=== PATIENT | female | born 1960 | race Caucasian/White ===

== ENCOUNTER → 2018-05-18 13:42 | Outpatient (CLI) | payer MEDICARE, MEDICAID, SELFPAY ==
--- NOTE | 2018-05-18 13:44 | CA_ITS ---
PROCEDURE: 2-D M-mode and color Doppler study INDICATIONS FOR THE TEST: Chest pain COPD Heart Murmur+ Tobacco Smoking Palpitations+ Fatigue+ Syncope Edema+ Hypertension Diabetes Mellitus Rheumatic Fever+ SOB+CASTELLANOS Obesity Hyperlipidemia Family History HD+ Additional History dizziness, hx of multiple TIA's Bubble study positive for shunting with provocation PATIENT INFORMATION HEIGHT: 64 WEIGHT: 170 GENDER: Female B/P: 2-D/M-MODE INTERPRETATION: 2-D MEASUREMENTS OBSERVED VALUES IN CMS Right Ventricular Dimension (RVDd) 2.8 Interventricular Septum (Thickness)(IVsd) 0.9 Left Ventricular Internal Dimensions(LVIDd) 4.7 Left Ventricular Posterior Wall (Thickness)(LVPWd) 0.9 Aortic Root 2.7 Aortic Cusp Separation 2.0 Left Atrial Dimensions (LAD) 4.2 2D 1. Left atrium is mildly enlarged, left ventricle is normal size, there is no concentric left ventricular hypertrophy, visually estimated ejection fraction 55% with no obvious regional wall motion abnormality. 2. The right atrium and right ventricle are mildly enlarged with normal contractility. 3. There is an echo drop out area in intra atrial septum period. 4. The aortic valve is minimally thickened and fibrosed. 5. The mitral and tricuspid valvular grossly normal. 6. No significant pericardial effusion noted 7. The pulmonic valve is poorly visualized. DOPPLER INTERROGATION: Doppler interrogation of the aortic, mitral and tricuspid valvular presence of mild mitral and tricuspid regurgitation, tricuspid regurgitation jet velocity is insufficient for calculation of the right ventricular systolic pressure, there is flow across the intra-atrial septum consistent with left to right, likely secundum ASD, agitated saline contrast study IDENTIFIES RIGHT TO LEFT SHUNT. CONCLUSION: 1. Biatrial enlargement, normal left ventricular size, visually estimated ejection fraction 55% with no obvious regional wall motion abnormality. 2. Mildly enlarged right atrium and right ventricle with normal contractility. 3. Likely secundum atrial septal defect with bidirectional shunt 4. No significant pericardial effusion noted 5.A DANDY is recommended for further evalaution.
== END ==
PROVIDERS: PCP Emergency Medicine; Visit Provider Emergency Medicine
DX: R07.9 Chest pain, unspecified (principal); R53.83 Other fatigue
CPT/HCPCS: 93306

== ENCOUNTER → 2018-05-27 10:39 | Outpatient (REF) | payer MEDICARE, MEDICAID, SELFPAY ==
[2018-05-27 14:22] LABS: Amphetamine/Metha Screen,Urine Negative ng/mL (<1000); Barbiturates Screen,Urine Negative ng/mL (<200); Benzodiazepines Screen,Urine Positive ng/mL (<200); Cannabinoid Screen,Urine Negative ng/mL (<50); Cocaine Screen,Urine Negative ng/mL (<300); Methadone Screen,Urine Negative ng/mL (<300); Opiate Screen,Urine Negative ng/mL (<300); Phencyclidine Screen,Urine Negative ng/mL (<25)
== END ==
LOC: LAB 10:39
PROVIDERS: Visit Provider Emergency Medicine
DX: Z79.899 Other long term (current) drug therapy (principal); R82.99 Other abnormal findings in urine
CPT/HCPCS: 80305; 87086; 87088; 87186

== ENCOUNTER → 2018-06-23 14:28 | Outpatient (REF) | payer MEDICARE, MEDICAID, SELFPAY ==
[2018-06-23 19:18] LABS: Amphetamine/Metha Screen,Urine Negative ng/mL (<1000); Barbiturates Screen,Urine Negative ng/mL (<200); Benzodiazepines Screen,Urine Positive ng/mL (<200); Cannabinoid Screen,Urine Negative ng/mL (<50); Cocaine Screen,Urine Negative ng/mL (<300); Methadone Screen,Urine Negative ng/mL (<300); Opiate Screen,Urine Positive ng/mL (<300); Phencyclidine Screen,Urine Negative ng/mL (<25)
== END ==
LOC: LAB 14:28
PROVIDERS: Visit Provider Emergency Medicine
DX: Z79.899 Other long term (current) drug therapy (principal)
CPT/HCPCS: 80305

== ENCOUNTER → 2018-08-26 15:10 | Outpatient (CLI) | payer MEDICARE, MEDICAID, SELFPAY ==
[2018-08-26 15:53] LABS: Amphetamine/Metha Screen,Urine Negative ng/mL (<1000); Barbiturates Screen,Urine Negative ng/mL (<200); Benzodiazepines Screen,Urine Negative ng/mL (<200); Cannabinoid Screen,Urine Negative ng/mL (<50); Cocaine Screen,Urine Negative ng/mL (<300); Methadone Screen,Urine Negative ng/mL (<300); Opiate Screen,Urine Positive ng/mL (<300); Phencyclidine Screen,Urine Negative ng/mL (<25)
== END ==
PROVIDERS: Visit Provider Emergency Medicine
DX: Z79.899 Other long term (current) drug therapy (principal)
CPT/HCPCS: 80305

== ENCOUNTER 2019-03-17 15:54 | Observation (INO) ==
[2019-03-17 16:58] LABS: Basophils % 0.7 % (0.1-2.0); Hematocrit 35.5 % (37.0-47.0); Hemoglobin 11.3 g/dL (12.2-16.2); Lymphocytes # 0.7 K/mm3 (0.7-4.5); Lymphocytes % 16.5 % (10-50); Mean Corpuscular HGB Conc 31.9 g/dL (31.8-35.4); Mean Corpuscular Volume 97.3 fl (81-99); Mean Platelet Volume 8.5 fl (7.4-10.4); Monocytes # 0.3 K/mm3 (0.1-1.0); Monocytes % 6.9 % (1.7-9.3); Neutrophils # 3.2 K/mm3 (1.8-7.8); Neutrophils % 74.9 % (37.0-80.0); Platelet Count 80 K/mm3 (142-424); Red Blood Count 3.65 M/mm3 (4.20-5.40); Red Cell Distribution Width 14.1 % (11.5-17.5); White Blood Count 4.3 K/mm3 (4.8-10.8)
[2019-03-17 17:11] LABS: Anion Gap 12.2 mEq/L (5-15); Blood Urea Nitrogen 15 mg/dL (7-18); Calcium 7.8 mg/dL (8.5-10.1); Carbon Dioxide 25 mmol/L (21.0-32.0); Chloride 108 mmol/L (98-107); Glucose 155 mg/dL (74-106); Sodium 142 mmol/L (136-145)
--- NOTE | 2019-03-17 19:39 | Emergency Department Note ---
ED Disposition Clinical Impression: Cough, Fever chills, PAC (premature atrial contraction), Palpitations Disposition: Home, Self-Care Condition on Discharge: Good Referrals: Joaquín Childress MD [Primary Care Provider] - Time of Disposition: 20:43 - Critical Care Critical Care Time: No Attestation: On 03/17/19, the high probability of a clinically significant, sudden or life threatening deterioration of the following system(s) required my full and direct attention, intervention and personal management. The time I documented below is in addition to time spent performing reported procedures but includes the following listed in this critical care notation. Medical Decision Making - Medical Records Medical records reviewed: Yes: I reviewed the patient's medical records. - Espinoza Inquiry Pt receiving controlled substance: No Espinoza was queried for this patient: No Vital Signs: 03/17/19 16:10 03/17/19 17:04 03/17/19 18:18 Temperature 98.1 F Temperature Source Oral Pulse Rate [Right Brachial] 86 83 82 Respiratory Rate 18 Blood Pressure [Right Arm] 107/70 L 118/63 Blood Pressure Mean [Right Arm] 82 81 Blood Pressure Source [Right Arm] Automatic Cuff Automatic Cuff Blood Pressure Position [Right Arm] Sitting Sitting 02 Sat by Pulse Oximetry 96 95 98 Oxygen Delivery Method Room Air Room Air Room Air 03/17/19 19:42 03/17/19 20:00 Temperature Temperature Source Pulse Rate [Right Brachial] 85 81 Respiratory Rate 18 Blood Pressure [Right Arm] 126/67 135/75 Blood Pressure Mean [Right Arm] 86 95 Blood Pressure Source [Right Arm] Automatic Cuff Automatic Cuff Blood Pressure Position [Right Arm] Sitting Supine 02 Sat by Pulse Oximetry 99 98 Oxygen Delivery Method Room Air - Lab Data Lab results reviewed: Yes: I reviewed the patient's lab results. Lab Results 03/17/19 16:03: WBC 4.3 L, RBC 3.65 L, Hgb 11.3 L, Hct 35.5 L, MCV 97.3, MCH 31.0, MCHC 31.9, RDW 14.1, Plt Count 80 L, MPV 8.5, Neut % (Auto) 74.9, Lymph % (Auto) 16.5, [place] % (Auto) 6.9, Eos % (Auto) 1.0, Baso % (Auto) 0.7, Neut # (Auto) 3.2, Lymph # (Auto) 0.7, [place] # (Auto) 0.3, Eos # (Auto) 0.0, Baso # ( Auto) 0.0 03/17/19 16:03: Sodium 142, Potassium 3.2 L, Chloride 108 H, Carbon Dioxide 25, Anion Gap 12.2, BUN 15, Creatinine 0.70, Estimated Creat Clear 107, Estimated GFR 85, Est GFR ( Amer) 103, Glucose 155 H, Calcium 7.8 L, Troponin I < 0.02 Result diagrams: 03/17/19 16:03 03/17/19 16:03 Orders (Tests/Meds): ED MEDICATIONS Discontinued Medications Generic Name Dose Route Start Last Admin Trade Name Freq PRN Reason Stop Dose Admin Levofloxacin 500 mg 03/17/19 20:39 Levaquin 500mg Tab PO 03/17/19 20:40 ONCE ONE Protocol Metoprolol Tartrate 25 mg 03/17/19 20:39 Lopressor 50mg Tablet PO 03/17/19 20:40 ONCE ONE ORDERS Category Date Time Status ECG Request by /Nse Stat Y 03/17/19 16:50 Ordered General Adult HPI - General Chief complaint: Fever Stated complaint: palpitations Time Seen by Provider: 03/17/19 19:35 Mode of Arrival: EMS Source of Information: Patient Limitations: No Limitations Description of Symptoms (Recalled from ER Triage Doc. by RN): cp burning in chest, shoulder; fever - History of Present Illness HPI narrative: palpitations, cough, "fever for few days". Palpitations, all symptoms essentially have been going on 3 days or more - Related Data Previous Rx's Medication Instructions Recorded aspirin 81 mg tablet,delayed 81 mg PO DAILY #90 tab 07/28/18 release fluoxetine 20 mg capsule 20 mg PO DAILY #90 cap 07/28/18 pantoprazole 40 mg tablet,delayed 40 mg PO DAILY #90 tab 07/28/18 release oxycodone 5 mg tablet 5 mg PO BID PRN #60 tab 08/26/18 Allergies Allergy/AdvReac Type Severity Reaction Status Date / Time Sulfa (Sulfonamide Allergy Intermediate Verified 08/26/18 11:11 Antibiotics) [SULFA (SULFONAMIDE ANTIBIOTICS)] [facility] History - Hepatitis A Screen Drug use history?: No High risk sexual behaviors?: No History of sexually transmitted infection?: No Currently employed?: No Childcare worker?: No Do you have indoor plumbing?: Yes Do you have electricity?: Yes Attestation statement:: This patient has been screened for Hepatitis A risk factors. I have reviewed the patient's past medical history: Yes Medical History: Reports:: Gastroesophageal Reflux Disease(GERD), Heart Murmur, Hepatitis, Transient Ischemic Attacks (TIA), Ulcer Other Medical History: Reports: Other Other Surgeries: Yes: Cholecystectomy, , Tubal Ligation Amputation: No Fractures: No - Social History Educational Level: Completed High School Smoking Status: Never smoker Alcohol Intake: never Substance Use Type: denies use Occupational Status: unemployed - Psychiatric History Expresses thoughts of harming self/others: None Suicide Plan Description: No Plan Family Hx:: Diabetes, Heart Attack, Cancer, Hypertension, Stroke, Thyroid Disorder ROS Obtained: Yes All systems reviewed & no additional complaints - Constitutional Constitutional: Reports chills, Reports fever(s) - Eyes Eyes: Denies change in vision - ENT Ears, Nose, Mouth, and Throat: Denies sinus pressure, Denies sore throat, Denies throat swelling, Denies ringing in the ears - Cardiovascular Cardiovascular: Denies chest pain, Denies chest pain at rest, Denies chest pain with activity, Denies leg pain with activity, Denies diaphoresis, Denies dyspnea, Reports irregular heart rhythm, Denies rapid heart rate - Respiratory Respiratory: No chest congestion, No cough, No dyspnea on exertion, No pain on inspiration - Gastrointestinal Gastrointestingal: Denies: abdominal pain - Musculoskeletal Musculoskeletal: Denies joint pain, Denies joint stiffness, Denies joint swelling - Integumentary/Breasts Skin/Breast: Denies skin pain, Denies sores - Neurologic Neurologic: Denies abnormal speech, Denies behavioral changes, Denies burning sensations, Denies confusion - Hematologic/Lymphatic Henatologic/Lymphatic: Denies easy bleeding, Denies easy bruising Physical Exam - General General appearance: alert, in no apparent distress - Head Head exam: atraumatic, normocephalic, normal inspection - Eye Eye exam: Present: normal appearance, PERRL, EOMI - Neck Neck exam: Present: normal inspection - Chest Chest inspection: Present: normal inspection, symmetric chest wall rise. Absent: tenderness - Respiratory Respiratory exam: Present: normal lung sounds bilaterally. Absent: respiratory distress - Cardiovascular Cardiovascular exam: Present: regular rate, normal rhythm, other (occasiona pac's which appear to disturb her.). Absent: JVD - Abdominal Exam Abdominal exam: Present: soft, normal bowel sounds. Absent: distention, tenderness, guarding - Extremities Exam Extremities exam: Present: normal inspection, full ROM, normal capillary refill. Absent: calf tenderness - Neurological Exam Neurological exam: Present: alert, oriented X3 - Psychiatric Psychiatric exam: Present: normal affect, normal mood - Skin Skin exam: Present: warm, dry, intact, normal color - Lymphatic Lymphatic Findings: no adenopathy
[2019-03-18 06:50] LABS: Basophils % 0.7 % (0.1-2.0); Eosinophils % 0.6 % (0.1-12.0); Hematocrit 34.3 % (37.0-47.0); Hemoglobin 11.1 g/dL (12.2-16.2); Lymphocytes # 1.3 K/mm3 (0.7-4.5); Lymphocytes % 26.8 % (10-50); Mean Corpuscular HGB Conc 32.5 g/dL (31.8-35.4); Mean Corpuscular Volume 97.5 fl (81-99); Monocytes # 0.4 K/mm3 (0.1-1.0); Monocytes % 9.4 % (1.7-9.3); Neutrophils # 2.9 K/mm3 (1.8-7.8); Neutrophils % 62.6 % (37.0-80.0); Platelet Count 77 K/mm3 (142-424); Red Blood Count 3.51 M/mm3 (4.20-5.40); Red Cell Distribution Width 14.2 % (11.5-17.5); White Blood Count 4.7 K/mm3 (4.8-10.8)
[2019-03-18 07:02] LABS: Anion Gap 12.3 mEq/L (5-15); Calcium 7.4 mg/dL (8.5-10.1); Chol/HDL Ratio 2.6 (1-3.5)
--- NOTE | 2019-03-18 07:22 | Pharmacy Consult Notes ---
[facility] Pharmacy VTE Monitoring - Patient Demographics Admission date: 03/17/19 Report Date: 03/18/19 Time: 07:22 Allergies/Adverse Reactions: Patient Allergies Sulfa (Sulfonamide Antibiotics) [SULFA (SULFONAMIDE ANTIBIOTICS)] Allergy (Intermediate, Verified 08/26/18 11:11) Height: 1.68 m Weight: 85.842 kg Patient Problems: Current Active Problems (Updated 03/17/19 @ 20:43 by Joaquín Hightower MD) Cough (Acute) Fever chills (Acute) PAC (premature atrial contraction) (Acute) Palpitations (Acute) - VTE Risk Labs: VTE Related Lab Results Hgb 11.3 g/dL (12.2-16.2) L 03/17/19 16:03 Hct 35.5 % (37.0-47.0) L 03/17/19 16:03 Plt Count 80 K/mm3 (142-424) L 03/17/19 16:03 BUN 10 mg/dL (7-18) D 03/18/19 06:20 Creatinine 0.65 mg/dL (0.55-1.02) 03/18/19 06:20 Estimated Creat Clear 125 mL/min (50-200) 03/18/19 06:20 Was VTE Risk Assessment Performed: Yes VTE Score: 6 VTE Risk Level: Moderate Risk Clinical Trial Participant: No - Prophylaxis VTE Prophylaxis Ordered?: Yes Types of VTE Prophylaxis: TEDS Knee High
--- NOTE | 2019-03-18 08:47 | Consult Report ---
History of Present Illness Consult date: 03/18/19 Requesting physician: Joaquín Childress Consult reason: shortness of breath Chief complaint: SOA Additional Medical History:: 1. Secundum ASD A. Echo, 04/2018, 1. Biatrial enlargement, normal left ventricular size, visually estimated ejection fraction 55% with no obvious regional wall motion abnormality. 2. Mildly enlarged right atrium and right ventricle with normal contractility. 3. Likely secundum atrial septal defect with bidirectional shunt 4. No significant pericardial effusion noted 5.A DANDY is recommended for further evalaution. B. DANDY, 05/2018, 1. Biatrial enlargement, normal left ventricular size, visually estimated ejection fraction 55% in the obtained views with no regional wall motion abnormality. 2. Hemodynamically significant second atrial septal defect present, with bidirectional second, mildly enlarged right ventricle with normal contractility. 3. The aortic sclerosis without aortic stenosis aortic insufficiency. 4. Mild mitral and tricuspid regurgitation 5. No significant pericardial effusion noted 2. GERD 3. History of multiple "mini strokes" likely related to ASD 4. Pancytopenia History of present illness: 58-year-old white female with history of ASD (for which she was referred for repair last year but never followed through) was admitted for increasing shortness of breath with associated chest discomfort, arm pain and bilateral lower extremity edema. Patient states symptoms occur with activity and improve with rest. She has noted increasing frequency and severity of symptoms over the last couple of months with associated lower extremity edema. Patient was admitted through the ER for evaluation. Overnight, troponins have returned normal. EKG shows sinus rhythm with left anterior fascicular block. Cardiology consulted for evaluation and recommendations. [facility] History Medical History: Reports:: Congestive Heart Failure, Gastroesophageal Reflux Disease(GERD), Heart Murmur, Hepatitis, MRSA (spider bite), Transient Ischemic Attacks (TIA), Ulcer Denies:: Cancer, Diabetes Mellitus Type 1, Diabetes Mellitus Type 2 *Have you ever received a pneumonia vaccine?: Yes *Have you received a flu vaccine this season?: No Other Medical History: Reports: Arthritis, Liver Disease (cirrhosis), Other Laterality Cases: Left: Total Knee Replacement Other Surgeries: Yes: Cholecystectomy, , Tubal Ligation Amputation: No Fractures: Yes (right leg and ankle) - *Social History Educational Level: Completed GED/General Educational Development Smoking Status: Never smoker Alcohol Intake: never Substance Use Type: denies use *Occupational Status:: disabled Housing: apartment Household Members: significant other *Travel in the last 8 weeks: None - Psychiatric History Expresses thoughts of harming self/others: None Suicide Plan Description: No Plan Family Hx:: Diabetes, Heart Attack, Cancer, Hypertension, Stroke, Thyroid Disorder Meds Home Medications Medication Instructions Recorded Confirmed Type pantoprazole 40 mg tablet,delayed 40 mg PO DAILY #90 tab 07/28/18 03/17/19 Rx release Ondansetron HCl [Zofran 4mg Tab] 4 mg PO Q6HP PRN 03/17/19 03/18/19 History Aspirin [Aspirin 81mg EC Tab] 81 mg PO DAILY 03/18/19 03/18/19 History Fluoxetine HCl [Prozac 20mg 20 mg PO DAILY 03/18/19 03/18/19 History Capsule] Oxycodone HCl [OxyIR 5mg tablet] 5 mg PO BID 03/18/19 03/18/19 History Allergies Allergy/AdvReac Type Severity Reaction Status Date / Time Sulfa (Sulfonamide Allergy Intermediate Verified 08/26/18 11:11 Antibiotics) [SULFA (SULFONAMIDE ANTIBIOTICS)] Review of Systems - *Cardiovascular Reports chest pain, Reports shortness of breath with activity, Reports leg swelling - *Respiratory Reports shortness of breath, Reports shortness of breath with activity - *Gastrointestinal Denies abdominal pain, Denies loose stools, Denies vomiting - *Genitourinary Denies blood in urine - *Musculoskeletal Denies joint pain, Denies back pain - *Neurologic Denies abnormal speech, Denies behavioral changes, Denies burning sensations, Denies confusion Exam Vital signs and Labs for Last 24 Hours: Temp Pulse Resp BP Pulse Ox 98.2 F 72 15 130/70 97 03/18/19 07:41 03/18/19 07:41 03/18/19 07:41 03/18/19 07:41 03/18/19 07:41 Laboratory Results - last 24 hr 03/17/19 16:03: WBC 4.3 L, RBC 3.65 L, Hgb 11.3 L, Hct 35.5 L, MCV 97.3, MCH 31.0, MCHC 31.9, RDW 14.1, Plt Count 80 L, MPV 8.5, Neut % (Auto) 74.9, Lymph % (Auto) 16.5, [place] % (Auto) 6.9, Eos % (Auto) 1.0, Baso % (Auto) 0.7, Neut # (Auto) 3.2, Lymph # (Auto) 0.7, [place] # (Auto) 0.3, Eos # (Auto) 0.0, Baso # (Auto) 0.0 03/17/19 16:03: Sodium 142, Potassium 3.2 L, Chloride 108 H, Carbon Dioxide 25, Anion Gap 12.2, BUN 15, Creatinine 0.70, Estimated Creat Clear 107, Estimated GFR 85, Est GFR ( Amer) 103, Glucose 155 H, Calcium 7.8 L, Troponin I < 0.02 03/18/19 00:27: Troponin I < 0.02 03/18/19 03:25: Troponin I < 0.02 03/18/19 06:20: WBC 4.7 L, RBC 3.51 L, Hgb 11.1 L, Hct 34.3 L, MCV 97.5, MCH 31.7 H, MCHC 32.5, RDW 14.2, Plt Count 77 L, MPV 8.0, Neut % (Auto) 62.6, Lymph % (Auto) 26.8, [place] % (Auto) 9.4 H, Eos % (Auto) 0.6, Baso % (Auto) 0.7, Neut # (Auto) 2.9, Lymph # (Auto) 1.3, [place] # (Auto) 0.4, Eos # (Auto) 0.0, Baso # (Auto) 0.0 03/18/19 06:20: Sodium 142, Potassium 3.3 L, Chloride 108 H, Carbon Dioxide 25, Anion Gap 12.3, BUN 10 D, Creatinine 0.65, Estimated Creat Clear 125, Estimated GFR 93, Est GFR ( Amer) 113, Glucose 82 D, Calcium 7.4 L, Magnesium 1.4, Triglycerides 46, Cholesterol 108 L, LDL Cholesterol 58, VLDL Cholesterol 9, HDL Cholesterol 41, Cholesterol/HDL Ratio 2.6 I & O for Last 24 hours: Intake & Output 03/15/19 03/16/19 03/17/19 03/18/19 11:59 11:59 11:59 11:59 Intake Total 738 / 738 Output Total 300 / 300 Balance 438 / 438 Weight 189 lb 4 oz - *Routine HEENT Exam Head: Present: normocephalic Eye: Present: EOMI, PERRL ENT: Present: mucous membranes moist - *Routine Neck Exam Present: supple. Absent: JVD, carotid bruit - *Routine Respiratory Exam Present: CTA bilaterally. Absent: accessory muscle use, rales, rhonchi, wheezes - *Routine Cardiovascular Exam Present: RRR, murmur. Absent: gallop, rubs - *Routine Abdominal Exam Present: soft. Absent: tenderness, distended, guarding - *Routine Extremities Exam Present: edema. Absent: calf tenderness - *Routine Neurological Exam Present: alert, oriented X3, moving all extremities Assessment and Plan (1) Chest pain Current visit: No Status: Acute Qualifiers: Chest pain type: other chest pain Qualified Code(s): R07.89 - Other chest pain; R07.8 - Other chest pain Category: Medical Code(s): R07.9 - Chest pain, unspecified (2) Dyspnea Current visit: No Status: Acute Qualifiers: Dyspnea type: other forms of dyspnea Qualified Code(s): R06.09 - Other forms of dyspnea Category: Medical Code(s): R06.00 - Dyspnea, unspecified (3) Edema Current visit: No Status: Acute Qualifiers: Edema type: localized Qualified Code(s): R60.0 - Localized edema Category: Medical Code(s): R60.9 - Edema, unspecified (4) Atrial septal defect Current visit: No Status: Chronic Category: Medical Code(s): Q21.1 - Atrial septal defect (5) GERD (gastroesophageal reflux disease) Current visit: No Status: Chronic Category: Medical Code(s): K21.9 - Gastro-esophageal reflux disease without esophagitis (6) History of TIA (transient ischemic attack) Current visit: No Status: Chronic Category: Medical Code(s): Z86.73 - Per arden history of transient ischemic attack (TIA), and cerebral infarction without residual deficits (7) Hypokalemia Current visit: Yes Status: Acute Category: Medical Code(s): E87.6 - Hypokalemia (8) Pancytopenia Current visit: Yes Status: Acute Category: Medical Code(s): D61.818 - Other pancytopenia (9) Hypocalcemia Current visit: Yes Status: Acute Category: Medical Code(s): E83.51 - Hypocalcemia (10) Abnormal EKG Current visit: Yes Status: Acute Category: Medical Code(s): R94.31 - Abnormal electrocardiogram [ECG] [EKG] - Assessment and plan all Dx Assessment and Plan for all problems:: 1. Chest pain and shortness of breath with history of atrial septal defect, concern for coronary artery disease on top of suspected right heart failure related to progression of ASD. Recommend proceeding with right and left heart catheterization in preparation for referral for surgical correction of her ASD. 2. Echocardiogram has been ordered and performed with results pending at this time. 3. Replace potassium 4. Further recommendations to follow pending above results
[2019-03-18 09:39] LABS: Microscopic, Urine URINE MICROSCOPIC (MICROSCOPIC)
[2019-03-18 09:45] LABS: Appearance,Urine CLOUDY (Clear); Blood, Urine 3+ (Negative); Color,Urine YELLOW (Yellow); Glucose,Urine (UA) Negative (Negative); Ketones,Urine Negative (Negative); Leukocyte Esterase,Urine 3+ (Negative); Protein,Urine 1+ (Negative); Urobilinogen,Urine >=8.0 EU/dl (0.2)
[2019-03-18 10:10] LABS: Bilirubin,Urine Negative (Negative)
[2019-03-18 10:11] LABS: WBC,Urine 20-50 #/hpf (0-3)
[2019-03-18 10:12] LABS: Bacteria,Urine 2+ /lpf; Squamous Epithelial Cell,Urine Occasional #/hpf (0-5)
[2019-03-18 10:13] LABS: Mucus,Urine Trace /lpf
--- NOTE | 2019-03-18 16:02 | Cardiology Report ---
PROCEDURE: 2-D M-mode and color Doppler study INDICATIONS FOR THE TEST: Chest pain + COPD Heart Murmur+ Tobacco Smoking Palpitations+ Fatigue Syncope Edema+ Hypertension Diabetes Mellitus Rheumatic Fever+ SOB+CASTELLANOS Obesity Hyperlipidemia+ Family History HD Additional History TIA, +B/S 05/18/18 APPT SET UP WITH JAMESON RAYA DID NOT KEEP APPT PATIENT INFORMATION HEIGHT: 62 WEIGHT:175 GENDER: Female B/P:118/63 2-D/M-MODE INTERPRETATION: 2-D MEASUREMENTS OBSERVED VALUES IN CMS Right Ventricular Dimension (RVDd) 2.7 Interventricular Septum (Thickness)(IVsd) 1.0 Left Ventricular Internal Dimensions(LVIDd) 4.9 Left Ventricular Posterior Wall (Thickness)(LVPWd) 0.7 Aortic Root 2.8 Aortic Cusp Separation 1.9 Left Atrial Dimensions (LAD) 4.5 2D 1. Left atrium is mildly enlarged, left ventricle is normal size, left ventricle wall thickness is upper limit of normal, visually estimated ejection fraction 55% with no regional wall motion abnormality. 2. The right atrium and right ventricle are moderately enlarged, contractility of the right ventricle is normal. 3. The aortic valve is thickened and calcified leaflet continue to display mobility. 4. The mitral and tricuspid valve is minimally thickened. 5. The pulmonic valve is poorly visualized. 6. There is no significant pericardial effusion noted. DOPPLER INTERROGATION: 1. The aortic outflow velocities within normal range, there is no aortic stenosis aortic insufficiency. 2. The mitral inflow velocity within normal range, there is no mitral stenosis, there is mild mitral regurgitation. 3. The pulmonic outflow velocities increased, there is no pulmonic stenosis. 4. There is mild tricuspid regurgitation noted, tricuspid regurgitation jet velocity is inadequate for calculation of the right ventricular systolic pressure 5. There is flow across the intra-atrial septum is suggestive of atrial septal defect. CONCLUSION: 1. Normal left ventricular size, preserved left ventricular systolic function, visually estimated ejection fraction 55% with no regional wall motion abnormality. Grade 1 diastolic dysfunction seen with tissue Doppler evidence of raised left atrial pressure. 2. Moderately enlarged right atrium and right ventricle, with increased velocities across the pulmonic valve, there is likely secondary to significant secundum atrial septal defect with left to right shunt. 3. Mild mitral and tricuspid regurgitation 4. No significant pericardial effusion noted.
--- NOTE | 2019-03-18 16:50 | History & Physical Report ---
*Admission Date: 03/17/19 *Chief complaint: Chest Pain: Burning in chest, shoulder; fever *History of present illness: Patient resting quietly in bed, awakens easily. denies CP or SOA at present. Denies other concerns/needs. 58-year-old white female with history of ASD (for which she was referred for repair last year but never followed through) was admitted for increasing shortness of breath with associated chest discomfort, arm pain and bilateral lower extremity edema. Patient states symptoms occur with activity and improve with rest. She has noted increasing frequency and severity of symptoms over the last couple of months with associated lower extremity edema. Patient was admitted through the ER for evaluation. Overnight, troponins have returned normal. EKG shows sinus rhythm with left anterior fascicular block. Cardiology consulted for evaluation and recommendations. (Per Nida Telles) [facility] History I have reviewed the patient's past medical history: Yes Medical History: Reports:: Congestive Heart Failure, Gastroesophageal Reflux Disease(GERD), Heart Murmur, Hepatitis, MRSA (spider bite), Transient Ischemic Attacks (TIA), Ulcer Denies:: Cancer, Diabetes Mellitus Type 1, Diabetes Mellitus Type 2 *Have you ever received a pneumonia vaccine?: Yes *Have you received a flu vaccine this season?: No Other Medical History: Reports: Arthritis, Liver Disease (cirrhosis), Other Laterality Cases: Left: Total Knee Replacement Other Surgeries: Yes: Cholecystectomy, , Tubal Ligation Amputation: No Fractures: Yes (right leg and ankle) - *Social History Educational Level: Completed GED/General Educational Development Smoking Status: Never smoker Alcohol Intake: never Substance Use Type: denies use *Occupational Status:: disabled Housing: apartment Household Members: significant other *Travel in the last 8 weeks: None - Psychiatric History Expresses thoughts of harming self/others: None Suicide Plan Description: No Plan Family Hx:: Diabetes, Heart Attack, Cancer, Hypertension, Stroke, Thyroid Disorder Review of Systems - Review of Systems Review of systems:: pertinent systems reviewed and negative unless documented below - Constitutional Reports fever(s), Denies anorexia, Denies chills - Eyes Denies blurry vision, Denies change in vision - ENT Denies abnormal hearing, Denies pain with swallowing - *Cardiovascular Reports chest pain, Reports chest pain with activity, Reports shortness of breath with activity - *Respiratory Reports shortness of breath with activity - *Gastrointestinal Denies abdominal pain - *Musculoskeletal Denies abnormal walking, Denies joint pain - *Neurologic Denies abnormal speech, Denies behavioral changes, Denies burning sensations, Denies confusion - Psychiatric Denies abnormal sleep pattern, Denies lack of enjoyment - Endocrine Denies cold intolerance, Denies heat intolerance - Hematologic/Lymphatic Denies easy bleeding, Denies enlarged lymph nodes - Allergic/Immunologic Denies lip swelling, Denies throat swelling Meds Home Medications Medication Instructions Recorded Confirmed Type pantoprazole 40 mg tablet,delayed 40 mg PO DAILY #90 tab 07/28/18 03/17/19 Rx release Ondansetron HCl [Zofran 4mg Tab] 4 mg PO Q6HP PRN 03/17/19 03/18/19 History Aspirin [Aspirin 81mg EC Tab] 81 mg PO DAILY 03/18/19 03/18/19 History Fluoxetine HCl [Prozac 20mg 20 mg PO DAILY 03/18/19 03/18/19 History Capsule] Oxycodone HCl [OxyIR 5mg tablet] 5 mg PO BID 03/18/19 03/18/19 History Allergies Allergy/AdvReac Type Severity Reaction Status Date / Time Sulfa (Sulfonamide Allergy Intermediate Verified 08/26/18 11:11 Antibiotics) [SULFA (SULFONAMIDE ANTIBIOTICS)] Exam Vital signs and Labs for Last 24 Hours: Temp Pulse Resp BP Pulse Ox 98.8 F 81 16 132/71 97 03/18/19 11:40 03/18/19 11:40 03/18/19 11:40 03/18/19 11:40 03/18/19 11:40 Laboratory Results - last 24 hr 03/17/19 16:03: WBC 4.3 L, RBC 3.65 L, Hgb 11.3 L, Hct 35.5 L, MCV 97.3, MCH 31.0, MCHC 31.9, RDW 14.1, Plt Count 80 L, MPV 8.5, Neut % (Auto) 74.9, Lymph % (Auto) 16.5, [place] % (Auto) 6.9, Eos % (Auto) 1.0, Baso % (Auto) 0.7, Neut # (Auto) 3.2, Lymph # (Auto) 0.7, [place] # (Auto) 0.3, Eos # (Auto) 0.0, Baso # (Auto) 0.0 03/17/19 16:03: Sodium 142, Potassium 3.2 L, Chloride 108 H, Carbon Dioxide 25, Anion Gap 12.2, BUN 15, Creatinine 0.70, Estimated Creat Clear 107, Estimated GFR 85, Est GFR ( Amer) 103, Glucose 155 H, Calcium 7.8 L, Troponin I < 0.02 03/18/19 00:27: Troponin I < 0.02 03/18/19 03:25: Troponin I < 0.02 03/18/19 06:20: WBC 4.7 L, RBC 3.51 L, Hgb 11.1 L, Hct 34.3 L, MCV 97.5, MCH 31.7 H, MCHC 32.5, RDW 14.2, Plt Count 77 L, MPV 8.0, Neut % (Auto) 62.6, Lymph % (Auto) 26.8, [place] % (Auto) 9.4 H, Eos % (Auto) 0.6, Baso % (Auto) 0.7, Neut # (Auto) 2.9, Lymph # (Auto) 1.3, [place] # (Auto) 0.4, Eos # (Auto) 0.0, Baso # (Auto) 0.0 03/18/19 06:20: Sodium 142, Potassium 3.3 L, Chloride 108 H, Carbon Dioxide 25, Anion Gap 12.3, BUN 10 D, Creatinine 0.65, Estimated Creat Clear 125, Estimated GFR 93, Est GFR ( Amer) 113, Glucose 82 D, Calcium 7.4 L, Magnesium 1.4, Triglycerides 46, Cholesterol 108 L, LDL Cholesterol 58, VLDL Cholesterol 9, HDL Cholesterol 41, Cholesterol/HDL Ratio 2.6 03/18/19 09:33: Urine Color Yellow, Urine Appearance Cloudy, Urine pH 7.0, Ur Specific [place] 1.010, Urine Protein 1+, Urine Glucose (UA) Negative, Urine Ketones Negative, Urine Blood 3+, Urine Nitrate Positive, Urine Bilirubin Negative, Urine Urobilinogen >=8.0, Ur Leukocyte Esterase 3+ A, Urine RBC 5-10, Urine WBC 20-50, Ur Squamous Epith Cells Occasional, Urine Bacteria 2+, Urine Mucus Trace 03/18/19 13:37: ABG O2 Sat (Measured) 88.0 L, POC VBG O2 Sat (Keila) 90.7 H I & O for Last 24 hours: Intake & Output 03/15/19 03/16/19 03/17/19 03/18/19 23:59 23:59 23:59 23:59 Intake Total 1218 / 1218 Output Total 850 / 850 Balance 368 / 368 Weight 189 lb 189 lb 4 oz - Constitutional no acute distress - *Routine HEENT Exam Head: Present: normocephalic, atraumatic. Absent: tenderness of temporal artery Eye: Present: EOMI, PERRL. Absent: conjunctival icterus, nystagmus ENT: Present: mucous membranes dry. Absent: sinus tenderness - *Routine Neck Exam Present: trachea midline. Absent: JVD, tracheal deviation - *Routine Respiratory Exam Present: CTA bilaterally. Absent: accessory muscle use, rales - *Routine Cardiovascular Exam Present: RRR, murmur - *Routine Abdominal Exam Present: soft, normoactive bowel sounds. Absent: tenderness, firm - *Routine Extremities Exam Present: edema, pulses intact. Absent: cyanosis, pallor - Routine Back/Spine/Pelvis Exam Back/Spine: Present: full ROM. Absent: CVA tenderness, vertebral tenderness - *Routine Skin Exam Present: intact. Absent: cyanosis, erythema - *Routine Neurological Exam Present: alert, oriented X3, CN II-XII intact - Routine Psychiatric Exam Present: normal affect, normal thought process. Absent: suicidal ideation, auditory hallucinations Assessment and Plan (1) Chest pain Current visit: No Status: Acute Qualifiers: Chest pain type: other chest pain Qualified Code(s): R07.89 - Other chest pain; R07.8 - Other chest pain Category: Medical Code(s): R07.9 - Chest pain, unspecified (2) Dyspnea Current visit: No Status: Acute Qualifiers: Dyspnea type: other forms of dyspnea Qualified Code(s): R06.09 - Other forms of dyspnea Category: Medical Code(s): R06.00 - Dyspnea, unspecified (3) Edema Current visit: No Status: Acute Qualifiers: Edema type: localized Qualified Code(s): R60.0 - Localized edema Category: Medical Code(s): R60.9 - Edema, unspecified (4) Atrial septal defect Current visit: No Status: Chronic Category: Medical Code(s): Q21.1 - Atrial septal defect (5) GERD (gastroesophageal reflux disease) Current visit: No Status: Chronic Category: Medical Code(s): K21.9 - Gastro-esophageal reflux disease without esophagitis (6) History of TIA (transient ischemic attack) Current visit: No Status: Chronic Category: Medical Code(s): Z86.73 - Personal history of transient ischemic attack (TIA), and cerebral infarction without residual deficits (7) Hypokalemia Current visit: Yes Status: Acute Category: Medical Code(s): E87.6 - Hypokalemia (8) Pancytopenia Current visit: Yes Status: Acute Category: Medical Code(s): D61.818 - Other pancytopenia (9) Hypocalcemia Current visit: Yes Status: Acute Category: Medical Code(s): E83.51 - Hypocalcemia (10) Abnormal EKG Current visit: Yes Status: Acute Category: Medical Code(s): R94.31 - Abnormal electrocardiogram [ECG] [EKG] - Assessment and plan all Dx Assessment and Plan for all problems:: Rounded with Dr. Childress and all orders per Dr. Childress Cards has seen and recommends: 1. Chest pain and shortness of breath with history of atrial septal defect, concern for coronary artery disease on top of suspected right heart failure related to progression of ASD. Recommend proceeding with right and left heart catheterization in preparation for referral for surgical correction of her ASD. 2. Echocardiogram has been ordered and performed with results pending at this time. 3. Replace potassium 4. Further recommendations to follow pending above results (Per Nida Telles) 03/18/2019 ECHO: CONCLUSION: 1. Normal left ventricular size, preserved left ventricular systolic function, visually estimated ejection fraction 55% with no regional wall motion abnormality. Grade 1 diastolic dysfunction seen with tissue Doppler evidence of raised left atrial pressure. 2. Moderately enlarged right atrium and right ventricle, with increased velocities across the pulmonic valve, there is likely secondary to significant secundum atrial septal defect with left to right shunt. 3. Mild mitral and tricuspid regurgitation 4. No significant pericardial effusion noted. Dictated By: Anupam Merino MD
--- NOTE | 2019-03-19 07:35 | Progress Note ---
Subjective Date: 03/19/19 Time: 07:31 Principal diagnosis: CP, SOA Interval history: 58 yo WF in bed in NAD. No chest pain or SOA. Understands she needs to have the ASD repaired. Exam Vital signs and Labs for Last 24 Hours: Temp Pulse Resp BP Pulse Ox 98.9 F 75 18 112/59 L 97 03/19/19 04:00 03/19/19 04:00 03/19/19 04:00 03/19/19 04:00 03/19/19 04:00 Laboratory Results - last 24 hr 03/18/19 06:20: WBC 4.7 L, RBC 3.51 L, Hgb 11.1 L, Hct 34.3 L, MCV 97.5, MCH 31.7 H, MCHC 32.5, RDW 14.2, Plt Count 77 L, MPV 8.0, Neut % (Auto) 62.6, Lymph % (Auto) 26.8, [place] % (Auto) 9.4 H, Eos % (Auto) 0.6, Baso % (Auto) 0.7, Neut # (Auto) 2.9, Lymph # (Auto) 1.3, [place] # (Auto) 0.4, Eos # (Auto) 0.0, Baso # (Auto) 0.0 03/18/19 09:33: Urine Color Yellow, Urine Appearance Cloudy, Urine pH 7.0, Ur Specific [place] 1.010, Urine Protein 1+, Urine Glucose (UA) Negative, Urine Ketones Negative, Urine Blood 3+, Urine Nitrate Positive, Urine Bilirubin Negative, Urine Urobilinogen >=8.0, Ur Leukocyte Esterase 3+ A, Urine RBC 5-10, Urine WBC 20-50, Ur Squamous Epith Cells Occasional, Urine Bacteria 2+, Urine Mucus Trace 03/18/19 13:37: ABG O2 Sat (Measured) 88.0 L, POC VBG O2 Sat (Keila) 90.7 H I & O for Last 24 hours: Intake & Output 03/16/19 03/17/19 03/18/19 03/19/19 11:59 11:59 11:59 11:59 Intake Total 738 / 738 1420 / 1420 Output Total 500 / 500 1150 / 1150 Balance 238 / 238 270 / 270 Weight 189 lb 4 oz 190 lb 3.987 oz - *Routine HEENT Exam Head: Present: normocephalic Eye: Present: EOMI, PERRL ENT: Present: mucous membranes moist - *Routine Cardiovascular Exam Present: RRR, murmur. Absent: gallop, rubs - *Routine Abdominal Exam Present: soft. Absent: tenderness, distended, guarding - *Routine Neurological Exam Present: alert, oriented X3, moving all extremities Progress Note: A&P (1) Chest pain Status: Acute Current Visit: No (2) Dyspnea Status: Acute Current Visit: No (3) Edema Status: Acute Current Visit: No (4) Atrial septal defect Status: Chronic Current Visit: No (5) GERD (gastroesophageal reflux disease) Status: Chronic Current Visit: No (6) History of TIA (transient ischemic attack) Status: Chronic Current Visit: No (7) Hypokalemia Status: Acute Current Visit: Yes (8) Pancytopenia Status: Acute Current Visit: Yes (9) Hypocalcemia Status: Acute Current Visit: Yes (10) Abnormal EKG Status: Acute Current Visit: Yes Assessment and Plan for All Diagnoses:: OK for discharge home from Cardiology standpoint. Continue ASA 81 mg daily. Follow up in our office in one to two weeks and we will refer her to Dr. Carbone at for ASD repair as outpatient.
[2019-03-19 09:52] LABS: Basophils % 0.5 % (0.1-2.0); Eosinophils # 0.1 K/mm3 (0.0-0.4); Eosinophils % 1.5 % (0.1-12.0); Hematocrit 36.1 % (37.0-47.0); Hemoglobin 11.3 g/dL (12.2-16.2); Lymphocytes # 0.8 K/mm3 (0.7-4.5); Lymphocytes % 15.5 % (10-50); Mean Corpuscular HGB Conc 31.2 g/dL (31.8-35.4); Mean Corpuscular Volume 98.5 fl (81-99); Mean Platelet Volume 7.9 fl (7.4-10.4); Monocytes # 0.5 K/mm3 (0.1-1.0); Monocytes % 9.5 % (1.7-9.3); Neutrophils # 3.8 K/mm3 (1.8-7.8); Platelet Count 84 K/mm3 (142-424); Red Blood Count 3.66 M/mm3 (4.20-5.40); Red Cell Distribution Width 14.4 % (11.5-17.5); White Blood Count 5.1 K/mm3 (4.8-10.8)
[2019-03-19 10:12] LABS: Anion Gap 11.2 mEq/L (5-15); Calcium 7.5 mg/dL (8.5-10.1); Thyroid Stimulating Hormone 1.36 uIU/ml (0.358-3.740)
--- NOTE | 2019-03-19 12:13 | Discharge Summary ---
General - General Admission date:: 03/17/19 Discharge date: 03/19/19 HPI HPI: Patient resting quietly in bed, awakens easily. denies CP or SOA at present. Denies other concerns/needs. 58-year-old white female with history of ASD (for which she was referred for repair last year but never followed through) was admitted for increasing shortness of breath with associated chest discomfort, arm pain and bilateral lower extremity edema. Patient states symptoms occur with activity and improve with rest. She has noted increasing frequency and severity of symptoms over the last couple of months with associated lower extremity edema. Patient was admi tted through the ER for evaluation. Overnight, troponins have returned normal. EKG shows sinus rhythm with left anterior fascicular block. Cardiology consulted for evaluation and recommendations. (Per Nida Telles) Hospital Course Hospital Course: echo:CONCLUSION: 1. Normal left ventricular size, preserved left ventricular systolic function, visually estimated ejection fraction 55% with no regional wall motion abnormality. Grade 1 diastolic dysfunction seen with tissue Doppler evidence of raised left atrial pressure. 2. Moderately enlarged right atrium and right ventricle, with increased velocities across the pulmonic valve, there is likely secondary to significant secundum atrial septal defect with left to right shunt. 3. Mild mitral and tricuspid regurgitation 4. No significant pericardial effusion noted. cath report:IMPRESSION: 1. Normal coronary arteries 2. Normal ejection fraction 3. Mildly elevated LVEDP consistent with mild diastolic dysfunction 4. Very minimally elevated pulmonary artery pressures PLAN: 1. Evaluation per primary cigar bander hand Dr. LEDEZMA 2. Continue medical management 03/19/19 admitted with chest pain that radiates up left arm and neck, cardiac work up neg- see reports, pt will be discharged home with follow up with dr bunch who will refer to dr johansen at for pfo. Today pt states she feels tired, having low back pain. Urine positive, waiting cx results will dc home on omnecif Objective Vital signs: Temp Pulse Resp BP Pulse Ox 97.7 F 69 18 140/78 98 03/19/19 11:09 03/19/19 11:09 03/19/19 11:09 03/19/19 11:09 03/19/19 11:09 no acute distress - *Routine HEENT Exam Head: Present: normocephalic Eye: Present: PERRL ENT: Present: mucous membranes moist - *Routine Respiratory Exam Present: CTA bilaterally - *Routine Cardiovascular Exam Present: RRR, murmur - *Routine Abdominal Exam Present: soft, normoactive bowel sounds - *Routine Extremities Exam Present: full ROM - *Routine Skin Exam Comments: dressing c/d/i - *Routine Neurological Exam Present: alert, oriented X3 Results Labs on day of discharge: Labs from last 24 hours 03/19/19 03/19/19 03/18/19 09:40 09:40 13:37 WBC 5.1 RBC 3.66 L Hgb 11.3 L Hct 36.1 L MCV 98.5 MCH 30.7 MCHC 31.2 L RDW 14.4 Plt Count 84 L MPV 7.9 Neut % (Auto) 73.0 Lymph % (Auto) 15.5 [place] % (Auto) 9.5 H Eos % (Auto) 1.5 Baso % (Auto) 0.5 Neut # (Auto) 3.8 Lymph # (Auto) 0.8 [place] # (Auto) 0.5 Eos # (Auto) 0.1 Baso # (Auto) 0.0 ABG O2 Sat (Measured) 88.0 L POC VBG O2 Sat (Keila) 90.7 H Sodium 140 Potassium 4.2 D Chloride 108 H Carbon Dioxide 25 Anion Gap 11.2 BUN 9 Creatinine 0.75 Estimated Creat Clear 109 Estimated GFR 79 Est GFR ( Amer) 95 Glucose 112 H Calcium 7.5 L TSH 1.36 Thyroxine (T4) 12.0 Preliminary micro results at discharge 03/18/19 09:33 Urine Culture - Preliminary Urine,Clean Catch - Additional Comments rounded with anna all orders per dr castillo DS: Diagnosis - Discharge Diagnosis (1) Chest pain Status: Acute (2) Dyspnea Status: Acute (3) Edema Status: Acute (4) Atrial septal defect Status: Chronic (5) GERD (gastroesophageal reflux disease) Status: Chronic (6) History of TIA (transient ischemic attack) Status: Chronic (7) Hypokalemia Status: Acute (8) Pancytopenia Status: Acute (9) Hypocalcemia Status: Acute (10) Abnormal EKG Status: Acute (11) UTI (urinary tract infection) Status: Acute Discharge Plan - Patient Discharge Instructions ACTIVITY: Continue current activity DIET: continue same diet Patient Instructions: Heart-Healthy Diet, DI for Cardiac Catheterization, DI for Urinary Tract Infection (UTI), DI for Surgical Site Infection, DI for Chest Pain, DI for Palpitations - Follow up Plan Follow up with: Joaquín Castillo MD [Primary Care Provider] - 03/26/19 9:30 am Tommy Bunch MD [Staff Physician] - 03/25/19 1:50 pm Disposition: Home, [facility] Medications: Home Medications Medication Instructions Recorded Confirmed Type pantoprazole 40 mg tablet,delayed 40 mg PO DAILY #90 tab 07/28/18 03/17/19 Rx release Ondansetron HCl [Zofran 4mg Tab] 4 mg PO Q6HP PRN 03/17/19 03/18/19 History Aspirin [Aspirin 81mg EC Tab] 81 mg PO DAILY 03/18/19 03/18/19 History Fluoxetine HCl [Prozac 20mg 20 mg PO DAILY 03/18/19 03/18/19 History Capsule] Cefdinir [Omnicef 300mg Capsule] 300 mg PO BID #20 cap 03/19/19 Rx Hydrocodone/Acetaminophen [[place] 1 each PO BID PRN 4 Days #8 tab 03/19/19 Rx 5-325 Tablet] Prescriptions/Medication Reconciliation: New Hydrocodone/Acetaminophen [[place] 5-325 Tablet] 1 each PO BID PRN 4 Days #8 tab PRN Reason: Breakthru Moderate Pain Cefdinir [Omnicef 300mg Capsule] 300 mg PO BID #20 cap Continued pantoprazole 40 mg tablet,delayed release 40 mg PO DAILY #90 tab Ondansetron HCl [Zofran 4mg Tab] 4 mg PO Q6HP PRN PRN Reason: Nausea Aspirin [Aspirin 81mg EC Tab] 81 mg PO DAILY Fluoxetine HCl [Prozac 20mg Capsule] 20 mg PO DAILY Discontinued Oxycodone HCl [OxyIR 5mg tablet] 5 mg PO BID
== END 2019-03-19 13:25 | disposition home or self-care (01) ==
LOC: ER 15:54 → 2ND 15:54
PROVIDERS: ADMIT Emergency Medicine; ATTEND Emergency Medicine
DX: K21.9 Gastro-esophageal reflux disease without esophagitis; Z86.14 Personal history of Methicillin resistant Staphylococcus aureus infection; E83.51 Hypocalcemia; Z79.891 Long term (current) use of opiate analgesic; E87.6 Hypokalemia; R94.31 Abnormal electrocardiogram [ECG] [EKG]; I10 Essential (primary) hypertension; Z79.82 Long term (current) use of aspirin; Z86.73 Personal history of transient ischemic attack (TIA), and cerebral infarction without residual deficits; Z88.2 Allergy status to sulfonamides; R07.9 Chest pain, unspecified; D61.818 Other pancytopenia; Q21.1 Atrial septal defect
CPT/HCPCS: 36415; 71020; 71046; 80048; 80061; 81001; 82652; 82810; 83735; 84436; 84443; 84484; 85025; 87040; 87086; 87088; 87186; 93005; 93306; 93460; 99152; 99285; C1725; C1769; C1894; G0378; J1644; Q9967

== ENCOUNTER 2019-10-07 14:40 | Observation (INO) ==
--- NOTE | 2019-10-07 15:02 | Emergency Department Note ---
ED Disposition Clinical Impression: Collapse of right lung, Pleural effusion, right, Respiratory distress, Hepatic cirrhosis, Hepatitis C Disposition: Admitted As Inpatient Condition on Discharge: Serious Time of Disposition: 18:26 - Critical Care Critical Care Time: No Attestation: On 10/07/19, the high probability of a clinically significant, sudden or life threatening deterioration of the following system(s) required my full and direct attention, intervention and personal management. The time I documented below is in addition to time spent performing reported procedures but includes the following listed in this critical care notation. Medical Decision Making - Medical Records Medical records reviewed: Yes: I reviewed the patient's medical records. - [place] Inquiry Pt receiving controlled substance: No Vital Signs: 10/07/19 14:41 10/07/19 15:01 10/07/19 15:45 Temperature 98.7 F Temperature Source Oral Pulse Rate [Left Radial] 101 H 98 H 97 H Respiratory Rate 28 H Blood Pressure [Right Arm] 154/85 H 147/82 H 147/73 H Blood Pressure Mean [Right Arm] 108 103 97 Blood Pressure Source [Right Arm] Automatic Cuff Automatic Cuff Blood Pressure Position [Right Arm] Sitting Sitting Sitting 02 Sat by Pulse Oximetry 96 96 97 Oxygen Delivery Method Room Air Room Air Room Air 10/07/19 17:48 Temperature Temperature Source Pulse Rate [Left Radial] 92 H Respiratory Rate Blood Pressure [Right Arm] 149/77 H Blood Pressure Mean [Right Arm] 101 Blood Pressure Source [Right Arm] Blood Pressure Position [Right Arm] Sitting 02 Sat by Pulse Oximetry Oxygen Delivery Method - Lab Data Lab results reviewed: Yes: I reviewed the patient's lab results. Lab Results 10/07/19 14:25: WBC 4.4 L, RBC 4.08 L, Hgb 12.8, Hct 42.4, MCV 104.0 H, MCH 31.5 H, MCHC 30.3 L, RDW 15.6, Plt Count 121 L, MPV 8.8, Neut % (Auto) 68.5, Lymph % (Auto) 20.0, [place] % (Auto) 8.2, Eos % (Auto) 2.3, Baso % (Auto) 1.1, Neut # (Auto) 3.0, Lymph # (Auto) 0.9, [place] # (Auto) 0.4, Eos # (Auto) 0.1, Baso # (Auto) 0.1 10/07/19 14:25: Sodium 137, Potassium 3.4 L, Chloride 103, Carbon Dioxide 25, Anion Gap 12.4, BUN 8, Creatinine 0.74, Estimated Creat Clear 93, Estimated GFR 80, Est GFR ( Amer) 97, Glucose 183 H, Calcium 8.0 L 10/07/19 14:25: B-Natriuretic Peptide 68 10/07/19 14:25: Total Bilirubin 1.7 H, Direct Bilirubin 0.9 H, Indirect Bilirubin 0.8, AST 62 H, ALT 49, Alkaline Phosphatase 187 H, Troponin I < 0.02, Total Protein 6.5, Albumin 2.5 L 10/07/19 14:25: PT 12.0 H, INR 1.16 H 10/07/19 15:19: Lactate 1.8 10/07/19 15:44: Specimen Source R radial, O2 % Room air, ABG pH 7.47 H, ABG pCO2 32.8 L, ABG pO2 68.3 L, ABG HCO3 23.4, ABG Total CO2 24.4, ABG O2 Saturation 95, ABG Base Excess -0.2, Antwan Test Acceptable Result diagrams: 10/07/19 14:25 10/07/19 14:25 Orders (Tests/Meds): ED MEDICATIONS Discontinued Medications Generic Name Dose Route Start Last Admin Trade Name Gopalq PRN Reason Stop Dose Admin Ketorolac Tromethamine 30 mg 10/07/19 15:47 10/07/19 15:48 Toradol 30mg/Ml Vial IV 10/07/19 15:48 30 mg ONCE ONE Administration Ondansetron HCl 4 mg 10/07/19 15:47 10/07/19 15:48 Zofran 4mg/2ml Vial IV 10/07/19 15:48 4 mg ONCE ONE Administration ORDERS Category Date Time Status Troponin I Q3H Lab 10/07/19 18:00 Ordered Troponin I Q3H Lab 10/07/19 21:00 Ordered Blood Culture Stat Micro 10/07/19 15:19 Received - Radiology Data #1 Image(s): Chest Image Reviewed: Yes I reviewed the patient's radiology results, Yes I have reviewed radiologist's interpretation Preliminary Findings: Abnormal Patient: Maria Luisa Rodrigues#: [id number] : 1960 Acct:[id number] Age/Sex: 58 / F ADM Date: 0 Loc: ER Attending Dr: Ordering Physician: Juwan Brice MD Date of Service: 10/07/19 Procedure(s): XR chest 2V Accession Number(s): [id number] cc: Antwan Esquivel MD; Joaquín Childress MD~ PROCEDURE: XR CHEST 2V CLINICAL HISTORY: sob Shortness of breath COMPARISON: CXR1VP XR chest portable from 04/20/2018 Chest from 03/17/2019 XR CHEST 2V from 06/12/2019 FINDINGS: The cardiomediastinal silhouette and pulmonary vascularity are within normal limits. There is a large right pleural effusion with consolidation in the right midlung which could be due to atelectasis or infiltrate. Left lung is clear. No acute bony findings. IMPRESSION: Large right pleural effusion with compressive atelectasis or consolidation in the right mid upper lung zone Dictated by: Antwan Esquivel MD 10/07/2019 16:31 Electronically signed by Antwan Esquivel MD in [place] 10/07/2019 16:31 - CT Data CT Scan: Chest Time Received: 16:[address] Reviewed: Yes: I have reviewed the patient's CT results, I have viewed the radiologist's interpretation Preliminary Findings: Abnormal Findings Narrative: Patient: Maria Luisa Rodrigues MR#: [id number] : 1960 Acct:[id number] Age/Sex: 58 / F ADM Date: 0 Loc: ER Attending Dr: Ordering Physician: Juwan Brice MD Date of Service: 10/07/19 Procedure(s): CT chest wo con Accession Number(s): [id number] cc: Antwan Esquivel MD; Joaquín Childress MD; Juwan Brice MD~ PROCEDURE: CT CHEST WO CON The CLINICAL INDICATION: SOA Shortness of air with congestion COMPARISON: CT ABDOMEN PELVIS W CON from 06/12/2019 XR CHEST 2V from 10/07/2019 TECHNIQUE: Axial images obtained with sagittal and coronal reformats. All CT scans at the facility use one or more dose reduction, viz: automated exposure control, ma/kV adjustment per patient size (including targeted exams where dose is matched to indication, i.e. head), or iterative reconstruction technique. FINDINGS: There is a large right-sided pleural effusion. There is collapse of the right lower lobe and right middle lobe with some aeration in the right upper lobe. There is some prominence of the right hilum with parenchymal opacities in the right upper lobe inferiorly which could be due to areas of atelectasis or pneumonia. The left hilum is also somewhat prominent but may be related overlying prominent vascularity. Calcified granuloma is present in the left upper lobe. The heart size is normal. There are coronary artery calcifications present. No obvious pericardial effusion. Upper abdominal images show some mild haziness of the mesenteric fat in the celiac region. There is splenomegaly at 14 cm. The liver appears slightly small and there are varices noted in the upper abdomen. These findings are consistent with cirrhosis with portal venous hypertension there is a small amount of perihepatic fluid. No acute bony anomalies. IMPRESSION: 1. Large right pleural effusion with right lower lobe and right middle lobe collapse. 2. Nodular densities are present in the right upper lobe and may be due to underlying pneumonia and/or atelectatic change. These findings could easily obscure a pulmonary nodule and follow-up is suggested. 3. Cirrhosis with splenomegaly and portal hypertension with haziness of the mesenteric fat in the celiac region which could be related to portal hypertension. Dictated by: Antwan Esquivel MD 10/07/2019 16:30 Electronically signed by Antwan Esquivel MD in [place] 10/07/2019 16:30 - ECG Data Tracing #1 I reviewed this ECG and interpreted as documented below: Normal sinus rhythm with a ventricular rate of 94 bpm. Normal AL interval at 146 ms. Normal QRS duration at 74 ms. Normal corrected QT interval at 457 ms. Normal QRS axis at -10 degrees. Low voltage EKG. ECG initial impression date: 10/07/19 ECG initial impression time: 14:50 ECG normal with no acute: arrhythmias, ischemia, conduction abnormalities, chamber hypertrophy Normal Sinus Rhythm: Yes General Adult HPI - General Chief complaint: Shortness of Breath/Dyspnea Stated complaint: sob Time Seen by Provider: 10/07/19 14:41 Mode of Arrival: Ambulatory Source of Information: Patient Limitations: No Limitations Description of Symptoms (Recalled from ER Triage Doc. by RN): to ed per squad with c/o cough sob x 3 days went to pcp's office and pt sent to ed for eval. pt denies any nausea, vomiting, chest pain. pt states sob worse when lying flat - History of Present Illness HPI narrative: 58-year-old female complains of shortness of breath for the past 3 days. Patient was hyperventilating upon initial assessment with clear lungs and pulse oximetry of 96% on room air. Onset (ago): day(s) (3) Severity: moderate Consistency: constant Relieving factors: none Exacerbating factors: none Associated symptoms: denies other symptoms Treatments prior to arrival: none - Related Data Home Medications Medication Instructions Recorded Confirmed Aspirin [Aspirin 81mg EC Tab] 81 mg PO DAILY 03/18/19 06/12/19 Fluoxetine HCl [Prozac 20mg 20 mg PO DAILY 03/18/19 06/12/19 Capsule] Furosemide [Furosemide 20mg Tab] 10 mg PO DAILY 06/12/19 06/12/19 Hydrocodone/Acetaminophen [[place] 1 tab PO TID 06/12/19 06/12/19 5-325 Tablet] Pantoprazole Sodium [Protonix 40mg 40 mg PO DAILY 06/12/19 06/12/19 tablet] Previous Rx's Medication Instructions Recorded Ondansetron [Zofran 4mg ODT] 4 mg PO Q4H PRN #6 tab.rapdis 06/03/19 Allergies Allergy/AdvReac Type Severity Reaction Status Date / Time Sulfa (Sulfonamide Allergy Intermediate Verified 06/04/19 13:35 Antibiotics) [SULFA (SULFONAMIDE ANTIBIOTICS)] [facility] History - Hepatitis A Screen Drug use history?: No High risk sexual behaviors?: No History of sexually transmitted infection?: No Currently employed?: No Childcare worker?: No Do you have indoor plumbing?: Yes Do you have electricity?: Yes Attestation statement:: This patient has been screened for Hepatitis A risk factors. I have reviewed the patient's past medical history: Yes Medical History: Reports:: Congestive Heart Failure, Gastroesophageal Reflux Disease(GERD), Heart Murmur, Hepatitis, MRSA (spider bite), Transient Ischemic Attacks (TIA), Ulcer Denies:: Cancer, Diabetes Mellitus Type 1, Diabetes Mellitus Type 2 Other Medical History: Reports: Arthritis, Liver Disease (cirrhosis), Other Other Surgeries: Yes: Cholecystectomy, , Tubal Ligation Amputation: No Fractures: Yes (right leg and ankle) - Social History Smoking Status: Current every day smoker Alcohol Intake: never Substance Use Type: denies use Occupational Status: disabled Housing: apartment Household Members: significant other Family Hx:: Diabetes, Heart Attack, Cancer, Hypertension, Stroke, Thyroid Disorder ROS Obtained: Yes Systems reviewed as appropriate & no additional complaints - Constitutional Constitutional: Reports system reviewed and no additional complaints, except as docu - Eyes Eyes: Reports system reviewed and no additional complaints, except as docu - ENT Ears, Nose, Mouth, and Throat: Reports system reviewed and no additional complaints, except as docu - Cardiovascular Cardiovascular: Reports system reviewed and no additional complaints, except as docu - Respiratory Respiratory: Yes dyspnea - Gastrointestinal Gastrointestingal: Reports: system reviewed and no additional complaints, except as docu - Genitourinary Female Genitourinary: Reports system reviewed and no additional complaints, except as docu - Musculoskeletal Musculoskeletal: Reports system reviewed and no additional complaints, except as docu - Integumentary/Breasts Skin/Breast: Reports system reviewed and no additional complaints, except as docu - Neurologic Neurologic: Reports system reviewed and no additional complaints, except as docu - Endocrine Endocrine: Reports system reviewed and no additional complaints, except as docu - Hematologic/Lymphatic Henatologic/Lymphatic: Reports system reviewed and no additional complaints, except as docu - Allergic/Immunologic Allergic/Immunologic: Reports system reviewed and no additional complaints, except as docu Physical Exam - General General appearance: alert, in no apparent distress - Head Head exam: atraumatic, normocephalic, normal inspection - Eye Eye exam: Present: normal appearance, PERRL, EOMI - ENT ENT exam: Present: normal exam, normal oropharynx, mucous membranes moist, normal external ear exam - Neck Neck exam: Present: normal inspection, full ROM, trachea midline. Absent: meningismus, lymphadenopathy - Chest Chest inspection: Present: normal inspection, symmetric chest wall rise. Absent: tenderness - Respiratory Respiratory exam: Present: normal lung sounds bilaterally. Absent: respiratory distress - Cardiovascular Cardiovascular exam: Present: regular rate, normal rhythm. Absent: JVD - Abdominal Exam Abdominal exam: Present: soft, normal bowel sounds. Absent: distention, tendern ess, guarding - Extremities Exam Extremities exam: Present: normal inspection, full ROM, normal capillary refill. Absent: calf tenderness - Back Exam Back exam: Present: normal inspection. Absent: tenderness - Neurological Exam Neurological exam: Present: alert, oriented X3, CN II-XII intact. Absent: motor sensory deficit - Psychiatric Psychiatric exam: Present: normal affect, normal mood - Skin Skin exam: Present: warm, dry, intact, normal color
[2019-10-07 15:03] LABS: Basophils # 0.1 K/mm3 (0-0.2); Basophils % 1.1 % (0.1-2.0); Eosinophils # 0.1 K/mm3 (0.0-0.4); Eosinophils % 2.3 % (0.1-12.0); Hematocrit 42.4 % (37.0-47.0); Hemoglobin 12.8 g/dL (12.2-16.2); Lymphocytes # 0.9 K/mm3 (0.7-4.5); Mean Corpuscular HGB Conc 30.3 g/dL (31.8-35.4); Mean Platelet Volume 8.8 fl (7.4-10.4); Monocytes # 0.4 K/mm3 (0.1-1.0); Monocytes % 8.2 % (1.7-9.3); Neutrophils % 68.5 % (37.0-80.0); Platelet Count 121 K/mm3 (142-424); Red Blood Count 4.08 M/mm3 (4.20-5.40); Red Cell Distribution Width 15.6 % (11.5-17.5); White Blood Count 4.4 K/mm3 (4.8-10.8)
[2019-10-07 15:14] LABS: Anion Gap 12.4 mEq/L (5-15)
[2019-10-07 15:17] LABS: Alanine Aminotransferase 49 U/L (12-78); Albumin Level 2.5 gm/dL (3.4-5.0); Alkaline Phosphatase 187 U/L (46-116); Aspartate Amino Transferase 62 U/L (15-37); Bilirubin,Direct 0.9 mg/dL (0.0-0.2); Bilirubin,Indirect 0.8 mg/dL (0.0-0.9); Bilirubin,Total 1.7 mg/dL (0.2-1.0); Total Protein,Serum 6.5 gm/dL (6.4-8.2)
[2019-10-07 15:48] LABS: ABG Base Excess -0.2 mmol/L (-2.4-2.3); ABG HCO3 23.4 mmhg (22.0-26.0); ABG Oxygen Saturation 95 % (90-100); ABG PCO2 32.8 mmhg (35.0-45.0); ABG PH 7.47 mmol/L (7.35-7.45); ABG PO2 68.3 mmhg (80-100); ABG TCO2 24.4 mmhg (23-27); Allen's Test ACCEPTABLE; Oxygen ROOM AIR %
[2019-10-07 17:34] LABS: INR 1.16 (0.9-1.1)
[2019-10-07 18:34] LABS: Microscopic, Urine URINE MICROSCOPIC (MICROSCOPIC)
[2019-10-07 18:36] LABS: Appearance,Urine CLEAR (Clear); Blood, Urine 3+ (Negative); Color,Urine YELLOW (Yellow); Glucose,Urine (UA) TRACE (Negative); Ketones,Urine 1+ (Negative); Leukocyte Esterase,Urine TRACE (Negative); Protein,Urine Negative (Negative); Specific Gravity, Urine >= 1.030 (1.005-1.030)
[2019-10-07 18:37] LABS: Bilirubin,Urine Negative (Negative)
[2019-10-07 18:41] LABS: Amorphous Sediment,Urine 1+ /lpf; Bacteria,Urine 3+ /lpf; Calcium Oxalate Crystals,Urine 2+ /lpf
[2019-10-08 07:16] LABS: Basophils # 0.1 K/mm3 (0-0.2); Basophils % 1.7 % (0.1-2.0); Eosinophils # 0.2 K/mm3 (0.0-0.4); Eosinophils % 3.8 % (0.1-12.0); Hematocrit 38.3 % (37.0-47.0); Hemoglobin 12.3 g/dL (12.2-16.2); Lymphocytes # 0.8 K/mm3 (0.7-4.5); Mean Platelet Volume 8.1 fl (7.4-10.4); Monocytes # 0.3 K/mm3 (0.1-1.0); Monocytes % 8.5 % (1.7-9.3); Neutrophils # 2.6 K/mm3 (1.8-7.8); Platelet Count 110 K/mm3 (142-424); Red Blood Count 3.75 M/mm3 (4.20-5.40); Red Cell Distribution Width 14.4 % (11.5-17.5); White Blood Count 3.9 K/mm3 (4.8-10.8)
[2019-10-08 07:19] LABS: Albumin Level 2.4 gm/dL (3.4-5.0); Albumin/Globulin Ratio 0.6 (1.1-1.8); Anion Gap 10.8 mEq/L (5-15); Bilirubin,Total 1.9 mg/dL (0.2-1.0); Calcium 8.1 mg/dL (8.5-10.1); Chol/HDL Ratio 2.8 (1-3.5); Globulin 3.7 gm/dl (1.3-3.2); Phosphorous 3.6 mg/dL (2.4-4.9); Total Protein,Serum 6.1 gm/dL (6.4-8.2)
--- NOTE | 2019-10-08 07:42 | Pharmacy Consult Notes ---
[facility] Pharmacy VTE Monitoring - Patient Demographics Admission date: 10/08/19 Report Date: 10/08/19 Time: 07:42 Allergies/Adverse Reactions: Patient Allergies Sulfa (Sulfonamide Antibiotics) [SULFA (SULFONAMIDE ANTIBIOTICS)] Allergy (Intermediate, Verified 10/07/19 20:07) Hives Height: 1.68 m Weight: 91.314 kg Patient Problems: Current Active Problems Cirrhosis of liver (Acute) Collapse of right lung (Acute) Pleural effusion, right (Acute) Respiratory distress (Acute) Hepatitis C (Acute) - VTE Risk Labs: VTE Related Lab Results Hgb 12.3 g/dL (12.2-16.2) 10/08/19 06:26 Hct 38.3 % (37.0-47.0) 10/08/19 06:26 Plt Count 110 K/mm3 (142-424) L 10/08/19 06:26 PT 12.0 seconds (9.4-11.8) H 10/07/19 14:25 INR 1.16 (0.9-1.1) H 10/07/19 14:25 APTT 33.6 seconds (23.6-34.0) 10/07/19 14:25 BUN 12 mg/dL (7-18) D 10/08/19 06:26 Creatinine 0.76 mg/dL (0.55-1.02) 10/08/19 06:26 Estimated Creat Clear 113 mL/min (50-200) 10/08/19 06:26 Was VTE Risk Assessment Performed: Yes VTE Score: 8 VTE Risk Level: Moderate Risk Clinical Trial Participant: No - Prophylaxis VTE Prophylaxis Ordered?: Yes Types of VTE Prophylaxis: TEDS Knee High
--- NOTE | 2019-10-08 09:28 | History & Physical Report ---
*Admission Date: 10/08/19 *Chief complaint: soa *History of present illness: 58 yr old female presented to ed per squad with c/o cough sob x 3 days went to pcp's office and pt sent to ed for eval. pt denies any nausea, vomiting, chest pain. pt states sob worse when lying flat. pt was found to have a plural ef fusion and admitted for further workup and drainage of fluid. [facility] History I have reviewed the patient's past medical history: Yes Medical History: Reports:: Congestive Heart Failure, Gastroesophageal Reflux Disease(GERD), Heart Murmur, Hepatitis, MRSA (spider bite), Peripheral Vascular Disease, Transient Ischemic Attacks (TIA), Ulcer Denies:: Cancer, Diabetes Mellitus Type 1, Diabetes Mellitus Type 2 *Have you ever received a pneumonia vaccine?: No *Have you received a flu vaccine this season?: No Other Medical History: Reports: Arthritis, Liver Disease (cirrhosis), Other Laterality Cases: Left: Total Knee Replacement Other Surgeries: Yes: Cardiac Catheterization, Cholecystectomy, , Tubal Ligation Amputation: No Fractures: Yes (right leg and ankle) - *Social History Educational Level: Completed GED/General Educational Development Smoking Status: Current every day smoker Alcohol Intake: current Alcohol Intake Frequency:: holidays/special occasions only Substance Use Type: denies use *Occupational Status:: disabled Housing: apartment Household Members: significant other *Travel in the last 8 weeks: None Family Hx:: Cancer, Coronary Artery Disease, Diabetes, Heart Attack, Hyperlipidemia, Hypertension, Alcoholism Review of Systems - Review of Systems Review of systems:: pertinent systems reviewed and negative unless documented below - Constitutional Denies body ache(s) - Eyes Denies change in vision - ENT Denies change in voice, Denies throat swelling - *Cardiovascular Reports shortness of breath, Denies chest pain with activity - *Respiratory Reports chest congestion, Reports shortness of breath with activity - *Gastrointestinal Denies abdominal pain, Denies nausea, Denies vomiting - *Genitourinary Denies urinary incontinence - *Musculoskeletal Denies body aches - Integumentary/Breasts Denies change in hair, Denies rash - *Neurologic Denies dizziness - Psychiatric Denies lack of enjoyment - Endocrine Denies flushing - Hematologic/Lymphatic Denies enlarged lymph nodes - Allergic/Immunologic Denies lip swelling Meds Home Medications Medication Instructions Recorded Confirmed Type Aspirin [Aspirin 81mg EC Tab] 81 mg PO DAILY 03/18/19 10/07/19 History Ondansetron [Zofran 4mg ODT] 4 mg PO Q4H PRN #6 tab.rapdis 06/03/19 10/07/19 Rx Pantoprazole Sodium [Protonix 40mg 40 mg PO DAILY 06/12/19 10/07/19 History tablet] Allergies Allergy/AdvReac Type Severity Reaction Status Date / Time Sulfa (Sulfonamide Allergy Intermediate Hives Verified 10/07/19 20:07 Antibiotics) [SULFA (SULFONAMIDE ANTIBIOTICS)] Exam Vital signs and Labs for Last 24 Hours: Temp Pulse Resp BP Pulse Ox 98.3 F 86 18 144/68 H 95 10/08/19 08:00 10/08/19 08:00 10/08/19 08:00 10/08/19 08:00 10/08/19 08:00 Laboratory Results - last 24 hr 10/07/19 14:25: WBC 4.4 L, RBC 4.08 L, Hgb 12.8, Hct 42.4, MCV 104.0 H, MCH 31.5 H, MCHC 30.3 L, RDW 15.6, Plt Count 121 L, MPV 8.8, Neut % (Auto) 68.5, Lymph % (Auto) 20.0, [place] % (Auto) 8.2, Eos % (Auto) 2.3, Baso % (Auto) 1.1, Neut # (Auto) 3.0, Lymph # (Auto) 0.9, [place] # (Auto) 0.4, Eos # (Auto) 0.1, Baso # (Auto) 0.1 10/07/19 14:25: Sodium 137, Potassium 3.4 L, Chloride 103, Carbon Dioxide 25, Anion Gap 12.4, BUN 8, Creatinine 0.74, Estimated Creat Clear 93, Estimated GFR 80, Est GFR ( Amer) 97, Glucose 183 H, Calcium 8.0 L 10/07/19 14:25: B-Natriuretic Peptide 68 10/07/19 14:25: Total Bilirubin 1.7 H, Direct Bilirubin 0.9 H, Indirect Bilirubin 0.8, AST 62 H, ALT 49, Alkaline Phosphatase 187 H, Troponin I < 0.02, Total Protein 6.5, Albumin 2.5 L 10/07/19 14:25: PT 12.0 H, INR 1.16 H 10/07/19 14:25: APTT 33.6 10/07/19 15:19: Lactate 1.8 10/07/19 15:44: Specimen Source R radial, O2 % Room air, ABG pH 7.47 H, ABG pCO2 32.8 L, ABG pO2 68.3 L, ABG HCO3 23.4, ABG Total CO2 24.4, ABG O2 Saturation 95, ABG Base Excess -0.2, Antwan Test Acceptable 10/07/19 17:38: Urine Color Yellow, Urine Appearance Clear, Urine pH 6.0, Ur Specific [place] >= 1.030, Urine Protein Negative, Urine Glucose (UA) Trace, Urine Ketones 1+, Urine Blood 3+, Urine Nitrate Positive, Urine Bilirubin Negative, Urine Urobilinogen 4.0, Ur Leukocyte Esterase Trace, Urine RBC 10-20, Urine WBC 10-20, Ur Squamous Epith Cells 10-20, Calcium Oxalate Crystal 2+, Amorphous Sediment 1+, Urine Bacteria 3+ 10/07/19 18:00: Troponin I < 0.02 10/08/19 06:26: WBC 3.9 L, RBC 3.75 L, Hgb 12.3, Hct 38.3, MCV 102.0 H, MCH 32.7 H, MCHC 32.0, RDW 14.4, Plt Count 110 L, MPV 8.1, Neut % (Auto) 66.0, Lymph % (Auto) 20.0, [place] % (Auto) 8.5, Eos % (Auto) 3.8, Baso % (Auto) 1.7, Neut # (Auto) 2.6, Lymph # (Auto) 0.8, [place] # (Auto) 0.3, Eos # (Auto) 0.2, Baso # (Auto) 0.1 10/08/19 06:26: Sodium 138, Potassium 3.8, Chloride 104, Carbon Dioxide 27, Anion Gap 10.8, BUN 12 D, Creatinine 0.76, Estimated Creat Clear 113, Estimated GFR 78, Est GFR ( Amer) 94, Glucose 131 H D, Calcium 8.1 L, Phosphorus 3.6, Magnesium 1.5, Total Bilirubin 1.9 H, AST 61 H, ALT 44, Alkaline Phosphatase 169 H, Total Protein 6.1 L, Albumin 2.4 L, Globulin 3.7 H, Albumin/Globulin Ratio 0.6 L, Triglycerides 60, Cholesterol 113 L, LDL Cholesterol 61, VLDL Cholesterol 12, HDL Cholesterol 40, Cholesterol/HDL Ratio 2.8 I & O for Last 24 hours: Intake & Output 10/05/19 10/06/19 10/07/19 10/08/19 11:59 11:59 11:59 11:59 Intake Total 1136 / 1136 Output Total 200 / 200 Balance 936 / 936 Weight 201 lb 5 oz Microbiology Reports for the Last 24 Hours: Microbiology 10/07/19 17:38 Urine,Clean Catch Urine Culture - Preliminary Gram Negative Rods - Constitutional no acute distress - *Routine HEENT Exam Head: Present: normocephalic Eye: Present: EOMI, PERRL ENT: Present: mucous membranes moist - *Routine Neck Exam Present: supple. Absent: lymphadenopathy - *Routine Respiratory Exam Present: decreased breath sounds, CTA bilaterally - *Routine Cardiovascular Exam Present: RRR - *Routine Abdominal Exam Present: soft, normoactive bowel sounds. Absent: tenderness - *Routine Extremities Exam Present: full ROM. Absent: cyanosis, clubbing, edema - *Routine Skin Exam Present: warm. Absent: rash - *Routine Neurological Exam Present: alert, oriented X3 - Routine Psychiatric Exam Present: normal affect Assessment and Plan (1) Pleural effusion, right Current visit: Yes Status: Acute Category: Medical Code(s): J90 - Pleural effusion, not elsewhere classified - Assessment and plan all Dx Assessment and Plan for all problems:: rounded with dr castillo all order per anna drainage of fluid
[2019-10-08 10:21] LABS: Appearance,Body Fld. Slightly cloudy; RBC,Body Fluid < 10 cells/uL (< 10 X 10^3); TNC,Body Fluid 254 cells/uL (< 1000)
[2019-10-08 11:41] LABS: Mononuclear WBCs,Body Fluid 98 %; Polynuclear WBC,Body Fluid 2 %
--- NOTE | 2019-10-09 10:48 | Progress Note ---
Internal Medicine - PN: Subj *Date: 10/09/19 *Time: 10:44 Interval history: doing better after thorocentesis- awaiting fluid cytology and culture- transudate - also has uti - e coli- no new c/o today Exam Vital signs and Labs for Last 24 Hours: Temp Pulse Resp BP Pulse Ox 98.5 F 83 20 106/59 L 92 L 10/09/19 08:00 10/09/19 08:00 10/09/19 08:00 10/09/19 08:00 10/09/19 08:00 Laboratory Results - last 24 hr 10/08/19 09:20: Fld Polynuclear WBCs % 2, Fld Mononuclear WBCs % 98 I & O for Last 24 hours: Intake & Output 10/06/19 10/07/19 10/08/19 10/09/19 11:59 11:59 11:59 11:59 Intake Total 1136 / 1136 2494 / 2494 Output Total 200 / 200 Balance 936 / 936 2494 / 2494 Weight 201 lb 5 oz 203 lb 1 oz Microbiology Reports for the Last 24 Hours: Microbiology 10/07/19 17:38 Urine,Clean Catch Urine Culture - Final Escherichia coli 10/08/19 09:20 Aspirate Gram Stain - Final - Constitutional no acute distress, obese - *Routine HEENT Exam Head: Present: normocephalic Eye: Present: EOMI, PERRL ENT: Present: mucous membranes dry - *Routine Neck Exam Present: supple. Absent: JVD - *Routine Respiratory Exam Present: decreased breath sounds, rales, rhonchi - *Routine Cardiovascular Exam Present: RRR, murmur, S4 - *Routine Abdominal Exam Present: soft - *Routine Extremities Exam Absent: edema, calf tenderness - *Routine Skin Exam Present: intact - *Routine Neurological Exam Present: alert, oriented X3, CN II-XII intact - Routine Psychiatric Exam Present: normal affect Assessment and Plan (1) Pleural effusion, right Current visit: Yes Status: Acute Category: Medical Code(s): J90 - Pleural effusion, not elsewhere classified (2) E. coli UTI (urinary tract infection) Current visit: Yes Status: Acute Category: Medical Code(s): N39.0 - Urinary tract infection, site not specified; B96.20 - Unspecified Escherichia coli [E. coli] as the cause of diseases classified elsewhere (3) Obesity (BMI 30.0-34.9) Current visit: Yes Status: Acute Category: Medical Code(s): E66.9 - Obesity, unspecified (4) Atrial septal defect Current visit: No Status: Chronic Category: Medical Code(s): Q21.1 - Atrial septal defect (5) CAP (community acquired pneumonia) Current visit: Yes Status: Acute Qualifiers: Laterality: right Lung location: lower lobe of lung Qualified Code(s): J18.9 - Pneumonia, unspecified organism Category: Medical Code(s): J18.9 - Pneumonia, unspecified organism
--- NOTE | 2019-10-09 14:21 | Electrocardiograph Report ---
APPROVED REPORT Exam: Resting ECG HR:94 bpm ECG Measurements Heart Rate 94 AXES NH 146 P 67 QRSd 74 QRS -10 QT 366 T62 QTc 457 <Conclusion> Normal sinus rhythm Low voltage QRS Borderline ECG Electronically signed by : Luis A Hammonds, 10/09/2019 14:21:15
[2019-10-10 08:40] LABS: Basophils % 0.1 % (0.1-2.0); Eosinophils % 0.5 % (0.1-12.0); Hematocrit 35.8 % (37.0-47.0); Hemoglobin 12.1 g/dL (12.2-16.2); Lymphocytes # 0.4 K/mm3 (0.7-4.5); Lymphocytes % 6.6 % (10-50); Mean Corpuscular HGB Conc 33.9 g/dL (31.8-35.4); Mean Corpuscular Volume 104.1 fl (81-99); Mean Platelet Volume 9.8 fl (7.4-10.4); Monocytes # 0.1 K/mm3 (0.1-1.0); Monocytes % 1.6 % (1.7-9.3); Neutrophils # 5.2 K/mm3 (1.8-7.8); Neutrophils % 91.1 % (37.0-80.0); Platelet Count 95 K/mm3 (142-424); Red Blood Count 3.44 M/mm3 (4.20-5.40); Red Cell Distribution Width 14.4 % (11.5-17.5); White Blood Count 5.7 K/mm3 (4.8-10.8)
[2019-10-10 08:41] LABS: Anion Gap 14.2 mEq/L (5-15)
[2019-10-10 09:34] LABS: Lymphocytes % 6 % (10-50); Monocytes % 3 % (2-9); Neutrophils % 91 % (42-76); Total Cells Counted 100
[2019-10-10 09:35] LABS: Macrocytosis 1+
[2019-10-10 09:36] LABS: Anisocytosis 1+
--- NOTE | 2019-10-10 12:54 | Progress Note ---
Internal Medicine - PN: Subj *Date: 10/11/19 *Time: 07:36 Interval history: looks better - off o2 - still with rib pain and has prod cough Exam Vital signs and Labs for Last 24 Hours: Temp Pulse Resp BP Pulse Ox 97.9 F 85 16 97/63 L 95 10/10/19 07:59 10/10/19 07:59 10/10/19 07:59 10/10/19 07:59 10/10/19 08:00 Laboratory Results - last 24 hr 10/10/19 08:03: WBC 5.7 D, RBC 3.44 L, Hgb 12.1 L, Hct 35.8 L, MCV 104.1 H, MCH 35.3 H, MCHC 33.9, RDW 14.4, Plt Count 95 L, MPV 9.8, Neut % (Auto) 91.1 H, Lymph % (Auto) 6.6 L, [place] % (Auto) 1.6 L, Eos % (Auto) 0.5, Baso % (Auto) 0.1, Neut # (Auto) 5.2, Lymph # (Auto) 0.4 L, [place] # (Auto) 0.1, Eos # (Auto) 0.0, Baso # (Auto) 0.0, Total Counted 100, Neutrophils % (Manual) 91 H, Lymphocytes % (Manual) 6 L, Monocytes % (Manual) 3, Platelet Estimate Slight decrease, Anisocytosis 1+, Macrocytosis 1+ 10/10/19 08:03: Sodium 135 L, Potassium 4.2, Chloride 104, Carbon Dioxide 21 D, Anion Gap 14.2, BUN 19 H D, Creatinine 0.74, Estimated Creat Clear 120, Estimated GFR 80, Est GFR ( Amer) 97, Glucose 218 H, Calcium 8.0 L I & O for Last 24 hours: Intake & Output 10/08/19 10/09/19 10/10/19 10/11/19 11:59 11:59 11:59 11:59 Intake Total 1136 / 1136 2494 / 2494 4531 / 4531 Output Total 200 / 200 550 / 550 Balance 936 / 936 2494 / 2494 3981 / 3981 Weight 201 lb 5 oz 203 lb 1 oz 207 lb Microbiology Reports for the Last 24 Hours: Microbiology 10/07/19 15:19 Blood Blood Culture - Preliminary NO GROWTH AFTER 48 HOURS 10/07/19 15:19 Blood Blood Culture - Preliminary NO GROWTH AFTER 48 HOURS 10/08/19 09:20 Aspirate Gram Stain - Final 10/08/19 09:20 Aspirate Body Fluid Culture - Preliminary NO GROWTH AFTER 24 HOURS - Constitutional no acute distress - *Routine HEENT Exam Head: Present: normocephalic Eye: Present: EOMI, PERRL ENT: Present: mucous membranes dry - *Routine Neck Exam Present: supple. Absent: JVD - *Routine Respiratory Exam Present: rhonchi - *Routine Cardiovascular Exam Present: RRR, murmur - *Routine Abdominal Exam Present: soft - *Routine Extremities Exam Absent: calf tenderness - *Routine Skin Exam Present: intact - *Routine Neurological Exam Present: alert, oriented X3, CN II-XII intact - Routine Psychiatric Exam Present: normal affect Assessment and Plan (1) Pleural effusion, right Current visit: Yes Status: Acute Category: Medical Code(s): J90 - Pleural effusion, not elsewhere classified (2) E. coli UTI (urinary tract infection) Current visit: Yes Status: Acute Category: Medical Code(s): N39.0 - Urinary tract infection, site not specified; B96.20 - Unspecified Escherichia coli [E. coli] as the cause of diseases classified elsewhere (3) Obesity (BMI 30.0-34.9) Current visit: Yes Status: Acute Category: Medical Code(s): E66.9 - Obesity, unspecified (4) Atrial septal defect Current visit: No Status: Chronic Category: Medical Code(s): Q21.1 - Atrial septal defect (5) CAP (community acquired pneumonia) Current visit: Yes Status: Acute Qualifiers: Laterality: right Lung location: lower lobe of lung Qualified Code(s): J18.9 - Pneumonia, unspecified organism Category: Medical Code(s): J18.9 - Pneumonia, unspecified organism (6) Thrombocytopenia Current visit: Yes Status: Acute Category: Medical Code(s): D69.6 - Thrombocytopenia, unspecified
--- NOTE | 2019-10-11 14:13 | Discharge Summary ---
General - General Admission date:: 10/07/19 Discharge date: 10/11/19 HPI HPI: 58 yr old female presented to ed per squad with c/o cough sob x 3 days went to pcp's office and pt sent to ed for eval. pt denies any nausea, vomiting, chest pain. pt states sob worse when lying flat. pt was found to have a plural effusion and admitted for further workup and drainage of fluid. Hospital Course Hospital Course: pt has did well after thoracentesis performed by dr devine - she has improved with activity and diet and no o2 required- has uti and e coli on culture - labs are stable at this time Objective Vital signs: Temp Pulse Resp BP Pulse Ox 98.0 F 83 20 115/70 96 10/11/19 08:00 10/11/19 13:33 10/11/19 08:00 10/11/19 08:00 10/11/19 08:00 no acute distress, obese - *Routine HEENT Exam Head: Present: normocephalic Eye: Present: EOMI, PERRL ENT: Present: mucous membranes dry - *Routine Neck Exam Present: supple. Absent: JVD - *Routine Respiratory Exam Present: rhonchi - *Routine Cardiovascular Exam Present: RRR, murmur. Absent: rubs - *Routine Abdominal Exam Present: soft - *Routine Extremities Exam Absent: calf tenderness - *Routine Skin Exam Present: intact - *Routine Neurological Exam Present: alert, oriented X3, CN II-XII intact - Routine Psychiatric Exam Present: normal affect Results Labs on day of discharge: Labs from last 24 hours 10/08/19 09:20 Fluid Glucose 142 Fluid Total Protein 0.7 Fluid Albumin 0.7 Preliminary micro results at discharge 10/08/19 09:20 Body Fluid Culture - Preliminary Aspirate NO GROWTH AFTER 72 HOURS 10/07/19 15:19 Blood Culture - Preliminary Blood NO GROWTH AFTER 48 HOURS 10/07/19 15:19 Blood Culture - Preliminary Blood NO GROWTH AFTER 48 HOURS DS: Diagnosis - Discharge Diagnosis (1) Pleural effusion, right Status: Acute (2) E. coli UTI (urinary tract infection) Status: Acute (3) Obesity (BMI 30.0-34.9) Status: Acute (4) Atrial septal defect Status: Chronic (5) CAP (community acquired pneumonia) Status: Acute (6) Thrombocytopenia Status: Acute Discharge Plan - Patient Discharge Instructions ACTIVITY: Continue current activity DIET: continue same diet Patient Instructions: Pleural Effusion, Cirrhosis, Atelectasis, Acute Respiratory Distress Syndrome, DI for Cirrhosis, DI for Pleural Effusion, DI for Respiratory Distress Syndrome -- Adult - Follow up Plan Disposition: Home, Self-Retirement Medications: Home Medications Medication Instructions Recorded Confirmed Type Aspirin [Aspirin 81mg EC Tab] 81 mg PO DAILY 03/18/19 10/07/19 History Ondansetron [Zofran 4mg ODT] 4 mg PO Q4H PRN #6 tab.rapdis 06/03/19 10/07/19 Rx Pantoprazole Sodium [Protonix 40mg 40 mg PO DAILY 06/12/19 10/07/19 History tablet] Azithromycin [Zithromax 250mg 250 mg PO DIRECTED #6 tab 10/11/19 Rx tab] Benzonatate [Tessalon [place] 100mg 100 mg PO TID #30 cap 10/11/19 Rx Cap] Hydrocod/Acet 5/325 mg [[place] 1 tab PO TID PRN #10 tab 10/11/19 Rx 5/325mg tablet] cephALEXin [Keflex 500mg Cap] 500 mg PO TID #30 cap 10/11/19 Rx predniSONE [Prednisone 20mg 20 mg PO BID #10 tab 10/11/19 Rx Tab] Prescriptions/Medication Reconciliation: New Hydrocod/Acet 5/325 mg [[place] 5/325mg tablet] 1 tab PO TID PRN #10 tab PRN Reason: Moderate To Severe Pain Benzonatate [Tessalon [place] 100mg Cap] 100 mg PO TID #30 cap cephALEXin [Keflex 500mg Cap] 500 mg PO TID #30 cap predniSONE [Prednisone 20mg Tab] 20 mg PO BID #10 tab Azithromycin [Zithromax 250mg tab] 250 mg PO DIRECTED #6 tab Continued Aspirin [Aspirin 81mg EC Tab] 81 mg PO DAILY Ondansetron [Zofran 4mg ODT] 4 mg PO Q4H PRN #6 tab.rapdis PRN Reason: Nausea Pantoprazole Sodium [Protonix 40mg tablet] 40 mg PO DAILY - Problem Reconciliation Problems Reviewed?: Yes
== END 2019-10-11 16:11 | disposition home health service (06) ==
LOC: 2ND 14:40 → ER 14:40 → 2ND 19:26
PROVIDERS: ADMIT Family Medicine; ATTEND Emergency Medicine
CPT/HCPCS: 32555; 36415; 71010; 71020; 71045; 71046; 71250; 80048; 80053; 80061; 80076; 81001; 82042; 82803; 82945; 83605; 83735; 83880; 84100; 84155; 84484; 85007; 85025; 85610; 85730; 87040; 87070; 87086; 87088; 87186; 87205; 89051; 93005; 94640; 94761; 96374; 96375; 99284; G0378; J0456; J1335; J2405

== ENCOUNTER → 2019-11-09 13:50 | Outpatient (CLI) | payer MEDICARE, MEDICAID, SELFPAY ==
[2019-11-09 14:32] LABS: Amphetamine/Metha Screen,Urine Positive ng/mL (<1000); Barbiturates Screen,Urine Negative ng/mL (<200); Benzodiazepines Screen,Urine Negative ng/mL (<200); Cannabinoid Screen,Urine Negative ng/mL (<50); Cocaine Screen,Urine Negative ng/mL (<300); Methadone Screen,Urine Negative ng/mL (<300); Opiate Screen,Urine Positive ng/mL (<300); Phencyclidine Screen,Urine Negative ng/mL (<25)
[2019-11-19 21:04] LABS: Amphetamine Negative (Cutoff=500); Amphetamines Positive (.); Methamphetamine Positive (.)
[2019-11-19 23:42] LABS: Methamphetamine (GC/MS) 2064 ng/mL (Cutoff=500)
== END ==
PROVIDERS: Visit Provider Emergency Medicine
DX: Z79.899 Other long term (current) drug therapy (principal)
CPT/HCPCS: 80305; 80324

== ENCOUNTER 2020-01-02 15:57 | Observation (INO) | payer MEDICARE, MEDICAID, SELFPAY ==
[2020-01-02 15:41] VITALS: BP 154/70; PULSE 106; RESP 18; O2SAT 100; BMI 34.4
--- NOTE | 2020-01-02 15:54 | XR_ITS ---
PROCEDURE: XR CHEST PORTABLE CLINICAL HISTORY: weakness COMPARISON: CT CHEST WO CON from 10/07/2019 XR CHEST 2V from 10/08/2019 XR CHEST 2V from 10/10/2019 XR CHEST 2V from 10/13/2019 FINDINGS: There is cardiomegaly without CHF. The lungs are clear without infiltrates, suspicious nodules, or pleural effusions. No acute bony abnormalities. IMPRESSION: No acute findings. Dictated by: Remy Morse 01/02/2020 16:27 Electronically signed by Remy Morse in [facility] 01/02/2020 16:27
--- NOTE | 2020-01-02 15:58 | ECG_ITS ---
APPROVED REPORT Exam: Resting ECG HR:102 bpm ECG Measurements Heart Rate 102 AXES LA 146 P 70 QRSd 82 QRS -20 QT 376 T 62 QTc 490 <Conclusion> Sinus tachycardia Otherwise normal ECG Electronically signed by : Luis A Hammonds, 01/03/2020 17:29:43
[2020-01-02 16:04] LABS: Basophils # 0.1 K/mm3 (0-0.2); Basophils % 1.3 % (0.1-2.0); Eosinophils # 0.1 K/mm3 (0.0-0.4); Eosinophils % 2.2 % (0.1-12.0); Hematocrit 38.3 % (37.0-47.0); Hemoglobin 12.1 g/dL (12.2-16.2); Lymphocytes # 1.4 K/mm3 (0.7-4.5); Lymphocytes % 32.8 % (10-50); Mean Corpuscular HGB Conc 31.7 g/dL (31.8-35.4); Mean Corpuscular Volume 94.5 fl (81-99); Mean Platelet Volume 8.8 fl (7.4-10.4); Monocytes # 0.4 K/mm3 (0.1-1.0); Monocytes % 8.6 % (1.7-9.3); Neutrophils # 2.3 K/mm3 (1.8-7.8); Neutrophils % 55.2 % (37.0-80.0); Platelet Count 166 K/mm3 (142-424); Red Blood Count 4.05 M/mm3 (4.20-5.40); Red Cell Distribution Width 17.7 % (11.5-17.5); White Blood Count 4.1 K/mm3 (4.8-10.8)
[2020-01-02 16:09] LABS: Alanine Aminotransferase 38 U/L (12-78); Albumin Level 3.4 g/dl (3.5-5.0); Albumin/Globulin Ratio 0.9 (1.1-1.8); Alkaline Phosphatase 159 U/L (38-126); Anion Gap 10.3 mEq/L (5-15); Aspartate Amino Transferase 69 U/L (14-36); Bilirubin,Total 2.1 mg/dl (0.2-1.3); Blood Urea Nitrogen 14 mg/dl (7-17); Calcium 9.1 mg/dl (8.4-10.2); Carbon Dioxide 25 mmol/L (22.0-30.0); Chloride 105 mmol/L (98-107); Creatinine Clearance Estimated 93 mL/min (50-200); Estimated Glomerular Filt Rate 125 ml/min (>60); GFR (African American) 152 ML/MIN (>60); Glucose 123 mg/dl (74-100); Potassium 4.3 mmoL/L (3.5-5.1); Sodium 136 mmol/L (136-145); Total Protein,Serum 7.4 g/dl (6.3-8.2)
[2020-01-02 16:32] LABS: Ammonia 72 umol/L (9-30)
--- NOTE | 2020-01-02 16:46 | PC.NURSE ---
[facility] HERE TO TRANSPORT PT, REPORT GIVEN TO AIR NURSE
[2020-01-02 17:12] LABS: Microscopic, Urine URINE MICROSCOPIC (MICROSCOPIC)
--- NOTE | 2020-01-02 17:16 | CT_ITS ---
PROCEDURE: CT CHEST WO CON CLINICAL INDICATION: weakness, recent EGD with variceal banding COMPARISON: CT CHEST WO CON from 10/07/2019 TECHNIQUE: Axial images obtained with sagittal and coronal reformats. All CT scans at the facility use one or more dose reduction, viz: automated exposure control, ma/kV adjustment per patient size (including targeted exams where dose is matched to indication, i.e. head), or iterative reconstruction technique. FINDINGS: HEART AND MEDIASTINAL STRUCTURES: There is cardiomegaly without active CHF. Coronary arterial calcifications noted. Noncontrast exam makes evaluation for lymphadenopathy difficult particularly hilar lymphadenopathy. Small mediastinal lymph nodes are unchanged. There is wall thickening of the distal esophagus probably related to patient's known esophageal varices. Similar appearance was noted previously. LUNGS AND PLEURAL SPACES: There is a pleural based noncalcified pulmonary nodule in the anterior right upper lobe approximately 9.5 x 9.9 millimeters image 31 series 3. An approximately 3 millimeter nodule is lying adjacent to this and there are multiple other adjacent satellite nodules also apparent on image 32. Neoplastic disease must be considered. An indeterminate 3 millimeter pulmonary nodule is seen in the posterior right upper lobe on image 23 with some associated parenchymal density likely representing atelectasis. Nodule like opacities abutting the posterior pleural surface are also seen in the right upper images 27-29 series 3. 3 millimeter indeterminate pulmonary nodule is seen in the right upper lobe image 33 series 3. Calcified granuloma is seen in the left mid lung field. 4 millimeter nodule in the right mid lung field image 40 series 3 is noted. 2 millimeter indeterminate pulmonary nodule is seen in the right lower lobe image 42 series 3. There has been interval resolution of the right middle lobe and right lower lobe collapse described previously. Right pleural effusion has also resolved. Increased densities at the interface of both posterior lung jimenez and pleural surfaces is likely due to gravity dependent atelectasis. No acute infiltrate is apparent. BONY STRUCTURES: No acute bony abnormalities apparent. UPPER ABDOMEN: There is evidence of biliary cirrhosis with portal hypertension with splenomegaly. Portosystemic shunt procedure is apparent. Increased attenuation of the fat planes around the celiac artery is noted but decreased over the interval. ADDITIONAL FINDINGS: No other significant abnormalities. IMPRESSION: Multiple right-sided pulmonary nodules as described most suspicious one in the anterior right upper lobe 9.5 x 9.9 millimeters with adjacent satellite nodules. Active inflammatory or neoplastic lesion must be considered. Other scattered indeterminate pulmonary nodules as described. Interval resolution of right middle lobe and lower lobe collapse and large right pleural effusion. Some ground-glass opacities both lung bases likely due to atelectasis. Cardiomegaly with coronary arterial calcification. Findings consistent with biliary cirrhosis and portal hypertension with evidence of Jose systemic shunt. Wall thickening of distal esophagus most consistent with history of esophageal varices. No evidence of esophageal rupture. Dictated by: Remy Morse 01/02/2020 18:20 Electronically signed by Remy Morse in [facility] 01/02/2020 18:20
[2020-01-02 17:28] LABS: Appearance,Urine CLEAR (Clear); Bilirubin,Urine Negative (Negative); Blood, Urine Negative (Negative); Color,Urine YELLOW (Yellow); Glucose,Urine (UA) Negative (Negative); Ketones,Urine Negative (Negative); Leukocyte Esterase,Urine TRACE (Negative); Nitrate,Urine Negative (Negative); Protein,Urine Negative (Negative)
[2020-01-02 17:32] LABS: RBC,Urine Occasional #/hpf (0-3); Transitional Epi Cells,Urine OCC #/lpf (0-3)
--- NOTE | 2020-01-02 17:34 | PC.NURSE ---
Dr Nasra recio
--- NOTE | 2020-01-02 17:37 | PC.NURSE ---
Dr. Daily speaking with Dr. Hammonds.
--- NOTE | 2020-01-02 17:37 | PC.NURSE ---
dr philip speaking with Dr Hammonds.
[2020-01-02 17:45] LABS: VBG Base Excess -0.6 mmol/L (-2.4-2.3); VBG HCO3 22.8 mmol/L (23-30); VBG Oxygen Saturation 97.1 % (50-70); VBG PCO2 31.3 mmol/L (35-51); VBG PH 7.48 mmol/L (7.31-7.41); VBG PO2 87.6 mmol/L (28-40); VBG Total CO2 23.8 mmol/L (23-27)
--- NOTE | 2020-01-02 17:48 | HMH.EDGENADL ---
ED Disposition Clinical Impression: Hepatic encephalopathy, Cirrhosis of liver not due to alcohol Disposition: Admitted as Observation Condition on Discharge: Fair - Critical Care Critical Care Time: No Attestation: On 01/02/20, the high probability of a clinically significant, sudden or life threatening deterioration of the following system(s) required my full and direct attention, intervention and personal management. The time I documented below is in addition to time spent performing reported procedures but includes the following listed in this critical care notation. Medical Decision Making - Espinoza Inquiry Pt receiving controlled substance: No Espinoza was queried for this patient: No Vital Signs: 01/02/20 15:41 Pulse Rate [Radial] 106 H Respiratory Rate 18 Blood Pressure [Right Arm] 154/70 H Blood Pressure Mean [Right Arm] 98 Blood Pressure Source [Right Arm] Automatic Cuff Blood Pressure Position [Right Arm] Supine 02 Sat by Pulse Oximetry 100 Oxygen Delivery Method Room Air - Lab Data Lab Results 01/02/20 15:42: WBC 4.1 L, RBC 4.05 L, Hgb 12.1 L, Hct 38.3, MCV 94.5, MCH 30.0, MCHC 31.7 L, RDW 17.7 H, Plt Count 166, MPV 8.8, Neut % (Auto) 55.2, Lymph % (Auto) 32.8, [place] % (Auto) 8.6, Eos % (Auto) 2.2, Baso % (Auto) 1.3, Neut # (Auto) 2.3, Lymph # (Auto) 1.4, [place] # (Auto) 0.4, Eos # (Auto) 0.1, Baso # (Auto) 0.1 01/02/20 15:42: Sodium 136, Potassium 4.3, Chloride 105, Carbon Dioxide 25, Anion Gap 10.3, BUN 14, Creatinine 0.50 L, Estimated Creat Clear 93, Estimated GFR 125, Est GFR ( Amer) 152, Glucose 123 H, Calcium 9.1, Total Bilirubin 2.1 H, AST 69 H, ALT 38, Alkaline Phosphatase 159 H, Total Protein 7.4, Albumin 3.4 L, Globulin 4.0 H, Albumin/Globulin Ratio 0.9 L 01/02/20 16:10: Ammonia 72 H 01/02/20 16:15: Blood Type A Positive, Antibody Screen Negative 01/02/20 17:06: Urine Color Yellow, Urine Appearance Clear, Urine pH 8.0, Ur Specific [place] 1.020, Urine Protein Negative, Urine Glucose (UA) Negative, Urine Ketones Negative, Urine Blood Negative, Urine Nitrate Negative, Urine Bilirubin Negative, Urine Urobilinogen 2.0, Ur Leukocyte Esterase Trace, Urine RBC Occasional, Urine WBC 3-5, Ur Squamous Epith Cells 5-10, Ur Transition Epith Cell Occ, Urine Bacteria None 01/02/20 17:44: VBG pH 7.48 H, VBG pCO2 31.3 L, VBG pO2 87.6 H, VBG HCO3 22.8 L, VBG Total CO2 23.8, VBG O2 Saturation 97.1 H, VBG Base Excess -0.6 Result diagrams: 01/02/20 15:42 01/02/20 15:42 Orders (Tests/Meds): ED MEDICATIONS Discontinued Medications Generic Name Dose Route Start Last Admin Trade Name Freq PRN Reason Stop Dose Admin Lactated Ringer's 1,000 mls @ 999 mls/hr 01/02/20 16:00 Lactated Ringer's 1000 Ml Bag IV 01/02/20 17:00 .Q1H1M [facility] ORDERS Category Date Time Status CT chest wo con Stat Cat Scan 01/02/20 17:16 Taken Venous Blood Gas Stat RT 01/02/20 15:54 Ordered Medical Decision Narrative: In summary patient is a well-appearing 59-year-old female presenting to the emergency department for evaluation of weakness and confusion. No significant abnormalities on physical exam, but patient is obviously confused only oriented to person and not time or place. Differential diagnosis includes but not limited to urinary tract infection, GI bleed, hepatic encephalopathy. Appropriate work-up initiated. EKG shows sinus tachycardia, no ST elevation, depression, or QT prolongation was noted. Chest x-ray negative for any cardiopulmonary disease. No evidence of mediastinitis which was a concern given patient's recent upper endoscopy and variceal banding. Initial hemoglobin is 12.1, digital rectal exam performed and no bright red blood on exam. Stool guaiac sent up for evaluation. Patient's ammonia returns and is 72 which is significantly greater than normal. This points to hepatic encephalopathy being the likely cause of patient's symptoms. Dr. Mitchell consulted and is agreed to admit the patient
--- NOTE | 2020-01-02 17:50 | PC.NURSE ---
CALLED CHARGE NURSE FOR BED ASSIGNMENT. PATIENT WILL BE ADMITTED TO ROOM 214. ER STAFF NOTIFIED AT THIS TIME.
[2020-01-02 18:18] VITALS: BP 134/87; PULSE 87; RESP 20; TEMP 36.8; O2SAT 98
[2020-01-02 18:22] VITALS: BP 150/65; PULSE 89; RESP 18; TEMP 36.7; O2SAT 100
[2020-01-02 18:28] VITALS: BMI 30.7
[2020-01-02 18:35] VITALS: O2SAT 99
[2020-01-02 18:36] LABS: Barbiturates Screen,Urine Negative ng/ml (<200); Benzodiazepines Screen,Urine Negative ng/ml (<200)
[2020-01-02 18:37] LABS: Amphetamine/Metha Screen,Urine Negative ng/ml (<1000); Methadone Screen,Urine Negative ng/ml (<300)
[2020-01-02 18:38] LABS: Cannabinoid Screen,Urine Negative ng/ml (<50)
[2020-01-02 18:39] LABS: Cocaine Screen,Urine Negative ng/ml (<300); Opiate Screen,Urine Positive ng/ml (<300)
[2020-01-02 18:40] LABS: Phencyclidine Screen,Urine Negative ng/ml (<25)
[2020-01-02 19:49] VITALS: BP 138/69; PULSE 95; RESP 16; TEMP 36.5; O2SAT 100
--- NOTE | 2020-01-02 19:50 | HMH.HP ---
*Admission Date: 01/02/20 *Chief complaint: confusion *History of present illness: this pt with hx of liver dis presents ates she got home from on Friday for a Esophagus bleed. EMS states patient has a drain in for her liver failure. Recently put on transplant list. 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 Of note patient was recently cared for at the [facility] where she received banding for esophageal varices. She has been confused since discharge. Here in the emergency department patient is altered and confused. And only oriented to person. Not place or time. Whenever asked questions, patient can only state that she does not know. Of history obtained from chart review. pt was admitted with hepatic encephalopathy [facility] History I have reviewed the patient's past medical history: Yes Medical History: Reports:: Congestive Heart Failure, Gastroesophageal Reflux Disease(GERD), Heart Murmur, Hepatitis, MRSA (SPIDER BITE), Peripheral Vascular Disease, Transient Ischemic Attacks (TIA), Ulcer Denies:: Cancer, Diabetes Mellitus Type 1, Diabetes Mellitus Type 2 *Have you ever received a pneumonia vaccine?: No *Have you received a flu vaccine this season?: No Other Medical History: Reports: Anemia, Arthritis, Liver Disease (HEP C, CIRRHOSIS), Other Laterality Cases: Left: Total Knee Replacement Other Surgeries: Yes: Cardiac Catheterization, Cholecystectomy, , Tubal Ligation Amputation: No Fractures: Yes (right leg and ankle) - *Social History Educational Level: Completed High School Smoking Status: Former smoker Alcohol Intake: never Alcohol Intake Frequency:: holidays/special occasions only Substance Use Type: denies use *Occupational Status:: disabled Housing: apartment Household Members: significant other *Travel in the last 8 weeks: Inside the [place] Family Hx:: Cancer, Coronary Artery Disease, Diabetes, Heart Attack, Hyperlipidemia, Hypertension, Alcoholism Review of Systems - Review of Systems Review of systems:: pertinent systems reviewed and negative unless documented below - Constitutional Reports fatigue, Denies fever(s) - Eyes Denies change in vision - ENT Denies sore throat - *Cardiovascular Denies chest pain with activity - *Respiratory Denies cough - *Gastrointestinal Reports abdominal pain, Denies coffee ground vomit - *Genitourinary Denies blood in urine - *Musculoskeletal Denies joint pain - Integumentary/Breasts Denies rash - *Neurologic Reports confusion, Denies seizure-like activity, Denies tingling/numbness/burning sensations - Psychiatric Reports confusion, Denies anxiety Meds Home Medications Medication Instructions Recorded Confirmed Type spironolactone 100 mg tablet 100 mg PO DAILY tab 11/09/19 01/02/20 History Bumetanide 1 mg PO DAILY 01/02/20 01/02/20 History Lactulose [Lactulose 10gm/15ml 10 gm PO QID 01/02/20 01/02/20 History Oral Soln] Pantoprazole Sodium [Protonix 40mg 40 mg PO DAILY 01/02/20 01/02/20 History tablet] Sucralfate [Sucralfate 1gm 1 gm PO ACHS 01/02/20 01/02/20 History Tab] Allergies Allergy/AdvReac Type Severity Reaction Status Date / Time Sulfa (Sulfonamide Allergy Intermediate Hives Verified 11/09/19 09:34 Antibiotics) [SULFA (SULFONAMIDE ANTIBIOTICS)] Exam Vital signs and Labs for Last 24 Hours: Temp Pulse Resp BP Pulse Ox 97.7 F 95 H 16 138/69 100 01/02/20 19:49 01/02/20 19:49 01/02/20 19:49 01/02/20 19:49 01/02/20 19:49 Laboratory Results - last 24 hr 01/02/20 15:42: WBC 4.1 L, RBC 4.05 L, Hgb 12.1 L, Hct 38.3, MCV 94.5, MCH 30.0, MCHC 31.7 L, RDW 17.7 H, Plt Count 166, MPV 8.8, Neut % (Auto) 55.2, Lymph % (Auto) 32.8,
[2020-01-02 20:00] VITALS: O2SAT 100
[2020-01-03 04:00] VITALS: BP 128/57; PULSE 88; RESP 18; TEMP 36.4; O2SAT 99
[2020-01-03 05:00] VITALS: BMI 31.2
[2020-01-03 05:47] LABS: Basophils # 0.1 K/mm3 (0-0.2); Basophils % 1.3 % (0.1-2.0); Eosinophils # 0.2 K/mm3 (0.0-0.4); Eosinophils % 5.2 % (0.1-12.0); Lymphocytes # 1.1 K/mm3 (0.7-4.5); Lymphocytes % 32.2 % (10-50); Mean Corpuscular HGB Conc 31.1 g/dL (31.8-35.4); Mean Corpuscular Hemoglobin 29.3 pg (27.0-31.2); Mean Corpuscular Volume 94.3 fl (81-99); Mean Platelet Volume 7.9 fl (7.4-10.4); Monocytes # 0.3 K/mm3 (0.1-1.0); Monocytes % 9.1 % (1.7-9.3); Neutrophils # 1.8 K/mm3 (1.8-7.8); Neutrophils % 52.3 % (37.0-80.0); Platelet Count 128 K/mm3 (142-424); Red Blood Count 3.13 M/mm3 (4.20-5.40); Red Cell Distribution Width 17.5 % (11.5-17.5); White Blood Count 3.5 K/mm3 (4.8-10.8)
[2020-01-03 05:50] LABS: Hematocrit 29.6 % (37.0-47.0); Hemoglobin 9.2 g/dL (12.2-16.2)
[2020-01-03 05:52] LABS: Chloride 108 mmol/L (98-107); Sodium 138 mmol/L (136-145)
[2020-01-03 05:55] LABS: Ammonia 58 umol/L (9-30); Blood Urea Nitrogen 12 mg/dl (7-17); Calcium 8.2 mg/dl (8.4-10.2); Carbon Dioxide 25 mmol/L (22.0-30.0); Creatinine Clearance Estimated 82 mL/min (50-200); Estimated Glomerular Filt Rate 125 ml/min (>60); GFR (African American) 152 ML/MIN (>60); Glucose 110 mg/dl (74-100)
--- NOTE | 2020-01-03 07:20 | P.CONPHA_ITS ---
[facility] Pharmacy VTE Monitoring - Patient Demographics Admission date: 01/02/20 Report Date: 01/03/20 Time: 07:20 Allergies/Adverse Reactions: Patient Allergies Sulfa (Sulfonamide Antibiotics) [SULFA (SULFONAMIDE ANTIBIOTICS)] Allergy (Intermediate, Verified 11/09/19 09:34) Hives Height: 1.68 m Weight: 88.178 kg Patient Problems: Current Active Problems Hepatic encephalopathy (Acute) Obesity (BMI 30.0-34.9) (Acute) Pulmonary nodules (Acute) Coronary artery calcification seen on CAT scan (Acute) Cirrhosis of liver not due to alcohol (Acute) - VTE Risk Labs: VTE Related Lab Results Hgb 9.2 g/dL (12.2-16.2) L D 01/03/20 05:28 Hct 29.6 % (37.0-47.0) L 01/03/20 05:28 Plt Count 128 K/mm3 (142-424) L 01/03/20 05:28 BUN 12 mg/dl (7-17) 01/03/20 05:28 Creatinine 0.50 mg/dl (0.52-1.04) L 01/03/20 05:28 Estimated Creat Clear 82 mL/min (50-200) 01/03/20 05:28 Was VTE Risk Assessment Performed: Yes VTE Score: 8 VTE Risk Level: Moderate Risk - Prophylaxis VTE Prophylaxis Ordered?: Yes Types of VTE Prophylaxis: TEDS Knee High Location of Applied Device: Bilateral Lower Extremeties - VTE Diagnosis Confirmed Treatment or plan recommended: Continue Current Treatment
--- NOTE | 2020-01-03 07:25 | HMH.PHAINT ---
MEDICATION RECONCILIATION COMPLETED ON PATIENT USING EXTERNAL FILL HISTORY FROM PHARMACY. -LISANDRO WU, [place]
[2020-01-03 08:00] VITALS: BP 155/72; PULSE 100; RESP 18; TEMP 36.7; O2SAT 98
--- NOTE | 2020-01-03 13:16 | PC.NURSE ---
PT VERY EMOTIONAL THIS AM. CRYING TO MD. PT REQUESTING HER BROTHER PAUL TO NOT HAVE ANY INFO ON HER. CURRENTLY PT IS SLEEPING
[2020-01-03 14:32] LABS: Ammonia 72 umol/L (9-30)
--- NOTE | 2020-01-03 15:05 | HMH.ACPN2 ---
Internal Medicine - PN: Subj *Date: 01/03/20 *Time: 08:30 Interval history: 59 YOF sitting up in bed. More alert today, A&O x 2. She denies concerns/needs. She verbalizes taking Lactulose QID at home. No Asterixis noted. Exam Vital signs and Labs for Last 24 Hours: Temp Pulse Resp BP Pulse Ox 98.1 F 100 H 18 155/72 H 98 01/03/20 08:00 01/03/20 08:00 01/03/20 08:00 01/03/20 08:00 01/03/20 08:00 Laboratory Results - last 24 hr 01/02/20 15:42: WBC 4.1 L, RBC 4.05 L, Hgb 12.1 L, Hct 38.3, MCV 94.5, MCH 30.0, MCHC 31.7 L, RDW 17.7 H, Plt Count 166, MPV 8.8, Neut % (Auto) 55.2, Lymph % (Auto) 32.8, [place] % (Auto) 8.6, Eos % (Auto) 2.2, Baso % (Auto) 1.3, Neut # (Auto) 2.3, Lymph # (Auto) 1.4, [place] # (Auto) 0.4, Eos # (Auto) 0.1, Baso # (Auto) 0.1 01/02/20 15:42: Sodium 136, Potassium 4.3, Chloride 105, Carbon Dioxide 25, Anion Gap 10.3, BUN 14, Creatinine 0.50 L, Estimated Creat Clear 93, Estimated GFR 125, Est GFR ( Amer) 152, Glucose 123 H, Calcium 9.1, Total Bilirubin 2.1 H, AST 69 H, ALT 38, Alkaline Phosphatase 159 H, Total Protein 7.4, Albumin 3.4 L, Globulin 4.0 H, Albumin/Globulin Ratio 0.9 L 01/02/20 16:10: Ammonia 72 H 01/02/20 16:15: Blood Type A Positive, Antibody Screen Negative 01/02/20 17:06: Urine Color Yellow, Urine Appearance Clear, Urine pH 8.0, Ur Specific [place] 1.020, Urine Protein Negative, Urine Glucose (UA) Negative, Urine Ketones Negative, Urine Blood Negative, Urine Nitrate Negative, Urine Bilirubin Negative, Urine Urobilinogen 2.0, Ur Leukocyte Esterase Trace, Urine RBC Occasional, Urine WBC 3-5, Ur Squamous Epith Cells 5-10, Ur Transition Epith Cell Occ, Urine Bacteria None 01/02/20 17:06: Urine Opiates Screen Positive H, Urine Methadone Screen Negative, Ur Barbituates Screen Negative, Ur Phencyclidine Scrn Negative, Ur Amphetamines Screen Negative, U Benzodiazepines Scrn Negative, Urine Cocaine Screen Negative, U Marijuana (THC) Screen Negative 01/02/20 17:44: VBG pH 7.48 H, VBG pCO2 31.3 L, VBG pO2 87.6 H, VBG HCO3 22.8 L, VBG Total CO2 23.8, VBG O2 Saturation 97.1 H, VBG Base Excess -0.6 01/03/20 05:28: WBC 3.5 L, RBC 3.13 L, Hgb 9.2 L D, Hct 29.6 L, MCV 94.3, MCH 29.3, MCHC 31.1 L, RDW 17.5, Plt Count 128 L, MPV 7.9, Neut % (Auto) 52.3, Lymph % (Auto) 32.2, [place] % (Auto) 9.1, Eos % (Auto) 5.2, Baso % (Auto) 1.3, Neut # (Auto) 1.8, Lymph # (Auto) 1.1, [place] # (Auto) 0.3, Eos # (Auto) 0.2, Baso # (Auto) 0.1 01/03/20 05:28: Sodium 138, Potassium 4.0, Chloride 108 H, Carbon Dioxide 25, Anion Gap 9.0, BUN 12, Creatinine 0.50 L, Estimated Creat Clear 82, Estimated GFR 125, Est GFR ( Amer) 152, Glucose 110 H, Calcium 8.2 L 01/03/20 05:28: Ammonia 58 H 01/03/20 14:00: Ammonia 72 H I & O for Last 24 hours: Intake & Output 12/31/19 01/01/20 01/02/20 01/03/20 23:59 23:59 23:59 23:59 Intake Total 1000 / 1000 959 / 959 Output Total 2600 / 2600 Balance 1000 / 1000 -1641 / -1641 Weight 190 lb 0.5 oz 194 lb 6.4 oz - Constitutional no acute distress - *Routine HEENT Exam Head: Present: normocephalic Eye: Present: EOMI, PERRL, normal accommodation ENT: Present: mucous membranes dry - *Routine Neck Exam Present: full ROM, trachea midline. Absent: JVD, tracheal deviation - *Routine Respiratory Exam Present: accessory muscle use, CTA bilaterally - *Routine Cardiovascular Exam Present: RRR, murmur - *Routine Abdominal Exam Present: soft, normoactive bowel sounds. Absent: tenderness, firm - *Routine Extremities Exam Present: full ROM, pulses intact. Absent: cyanosis, calf tenderness - Routine Back/Spine/Pelvis Exam Back/Spine: Present: full ROM. Absent: CVA tenderness - *Routine Skin Exam Present: intact, warm. Absent: jaundice - *Routine Neurological Exam Present: alert. Absent: oriented X3, asterixis Assessment and Plan (1) Cirrhosis of liver not due to alcohol Current visit: Yes Status: Acute Category: Medical Code(s): K74.60 - Unspecified cirrhosis
[2020-01-03 15:24] VITALS: BMI 31.1
[2020-01-03 16:00] VITALS: BP 143/71; PULSE 87; RESP 16; TEMP 36.9; O2SAT 100
--- NOTE | 2020-01-03 18:42 | PC.NURSE ---
pt has done well this shift. she did finally have a large bm. she has had one episode of confusion, but only on the date. easily reoriented, has been a&ox4 otherwise. vss. will cont. to monitor.
--- NOTE | 2020-01-03 18:51 | PC.NURSE ---
all charting and care done under Jaime Brice RN
--- NOTE | 2020-01-03 19:12 | PC.NURSE ---
report given to savi
[2020-01-03 20:00] VITALS: BP 154/71; PULSE 87; RESP 16; TEMP 36.7; O2SAT 100
[2020-01-03 22:13] LABS: Chloride 107 mmol/L (98-107); Potassium 3.9 mmoL/L (3.5-5.1); Sodium 138 mmol/L (136-145)
[2020-01-03 22:16] LABS: Alanine Aminotransferase 32 U/L (12-78); Albumin Level 2.7 g/dl (3.5-5.0); Albumin/Globulin Ratio 0.8 (1.1-1.8); Alkaline Phosphatase 108 U/L (38-126); Ammonia 37 umol/L (9-30); Anion Gap 10.9 mEq/L (5-15); Aspartate Amino Transferase 44 U/L (14-36); Bilirubin,Total 1.4 mg/dl (0.2-1.3); Blood Urea Nitrogen 12 mg/dl (7-17); Calcium 8.8 mg/dl (8.4-10.2); Carbon Dioxide 24 mmol/L (22.0-30.0); Creatinine Clearance Estimated 82 mL/min (50-200); Estimated Glomerular Filt Rate 85 ml/min (>60); GFR (African American) 103 ML/MIN (>60); Globulin 3.2 g/dL (1.3-3.2); Glucose 184 mg/dl (74-100); Total Protein,Serum 5.9 g/dl (6.3-8.2)
[2020-01-04 04:00] VITALS: BP 131/69; PULSE 88; RESP 18; TEMP 36.8; O2SAT 100
[2020-01-04 05:00] VITALS: BMI 32.1
--- NOTE | 2020-01-04 05:51 | PC.NURSE ---
Pt is alert and oriented x4, shes had multiple soft to loose bowel movements through out the night. Po intake has improved over the last 24 hrs. Pt has ambulated in room with only supervision. Pt ammonia has significantly decreased ( see labs). No reported complaints and refused bath
[2020-01-04 06:46] LABS: Eosinophils # 0.2 K/mm3 (0.0-0.4); Eosinophils % 5.8 % (0.1-12.0); Hemoglobin 9.6 g/dL (12.2-16.2); Lymphocytes # 1.1 K/mm3 (0.7-4.5); Lymphocytes % 26.1 % (10-50); Mean Corpuscular HGB Conc 30.9 g/dL (31.8-35.4); Mean Corpuscular Hemoglobin 29.6 pg (27.0-31.2); Mean Corpuscular Volume 95.7 fl (81-99); Mean Platelet Volume 7.9 fl (7.4-10.4); Monocytes # 0.4 K/mm3 (0.1-1.0); Monocytes % 9.8 % (1.7-9.3); Neutrophils # 2.4 K/mm3 (1.8-7.8); Neutrophils % 57.2 % (37.0-80.0); Platelet Count 134 K/mm3 (142-424); Red Blood Count 3.24 M/mm3 (4.20-5.40); Red Cell Distribution Width 17.7 % (11.5-17.5); White Blood Count 4.1 K/mm3 (4.8-10.8)
[2020-01-04 06:54] LABS: Chloride 105 mmol/L (98-107); Potassium 3.8 mmoL/L (3.5-5.1); Sodium 135 mmol/L (136-145)
[2020-01-04 06:55] LABS: Ammonia 33 umol/L (9-30)
[2020-01-04 06:57] LABS: Anion Gap 8.8 mEq/L (5-15); Blood Urea Nitrogen 10 mg/dl (7-17); Calcium 8.6 mg/dl (8.4-10.2); Carbon Dioxide 25 mmol/L (22.0-30.0); Creatinine Clearance Estimated 85 mL/min (50-200); Estimated Glomerular Filt Rate 125 ml/min (>60); GFR (African American) 152 ML/MIN (>60); Glucose 119 mg/dl (74-100)
[2020-01-04 08:00] VITALS: BP 126/60; PULSE 87; RESP 20; TEMP 36.4; O2SAT 100
[2020-01-04 08:43] VITALS: PULSE 87; RESP 20; O2SAT 100
[2020-01-04 11:44] LABS: Ammonia 24 umol/L (9-30)
--- NOTE | 2020-01-04 11:53 | HMH.DCSUM ---
General - General Admission date:: 01/02/20 Discharge date: 01/04/20 HPI HPI: 59 YOF sitting up in chair, A&Ox3, she reports she is feeling much better and ready to go home. this pt with hx of liver dis presents ates she got home from on Friday for a Esophagus bleed. EMS states patient has a drain in for her liver failure. Recently put on transplant list. 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 Of note patient was recently cared for at the [facility] where she received banding for esophageal varices. She has been confused since discharge. Here in the emergency department patient is altered and confused. And only oriented to person. Not place or time. Whenever asked questions, patient can only state that she does not know. Of history obtained from chart review. pt was admitted with hepatic encephalopathy Hospital Course Hospital Course: this pt with hx of liver dis presents ates she got home from on Friday for a Esophagus bleed. EMS states patient has a drain in for her liver failure. Recently put on transplant list. 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 Of note patient was recently cared for at the [facility] where she received banding for esophageal varices. She has been confused since discharge. Here in the emergency department patient is altered and confused. And only oriented to person. Not place or time. Whenever asked questions, patient can only state that she does not know. Of history obtained from chart review. pt was admitted with hepatic encephalopathy 01/02/20 CXR: IMPRESSION: No acute findings. Dictated by: Dr. Morse 01/02/[address]: IMPRESSION: Multiple right-sided pulmonary nodules as described most suspicious one in the anterior right upper lobe 9.5 x 9.9 millimeters with adjacent satellite nodules. Active inflammatory or neoplastic lesion must be considered. Other scattered indeterminate pulmonary nodules as described. Interval resolution of right middle lobe and lower lobe collapse and large right pleural effusion. Some ground-glass opacities both lung bases likely due to atelectasis. Cardiomegaly with coronary arterial calcification. Findings consistent with biliary cirrhosis and portal hypertension with evidence of Jose systemic shunt. Wall thickening of distal esophagus most consistent with history of esophageal varices. No evidence of esophageal rupture. Dictated by: Dr. Morse, On admission She was confused and only alert to self, Ammonia was 72. 4/6 0800, she was more alert and Ammonia level 58, at 1400 Ammonia was 72 and Lactulose dose increased to 40 gm QID. 01/04/20 Ammonia 33 and AM dose given. 01/04/20 1300 Ammonia 24 and she is now back to baseline mental status. She is inst to cont Lactulose 40 gm QID x 1 day then resume 20 gm QID. Objective Vital signs: Temp Pulse Resp BP Pulse Ox 97.6 F 87 20 126/60 100 01/04/20 08:00 01/04/20 08:43 01/04/20 08:43 01/04/20 08:00 01/04/20 08:43 no acute distress - *Routine HEENT Exam Head: Present: normocephalic, atraumatic. Absent: tenderness of temporal artery Eye: Present: EOMI, PERRL, normal accommodation. Absent: periorbital tenderness ENT: Present: mucous membranes moist. Absent: sinus tenderness - *Routine Neck Exam Present: supple, full ROM, trachea midline. Absent: JVD - *Routine Respiratory Exam Present: CTA bilaterally. Absent: accessory muscle use - *Routine Cardiovas
--- NOTE | 2020-01-04 13:38 | HMH.PHAINT ---
DISCHARGE COUNSELING COMPLETE. DISCUSSED WITH THE PATIENT THAT SHE IS TO RESUME ALL HOME MEDS UPON DISCHARGE. EXPLAINED THAT SHE WILL TAKE 40 MG LACTULOSE FOUR TIMES A DAY FOR 1 DAY, THEN DECREASE TO 20 MG FOUR TIMES A DAY. PATIENT ENDORSED NO QUESTIONS AT THIS TIME.
[2020-01-04 15:57] VITALS: BP 122/56; PULSE 85; RESP 18; TEMP 36.6; O2SAT 100
== END 2020-01-04 18:55 | disposition home or self-care (01) ==
LOC: ER 16:05 → 2ND 18:15
PROVIDERS: Nurse Practitioner Family; Admitting Provider Internal Medicine Adolescent Medicine; Emergency Provider Emergency Medicine; PCP Emergency Medicine; Visit Provider Emergency Medicine
DX: K72.90 Hepatic failure, unspecified without coma; K74.69 Other cirrhosis of liver; K76.6 Portal hypertension; I85.00 Esophageal varices without bleeding; D69.6 Thrombocytopenia, unspecified; R91.8 Other nonspecific abnormal finding of lung field; I25.10 Atherosclerotic heart disease of native coronary artery without angina pectoris; E66.9 Obesity, unspecified; B18.2 Chronic viral hepatitis C; D64.9 Anemia, unspecified; Z86.73 Personal history of transient ischemic attack (TIA), and cerebral infarction without residual deficits; Z86.79 Personal history of other diseases of the circulatory system; M19.90 Unspecified osteoarthritis, unspecified site; Z79.899 Other long term (current) drug therapy; Z88.1 Allergy status to other antibiotic agents; Z88.2 Allergy status to sulfonamides; Z86.14 Personal history of Methicillin resistant Staphylococcus aureus infection; Z87.39 Personal history of other diseases of the musculoskeletal system and connective tissue
CPT/HCPCS: 36415; 71045; 71250; 80048; 80053; 80305; 81001; 82140; 82803; 85025; 86850; 93005; 96365; 99284; G0378

== ENCOUNTER 2020-02-16 11:38 | Emergency (ER) | payer MEDICARE, MEDICAID, SELFPAY ==
[2020-02-16 11:39] VITALS: BMI 30.1
--- NOTE | 2020-02-16 11:40 | XR_ITS ---
PROCEDURE: XR CHEST PORTABLE CLINICAL HISTORY: ams His name with Ree him fluid the appear below COMPARISON: XR CHEST 2V from 10/10/2019 XR CHEST 2V from 10/13/2019 XR CHEST PORTABLE from 01/02/2020 CT CHEST WO CON from 01/02/2020 FINDINGS: The cardiomediastinal silhouette and pulmonary vascularity are within normal limits. The lungs are clear without infiltrates, suspicious nodules, or pleural effusions. The patient's chin is obscuring the upper chest IMPRESSION: No acute findings. Dictated by: Antwan Esquivel MD 02/16/2020 12:46 Electronically signed by Antwan Esquivel MD in [place] 02/16/2020 12:46
[2020-02-16 11:41] VITALS: BP 129/78; PULSE 102; RESP 20; TEMP 36.6; O2SAT 98; BMI 31.1
--- NOTE | 2020-02-16 11:55 | ECG_ITS ---
APPROVED REPORT Exam: Resting ECG HR:98 bpm ECG Measurements Heart Rate 98 AXES VA 136 P 43 QRSd 80 QRS -30 QT 372 T 54 QTc 474 <Conclusion> Normal sinus rhythm Left axis deviation Abnormal ECG Electronically signed by : Luis A Hammonds, 02/17/2020 21:40:28
--- NOTE | 2020-02-16 12:04 | PC.NURSE ---
SEVERAL ATTEMPTS AT IV ACCESS WITH NO SUCCESS CALLED FOR A US GUIDED IV
[2020-02-16 12:48] LABS: Chloride 103 mmol/L (98-107); Potassium 4.7 mmoL/L (3.5-5.1); Sodium 135 mmol/L (136-145)
[2020-02-16 12:49] LABS: Basophils # 0.1 K/mm3 (0-0.2); Basophils % 1.6 % (0.1-2.0); Eosinophils % 0.6 % (0.1-12.0); Hematocrit 37.1 % (37.0-47.0); Hemoglobin 11.2 g/dL (12.2-16.2); Lymphocytes # 1.3 K/mm3 (0.7-4.5); Lymphocytes % 26.3 % (10-50); Mean Corpuscular HGB Conc 30.3 g/dL (31.8-35.4); Mean Corpuscular Hemoglobin 29.3 pg (27.0-31.2); Mean Corpuscular Volume 96.7 fl (81-99); Mean Platelet Volume 8.8 fl (7.4-10.4); Monocytes # 0.4 K/mm3 (0.1-1.0); Monocytes % 8.7 % (1.7-9.3); Neutrophils # 3.2 K/mm3 (1.8-7.8); Neutrophils % 62.9 % (37.0-80.0); Platelet Count 132 K/mm3 (142-424); Red Blood Count 3.84 M/mm3 (4.20-5.40); Red Cell Distribution Width 16.7 % (11.5-17.5)
[2020-02-16 12:50] LABS: Blood Urea Nitrogen 15 mg/dl (7-17)
[2020-02-16 12:51] LABS: Alanine Aminotransferase 34 U/L (12-78); Albumin/Globulin Ratio 0.8 (1.1-1.8); Alkaline Phosphatase 192 U/L (38-126); Anion Gap 9.7 mEq/L (5-15); Aspartate Amino Transferase 56 U/L (14-36); Bilirubin,Total 1.2 mg/dl (0.2-1.3); Calcium 8.8 mg/dl (8.4-10.2); Carbon Dioxide 27 mmol/L (22.0-30.0); Creatinine Clearance Estimated 72 mL/min (50-200); Estimated Glomerular Filt Rate 85 ml/min (>60); GFR (African American) 103 ML/MIN (>60); Globulin 3.6 g/dL (1.3-3.2); Glucose 142 mg/dl (74-100); Total Protein,Serum 6.6 g/dl (6.3-8.2)
[2020-02-16 12:54] LABS: Ammonia 148 umol/L (9-30)
[2020-02-16 12:55] LABS: Lactic Acid 1.7 mmol/L (0.7-2.1)
[2020-02-16 13:06] LABS: Prothrombin Time 11.4 seconds (9.4-11.8)
[2020-02-16 13:35] LABS: Microscopic, Urine URINE MICROSCOPIC (MICROSCOPIC)
[2020-02-16 13:36] LABS: Appearance,Urine SL CLOUDY (Clear); Bilirubin,Urine Negative (Negative); Blood, Urine Negative (Negative); Color,Urine YELLOW (Yellow); Glucose,Urine (UA) Negative (Negative); Ketones,Urine Negative (Negative); Leukocyte Esterase,Urine 1+ (Negative); Nitrate,Urine POSITIVE (Negative); Protein,Urine Negative (Negative); Urobilinogen,Urine 0.2 EU/dl (0.2)
--- NOTE | 2020-02-16 13:45 | HMH.EDAMS ---
ED Disposition Clinical Impression: Altered mental status, Delirium due to general medical condition Disposition: Xfer Short-Term Hosp Condition on Discharge: Good Instructions: DI for Altered Mental Status Referrals: Joaquín Childress MD [Primary Care Provider] - - Critical Care Critical Care Time: No Attestation: On 02/16/20, the high probability of a clinically significant, sudden or life threatening deterioration of the following system(s) required my full and direct attention, intervention and personal management. The time I documented below is in addition to time spent performing reported procedures but includes the following listed in this critical care notation. Medical Decision Making - Medical Records Medical records reviewed: Yes: I reviewed the patient's medical records. - Espinoza Inquiry Pt receiving controlled substance: No Vital Signs: 02/16/20 11:41 Temperature 98 F Temperature Source Oral Pulse Rate [Left Radial] 102 H Respiratory Rate 20 Blood Pressure [Right Arm] 129/78 Blood Pressure Mean [Right Arm] 95 Blood Pressure Position [Right Arm] Sitting 02 Sat by Pulse Oximetry 98 Oxygen Delivery Method Room Air - Lab Data Lab results reviewed: Yes: I reviewed the patient's lab results. Lab Results 02/16/20 12:30: WBC 5.0, RBC 3.84 L, Hgb 11.2 L, Hct 37.1, MCV 96.7, MCH 29.3, MCHC 30.3 L, RDW 16.7, Plt Count 132 L, MPV 8.8, Neut % (Auto) 62.9, Lymph % (Auto) 26.3, [place] % (Auto) 8.7, Eos % (Auto) 0.6, Baso % (Auto) 1.6, Neut # (Auto) 3.2, Lymph # (Auto) 1.3, [place] # (Auto) 0.4, Eos # (Auto) 0.0, Baso # (Auto) 0.1 02/16/20 12:30: Sodium 135 L, Potassium 4.7, Chloride 103, Carbon Dioxide 27, Anion Gap 9.7, BUN 15, Creatinine 0.70, Estimated Creat Clear 72, Estimated GFR 85, Est GFR ( Amer) 103, Glucose 142 H, Calcium 8.8, Total Bilirubin 1.2, AST 56 H, ALT 34, Alkaline Phosphatase 192 H, Total Protein 6.6, Albumin 3.0 L, Globulin 3.6 H, Albumin/Globulin Ratio 0.8 L 02/16/20 12:30: Lactate 1.7 02/16/20 12:30: Ammonia 148 H 02/16/20 12:30: PT 11.4, INR 1.10 02/16/20 13:30: Urine Color Yellow, Urine Appearance Sl cloudy, Urine pH 7.0, Ur Specific [place] 1.010, Urine Protein Negative, Urine Glucose (UA) Negative, Urine Ketones Negative, Urine Blood Negative, Urine Nitrate Positive, Urine Bilirubin Negative, Urine Urobilinogen 0.2, Ur Leukocyte Esterase 1+ A, Urine RBC 3-5, Urine WBC 10-20, Ur Squamous Epith Cells Occasional, Urine Bacteria 3+ Result diagrams: 02/16/20 12:30 02/16/20 12:30 Orders (Tests/Meds): ORDERS Category Date Time Status Blood Culture Stat Micro 02/16/20 12:30 Received Urine Culture Stat Micro 02/16/20 13:30 Received Medical Decision Narrative: Spoke with Dr. Lema at [facility] ED he accepted the patient. Altered Mental Status HPI - General Chief Complaint: Altered Mental Status Stated Complaint: altered mental status Time Seen by Provider: 02/16/20 14:14 Mode of Arrival: EMS Source of Information: Patient, Relative, EMS Limitations: Altered Mental Status Description of Symptoms (Recalled from ER Triage Doc. by RN): to ed per squad reports they were called by family due to nausea, vomiting and AMS. pt with hx of cirrhosis and had a stent placed in liver to drain fluid . pt drowsey responds to verbal stimuli, confused to time and place. pt denies any c/o pain. - History of Present Illness HPI narrative: 59-year-old female with chronic liver disease comes in altered. She is only alert and oriented to self. This is not her baseline. She gets like this when her ammonia level is elevated. Presently she has been followed by [facility] GI team and she is on the liver transplant waiting list. Otherwise it was reported by family that she had some nausea and vomiting for about a day other than that no other symptoms and no other history could be obtained. MD complaint: altered mental status, confusion Onset (ago): hour(s) Timing confirme
[2020-02-16 14:02] LABS: Bacteria,Urine 3+ /lpf; Squamous Epithelial Cell,Urine Occasional #/hpf (0-5)
[2020-02-16 14:09] VITALS: BP 138/90; PULSE 84; RESP 20; O2SAT 98
--- NOTE | 2020-02-16 14:19 | PC.NURSE ---
Dr. Bush speaking with MDs
--- NOTE | 2020-02-16 14:29 | PC.NURSE ---
Report called Any at ER. [facility] notified of transfer.
[2020-02-16 14:47] VITALS: BP 138/90; PULSE 84; RESP 20; TEMP 36.6; O2SAT 98
== END 2020-02-16 14:48 | disposition short-term general hospital (02) ==
PROVIDERS: Emergency Provider Family Medicine; PCP Emergency Medicine
DX: K74.60 Unspecified cirrhosis of liver (principal); B18.2 Chronic viral hepatitis C; K21.9 Gastro-esophageal reflux disease without esophagitis; I50.9 Heart failure, unspecified; Z90.49 Acquired absence of other specified parts of digestive tract; Z88.2 Allergy status to sulfonamides; Z79.899 Other long term (current) drug therapy
CPT/HCPCS: 71045; 80053; 81001; 82140; 83605; 85025; 85610; 87040; 87086; 87088; 87186; 93005; 99284

== ENCOUNTER → 2020-03-13 13:54 | Outpatient (CLI) | payer MEDICARE, MEDICAID, SELFPAY | PROVIDERS: PCP Emergency Medicine; Visit Provider Emergency Medicine | DX: R01.1 Cardiac murmur, unspecified (principal); R60.0 Localized edema; I34.0 Nonrheumatic mitral (valve) insufficiency | CPT/HCPCS: 93306 ==

== ENCOUNTER 2020-04-11 17:13 | Observation (INO) | payer MEDICARE, MEDICAID, SELFPAY ==
[2020-04-11] VITALS (8 sets, daily range): BP systolic 95–111; BP diastolic 51–63; PULSE 68–140; RESP 14–20; TEMP 36.8–37.3; O2SAT 98–99; BMI 38.0; BMI 33.7
--- NOTE | 2020-04-11 17:12 | ECG_ITS ---
APPROVED REPORT Exam: Resting ECG HR:141 bpm ECG Measurements Heart Rate 141 AXES QRSd 82 QRS -32 QT 344 T 84 QTc 526 <Conclusion> Atrial flutter with variable AV block Left axis deviation Low voltage QRS ST abnormality, possible electrolyte effecct Abnormal ECG Electronically signed by : Luis A Hammonds, 04/14/2020 17:13:34
--- NOTE | 2020-04-11 17:21 | HMH.EDGENADL ---
ED Disposition Clinical Impression: Atrial flutter Qualifiers: Atrial flutter type: typical Qualified Code(s): I48.3 - Typical atrial flutter Disposition: Admitted as Observation Condition on Discharge: Good - Critical Care Critical Care Time: Yes Attestation: On 04/11/20, the high probability of a clinically significant, sudden or life threatening deterioration of the following system(s) required my full and direct attention, intervention and personal management. The time I documented below is in addition to time spent performing reported procedures but includes the following listed in this critical care notation. Total Critical Care Time: 40 Vital system(s) involved:: Circulatory Failure My critical care processes included: Assessment & monitoring of V/S, Initial and Re-exams, Data Review/Interpretation, Coordinating Care, Medication Orders and management, Documentation Medical Decision Making - Medical Records Medical records reviewed: Yes: I reviewed the patient's medical records. MR Comment: Echocardiogram done on 03/10/2020: Severely dilated left atrium. Right atrium normal. Interatrial septum is intact with no evidence for ASD. Moderate mitral annular calcification. Moderate mitral regurgitation. No pericardial effusion. - Espinoza Inquiry Pt receiving controlled substance: No Vital Signs: 04/11/20 17:11 04/11/20 17:58 04/11/20 18:32 Temperature 98.2 F Temperature Source Oral Pulse Rate [Radial] 140 H 118 H 68 Respiratory Rate 20 Blood Pressure [Right Arm] 106/60 L 95/63 L 95/51 L Blood Pressure Mean [Right Arm] 75 73 65 Blood Pressure Source [Right Arm] Automatic Cuff Automatic Cuff Automatic Cuff Blood Pressure Position [Right Arm] Sitting Sitting Sitting 02 Sat by Pulse Oximetry 99 98 99 Oxygen Delivery Method Room Air Room Air Room Air - Lab Data Lab results reviewed: Yes: I reviewed the patient's lab results. Lab Results 04/11/20 18:36: WBC 4.1 L, RBC 3.37 L, Hgb 10.9 L, Hct 32.5 L, MCV 96.5, MCH 32.4 H, MCHC 33.5, RDW 16.7, Plt Count 124 L, MPV 8.1, Neut % (Auto) 55.2, Lymph % (Auto) 28.6, [place] % (Auto) 10.0 H, Eos % (Auto) 5.3, Baso % (Auto) 0.9, Neut # (Auto) 2.3, Lymph # (Auto) 1.2, [place] # (Auto) 0.4, Eos # (Auto) 0.2, Baso # (Auto) 0.0 04/11/20 18:36: Sodium 134 L, Potassium 3.5, Chloride 100, Carbon Dioxide 27, Anion Gap 10.5, BUN 12, Creatinine 0.60, Estimated Creat Clear 106, Estimated GFR 102, Est GFR ( Amer) 123, Glucose 130 H, Calcium 8.7, Total Bilirubin 1.4 H, AST 52 H, ALT 27, Alkaline Phosphatase 116, Troponin I 0.06 H, Total Protein 5.9 L, Albumin 2.6 L, Globulin 3.3 H, Albumin/Globulin Ratio 0.8 L 04/11/20 18:36: TSH 2.46, Free T4 Index 4.0 L, Thyroxine (T4) 13.2 H, T3 Uptake 30 Result diagrams: 04/11/20 18:36 04/11/20 18:36 Orders (Tests/Meds): ED MEDICATIONS Generic Name Dose Route Start Last Admin Trade Name Freq PRN Reason Stop Dose Admin Diltiazem HCl 100 mg/ Sodium 100 mls @ 5 mls/hr 04/11/20 17:47 04/11/20 17:49 Chloride IV 05/11/20 17:46 5 mls/hr .Q20H KARAN Administration Protocol Discontinued Medications Generic Name Dose Route Start Last Admin Trade Name Freq PRN Reason Stop Dose Admin Diltiazem HCl 10 mg 04/11/20 17:31 04/11/20 17:37 Cardizem 25mg/5ml Vial IV 04/11/20 17:32 10 mg ONCE ONE Administration ORDERS Category Date Time Status Chest XR -- portable [XR chest portable] Stat Exams 04/11/20 17:31 Taken Troponin I Q3H Lab 04/11/20 20:45 Ordered Troponin I Q3H Lab 04/11/20 23:45 Ordered - Radiology Data #1 Image(s): Chest Image Reviewed: Yes I reviewed the patient's radiology image Cardiomegaly - ECG Data Tracing #1 EKG interpreted by Kyler Jett MD: Rhythm: Atrial flutter Rate: 141 [place]: normal Ectopy: none Conduction: normal ST Segment Changes: none T Wave Changes: none Q Waves: none No evidence of acute ischemia or injury Tracing #2 EKG interprete
--- NOTE | 2020-04-11 17:31 | XR_ITS ---
PROCEDURE: XR CHEST PORTABLE CLINICAL HISTORY: chest pain Shortness of air and chest pain COMPARISON: XR CHEST 2V from 10/13/2019 XR CHEST PORTABLE from 01/02/2020 CT CHEST WO CON from 01/02/2020 XR CHEST PORTABLE from 02/16/2020 FINDINGS: Cardiomegaly with mild pulmonary venous congestion consistent with mild CHF. The lungs are clear without infiltrates, suspicious nodules, or pleural effusions. No acute bony abnormalities. IMPRESSION: Mild CHF Dictated by: Antwan Esquivel MD 04/11/2020 20:57 Electronically signed by Antwan Esquivel MD in [place] 04/11/2020 20:57
--- NOTE | 2020-04-11 17:55 | PC.NURSE ---
Rad at bedside
--- NOTE | 2020-04-11 18:03 | PC.NURSE ---
family at bedside
--- NOTE | 2020-04-11 18:20 | PC.NURSE ---
unsuccessfull attempts to obtain blood on pt, contacted lab
--- NOTE | 2020-04-11 18:33 | PC.NURSE ---
lab at bedside to attempt blood draw.
[2020-04-11 18:47] LABS: Basophils % 0.9 % (0.1-2.0); Eosinophils # 0.2 K/mm3 (0.0-0.4); Eosinophils % 5.3 % (0.1-12.0); Hematocrit 32.5 % (37.0-47.0); Hemoglobin 10.9 g/dL (12.2-16.2); Lymphocytes # 1.2 K/mm3 (0.7-4.5); Lymphocytes % 28.6 % (10-50); Mean Corpuscular HGB Conc 33.5 g/dL (31.8-35.4); Mean Corpuscular Hemoglobin 32.4 pg (27.0-31.2); Mean Corpuscular Volume 96.5 fl (81-99); Mean Platelet Volume 8.1 fl (7.4-10.4); Monocytes # 0.4 K/mm3 (0.1-1.0); Neutrophils # 2.3 K/mm3 (1.8-7.8); Neutrophils % 55.2 % (37.0-80.0); Platelet Count 124 K/mm3 (142-424); Red Blood Count 3.37 M/mm3 (4.20-5.40); Red Cell Distribution Width 16.7 % (11.5-17.5); White Blood Count 4.1 K/mm3 (4.8-10.8)
[2020-04-11 18:58] LABS: Chloride 100 mmol/L (98-107); Potassium 3.5 mmoL/L (3.5-5.1); Sodium 134 mmol/L (136-145)
[2020-04-11 19:00] LABS: Blood Urea Nitrogen 12 mg/dl (7-17); Creatinine Clearance Estimated 106 mL/min (50-200); Estimated Glomerular Filt Rate 102 ml/min (>60); GFR (African American) 123 ML/MIN (>60)
[2020-04-11 19:01] LABS: Alanine Aminotransferase 27 U/L (12-78); Albumin Level 2.6 g/dl (3.5-5.0); Albumin/Globulin Ratio 0.8 (1.1-1.8); Alkaline Phosphatase 116 U/L (38-126); Anion Gap 10.5 mEq/L (5-15); Aspartate Amino Transferase 52 U/L (14-36); Bilirubin,Total 1.4 mg/dl (0.2-1.3); Calcium 8.7 mg/dl (8.4-10.2); Carbon Dioxide 27 mmol/L (22.0-30.0); Globulin 3.3 g/dL (1.3-3.2); Glucose 130 mg/dl (74-100); Total Protein,Serum 5.9 g/dl (6.3-8.2)
[2020-04-11 19:13] LABS: Troponin I 0.06 ng/ml (0.00-0.034)
[2020-04-11 19:18] LABS: Triiodothryronine (T3) Uptake 30 % (23.5-40.5)
[2020-04-11 19:19] LABS: T4 (Thyroxine) 13.2 ug/dl (5.53-11.0)
[2020-04-11 19:33] LABS: Thyroid Stimulating Hormone 2.46 uIU/mL (0.465-4.68)
--- NOTE | 2020-04-11 19:44 | ECG_ITS ---
APPROVED REPORT Exam: Resting ECG HR:67 bpm ECG Measurements Heart Rate 67 AXES NC 156 P 59 QRSd 82 QRS -2 QT 452 T 66 QTc 477 <Conclusion> Normal sinus rhythm Normal ECG Electronically signed by : Luis A Hammonds, 04/14/2020 17:10:56
[2020-04-11 21:26] LABS: Troponin I 0.07 ng/ml (0.00-0.034)
--- NOTE | 2020-04-11 21:39 | PC.NURSE ---
PT ARRIVED TO THE FLOOR VIA W/C FROM ED AT 2134.
[2020-04-12] VITALS: BP 102/52; PULSE 80; PULSE 82; RESP 18; TEMP 37.2; O2SAT 97
[2020-04-12 00:15] LABS: Troponin I 0.07 ng/ml (0.00-0.034)
[2020-04-12 04:00] VITALS: BP 114/64; PULSE 75; PULSE 80; RESP 20; TEMP 36.8; O2SAT 94
[2020-04-12 05:34] VITALS: BMI 33.8
--- NOTE | 2020-04-12 05:47 | PC.NURSE ---
Pt is A&Ox4 and has ambulated in the room and to the BR this shift with staff SBA and tolerated well. Pt has c/o back pain and was medicated per MAR with good pain control on reassessment. Pt has maintained NSR on tele t/o shift. Pt rested well during the night. Lungs jimenez are diminished t/o on auscultation. TEDS refused. VSS, call light within reach, will continue to monitor.
--- NOTE | 2020-04-12 06:32 | PC.NURSE ---
Rossy MCDONNELL NOTIFIED OF CONSULT.
--- NOTE | 2020-04-12 07:00 | P.CONPHA_ITS ---
[facility] Pharmacy VTE Monitoring - Patient Demographics Admission date: 04/11/20 Report Date: 04/12/20 Time: 07:00 Allergies/Adverse Reactions: Patient Allergies Sulfa (Sulfonamide Antibiotics) [SULFA (SULFONAMIDE ANTIBIOTICS)] Allergy (Intermediate, Verified 03/03/20 10:09) Hives Height: 1.73 m Weight: 101.35 kg Patient Problems: Current Active Problems Atrial flutter (Acute) - VTE Risk Labs: VTE Related Lab Results Hgb 10.9 g/dL (12.2-16.2) L 04/11/20 18:36 Hct 32.5 % (37.0-47.0) L 04/11/20 18:36 Plt Count 124 K/mm3 (142-424) L 04/11/20 18:36 BUN 12 mg/dl (7-17) 04/11/20 18:36 Creatinine 0.60 mg/dl (0.52-1.04) 04/11/20 18:36 Estimated Creat Clear 106 mL/min (50-200) 04/11/20 18:36 VTE Score: 8 VTE Risk Level: Moderate Risk - Prophylaxis VTE Prophylaxis Ordered?: Yes Types of VTE Prophylaxis: TEDS Knee High Location of Applied Device: Bilateral Lower Extremeties - VTE Diagnosis Confirmed Treatment or plan recommended: Continue Current Treatment
--- NOTE | 2020-04-12 07:55 | HMH.PHAINT ---
MEDICATION RECONCILIATION COMPLETED BY USING EXTERNAL FILL HISTORY AND PATIENT.
[2020-04-12 08:00] VITALS: BP 107/53; PULSE 77; PULSE 80; RESP 16; TEMP 36.8; O2SAT 97
--- NOTE | 2020-04-12 08:10 | HMH.CNCARD ---
History of Present Illness Consult date: 04/12/20 Requesting physician: Joaquín Childress Consult reason: congestive heart failure Chief complaint: SOA, edema, chest pressure Additional Medical History:: 1. Secundum ASD A. Echo, 04/2018, 1. Biatrial enlargement, normal left ventricular size, visually estimated ejection fraction 55% with no obvious regional wall motion abnormality. 2. Mildly enlarged right atrium and right ventricle with normal contractility. 3. Likely secundum atrial septal defect with bidirectional shunt 4. No significant pericardial effusion noted 5.A DANDY is recommended for further evalaution. B. DANDY, 05/2018, 1. Biatrial enlargement, normal left ventricular size, visually estimated ejection fraction 55% in the obtained views with no regional wall motion abnormality. 2. Hemodynamically significant second atrial septal defect present, with bidirectional second, mildly enlarged right ventricle with normal contractility. 3. The aortic sclerosis without aortic stenosis aortic insufficiency. 4. Mild mitral and tricuspid regurgitation 5. No significant pericardial effusion noted C. Echo, 02/2019, 1. Normal left ventricular size, preserved left ventricular systolic function, visually estimated ejection fraction 55% with no regional wall motion abnormality. Grade 1 diastolic dysfunction seen with tissue Doppler evidence of raised left atrial pressure. 2. Moderately enlarged right atrium and right ventricle, with increased velocities across the pulmonic valve, there is likely secondary to significant secundum atrial septal defect with left to right shunt. 3. Mild mitral and tricuspid regurgitation 4. No significant pericardial effusion noted D. Echo, 02/2020, Normal LVEF with no evidence of ASD per report. Moderate MAC with moderate MR and posterior jet indicative of anterior leaf pathology. Severe LAE noted. 2. GERD 3. History of multiple mini strokes likely related to ASD 4. Pancytopenia 5. 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 On liver transplant list through B. Portal HTN and ascites C. Right sided thoracentesis, 09/2019 D. Reported hospitalization in 11/2019 at for esopageal varices bleeding requiring transfusion 6. Right and left heart cardiac catheterization, 02/2019 A. ANGIOGRAPHIC RESULTS: 1. The left main artery normal 2. The left anterior descending artery has normal 3. The circumflex artery is non dominant and has normal 4. The right coronary artery normal 5. The BOYD ventriculogram reveals normal 65% 6. The left ventricular end-diastolic pressure 18 HEMODYNAMICS: Pulmonary artery occlusion pressure is 15 mm Hg. Pulmonary arterial pressure is 25/15 mm Hg. Right atrial pressure is 5 mm Hg. SATURATIONS: PA is 88 %. RA is 90 %. IMPRESSION: 1. Normal coronary arteries 2. Normal ejection fraction 3. Mildly elevated LVEDP consistent with mild diastolic dysfunction 4. Very minimally elevated pulmonary artery pressures PLAN: 1. Evaluation per primary line patrolman Dr. LEDEZMA 2. Continue medical management History of present illness: 59 yo WF with multiple medical problems as noted above presented to ER for evaluation of increasing chest tightness/pressure with associated SOA, LE edema and palpitations. Found to have A. flutter with rate of 150-160 bpm and was started on Cardizem IV with subsequent conversion to NSR. Cardizem was stopped at that point. Pt states she feels better but tired today. Patient was last seen by cardiology in February of last year at which time she had a right and left heart catheterization during her hospitalization which revealed normal coronary arteries but evidence of a ASD for which repair was recommended due to history of recurrent TIA's. Patient relates that she basically ignored that recommendation thinking that she would be fine. In the interim, patient has been diagnosed with cirrhosis of the liver and reported
--- NOTE | 2020-04-12 11:44 | HMH.HPDC ---
General - General Admission date:: 04/11/20 Discharge date: 04/12/20 *Admission Date: 04/11/20 *Chief complaint: Chest Tightness *History of present illness: 59-year-old female patient presents emergency room with reports of not feeling well for 2 days chest tightness, right shoulder pain generalized weakness and a feeling of racing heart rate. She also reports she has not felt well for the past 2 to 3 days, she has been nauseated with a poor appetite reports she has had loose stools and she reports that is due to being on lactulose for nonalcoholic cirrhosis. In the ER she was found to have a flutter with rate of 150-160, Cardizem drip was started and patient converted to normal sinus rhythm. Troponin was 0.07, 0.07, and 0.06 04/11/20 CXR: FINDINGS: Cardiomegaly with mild pulmonary venous congestion consistent with mild CHF. The lungs are clear without infiltrates, suspicious nodules, or pleural effusions. No acute bony abnormalities. IMPRESSION: Mild CHF Dictated by: BRAXTON Esquivel History Medical History: Reports:: Congestive Heart Failure, Gastroesophageal Reflux Disease(GERD), Heart Murmur, Hepatitis, MRSA, Peripheral Vascular Disease, Transient Ischemic Attacks (TIA), Ulcer Denies:: Cancer, Diabetes Mellitus Type 1, Diabetes Mellitus Type 2 *Have you ever received a pneumonia vaccine?: Yes *Have you received a flu vaccine this season?: No Other Medical History: Reports: Anemia, Arthritis, Liver Disease, Other Laterality Cases: Left: Total Knee Replacement Other Surgeries: Yes: Cardiac Catheterization, Cholecystectomy, , EGD, Tubal Ligation Amputation: No Fractures: Yes (right leg and ankle) - *Social History Last grade of school completed: GED Smoking Status: Never smoker Alcohol Intake: never Alcohol Intake Frequency:: holidays/special occasions only Substance Use Type: denies use *Occupational Status:: disabled Housing: apartment Household Members: spouse, family *Travel in the last 8 weeks: None Family Hx:: Cancer, Coronary Artery Disease, Diabetes, Heart Attack, Hyperlipidemia, Hypertension, Kidney Disease, Alcoholism Review of Systems - Review of Systems Review of systems:: pertinent systems reviewed and negative unless documented below - Constitutional Reports fatigue, Reports lack of energy, Reports weakness - Eyes Denies change in vision - ENT Denies nasal discharge - *Cardiovascular Reports shortness of breath - *Respiratory Reports shortness of breath - *Gastrointestinal Denies abdominal pain - *Neurologic Reports weakness, Denies seizure-like activity - Endocrine Reports rapid, pounding, or irregular heartbeat, Denies cold intolerance - Hematologic/Lymphatic Denies easy bleeding, Denies easy bruising Exam Vital signs and Labs for Last 24 Hours: Temp Pulse Resp BP Pulse Ox 98.2 F 77 16 107/53 L 97 04/12/20 08:00 04/12/20 08:00 04/12/20 08:00 04/12/20 08:00 04/12/20 08:00 Laboratory Results - last 24 hr 04/11/20 18:36: WBC 4.1 L, RBC 3.37 L, Hgb 10.9 L, Hct 32.5 L, MCV 96.5, MCH 32.4 H, MCHC 33.5, RDW 16.7, Plt Count 124 L, MPV 8.1, Neut % (Auto) 55.2, Lymph % (Auto) 28.6, [place] % (Auto) 10.0 H, Eos % (Auto) 5.3, Baso % (Auto) 0.9, Neut # (Auto) 2.3, Lymph # (Auto) 1.2, [place] # (Auto) 0.4, Eos # (Auto) 0.2, Baso # (Auto) 0.0 04/11/20 18:36: Sodium 134 L, Potassium 3.5, Chloride 100, Carbon Dioxide 27, Anion Gap 10.5, BUN 12, Creatinine 0.60, Estimated Creat Clear 106, Estimated GFR 102, Est GFR ( Amer) 123, Glucose 130 H, Calcium 8.7, Total Bilirubin 1.4 H, AST 52 H, ALT 27, Alkaline Phosphatase 116, Troponin I 0.06 H, Total Protein 5.9 L, Albumin 2.6 L, Globulin 3.3 H, Albumin/Globulin Ratio 0.8 L 04/11/20 18:36: TSH 2.46, Free T4 Index 4.0 L, Thyroxine (T4) 13.2 H, T3 Uptake 30 04/11/20 20:50: Troponin I 0.07 H 04/11/20 23:48: Troponin I 0.07 H I & O for Last 24 hours: Intake & Output 04/09/20 04/10/20 04/11/2020 23:59 2
[2020-04-12 12:00] VITALS: BP 113/48; PULSE 60; PULSE 63; RESP 18; TEMP 36.8; O2SAT 99
--- NOTE | 2020-04-12 13:52 | HMH.PHAINT ---
DISCHARGE COUNSELING COMPLETED ON PATIENT. NEW PRESCRIPTION FOR METOPROLOL SUCCINATE 25MG TO BE TAKEN AT NIGHT. THIS WAS SENT TO CLINIC PHARMACY. PATIENT IS TO CONTINUE ALL OTHER HOME MEDICATIONS. PATIENT VERBALIZED UNDERSTANDING AND HAD NO QUESTIONS AT THIS TIME. -CHEVY BURGOSD
== END 2020-04-12 14:08 | disposition home or self-care (01) ==
LOC: ER 19:49 → 2ND 20:06
PROVIDERS: Admitting Provider Internal Medicine Adolescent Medicine; Emergency Provider Emergency Medicine; PCP Emergency Medicine; Visit Provider Emergency Medicine
DX: I48.92 Unspecified atrial flutter (principal); K74.60 Unspecified cirrhosis of liver; I27.81 Cor pulmonale (chronic); Q21.1 Atrial septal defect; I48.3 Typical atrial flutter; Z88.2 Allergy status to sulfonamides; E03.9 Hypothyroidism, unspecified; I50.814 Right heart failure due to left heart failure; Z79.899 Other long term (current) drug therapy
CPT/HCPCS: 36415; 71045; 80053; 84436; 84443; 84479; 84484; 85025; 93005; 96365; 96375; 99284; G0378

== ENCOUNTER → 2020-04-27 15:27 | Outpatient (CLI) | payer MEDICARE, MEDICAID, SELFPAY ==
[2020-04-27 15:52] LABS: Basophils % 0.7 % (0.1-2.0); Eosinophils # 0.1 K/mm3 (0.0-0.4); Eosinophils % 3.8 % (0.1-12.0); Hematocrit 33.8 % (37.0-47.0); Hemoglobin 11.1 g/dL (12.2-16.2); Lymphocytes % 30.3 % (10-50); Mean Corpuscular HGB Conc 32.9 g/dL (31.8-35.4); Mean Corpuscular Hemoglobin 33.3 pg (27.0-31.2); Mean Corpuscular Volume 101.3 fl (81-99); Mean Platelet Volume 8.6 fl (7.4-10.4); Monocytes # 0.3 K/mm3 (0.1-1.0); Monocytes % 9.2 % (1.7-9.3); Neutrophils # 1.9 K/mm3 (1.8-7.8); Neutrophils % 55.9 % (37.0-80.0); Platelet Count 109 K/mm3 (142-424); Red Blood Count 3.33 M/mm3 (4.20-5.40); Red Cell Distribution Width 16.2 % (11.5-17.5); White Blood Count 3.4 K/mm3 (4.8-10.8)
[2020-04-27 17:08] LABS: Alanine Aminotransferase 26 U/L (12-78); Albumin Level 2.9 g/dl (3.5-5.0); Albumin/Globulin Ratio 0.9 (1.1-1.8); Alkaline Phosphatase 124 U/L (38-126); Anion Gap 13.2 mEq/L (5-15); Aspartate Amino Transferase 57 U/L (14-36); Bilirubin,Total 1.9 mg/dl (0.2-1.3); Blood Urea Nitrogen 23 mg/dl (7-17); Calcium 8.8 mg/dl (8.4-10.2); Carbon Dioxide 25 mmol/L (22.0-30.0); Chloride 104 mmol/L (98-107); Estimated Glomerular Filt Rate 50 ml/min (>60); GFR (African American) 61 ML/MIN (>60); Globulin 3.4 g/dL (1.3-3.2); Glucose 133 mg/dl (74-100); HDL Cholesterol 28 mg/dl (40-60); Potassium 4.2 mmoL/L (3.5-5.1); Sodium 138 mmol/L (136-145); Total Protein,Serum 6.3 g/dl (6.3-8.2)
[2020-04-27 17:19] LABS: Direct LDL Cholesterol 40.46 mg/dL (100-129)
[2020-04-27 17:25] LABS: T4 (Thyroxine) 13.2 ug/dl (5.53-11.0)
[2020-04-27 17:26] LABS: 25-OH Vitamin D, Total 48.1 ng/mL (30-100)
[2020-04-27 17:39] LABS: Thyroid Stimulating Hormone 2.39 uIU/mL (0.465-4.68)
[2020-04-27 18:09] LABS: Chol/HDL Ratio 3.1 (1-3.5); Cholesterol 86 mg/dl (140-200); Triglycerides 89 mg/dl (30-150); VLDL Cholesterol 18 mg/dL (0-40)
== END ==
PROVIDERS: Visit Provider Nurse Practitioner Family
DX: E66.9 Obesity, unspecified (principal); R00.0 Tachycardia, unspecified; R53.83 Other fatigue; E83.51 Hypocalcemia
CPT/HCPCS: 36415; 80053; 80061; 82306; 84436; 84443; 85025

== ENCOUNTER 2020-05-08 13:54 | Emergency (ER) | payer MEDICARE, MEDICAID, SELFPAY ==
[2020-05-08 13:54] VITALS: BP 117/41; PULSE 61; RESP 17; TEMP 36.8; O2SAT 98; BMI 40.3
--- NOTE | 2020-05-08 14:04 | XR_ITS ---
PROCEDURE: XR CHEST PORTABLE CLINICAL HISTORY: SOB Shortness of breath COMPARISON: CR XR CHEST PORTABLE from 01/02/[address] CHEST WO CON from 01/02/2020 CR XR CHEST PORTABLE from 02/16/2020 CR XR CHEST PORTABLE from 04/11/2020 FINDINGS: There is cardiomegaly without failure. Increased density is developed in the right lower lobe consistent with pneumonia with small effusion. No acute bony anomaly. IMPRESSION: Right lower lobe pneumonia with small effusion with cardiomegaly Dictated b Antwan Esquivel MD 05/08/2020 14:49 Antwan Esquivel MD in [place] 05/08/2020 14:49
--- NOTE | 2020-05-08 14:19 | ECG_ITS ---
APPROVED REPORT Exam: Resting ECG HR:55 bpm ECG Measurements Heart Rate 55 AXES AK 170 P 60 QRSd 86 QRS -30 QT 500 T 53 QTc 478 <Conclusion> Sinus bradycardia Left axis deviation Low voltage QRS Poor R Wave Progression Abnormal ECG Electronically signed by : Valentin Ibrahim, 05/08/2020 17:03:37
[2020-05-08 14:33] VITALS: BP 107/56; PULSE 64; O2SAT 97
--- NOTE | 2020-05-08 14:33 | PC.NURSE ---
Lab at bedside
--- NOTE | 2020-05-08 15:05 | PC.NURSE ---
notified lab of covid test
--- NOTE | 2020-05-08 15:55 | PC.NURSE ---
Pt up to restroom
[2020-05-08 15:59] LABS: Basophils % 0.3 % (0.1-2.0); Eosinophils # 0.1 K/mm3 (0.0-0.4); Eosinophils % 1.9 % (0.1-12.0); Hematocrit 31.3 % (37.0-47.0); Hemoglobin 10.8 g/dL (12.2-16.2); Lymphocytes # 1.2 K/mm3 (0.7-4.5); Lymphocytes % 33.4 % (10-50); Mean Corpuscular HGB Conc 34.7 g/dL (31.8-35.4); Mean Corpuscular Hemoglobin 32.9 pg (27.0-31.2); Mean Corpuscular Volume 94.9 fl (81-99); Mean Platelet Volume 8.8 fl (7.4-10.4); Monocytes # 0.4 K/mm3 (0.1-1.0); Monocytes % 10.3 % (1.7-9.3); Neutrophils % 54.1 % (37.0-80.0); Platelet Count 101 K/mm3 (142-424); White Blood Count 3.6 K/mm3 (4.8-10.8)
[2020-05-08 16:18] LABS: Chloride 104 mmol/L (98-107); Potassium 4.2 mmoL/L (3.5-5.1); Sodium 137 mmol/L (136-145)
[2020-05-08 16:20] LABS: Alanine Aminotransferase 25 U/L (12-78); Alkaline Phosphatase 117 U/L (38-126); Aspartate Amino Transferase 56 U/L (14-36); Bilirubin,Total 2.5 mg/dl (0.2-1.3); Blood Urea Nitrogen 18 mg/dl (7-17); Creatinine Clearance Estimated 106 mL/min (50-200); Estimated Glomerular Filt Rate 73 ml/min (>60); GFR (African American) 88 ML/MIN (>60)
[2020-05-08 16:21] LABS: Albumin Level 2.7 g/dl (3.5-5.0); Albumin/Globulin Ratio 0.8 (1.1-1.8); Anion Gap 12.2 mEq/L (5-15); Calcium 9.2 mg/dl (8.4-10.2); Carbon Dioxide 25 mmol/L (22.0-30.0); Globulin 3.5 g/dL (1.3-3.2); Glucose 103 mg/dl (74-100); Total Protein,Serum 6.2 g/dl (6.3-8.2)
[2020-05-08 16:35] VITALS: BP 115/51; PULSE 67; O2SAT 94
[2020-05-08 16:36] LABS: Troponin I < 0.01 ng/ml (0.00-0.034)
--- NOTE | 2020-05-08 16:49 | HMH.EDSOB ---
ED Disposition Clinical Impression: Asthma with exacerbation, Congestive heart failure Disposition: Home, Self-Care Condition on Discharge: Good Instructions: DI for Chronic Obstructive Pulmonary Disease Referrals: PCP,No [Primary Care Provider] - - Critical Care Critical Care Time: No Attestation: On 05/08/20, the high probability of a clinically significant, sudden or life threatening deterioration of the following system(s) required my full and direct attention, intervention and personal management. The time I documented below is in addition to time spent performing reported procedures but includes the following listed in this critical care notation. Medical Decision Making - Medical Records Medical records reviewed: Yes: I reviewed the patient's medical records. - Espinoza Inquiry Pt receiving controlled substance: No Vital Signs: 05/08/20 13:54 05/08/20 14:33 05/08/20 16:35 Temperature 98.3 F Temperature Source Oral Pulse Rate [Right] 61 64 67 Respiratory Rate 17 Blood Pressure [Right Arm] 117/41 L 107/56 L 115/51 L Blood Pressure Mean [Right Arm] 66 73 72 Blood Pressure Source [Right Arm] Automatic Cuff Automatic Cuff Blood Pressure Position [Right Arm] Sitting Sitting 02 Sat by Pulse Oximetry 98 97 94 L Oxygen Delivery Method Room Air Room Air - Lab Data Lab results reviewed: Yes: I reviewed the patient's lab results. Lab Results 05/08/20 15:50: WBC 3.6 L, RBC 3.30 L, Hgb 10.8 L, Hct 31.3 L, MCV 94.9, MCH 32.9 H, MCHC 34.7, RDW 17.0, Plt Count 101 L, MPV 8.8, Neut % (Auto) 54.1, Lymph % (Auto) 33.4, [place] % (Auto) 10.3 H, Eos % (Auto) 1.9, Baso % (Auto) 0.3, Neut # (Auto) 2.0, Lymph # (Auto) 1.2, [place] # (Auto) 0.4, Eos # (Auto) 0.1, Baso # (Auto) 0.0 05/08/20 15:50: Sodium 137, Potassium 4.2, Chloride 104, Carbon Dioxide 25, Anion Gap 12.2, BUN 18 H, Creatinine 0.80, Estimated Creat Clear 106, Estimated GFR 73, Est GFR ( Amer) 88, Glucose 103 H, Calcium 9.2, Total Bilirubin 2.5 H, AST 56 H, ALT 25, Alkaline Phosphatase 117, Troponin I < 0.01, Total Protein 6.2 L, Albumin 2.7 L, Globulin 3.5 H, Albumin/Globulin Ratio 0.8 L Result diagrams: 05/08/20 15:50 05/08/20 15:50 Orders (Tests/Meds): ED MEDICATIONS Discontinued Medications Generic Name Dose Route Start Last Admin Trade Name Freq PRN Reason Stop Dose Admin Furosemide 40 mg 05/08/20 15:04 05/08/20 15:08 Lasix 40mg/4ml Vial IV 05/08/20 15:05 40 mg ONCE ONE Administration Methylprednisolone Sodium Succinate 125 mg 05/08/20 15:04 05/08/20 15:08 Solu-Medrol 125mg/2ml Vial IV 05/08/20 15:05 125 mg ONCE ONE Administration ORDERS Category Date Time Status COVID [Coronavirus 19 Swab (OUTPT)] Routine Lab 05/08/20 15:30 Received Troponin I Q3H Lab 05/08/20 17:15 Ordered Troponin I Q3H Lab 05/08/20 20:15 Ordered - Radiology Data #1 Image(s): Chest Image Reviewed: Yes I reviewed the patient's radiology image w/the ED provider Preliminary Findings: Normal/NAD - ECG Data Tracing #1 I reviewed this ECG and interpreted as documented below: Normal Sinus Rhythm: Yes Medical Decision Narrative: Patient states she felt better and refused to have labs done because she was stuck a few times and we could get blood work. She was states that she would like to go home and follow-up with primary care in the next week or so. Resp/SOB HPI - General Chief Complaint: Shortness of Breath/Dyspnea Stated Complaint: SOB Time Seen by Provider: 05/08/20 16:00 Mode of Arrival: EMS Limitations: No Limitations Description of Symptoms (Recalled from ER Triage Doc. by RN): C/O soa and edema to her upper and lower extremities. - History of Present Illness 59-year-old female presents the ED with mild shortness of breath and some swelling in her lower extremities she states that this is been going for last 3 to 4 days. Patient does states she has a history of congestive heart failure. Roxana
--- NOTE | 2020-05-08 17:01 | PC.NURSE ---
Called pt's per her request, he is coming over to pick pt. He stated he will be here is about 30 mins.
[2020-05-08 18:11] VITALS: BP 105/53; PULSE 67; RESP 18; TEMP 36.8; O2SAT 95
== END 2020-05-08 18:15 | disposition home or self-care (01) ==
PROVIDERS: Emergency Provider Family Medicine
DX: I50.23 Acute on chronic systolic (congestive) heart failure (principal); K21.9 Gastro-esophageal reflux disease without esophagitis; R01.1 Cardiac murmur, unspecified; E66.9 Obesity, unspecified; Z68.41 Body mass index [BMI] 40.0-44.9, adult; Z88.2 Allergy status to sulfonamides; Z90.49 Acquired absence of other specified parts of digestive tract; Z79.899 Other long term (current) drug therapy; Z03.818 Encounter for observation for suspected exposure to other biological agents ruled out
CPT/HCPCS: 36415; 71045; 80053; 84484; 85025; 93005; 96374; 96375; 99284; U0003

== ENCOUNTER 2020-05-26 13:38 | Observation (INO) | payer MEDICARE, MEDICAID, SELFPAY ==
[2020-05-26] VITALS (8 sets, daily range): BP systolic 118–139; BP diastolic 51–65; PULSE 60–72; RESP 15–20; TEMP 36.4–36.8; O2SAT 94–98; BMI 20.9; BMI 36.2
--- NOTE | 2020-05-26 13:40 | XR_ITS ---
PROCEDURE: XR CHEST 2V CLINICAL HISTORY: chest pain COMPARISON: CT CT CHEST WO CON from 01/02/2020 CR XR CHEST PORTABLE from 02/16/2020 CR XR CHEST PORTABLE from 04/11/2020 CR XR CHEST PORTABLE from 05/08/2020 FINDINGS: There is cardiomegaly without failure. Consolidation is present in the right lower lobe with small right effusion. Consolidation appears somewhat worse. Left lung is clear. There is some prominence of the left hilum which may be vascular in nature. No acute bony abnormalities. IMPRESSION: Slight worsening right lower lobe consolidation with small right effusion. Dictated by: Antwan Esquivel MD 05/26/2020 14:12 Antwan Esquivel MD in [place] 05/26/2020 14:12
--- NOTE | 2020-05-26 13:42 | ECG_ITS ---
APPROVED REPORT Exam: Resting ECG HR:66 bpm ECG Measurements Heart Rate 66 AXES VT 168 P 55 QRSd 98 QRS -31 QT 468 T 41 QTc 490 <Conclusion> Normal sinus rhythm Left axis deviation Incomplete RBBB Abnormal ECG Electronically signed by : Valentin Ibrahim, 05/28/2020 20:05:14
--- NOTE | 2020-05-26 13:46 | HMH.EDGENADL ---
ED Disposition Clinical Impression: Dyspnea on exertion Right lower lobe pneumonia Qualifiers: Pneumonia type: due to unspecified organism Qualified Code(s): J18.9 - Pneumonia, unspecified organism CHF exacerbation Qualifiers: Heart failure type: systolic Qualified Code(s): I50.23 - Acute on chronic systolic (congestive) heart failure Disposition: Admitted As Inpatient Condition on Discharge: Fair Prescriptions: Amoxicillin/Potassium Clav [Amox-Clav 875-125 mg Tablet] 1 tab PO BID #14 tab Transmission Status: Received by [facility] Azithromycin 250 mg PO DAILY #4 tab Transmission Status: Received by [facility] Referrals: Joaquín Childress MD [Primary Care Provider] - Time of Disposition: 16:03 - Critical Care Critical Care Time: No Attestation: On , the high probability of a clinically significant, sudden or life threatening deterioration of the following system(s) required my full and direct attention, intervention and personal management. The time I documented below is in addition to time spent performing reported procedures but includes the following listed in this critical care notation. Medical Decision Making - Medical Records Medical records reviewed: Yes: I reviewed the patient's medical records. - Espinoza Inquiry Pt receiving controlled substance: No Vital Signs: 05/26/20 13:42 05/26/20 14:34 05/26/20 15:32 Temperature 98.3 F Temperature Source Oral Pulse Rate [Right Radial] 71 72 64 Respiratory Rate 17 Blood Pressure [Right Arm] 139/65 123/61 118/65 Blood Pressure Mean [Right Arm] 89 81 82 Blood Pressure Source [Right Arm] Automatic Cuff Automatic Cuff Blood Pressure Position [Right Arm] Sitting Sitting 02 Sat by Pulse Oximetry 96 94 L 96 Oxygen Delivery Method Room Air Nasal Cannula Room Air - Lab Data Lab Results 05/26/20 13:50: WBC 3.7 L, RBC 3.48 L, Hgb 11.3 L, Hct 35.0 L, MCV 100.6 H, MCH 32.4 H, MCHC 32.2, RDW 18.0 H, Plt Count 92 L, MPV 8.1, Neut % (Auto) 54.6, Lymph % (Auto) 31.6, [place] % (Auto) 11.3 H, Eos % (Auto) 1.7, Baso % (Auto) 0.8, Neut # (Auto) 2.0, Lymph # (Auto) 1.2, [place] # (Auto) 0.4, Eos # (Auto) 0.1, Baso # (Auto) 0.0 05/26/20 13:50: Sodium 139, Potassium 3.5, Chloride 103, Carbon Dioxide 31 H, Anion Gap 8.5, BUN 9, Creatinine 0.60, Estimated Creat Clear 55, Estimated GFR 102, Est GFR ( Amer) 123, Glucose 111 H, Calcium 8.5, Troponin I < 0.01, NT-Pro-B Natriuret Pep 1080 H Result diagrams: 05/26/20 13:50 05/26/20 13:50 Orders (Tests/Meds): ED MEDICATIONS Generic Name Dose Route Start Last Admin Trade Name Freq PRN Reason Stop Dose Admin Ceftriaxone Sodium 1 gm/ 50 mls @ 100 mls/hr 05/26/20 15:45 05/26/20 15:42 Sodium Chloride IV 06/09/20 15:44 100 mls/hr Q24H KARAN Administration Protocol Discontinued Medications Generic Name Dose Route Start Last Admin Trade Name Freq PRN Reason Stop Dose Admin Aspirin 325 mg 05/26/20 13:53 05/26/20 14:01 Aspirin 325mg Tablet PO 05/26/20 13:54 325 mg ONCE ONE Administration Azithromycin 500 mg 05/26/20 14:47 05/26/20 15:17 Zithromax 250mg Tablet PO 05/26/20 14:48 500 mg ONCE ONE Administration Protocol ORDERS Category Date Time Status Covid-19 IgG/IgM ([facility]) Stat Lab 05/26/20 15:39 Received Troponin I Q3H Lab 05/26/20 16:45 Ordered Troponin I Q3H Lab 05/26/20 19:45 Ordered EKG Request [ECG Request by /Jeyson] Stat Y 05/26/20 13:40 Ordered - Radiology Data #1 Image(s): Chest Image Reviewed: Yes I reviewed the patient's radiology results, Yes I have reviewed radiologist's interpretation IMPRESSION: Slight worsening right lower lobe consolidation with small right effusion. - ECG Data Tracing #1 Sinus rhythm with ventricular rate of 66 bpm. QRS 98, QTc 490. Left axis deviation. Medical Decision Narrative: 59-year-old female presenting to the emergency department with chest pressure, lower ex
--- NOTE | 2020-05-26 14:00 | PC.NURSE ---
Pt returning from rad. In restroom at this time.
[2020-05-26 14:04] LABS: Basophils % 0.8 % (0.1-2.0); Eosinophils # 0.1 K/mm3 (0.0-0.4); Eosinophils % 1.7 % (0.1-12.0); Hemoglobin 11.3 g/dL (12.2-16.2); Lymphocytes # 1.2 K/mm3 (0.7-4.5); Lymphocytes % 31.6 % (10-50); Mean Corpuscular HGB Conc 32.2 g/dL (31.8-35.4); Mean Corpuscular Hemoglobin 32.4 pg (27.0-31.2); Mean Corpuscular Volume 100.6 fl (81-99); Mean Platelet Volume 8.1 fl (7.4-10.4); Monocytes # 0.4 K/mm3 (0.1-1.0); Monocytes % 11.3 % (1.7-9.3); Neutrophils % 54.6 % (37.0-80.0); Platelet Count 92 K/mm3 (142-424); Red Blood Count 3.48 M/mm3 (4.20-5.40); White Blood Count 3.7 K/mm3 (4.8-10.8)
[2020-05-26 14:13] LABS: Chloride 103 mmol/L (98-107); Potassium 3.5 mmoL/L (3.5-5.1); Sodium 139 mmol/L (136-145)
[2020-05-26 14:16] LABS: Anion Gap 8.5 mEq/L (5-15); Blood Urea Nitrogen 9 mg/dl (7-17); Carbon Dioxide 31 mmol/L (22.0-30.0); Creatinine Clearance Estimated 55 mL/min (50-200); Estimated Glomerular Filt Rate 102 ml/min (>60); GFR (African American) 123 ML/MIN (>60)
[2020-05-26 14:17] LABS: Calcium 8.5 mg/dl (8.4-10.2); Glucose 111 mg/dl (74-100)
[2020-05-26 14:26] LABS: NT Pro Brain Natriuretic Pep. 1080 pg/mL (0-125)
[2020-05-26 14:30] LABS: Troponin I < 0.01 ng/ml (0.00-0.034)
--- NOTE | 2020-05-26 14:40 | PC.NURSE ---
Pt up to bedside commode at this time. Pt requested this as she says walking wears her out .
--- NOTE | 2020-05-26 14:47 | PC.NURSE ---
Pt back in bed at this time.
--- NOTE | 2020-05-26 15:49 | PC.NURSE ---
KAYLEE LAND speaking with Dr. Ocampo who is monitor and storage bin tender for Dr. Childress
[2020-05-26 16:07] LABS: Coronavirus 19 IgG Antibody Negative (Negative); Coronavirus 19 IgM Antibody Negative (Negative)
--- NOTE | 2020-05-26 19:10 | PC.NURSE ---
report given to savi
--- NOTE | 2020-05-26 21:43 | PC.NURSE ---
contacted [facility], pharmacy regarding pt's Lactulose orders. Pt had an order for Lactulose TID and QID on NOV. Pt only takes it TID now, QID was an old Rx. [facility] advised to give the TID order since that one was current according to pt. Report given to Vivian Guerrero RN.
--- NOTE | 2020-05-26 21:51 | PC.NURSE ---
REPORT RECEIVED FROM Piedad RIDLEY AT THIS TIME
[2020-05-27] VITALS (11 sets, daily range): BP systolic 113–132; BP diastolic 52–74; PULSE 67–80; RESP 16–20; TEMP 36.6–37.1; O2SAT 94–97; BMI 36.7
--- NOTE | 2020-05-27 02:38 | PC.NURSE ---
A&OX4. PT TOLERATING RA WELL T/O SHIFT. PT UP INDEPENDENTLY IN ROOM. PT HAS INTERMITTENT DRY COUGH WITH WHEEZING. PT HAS NOT C/O OF ANY PAIN, OR SOA. PT HAS RESTED IN BED T/O MAJORITY OF SHIFT. NO OTHER C/O THUS FAR, VSS WILL CONTINUE TO MONITOR.
--- NOTE | 2020-05-27 09:32 | P.CONPHA_ITS ---
[facility] Pharmacy VTE Monitoring - Patient Demographics Admission date: 05/26/20 Report Date: 05/27/20 Time: 09:32 Allergies/Adverse Reactions: Patient Allergies Sulfa (Sulfonamide Antibiotics) [SULFA (SULFONAMIDE ANTIBIOTICS)] Allergy (Intermediate, Verified 05/26/20 13:47) Hives Height: 1.68 m Weight: 103.674 kg Patient Problems: Current Active Problems CHF exacerbation (Acute) Dyspnea on exertion (Acute) Right lower lobe pneumonia (Acute) - VTE Risk Labs: VTE Related Lab Results Hgb 11.3 g/dL (12.2-16.2) L 05/26/20 13:50 Hct 35.0 % (37.0-47.0) L 05/26/20 13:50 Plt Count 92 K/mm3 (142-424) L 05/26/20 13:50 BUN 9 mg/dl (7-17) 05/26/20 13:50 Creatinine 0.60 mg/dl (0.52-1.04) 05/26/20 13:50 Estimated Creat Clear 55 mL/min (50-200) 05/26/20 13:50 Was VTE Risk Assessment Performed: Yes VTE Score: 3 VTE Risk Level: Low Risk - Prophylaxis VTE Prophylaxis Ordered?: Yes Types of VTE Prophylaxis: TEDS Knee High Location of Applied Device: Bilateral Lower Extremeties
--- NOTE | 2020-05-27 09:32 | HMH.PHAINT ---
MEDICATION RECONCILIATION COMPLETED ON PATIENT USING EXTERNAL FILL HISTORY FROM PHARMACY. -LISANDRO WU, [place]
--- NOTE | 2020-05-27 11:53 | HMH.HP ---
*Admission Date: 05/26/20 *Chief complaint: pneumonia with dyspnea *History of present illness: 59-year-old female with history of COPD and CHF presenting to the emergency department with chest pain and dyspnea. Pain is described as a pressure sensation across her chest. Started yesterday throughout the day and was worse today. She feels it mostly when walking. Has to walk up stairs in her home and has to take breaks. She has lower extremity swelling, symmetric. Taking Bumex as prescribed. Pain is not sharp or stabbing. Does not radiate to her jaw, arm, back. No recent illness, fevers, chills, nausea, vomiting, cough. She also has liver cirrhosis and is being worked up for liver transplant Chart review shows that the patient follows with Dr. Enriquez in . She has a history of an ASD. Last cardiac catheterization was in February 2019 IMPRESSION: 1. Normal coronary arteries 2. Normal ejection fraction 3. Mildly elevated LVEDP consistent with mild diastolic dysfunction 4. Very minimally elevated pulmonary artery pressures Patient was seen here twice in the last few months. First time she was diagnosed atrial flutter and admitted for observation. Most recent time was May 08 when she had an unremarkable cardiac work-up. And was discharged home - Radiology Data #1 Image(s): Chest Image Reviewed: Yes I reviewed the patient's radiology results, Yes I have reviewed radiologist's interpretation IMPRESSION: Slight worsening right lower lobe consolidation with small right effusion. - ECG Data Tracing #1 Sinus rhythm with ventricular rate of 66 bpm. QRS 98, QTc 490. Left axis deviation. Medical Decision Narrative: 59-year-old female presenting to the emergency department with chest pressure, lower extremity swelling, fatigue. Patient is clinically stable on arrival. Vital signs within normal limits. No significant hypertension. Differential diagnoses include ACS, CHF exacerbation, pulmonary edema, fusion. Plan to obtain CBC, CMP, chest x-ray, EKG, troponin profile, BNP. Patient given chewable aspirin. Laboratory results are markable for leukopenia. Initial troponin not elevated. Renal function adequate. Chest x-ray shows slightly worsening right lower lobe consolidation. Will treat presumptively for pneumonia. Given 1 g of IV Rocephin and 500 mg of azithromycin. On reassessment patient is barely able to stand and walk to the bedside commode without significant dyspnea. BNP is elevated at greater than 1000. She would benefit from hospitalization and treatment of pneumonia and pulmonary congestion. Above is data from ER/admission. Patient is actively followed by Dr. Enriquez. She is being evaluated for surgery in the future. She has a history of Curtis with bleeding esophageal varices. She had a prolonged hospital stay at earlier in the year as a result of complications. She takes lactulose. She is on a liver transplant consideration list. Progressive dyspnea is what prompted her presentation to the ER yesterday. She is still having some dyspnea when she gets up to go to the bathroom, is otherwise in no distress. Is s/p thoracentesis on previous admissions. Most recent cxr FINDINGS: There is cardiomegaly without failure. Consolidation is present in the right lower lobe with small right effusion. Consolidation appears somewhat worse. Left lung is clear. There is some prominence of the left hilum which may be vascular in nature. No acute bony abnormalities. IMPRESSION: Slight worsening right lower lobe consolidation with small right effusion. Will observe sequential films for volume overload [facility] History Medical History: Reports:: Congestive Heart Failure, Gastroesophageal Reflux Disease(GERD), Heart Murmur, Hepatitis, MRSA, Peripheral Vascular Disease, Transient Ischemic Attacks (TIA), Ulcer Denies:: Cancer, Diabetes Mellitus Type 1, Diabetes Mellitus Type 2 *Have you ever
[2020-05-27 13:59] LABS: Ammonia 11 umol/L (9-30)
[2020-05-28] VITALS (8 sets, daily range): BP systolic 110–119; BP diastolic 46–67; PULSE 58–80; RESP 18–20; TEMP 36.7–37.2; O2SAT 93–100; BMI 36.6
--- NOTE | 2020-05-28 02:44 | PC.NURSE ---
A&OX4. PT HAS TOLERATED ROOM AIR WELL THROUGHOUT SHIFT. RESPIRATIONS REGULAR AND UNLABORED. LUNG SOUNDS BILATERALLY CLEAR. NO COUGH NOTED. PT HAS REMAINED ON TELE. NSR NOTED. HEART RATE REGULAR. NONPITTING EDEMA NOTED TO BLE. +2 PULSES NOTED THROUGHOUT. HAND PIECER UP EQUAL. PT MOVES INDEPENDENTLY THROUGHOUT THE ROOM AND TAKES HERSELF TO THE RESTROOM. STEADY GAIT NOTED. PT MOVES INDEPENDENTLY IN BED. ACTIVE BOWEL SOUNDS HEARD IN ALL 4 QUADRANTS. SOFT AND TENDER ABDOMEN. NO BM THUS FAR. PT RECEIVED 1 SCHEDULED NORCO PER NOV TO HELP WITH ABDOMINAL PAIN. ON REASSESSMENT, PT WAS RESTING W EYES CLOSED. PT HAS RESTED WELL THIS SHIFT. PT CURRENTLY LYING IN BED W CALL LIGHT WITHIN REACH. BED IN LOWEST POSITION. VSS. WILL CONTINUE TO MONITOR.
--- NOTE | 2020-05-28 05:42 | PC.NURSE ---
Pt transported to radiology via wheelchair.
--- NOTE | 2020-05-28 05:51 | PC.NURSE ---
Pt returned from radiology via wheelchair.
--- NOTE | 2020-05-28 06:00 | XR_ITS ---
PROCEDURE: XR CHEST 2V CLINICAL HISTORY: pneumonia COMPARISON: CT CT CHEST WO CON from 01/02/2020 CR XR CHEST PORTABLE from 04/11/2020 CR XR CHEST PORTABLE from 05/08/2020 CR XR CHEST 2V from 05/26/2020 FINDINGS: There is borderline cardiomegaly without failure. Dense consolidation is present in the right lower lobe consistent pneumonia with effusion not significantly changed. Left lung is clear. IMPRESSION: Right lower lobe pneumonia with effusion unchanged Dictated by: Antwan Esquivel MD 05/28/2020 06:47 Antwan Esquivel MD in [place] 05/28/2020 06:47
[2020-05-28 07:28] LABS: Basophils % 1.2 % (0.1-2.0); Eosinophils # 0.1 K/mm3 (0.0-0.4); Eosinophils % 3.9 % (0.1-12.0); Hematocrit 31.5 % (37.0-47.0); Hemoglobin 10.2 g/dL (12.2-16.2); Lymphocytes # 0.9 K/mm3 (0.7-4.5); Lymphocytes % 25.8 % (10-50); Mean Corpuscular HGB Conc 32.4 g/dL (31.8-35.4); Mean Corpuscular Hemoglobin 32.8 pg (27.0-31.2); Mean Corpuscular Volume 101.1 fl (81-99); Mean Platelet Volume 8.3 fl (7.4-10.4); Monocytes # 0.4 K/mm3 (0.1-1.0); Monocytes % 11.8 % (1.7-9.3); Neutrophils % 57.3 % (37.0-80.0); Platelet Count 104 K/mm3 (142-424); Red Blood Count 3.12 M/mm3 (4.20-5.40); Red Cell Distribution Width 18.4 % (11.5-17.5); White Blood Count 3.5 K/mm3 (4.8-10.8)
[2020-05-28 07:35] LABS: Alanine Aminotransferase 21 U/L (12-78); Albumin Level 2.3 g/dl (3.5-5.0); Albumin/Globulin Ratio 0.7 (1.1-1.8); Alkaline Phosphatase 121 U/L (38-126); Anion Gap 9.5 mEq/L (5-15); Aspartate Amino Transferase 49 U/L (14-36); Bilirubin,Total 1.7 mg/dl (0.2-1.3); Blood Urea Nitrogen 12 mg/dl (7-17); Calcium 7.9 mg/dl (8.4-10.2); Carbon Dioxide 31 mmol/L (22.0-30.0); Chloride 99 mmol/L (98-107); Creatinine Clearance Estimated 97 mL/min (50-200); Estimated Glomerular Filt Rate 85 ml/min (>60); GFR (African American) 103 ML/MIN (>60); Globulin 3.3 g/dL (1.3-3.2); Glucose 143 mg/dl (74-100); Potassium 3.5 mmoL/L (3.5-5.1); Sodium 136 mmol/L (136-145); Total Protein,Serum 5.6 g/dl (6.3-8.2)
--- NOTE | 2020-05-28 13:42 | HMH.ACPN2 ---
Internal Medicine - PN: Subj *Date: 05/28/20 *Time: 13:47 Interval history: uneventful night some dyspnea with getting up to bathroom overall looks brighter cxr revd Exam Vital signs and Labs for Last 24 Hours: Temp Pulse Resp BP Pulse Ox 98.2 F 58 L 18 113/67 95 05/28/20 12:00 05/28/20 12:00 05/28/20 12:00 05/28/20 12:00 05/28/20 12:00 Laboratory Results - last 24 hr 05/27/20 13:33: Ammonia 11 05/28/20 07:06: WBC 3.5 L, RBC 3.12 L, Hgb 10.2 L, Hct 31.5 L, MCV 101.1 H, MCH 32.8 H, MCHC 32.4, RDW 18.4 H, Plt Count 104 L, MPV 8.3, Neut % (Auto) 57.3, Lymph % (Auto) 25.8, [place] % (Auto) 11.8 H, Eos % (Auto) 3.9, Baso % (Auto) 1.2, Neut # (Auto) 2.0, Lymph # (Auto) 0.9, [place]nam # (Auto) 0.4, Eos # (Auto) 0.1, Baso # (Auto) 0.0 05/28/20 07:06: Sodium 136, Potassium 3.5, Chloride 99, Carbon Dioxide 31 H, Anion Gap 9.5, BUN 12 D, Creatinine 0.70, Estimated Creat Clear 97, Estimated GFR 85, Est GFR ( Amer) 103, Glucose 143 H, Calcium 7.9 L, Total Bilirubin 1.7 H, AST 49 H, ALT 21, Alkaline Phosphatase 121, Total Protein 5.6 L, Albumin 2.3 L, Globulin 3.3 H, Albumin/Globulin Ratio 0.7 L I & O for Last 24 hours: Intake & Output 05/25/20 05/26/20 05/27/20 05/28/20 23:59 23:59 23:59 23:59 Intake Total 240 / 240 1020 / 1020 360 / 360 Output Total 300 / 300 Balance 240 / 240 1020 / 1020 60 / 60 Weight 224 lb 9 oz 228 lb 9 oz 228 lb 2 oz - Constitutional no acute distress, obese, cooperative - *Routine HEENT Exam Head: Present: normocephalic Eye: Present: EOMI, PERRL ENT: Present: mucous membranes moist - *Routine Neck Exam Present: supple. Absent: lymphadenopathy - *Routine Respiratory Exam Present: crackles, diminished air movement. Absent: accessory muscle use, decreased breath sounds Comments: right base - *Routine Cardiovascular Exam Present: RRR, murmur - *Routine Abdominal Exam Present: soft, normoactive bowel sounds. Absent: tenderness - *Routine Extremities Exam Absent: cyanosis, clubbing, edema - *Routine Skin Exam Present: warm. Absent: rash - *Routine Neurological Exam Present: alert, oriented X3 Assessment and Plan (1) Right lower lobe pneumonia Current visit: Yes Status: Acute Qualifiers: Pneumonia type: due to unspecified organism Qualified Code(s): J18.9 - Pneumonia, unspecified organism Category: Medical Code(s): J18.9 - Pneumonia, unspecified organism (2) Murmur, cardiac Current visit: Yes Status: Acute Category: Medical Code(s): R01.1 - Cardiac murmur, unspecified (3) CHF exacerbation Current visit: Yes Status: Acute Qualifiers: Heart failure type: systolic Qualified Code(s): I50.23 - Acute on chronic systolic (congestive) heart failure Category: Medical Code(s): I50.9 - Heart failure, unspecified (4) Dyspnea on exertion Current visit: Yes Status: Acute Category: Medical Code(s): R06.00 - Dyspnea, unspecified (5) Bilateral lower extremity edema Current visit: No Status: Acute Category: Medical Code(s): R60.0 - Localized edema (6) Cirrhosis of liver not due to alcohol Current visit: No Status: Acute Category: Medical Code(s): K74.60 - Unspecified cirrhosis of liver (7) Congestive heart failure Current visit: No Status: Acute Category: Medical Code(s): I50.9 - Heart failure, unspecified (8) Dyspnea Current visit: No Status: Acute Qualifiers: Dyspnea type: other forms of dyspnea Qualified Code(s): R06.09 - Other forms of dyspnea Category: Medical Code(s): R06.00 - Dyspnea, unspecified (9) Edema Current visit: No Status: Acute Qualifiers: Edema type: localized Qualified Code(s): R60.0 - Localized edema Category: Medical Code(s): R60.9 - Edema, unspecified (10) Obesity Current visit: No Status: Acute Category: Medical Code(s): E66.9 - Obesity, unspecified (11) Atrial septal defect Current visit: No Status: Chr
[2020-05-28 14:13] LABS: NT Pro Brain Natriuretic Pep. 686 pg/mL (0-125)
--- NOTE | 2020-05-28 16:25 | PC.NURSE ---
RT administered sodium chloride to pt to try to induce sputum sample, pt stated she still didnt have anything to cough up at this time. Cup left at bedside.
--- NOTE | 2020-05-28 17:31 | PC.NURSE ---
Paged Dr. Enriquez for consult on this pt. Stated they will see her in the morning.
--- NOTE | 2020-05-28 18:31 | PC.NURSE ---
ALERT AND ORIENTED X4. PT AMBULATES IN ROOM INDEPENDENTLY. SHE HAS BEEN IN BED ENTIRE SHIFT. ENCOURAGEMENT TO GET OOB AND UP TO CHAIR PROVIDED. PAIN MEDS ADMINISTERED PER MAR. LUNGS ARE MORE DIMINISHED COMPARED TO PREVIOUS ASSESSMENT. O2 SATURATION REMAINS IN MID 90'S ON RA. PT HAS O2 ON STANDBY. RT ATTEMPTED TO INDUCE SPUTUM, PT UNABLE TO GIVE SAMPLE AT THIS TIME, WILL CONTINUE TO ENCOURAGE AND ATTEMPT TO COLLECT. ABDOMEN IS SOFT AND NON-TENDER WITH ACTIVE BS IN ALL QUADS. PT REPORTED 3 BM AND VOIDS CLEAR DARK YELLOW URINE VIA TOILET. ADEQUATE PO INTAKE, PT EATS 75-100% OF ALL MEALS. VSS. NO DISTRESS NOTED. WILL CONTINUE TO MONITOR
[2020-05-29] VITALS (11 sets, daily range): BP systolic 103–131; BP diastolic 50–77; PULSE 50–67; RESP 16–20; TEMP 36.5–36.9; O2SAT 94–98; BMI 37.0; BMI 36.8
--- NOTE | 2020-05-29 02:10 | PC.NURSE ---
Addendum entered by Joy Alcantar RN 05/29/20 05:32: Tolerated 2 lnc well while resting with eyes closed, O2 applied per pt request. RA this am, tolerating well. Original Note: Alert and oriented x4. No acute changes noted from previous shift. Pt rested well this shift with eyes closed. Was up to chair at beginning of shift. PERRLA. Bilateral hand scoop driver noted equal and strong. Cap refill < 3 seconds. Tolerated ra well with no c/o soa thus far this shift. O2 on standby if needed. O2 range mid 90's. Bilateral breath sounds noted clear t/o upon auscultation. Reports having an occasional dry cough very seldom. Have not heard pt coughing this shift thus far. Will attempt to induce sputum in am upon pt awakening to collect specimen. +2 pitting edema noted to ble. Refused teds. NSR noted on movie operator. Active bowel sounds noted in all 4 quads. Pt reports having multiple loose watery bowel movements on previous shift. Refused Lactulose on NOV this hs due to having multiple loose stools. Denies N/V. Ambulates independently in room and to bathroom. Encouraged pt to elevate ble while lying in bed. VSS. Remains safe. Call light within reach. Will continue to monitor.
--- NOTE | 2020-05-29 06:04 | PC.NURSE ---
Addendum entered by Indiana Oh CNA 05/29/20 07:28: CORRECTION Rossy MCDONNELL NOTIFIED OF CONSULT Original Note: Rossy MCDONNELL NOTIFIED OF CONSILT.
--- NOTE | 2020-05-29 06:29 | PC.NURSE ---
Applied 2 lnc to pt at this time. Pt states she is soa after ambulating to and from bathroom. Pt gave her a bath in the bathroom and became soa. Will continue to monitor.
--- NOTE | 2020-05-29 06:49 | PC.NURSE ---
Nebulizer given for sputum induction. Pt has non-productive cough, sputum cup left in room.
[2020-05-29 06:50] LABS: Eosinophils # 0.2 K/mm3 (0.0-0.4); Eosinophils % 4.6 % (0.1-12.0); Hematocrit 32.6 % (37.0-47.0); Hemoglobin 10.5 g/dL (12.2-16.2); Lymphocytes # 1.4 K/mm3 (0.7-4.5); Mean Corpuscular HGB Conc 32.2 g/dL (31.8-35.4); Mean Corpuscular Hemoglobin 32.5 pg (27.0-31.2); Mean Corpuscular Volume 100.8 fl (81-99); Monocytes # 0.4 K/mm3 (0.1-1.0); Monocytes % 10.1 % (1.7-9.3); Neutrophils # 2.1 K/mm3 (1.8-7.8); Neutrophils % 50.3 % (37.0-80.0); Platelet Count 112 K/mm3 (142-424); Red Blood Count 3.23 M/mm3 (4.20-5.40); Red Cell Distribution Width 18.4 % (11.5-17.5); White Blood Count 4.1 K/mm3 (4.8-10.8)
[2020-05-29 07:06] LABS: Chloride 101 mmol/L (98-107); Sodium 135 mmol/L (136-145)
[2020-05-29 07:09] LABS: Blood Urea Nitrogen 14 mg/dl (7-17); Carbon Dioxide 29 mmol/L (22.0-30.0); Creatinine Clearance Estimated 97 mL/min (50-200); Estimated Glomerular Filt Rate 85 ml/min (>60); GFR (African American) 103 ML/MIN (>60)
[2020-05-29 07:10] LABS: Calcium 8.1 mg/dl (8.4-10.2); Glucose 90 mg/dl (74-100)
--- NOTE | 2020-05-29 08:11 | HMH.CNCARD ---
History of Present Illness Consult date: 05/29/20 Requesting physician: Joaquín Childress Consult reason: congestive heart failure Chief complaint: CASTELLANOS Additional Medical History:: 1. Secundum ASD A. Echo, 04/2018, 1. Biatrial enlargement, normal left ventricular size, visually estimated ejection fraction 55% with no obvious regional wall motion abnormality. 2. Mildly enlarged right atrium and right ventricle with normal contractility. 3. Likely secundum atrial septal defect with bidirectional shunt 4. No significant pericardial effusion noted 5.A DANDY is recommended for further evalaution. B. DANDY, 05/2018, 1. Biatrial enlargement, normal left ventricular size, visually estimated ejection fraction 55% in the obtained views with no regional wall motion abnormality. 2. Hemodynamically significant second atrial septal defect present, with bidirectional second, mildly enlarged right ventricle with normal contractility. 3. The aortic sclerosis without aortic stenosis aortic insufficiency. 4. Mild mitral and tricuspid regurgitation 5. No significant pericardial effusion noted C. Echo, 02/2019, 1. Normal left ventricular size, preserved left ventricular systolic function, visually estimated ejection fraction 55% with no regional wall motion abnormality. Grade 1 diastolic dysfunction seen with tissue Doppler evidence of raised left atrial pressure. 2. Moderately enlarged right atrium and right ventricle, with increased velocities across the pulmonic valve, there is likely secondary to significant secundum atrial septal defect with left to right shunt. 3. Mild mitral and tricuspid regurgitation 4. No significant pericardial effusion noted D. Echo, 02/2020, Normal LVEF with no evidence of ASD per report. Moderate MAC with moderate MR and posterior jet indicative of anterior leaf pathology. Severe LAE noted. 2. GERD 3. History of multiple mini strokes likely related to ASD 4. Pancytopenia 5. 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 On liver transplant list through B. Portal HTN and ascites C. Right sided thoracentesis, 09/2019 D. Reported hospitalization in 11/2019 at for esopageal varices bleeding requiring transfusion 6. Right and left heart cardiac catheterization, 02/2019 A. ANGIOGRAPHIC RESULTS: 1. The left main artery normal 2. The left anterior descending artery has normal 3. The circumflex artery is non dominant and has normal 4. The right coronary artery normal 5. The BOYD ventriculogram reveals normal 65% 6. The left ventricular end-diastolic pressure 18 HEMODYNAMICS: Pulmonary artery occlusion pressure is 15 mm Hg. Pulmonary arterial pressure is 25/15 mm Hg. Right atrial pressure is 5 mm Hg. SATURATIONS: PA is 88 %. RA is 90 %. IMPRESSION: 1. Normal coronary arteries 2. Normal ejection fraction 3. Mildly elevated LVEDP consistent with mild diastolic dysfunction 4. Very minimally elevated pulmonary artery pressures PLAN: 1. Evaluation per primary quality control representative Dr. LEDEZMA 2. Continue medical management 7. A. flutter with RVR, 03/2020 A. Converted to NSR with IV diltiazem. B. No anticoagulation due to recent esophageal variceal rupture History of present illness: 59-year-old female with history of COPD and CHF presenting to the emergency department with chest pain and dyspnea. Pain is described as a pressure sensation across her chest. Started yesterday throughout the day and was worse today. She feels it mostly when walking. Has to walk up stairs in her home and has to take breaks. She has lower extremity swelling, symmetric. Taking Bumex as prescribed. Pain is not sharp or stabbing. Does not radiate to her jaw, arm, back. No recent illness, fevers, chills, nausea, vomiting, cough. She also has liver cirrhosis and is being worked up for liver transplant Chart review shows that the patient follows with Dr. Enriquez in . She has a history of a
--- NOTE | 2020-05-29 10:50 | SW/DCPLANNER ---
Addendum entered by Love Navarrete 05/30/20 10:35: Patient information has been faxed to Janay with [facility] to resume home health services including CHF program. Patient will discharge home today. Original Note: I have spoke with this patient regarding discharge plans. Patient stated that she resides at home with her , family checks on her often and she receives services from [facility]. I will inform Janay with [facility]. Patient stated that she intends to return home with family and home health services. Patient has refused placement at this time. Patients room air is 98% at this time.
--- NOTE | 2020-05-29 11:01 | PC.NURSE ---
called to speak with dr pastor about lasix order to verify that he wanted the lasix on top of the bumex and aldactone. left this message with dimitrios alexander she stated she would clarify with him and call back
--- NOTE | 2020-05-29 15:05 | PC.NURSE ---
around 1100 m.perfecto alexander called back and stated that dr. pastor did want the lasix given
--- NOTE | 2020-05-29 16:22 | HMH.ACPN2 ---
Internal Medicine - PN: Subj *Date: 05/29/20 *Time: 08:30 Interval history: pt c/o of soa and needing o2 Exam Vital signs and Labs for Last 24 Hours: Temp Pulse Resp BP Pulse Ox 98.4 F 62 16 114/65 97 05/29/20 11:34 05/29/20 11:34 05/29/20 11:34 05/29/20 11:34 05/29/20 11:34 Laboratory Results - last 24 hr 05/29/20 06:25: WBC 4.1 L, RBC 3.23 L, Hgb 10.5 L, Hct 32.6 L, MCV 100.8 H, MCH 32.5 H, MCHC 32.2, RDW 18.4 H, Plt Count 112 L, MPV 8.0, Neut % (Auto) 50.3, Lymph % (Auto) 34.0, [place] % (Auto) 10.1 H, Eos % (Auto) 4.6, Baso % (Auto) 1.0, Neut # (Auto) 2.1, Lymph # (Auto) 1.4, [place] # (Auto) 0.4, Eos # (Auto) 0.2, Baso # (Auto) 0.0 05/29/20 06:25: Sodium 135 L, Potassium 4.0, Chloride 101, Carbon Dioxide 29, Anion Gap 9.0, BUN 14, Creatinine 0.70, Estimated Creat Clear 97, Estimated GFR 85, Est GFR ( Amer) 103, Glucose 90 D, Calcium 8.1 L I & O for Last 24 hours: Intake & Output 05/27/20 05/28/20 05/29/20 05/30/20 11:59 11:59 11:59 11:59 Intake Total 600 / 600 1020 / 1020 1150 / 1150 Output Total 300 / 300 1500 / 1500 Balance 600 / 600 720 / 720 -350 / -350 Weight 228 lb 9 oz 228 lb 2 oz 230 lb 2 oz 229 lb 4.492 oz - Constitutional mild distress, chronically ill appearing - *Routine HEENT Exam Head: Present: normocephalic Eye: Present: PERRL ENT: Present: mucous membranes moist - *Routine Neck Exam Present: supple. Absent: lymphadenopathy - *Routine Respiratory Exam Present: decreased breath sounds, crackles - *Routine Cardiovascular Exam Present: RRR, murmur - *Routine Abdominal Exam Present: soft, normoactive bowel sounds, obese. Absent: tenderness - *Routine Extremities Exam Present: normal capillary refill. Absent: cyanosis, clubbing, edema - *Routine Skin Exam Present: warm. Absent: rash - *Routine Neurological Exam Present: alert, oriented X3 - Routine Psychiatric Exam Present: normal affect Assessment and Plan (1) Right lower lobe pneumonia Current visit: Yes Status: Acute Qualifiers: Pneumonia type: due to unspecified organism Qualified Code(s): J18.9 - Pneumonia, unspecified organism Category: Medical Code(s): J18.9 - Pneumonia, unspecified organism (2) Murmur, cardiac Current visit: Yes Status: Acute Category: Medical Code(s): R01.1 - Cardiac murmur, unspecified (3) CHF exacerbation Current visit: Yes Status: Acute Qualifiers: Heart failure type: systolic Qualified Code(s): I50.23 - Acute on chronic systolic (congestive) heart failure Category: Medical Code(s): I50.9 - Heart failure, unspecified (4) Dyspnea on exertion Current visit: Yes Status: Acute Category: Medical Code(s): R06.00 - Dyspnea, unspecified (5) Bilateral lower extremity edema Current visit: No Status: Acute Category: Medical Code(s): R60.0 - Localized edema (6) Cirrhosis of liver not due to alcohol Current visit: No Status: Acute Category: Medical Code(s): K74.60 - Unspecified cirrhosis of liver (7) Congestive heart failure Current visit: No Status: Acute Category: Medical Code(s): I50.9 - Heart failure, unspecified (8) Dyspnea Current visit: No Status: Acute Qualifiers: Dyspnea type: other forms of dyspnea Qualified Code(s): R06.09 - Other forms of dyspnea Category: Medical Code(s): R06.00 - Dyspnea, unspecified (9) Edema Current visit: No Status: Acute Qualifiers: Edema type: localized Qualified Code(s): R60.0 - Localized edema Category: Medical Code(s): R60.9 - Edema, unspecified (10) Obesity Current visit: No Status: Acute Category: Medical Code(s): E66.9 - Obesity, unspecified (11) Atrial septal defect Current visit: No Status: Chronic Category: Medical Code(s): Q21.1 - Atrial septal defect - Assessment and plan all Dx Assessment and Plan for all problems:: rounded with dr pastor all orders per dr pastor consult cardiolo
--- NOTE | 2020-05-29 18:09 | PC.NURSE ---
PT HAS BEEN AO*4 T/O SHIFT, UP TO CHAIR AT THIS TIME, NO C/O PAIN, N/V/D, PT STATES THAT SHE IS READY FOR DISCHARGE, AMBULATING TO BATHROOM INDEPENDENTLY, NO NEEDS AT THIS TIME WILL CONTINUE TO MONITOR.
--- NOTE | 2020-05-29 19:16 | PC.NURSE ---
report given to karlene
[2020-05-30] VITALS: BP 119/55; PULSE 62; PULSE 70; RESP 18; TEMP 36.9; O2SAT 98
[2020-05-30 04:00] VITALS: BP 108/55; PULSE 58; PULSE 60; RESP 18; TEMP 36.7; O2SAT 94
[2020-05-30 05:00] VITALS: BMI 36.6
--- NOTE | 2020-05-30 05:55 | PC.NURSE ---
Pt has slept most of this shift. Denies soa/pain. Has voiced no needs or concerns.
[2020-05-30 07:11] LABS: Basophils % 1.1 % (0.1-2.0); Eosinophils # 0.2 K/mm3 (0.0-0.4); Eosinophils % 4.3 % (0.1-12.0); Hematocrit 31.8 % (37.0-47.0); Hemoglobin 10.4 g/dL (12.2-16.2); Lymphocytes % 28.9 % (10-50); Mean Corpuscular HGB Conc 32.6 g/dL (31.8-35.4); Mean Corpuscular Volume 101.1 fl (81-99); Mean Platelet Volume 8.6 fl (7.4-10.4); Monocytes # 0.4 K/mm3 (0.1-1.0); Monocytes % 11.5 % (1.7-9.3); Neutrophils # 1.9 K/mm3 (1.8-7.8); Neutrophils % 54.2 % (37.0-80.0); Platelet Count 115 K/mm3 (142-424); Red Blood Count 3.15 M/mm3 (4.20-5.40); Red Cell Distribution Width 18.7 % (11.5-17.5); White Blood Count 3.5 K/mm3 (4.8-10.8)
[2020-05-30 07:22] LABS: Chloride 101 mmol/L (98-107)
[2020-05-30 07:23] LABS: Potassium 3.9 mmoL/L (3.5-5.1); Sodium 135 mmol/L (136-145)
[2020-05-30 07:25] LABS: Blood Urea Nitrogen 15 mg/dl (7-17); Creatinine Clearance Estimated 96 mL/min (50-200); Estimated Glomerular Filt Rate 85 ml/min (>60); GFR (African American) 103 ML/MIN (>60)
[2020-05-30 07:26] LABS: Anion Gap 6.9 mEq/L (5-15); Calcium 8.4 mg/dl (8.4-10.2); Carbon Dioxide 31 mmol/L (22.0-30.0); Glucose 80 mg/dl (74-100)
[2020-05-30 08:00] VITALS: BP 103/58; PULSE 70; PULSE 73; RESP 19; TEMP 36.9; O2SAT 95
--- NOTE | 2020-05-30 09:25 | HMH.PNCARD ---
Subjective Date: 05/30/20 Time: 09:25 Principal diagnosis: Shortness of breath Interval history: 59-year-old white female sitting at bedside in no acute distress. States she is feeling much better with improvement in her breathing and is ready to go home. She is not wearing oxygen at this time. Room air oxygen saturation noted to be 95% this morning. Exam Vital signs and Labs for Last 24 Hours: Temp Pulse Resp BP Pulse Ox 98.4 F 73 19 103/58 L 95 05/30/20 08:00 05/30/20 08:00 05/30/20 08:00 05/30/20 08:00 05/30/20 08:00 Laboratory Results - last 24 hr 05/30/20 06:16: WBC 3.5 L, RBC 3.15 L, Hgb 10.4 L, Hct 31.8 L, MCV 101.1 H, MCH 33.0 H, MCHC 32.6, RDW 18.7 H, Plt Count 115 L, MPV 8.6, Neut % (Auto) 54.2, Lymph % (Auto) 28.9, [place]mers % (Auto) 11.5 H, Eos % (Auto) 4.3, Baso % (Auto) 1.1, Neut # (Auto) 1.9, Lymph # (Auto) 1.0, Summers # (Auto) 0.4, Eos # (Auto) 0.2, Baso # (Auto) 0.0 05/30/20 06:16: Sodium 135 L, Potassium 3.9, Chloride 101, Carbon Dioxide 31 H, Anion Gap 6.9, BUN 15, Creatinine 0.70, Estimated Creat Clear 96, Estimated GFR 85, Est GFR ( Amer) 103, Glucose 80, Calcium 8.4 I & O for Last 24 hours: Intake & Output 05/27/20 05/28/20 05/29/20 05/30/20 11:59 11:59 11:59 11:59 Intake Total 600 / 600 1020 / 1020 1150 / 1150 340 / 340 Output Total 300 / 300 1500 / 1500 Balance 600 / 600 720 / 720 -350 / -350 340 / 340 Weight 228 lb 9 oz 228 lb 2 oz 230 lb 2 oz 228 lb 1 oz - *Routine Respiratory Exam Present: CTA bilaterally - *Routine Cardiovascular Exam Present: RRR, murmur - *Routine Extremities Exam Absent: cyanosis, clubbing, edema - *Routine Neurological Exam Present: alert, oriented X3 Progress Note: A&P (1) Right lower lobe pneumonia Status: Acute Current Visit: Yes (2) Murmur, cardiac Status: Acute Current Visit: Yes (3) CHF exacerbation Status: Acute Current Visit: Yes (4) Dyspnea on exertion Status: Acute Current Visit: Yes (5) Bilateral lower extremity edema Status: Acute Current Visit: No (6) Cirrhosis of 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 Home medication recommendations Bumex 1 mg p.o. twice daily Spironolactone 100 mg daily Metoprolol succinate XL 5 mg nightly Antibiotics per Dr. Lowry Follow-up in our office next week with BMP and BNP. She will keep her appointment with Dr. Carbone later this month.
--- NOTE | 2020-05-30 10:12 | P.PN_ITS ---
Internal Medicine - PN: Subj *Date: 05/30/20 *Time: 10:12 Exam Vital signs and Labs for Last 24 Hours: Temp Pulse Resp BP Pulse Ox 98.4 F 73 19 103/58 L 95 05/30/20 08:00 05/30/20 08:00 05/30/20 08:00 05/30/20 08:00 05/30/20 08:00 Laboratory Results - last 24 hr 05/30/20 06:16: WBC 3.5 L, RBC 3.15 L, Hgb 10.4 L, Hct 31.8 L, MCV 101.1 H, MCH 33.0 H, MCHC 32.6, RDW 18.7 H, Plt Count 115 L, MPV 8.6, Neut % (Auto) 54.2, Lymph % (Auto) 28.9, [place] % (Auto) 11.5 H, Eos % (Auto) 4.3, Baso % (Auto) 1.1, Neut # (Auto) 1.9, Lymph # (Auto) 1.0, [place] # (Auto) 0.4, Eos # (Auto) 0.2, Baso # (Auto) 0.0 05/30/20 06:16: Sodium 135 L, Potassium 3.9, Chloride 101, Carbon Dioxide 31 H, Anion Gap 6.9, BUN 15, Creatinine 0.70, Estimated Creat Clear 96, Estimated GFR 85, Est GFR ( Amer) 103, Glucose 80, Calcium 8.4 I & O for Last 24 hours: Intake & Output 05/27/20 05/28/20 05/29/20 05/30/20 23:59 23:59 23:59 23:59 Intake Total 1020 / 1020 1020 / 1140 540 / 540 290 / 290 Output Total 600 / 600 1200 / 1200 Balance 1020 / 1020 420 / 540 -660 / -660 290 / 290 Weight 103.674 kg 103.476 kg 104 kg 103.447 kg Assessment and Plan (1) Right lower lobe pneumonia Current visit: Yes Status: Acute Qualifiers: Pneumonia type: due to unspecified organism Qualified Code(s): J18.9 - Pneumonia, unspecified organism Category: Medical Code(s): J18.9 - Pneumonia, unspecified organism (2) Murmur, cardiac Current visit: Yes Status: Acute Category: Medical Code(s): R01.1 - Cardiac murmur, unspecified (3) CHF exacerbation Current visit: Yes Status: Acute Qualifiers: Heart failure type: systolic Qualified Code(s): I50.23 - Acute on chronic systolic (congestive) heart failure Category: Medical Code(s): I50.9 - Heart failure, unspecified (4) Dyspnea on exertion Current visit: Yes Status: Acute Category: Medical Code(s): R06.00 - Dyspnea, unspecified (5) Bilateral lower extremity edema Current visit: No Status: Acute Category: Medical Code(s): R60.0 - Localized edema (6) Cirrhosis of liver not due to alcohol Current visit: No Status: Acute Category: Medical Code(s): K74.60 - Unspecified cirrhosis of liver (7) Congestive heart failure Current visit: No Status: Acute Category: Medical Code(s): I50.9 - Heart failure, unspecified (8) Dyspnea Current visit: No Status: Acute Qualifiers: Dyspnea type: other forms of dyspnea Qualified Code(s): R06.09 - Other forms of dyspnea Category: Medical Code(s): R06.00 - Dyspnea, unspecified (9) Edema Current visit: No Status: Acute Qualifiers: Edema type: localized Qualified Code(s): R60.0 - Localized edema Category: Medical Code(s): R60.9 - Edema, unspecified (10) Obesity Current visit: No Status: Acute Category: Medical Code(s): E66.9 - Obesity, unspecified (11) Atrial septal defect Current visit: No Status: Chronic Category: Medical Code(s): Q21.1 - Atrial septal defect The patient's infection will respond to the chosen ABx?: Yes Is the patient receiving the right drug, dose, and route?: Yes Could a more targeted ABx be ordered?: No (WBC WNL, AFEBRILE)
--- NOTE | 2020-05-30 10:17 | HMH.DCSUM ---
General - General Admission date:: 05/26/20 Discharge date: 05/30/20 HPI HPI: 59-year-old female with history of COPD and CHF presenting to the emergency department with chest pain and dyspnea. Pain is described as a pressure sensation across her chest. Started yesterday throughout the day and was worse today. She feels it mostly when walking. Has to walk up stairs in her home and has to take breaks. She has lower extremity swelling, symmetric. Taking Bumex as prescribed. Pain is not sharp or stabbing. Does not radiate to her jaw, arm, back. No recent illness, fevers, chills, nausea, vomiting, cough. She also has liver cirrhosis and is being worked up for liver transplant Chart review shows that the patient follows with Dr. Enriquez in . She has a history of an ASD. Last cardiac catheterization was in February 2019 IMPRESSION: 1. Normal coronary arteries 2. Normal ejection fraction 3. Mildly elevated LVEDP consistent with mild diastolic dysfunction 4. Very minimally elevated pulmonary artery pressures Patient was seen here twice in the last few months. First time she was diagnosed atrial flutter and admitted for observation. Most recent time was May 08 when she had an unremarkable cardiac work-up. And was discharged home - Radiology Data #1 Image(s): Chest Image Reviewed: Yes I reviewed the patient's radiology results, Yes I have reviewed radiologist's interpretation IMPRESSION: Slight worsening right lower lobe consolidation with small right effusion. - ECG Data Tracing #1 Sinus rhythm with ventricular rate of 66 bpm. QRS 98, QTc 490. Left axis deviation. Medical Decision Narrative: 59-year-old female presenting to the emergency department with chest pressure, lower extremity swelling, fatigue. Patient is clinically stable on arrival. Vital signs within normal limits. No significant hypertension. Differential diagnoses include ACS, CHF exacerbation, pulmonary edema, fusion. Plan to obtain CBC, CMP, chest x-ray, EKG, troponin profile, BNP. Patient given chewable aspirin. Laboratory results are markable for leukopenia. Initial troponin not elevated. Renal function adequate. Chest x-ray shows slightly worsening right lower lobe consolidation. Will treat presumptively for pneumonia. Given 1 g of IV Rocephin and 500 mg of azithromycin. On reassessment patient is barely able to stand and walk to the bedside commode without significant dyspnea. BNP is elevated at greater than 1000. She would benefit from hospitalization and treatment of pneumonia and pulmonary congestion. Above is data from ER/admission. Patient is actively followed by Dr. Enriquez. She is being evaluated for surgery in the future. She has a history of Curtis with bleeding esophageal varices. She had a prolonged hospital stay at earlier in the year as a result of complications. She takes lactulose. She is on a liver transplant consideration list. Progressive dyspnea is what prompted her presentation to the ER yesterday. She is still having some dyspnea when she gets up to go to the bathroom, is otherwise in no distress. Is s/p thoracentesis on previous admissions. Most recent cxr FINDINGS: There is cardiomegaly without failure. Consolidation is present in the right lower lobe with small right effusion. Consolidation appears somewhat worse. Left lung is clear. There is some prominence of the left hilum which may be vascular in nature. No acute bony abnormalities. IMPRESSION: Slight worsening right lower lobe consolidation with small right effusion. Will observe sequential films for volume overload Hospital Course Hospital Course: 59-year-old female patient presents to the emergency room with history of COPD and recent admissions for a flutter and CHF with reports of chest pain and shortness of air. She reports chest pain starting yesterday during the day and increasing to intolerabl
--- NOTE | 2020-05-30 12:35 | HMH.PHAINT ---
DISCHARGE COUNSELING COMPLETED ON PATIENT. NEW PRESCRIPTIONS INCLUDE AZITHROMYCIN AND AUGMENTIN. THESE WERE PICKED UP BY THE PATIENT'S PRIOR TO ADMISSION. PATIENT IS TO FINISH COURSES ON BOTH OF THESE MEDICATIONS. PATIENT IS TO CONTINUE ALL OTHER HOME MEDICATIONS AT THIS TIME. PATIENT VERBALIZED UNDERSTANDING AND HAD NO QUESTIONS AT THIS TIME. -LISANDRO WU, [place]YD
== END 2020-05-30 13:12 | disposition home health service (06) ==
LOC: ER 16:05 → 2ND 16:20
PROVIDERS: Family Medicine; Nurse Practitioner Family; Admitting Provider Internal Medicine Adolescent Medicine; Emergency Provider Emergency Medicine; PCP Emergency Medicine; Visit Provider Emergency Medicine
DX: J18.9 Pneumonia, unspecified organism (principal); I50.23 Acute on chronic systolic (congestive) heart failure; J44.9 Chronic obstructive pulmonary disease, unspecified; Z88.2 Allergy status to sulfonamides; Z79.899 Other long term (current) drug therapy; K74.60 Unspecified cirrhosis of liver
CPT/HCPCS: 36415; 71046; 80048; 80053; 82140; 83880; 84484; 85025; 86328; 93005; 94640; 96374; 96375; 99284; G0378

== ENCOUNTER 2022-04-28 20:55 | Inpatient (IN) | payer MEDICARE, MEDICAID, SELFPAY ==
[2022-04-28 20:47] VITALS: BP 130/52; PULSE 83; RESP 19; TEMP 37.2; O2SAT 96; BMI 41.1
--- NOTE | 2022-04-28 21:06 | PC.NURSE ---
at speaking with pt about POC
--- NOTE | 2022-04-28 21:11 | XR_ITS ---
PROCEDURE INFORMATION: Exam: XR Chest Exam date and time: 04/28/2022 9:25 PM Age: 61 years old Clinical indication: Fever and other: AMS; Additional info: AMS, fever TECHNIQUE: Imaging protocol: Radiologic exam of the chest. Views: 1 view. COMPARISON: CR XR CHEST 2V 05/28/2020 5:45 AM FINDINGS: Lungs: Unremarkable. No consolidation. Pleural spaces: There is blunting of the right lateral costophrenic angle which may be acute or chronic, improved when compared to a prior exam 1 year ago. Heart/Mediastinum: Unremarkable. No cardiomegaly. Bones/joints: Unremarkable. IMPRESSION: Blunted right costophrenic angle could reflect acute or chronic effusion. Otherwise no acute abnormality.
--- NOTE | 2022-04-28 21:17 | PC.NURSE ---
RAD at BS for XRAY
--- NOTE | 2022-04-28 21:18 | PC.NURSE ---
Notified RT of VBG order
[2022-04-28 21:21] LABS: Microscopic, Urine URINE MICROSCOPIC (MICROSCOPIC)
[2022-04-28 21:22] VITALS: BMI 41.1
[2022-04-28 21:29] LABS: Appearance,Urine CLOUDY (Clear); Blood, Urine 2+ (Negative); Color,Urine DK YELLOW (Yellow); Glucose,Urine (UA) Negative (Negative); Ketones,Urine TRACE (Negative); Leukocyte Esterase,Urine Negative (Negative); Nitrate,Urine Negative (Negative); PH,Urine 5.5 (5.0-8.5); Protein,Urine Negative (Negative); Specific Gravity, Urine >= 1.030 (1.005-1.030)
[2022-04-28 21:30] LABS: Bilirubin,Urine Negative (Negative)
[2022-04-28 21:34] LABS: Amorphous Sediment,Urine 2+ /lpf; Bacteria,Urine 1+ /lpf
[2022-04-28 21:40] LABS: Basophils # 0.2 K/mm3 (0-0.2); Basophils % 2.8 % (0.1-2.0); Eosinophils # 0.1 K/mm3 (0.0-0.4); Eosinophils % 1.8 % (0.1-12.0); Hematocrit 47.3 % (37.0-47.0); Hemoglobin 14.6 g/dL (12.2-16.2); Lymphocytes # 1.5 K/mm3 (0.7-4.5); Lymphocytes % 28.7 % (10-50); Mean Corpuscular HGB Conc 30.9 g/dL (31.8-35.4); Mean Corpuscular Hemoglobin 35.1 pg (27.0-31.2); Mean Corpuscular Volume 113.4 fl (81-99); Mean Platelet Volume 9.1 fl (7.4-10.4); Monocytes # 0.6 K/mm3 (0.1-1.0); Monocytes % 11.8 % (1.7-9.3); Neutrophils # 2.8 K/mm3 (1.8-7.8); Neutrophils % 54.9 % (37.0-80.0); Platelet Count 151 K/mm3 (142-424); Red Blood Count 4.17 M/mm3 (4.20-5.40); Red Cell Distribution Width 14.8 % (11.5-17.5); White Blood Count 5.2 K/mm3 (4.8-10.8)
[2022-04-28 21:46] LABS: Chloride 102 mmol/L (98-107); Sodium 137 mmol/L (136-145)
[2022-04-28 21:47] LABS: Potassium 4.6 mmoL/L (3.5-5.1)
[2022-04-28 21:49] LABS: Alanine Aminotransferase 56 U/L (12-78); Albumin Level 2.9 g/dl (3.5-5.0); Albumin/Globulin Ratio 0.7 (1.1-1.8); Alkaline Phosphatase 237 U/L (38-126); Ammonia 41 umol/L (9-30); Anion Gap 9.6 mEq/L (5-15); Aspartate Amino Transferase 91 U/L (14-36); Blood Urea Nitrogen 23 mg/dl (7-17); Calcium 9.4 mg/dl (8.4-10.2); Carbon Dioxide 30 mmol/L (22.0-30.0); Creatinine Clearance Estimated 90 mL/min (50-200); Estimated Glomerular Filt Rate 50 ml/min (>60); GFR (African American) 61 ML/MIN (>60); Globulin 4.2 g/dL (1.3-3.2); Glucose 125 mg/dl (74-100); Lactic Acid 2.2 mmol/L (0.7-2.1); Total Protein,Serum 7.1 g/dl (6.3-8.2)
[2022-04-28 21:50] LABS: Lipase 104 U/L (23-300)
[2022-04-28 21:53] LABS: VBG Base Excess 2.7 mmol/L (-2.4-2.3); VBG HCO3 27.5 mmol/L (23-30); VBG Oxygen Saturation 92.8 % (50-70); VBG PO2 71.8 mmol/L (28-40); VBG Total CO2 28.9 mmol/L (23-27)
[2022-04-28 21:59] LABS: NT Pro Brain Natriuretic Pep. 198 pg/mL (0-125)
--- NOTE | 2022-04-28 21:59 | PC.NURSE ---
LAB at attempting to draw blood for labs
[2022-04-28 22:03] LABS: Troponin I 0.01 ng/ml (0.00-0.034)
--- NOTE | 2022-04-28 22:23 | HMH.EDGENADL ---
ED Disposition Clinical Impression: Encephalopathy, Cirrhosis of liver not due to alcohol UTI (urinary tract infection) Qualifiers: Urinary tract infection type: acute cystitis Hematuria presence: without hematuria Qualified Code(s): N30.00 - Acute cystitis without hematuria Disposition: Admitted As Inpatient Condition on Discharge: Good - Critical Care Critical Care Time: No Attestation: On 04/28/22, the high probability of a clinically significant, sudden or life threatening deterioration of the following system(s) required my full and direct attention, intervention and personal management. The time I documented below is in addition to time spent performing reported procedures but includes the following listed in this critical care notation. Medical Decision Making - Espinoza Inquiry Pt receiving controlled substance: No Vital Signs: 04/28/22 20:47 04/28/22 23:00 04/29/22 00:01 Temperature 98.9 F Temperature Source Oral Pulse Rate 76 81 Pulse Rate [Right] 83 Respiratory Rate 19 Blood Pressure 136/82 126/79 Blood Pressure [Right Arm] 130/52 L Blood Pressure Mean 86 Blood Pressure Mean [Right Arm] 78 Blood Pressure Source [Right Arm] Automatic Cuff 02 Sat by Pulse Oximetry 96 99 99 Oxygen Delivery Method Room Air Room Air Room Air - Lab Data Lab Results 04/28/22 20:51: SARS-CoV-2 (PCR) Not detected, Influenza A Untype (PCR) Not detected, Influenza Type B (PCR) Not detected 04/28/22 21:00: Urine Color Dk yellow, Urine Appearance Cloudy, Urine pH 5.5, Ur Specific [place] >= 1.030, Urine Protein Negative, Urine Glucose (UA) Negative, Urine Ketones Trace, Urine Blood 2+, Urine Nitrate Negative, Urine Bilirubin Negative, Urine Urobilinogen 1.0, Ur Leukocyte Esterase Negative, Urine RBC 5-10, Urine WBC 5-10, Amorphous Sediment 2+, Urine Bacteria 1+ 04/28/22 21:11: VBG pH 7.40, VBG pCO2 46.0, VBG pO2 71.8 H, VBG HCO3 27.5, VBG Total CO2 28.9 H, VBG O2 Saturation 92.8 H, VBG Base Excess 2.7 H 04/28/22 21:15: WBC 5.2, RBC 4.17 L, Hgb 14.6, Hct 47.3 H, MCV 113.4 H, MCH 35.1 H, MCHC 30.9 L, RDW 14.8, Plt Count 151, MPV 9.1, Neut % (Auto) 54.9, Lymph % (Auto) 28.7, [place] % (Auto) 11.8 H, Eos % (Auto) 1.8, Baso % (Auto) 2.8 H, Neut # (Auto) 2.8, Lymph # (Auto) 1.5, [place] # (Auto) 0.6, Eos # (Auto) 0.1, Baso # (Auto) 0.2 04/28/22 21:15: Sodium 137, Potassium 4.6, Chloride 102, Carbon Dioxide 30, Anion Gap 9.6, BUN 23 H, Creatinine 1.10 H, Estimated Creat Clear 90, Estimated GFR 50 L, Est GFR ( Amer) 61, Glucose 125 H, Calcium 9.4, Total Bilirubin 2.0 H, AST 91 H, ALT 56, Alkaline Phosphatase 237 H, Troponin I 0.01, Total Protein 7.1 D, Albumin 2.9 L, Globulin 4.2 H, Albumin/Globulin Ratio 0.7 L 04/28/22 21:15: Lactate 2.2 H 04/28/22 21:15: Ammonia 41 H 04/28/22 21:15: NT-Pro-B Natriuret Pep 198 H, Lipase 104 04/28/22 22:05: PT 13.0 H, INR 1.16 H, APTT 32.6 H 04/29/22 00:15: Troponin I 0.01 Result diagrams: 04/28/22 21:15 04/28/22 21:15 Orders (Tests/Meds): ED MEDICATIONS Generic Name Dose Route Start Last Admin Trade Name Freq PRN Reason Stop Dose Admin Ceftriaxone Sodium 1 gm/ 50 mls @ 100 mls/hr 04/28/22 23:45 Sodium Chloride IV 05/12/22 23:44 Q24H KARAN Discontinued Medications Generic Name Dose Route Start Last Admin Trade Name Freq PRN Reason Stop Dose Admin Ondansetron HCl 4 mg 04/28/22 21:11 04/28/22 22:56 Ondansetron 4mg/2ml Vial IV 04/28/22 21:12 Not Given ONCE ONE Ondansetron HCl 4 mg 04/28/22 22:20 04/28/22 22:37 Ondansetron 4mg Odt SL 04/28/22 22:21 4 mg ONCE ONE Administration ORDERS Category Date Time Status Lactic Acid Follow Up (RFLX 1) Stat Lab 04/29/22 00:04 Ordered Troponin I Q3H Lab 04/29/22 03:15 Ordered Blood Culture Stat Micro 04/28/22 22:05 Received Urine Culture Stat Micro 04/28/22 21:00 Received - ECG Data Tracing #1 Sinus rhythm with no acute ST changes concerning for ischemia ECG normal with no a
[2022-04-28 22:27] LABS: Activated Partial Thrombo Time 32.6 seconds (22.8-30.6); INR 1.16 (0.9-1.1)
[2022-04-28 23:00] VITALS: BP 136/82; PULSE 76; O2SAT 99
--- NOTE | 2022-04-28 23:40 | PC.NURSE ---
Dr. Zuñiga pageyvette
--- NOTE | 2022-04-28 23:42 | PC.NURSE ---
speaking with Dr. Zuñiga
[2022-04-28 23:46] LABS: Coronavirus 19, PCR Not Detected (NotDetected); Influenza A, PCR Not Detected (NotDetected); Influenza B, PCR Not Detected (NotDetected)
[2022-04-29] VITALS (11 sets, daily range): BP systolic 115–132; BP diastolic 45–93; PULSE 68–160; RESP 15–20; TEMP 36.5–37; O2SAT 95–100; BMI 37.7
[2022-04-29 00:04] LABS: Reflex Lactic Add Lactic Reflex
--- NOTE | 2022-04-29 00:20 | PC.NURSE ---
Pt's son called for an update and states I think she is doing all this for attention. We can't find any mediation for liver failure here at the house. Do you really think she has liver failure? Updated son on labs and results, OK'ed per pt. Let him know she will be admitted. States he does not have the bottles in front of him at this time, just knows I only saw her GERD meds . Pt unable to confirm medications. External medicine hx shows some filled medication for 11 days. Pt does know she takes lactulose.
--- NOTE | 2022-04-29 00:46 | ECG_ITS ---
APPROVED REPORT Exam: Resting ECG HR:82 bpm ECG Measurements Heart Rate 82 AXES IA 160 P -1 QRSd 107 QRS -40 QT 368 T 51 QTc 406 Conclusion SINUS RHYTHM WITH FREQUENT SUPRAVENTRICULAR PREMATURE COMPLEXES LEFT AXIS DEVIATION [QRS AXIS < -30] POSSIBLE LATERAL MYOCARDIAL INFARCTION , PROBABLY OLD [30 ms Q WAVE IN I/aVL/V5/V6] ABNORMAL ECG UNCONFIRMED REPORT Electronically signed by : Luis A Hammonds MD 04/29/2022 20:36:25
--- NOTE | 2022-04-29 00:46 | ECG_ITS ---
APPROVED REPORT Exam: Resting ECG HR:151 bpm ECG Measurements Heart Rate 151 AXES QRSd 89 QRS -35 QT 306 T 58 QTc 392 Conclusion ATRIAL FLUTTER/TACHYCARDIA WITH RAPID VENTRICULAR RESPONSE LEFT AXIS DEVIATION [QRS AXIS < -30] PATTERN CONSISTENT WITH PULMONARY DISEASE CRITICAL TEST RESULT UNCONFIRMED REPORT Electronically signed by : Luis A Hammonds MD 04/29/2022 20:35:12
[2022-04-29 00:56] LABS: Troponin I 0.01 ng/ml (0.00-0.034)
--- NOTE | 2022-04-29 00:57 | PC.NURSE ---
Pt given ice chips per request
--- NOTE | 2022-04-29 01:37 | PC.NURSE ---
PT difficult stick. JACK Malik attempted multiple times and I attempted with US machine x 3. 2 attempts vein blew and 3rd attempt unsuccessful. Notified MD. Assessed pt while in the room and updated on POC. Pt advises no new needs at this time and she just feels sleepy
--- NOTE | 2022-04-29 01:42 | PC.NURSE ---
at bedside with US machine
--- NOTE | 2022-04-29 02:01 | PC.NURSE ---
MD established 20G IV in the right arm anteriorly.
[2022-04-29 02:17] LABS: Lactic Acid Follow Up (RFLX 1) 1.8 mmol/L (0.7-2.1)
--- NOTE | 2022-04-29 03:06 | PC.NURSE ---
PT ARRIVED TO FLOOR VIA W/C FROM ED W/STAFF @ 3639
[2022-04-29 04:05] LABS: Troponin I 0.02 ng/ml (0.00-0.034)
--- NOTE | 2022-04-29 05:33 | PC.NURSE ---
Addendum entered by ALAN Gibbs 04/29/22 05:57: Bed alarm is on due to weakness. Addendum entered by ALAN Gibbs 04/29/22 05:44: Pt noted to have runs of SVT, unchanged from initial EKG, pt is asymptomatic. Original Note: Pt is alert and oriented x4, pt is weak but able to ambulate with assistance to the restroom, pt tolerated fair. Pt lung sounds are clear. O2 sat >95% on room air. Pt complained of nausea one time, treated prn per nov. Pt has 1+ non pitting edema to bilateral lower extremities. Pt has 20g in R upper arm that was ultrasound guided by physician, pt is a very hard stick per report from ER. Pt has been given IV antibiotics. Pt shows NSR on tele. Call ching in reach and working, pt has been resting since given med for nausea.
[2022-04-29 07:39] LABS: Basophils # 0.2 K/mm3 (0-0.2); Basophils % 2.5 % (0.1-2.0); Eosinophils # 0.1 K/mm3 (0.0-0.4); Hematocrit 42.2 % (37.0-47.0); Hemoglobin 13.2 g/dL (12.2-16.2); Lymphocytes # 1.8 K/mm3 (0.7-4.5); Lymphocytes % 30.3 % (10-50); Mean Corpuscular HGB Conc 31.3 g/dL (31.8-35.4); Mean Corpuscular Hemoglobin 34.8 pg (27.0-31.2); Mean Corpuscular Volume 111.5 fl (81-99); Mean Platelet Volume 8.5 fl (7.4-10.4); Monocytes # 0.6 K/mm3 (0.1-1.0); Neutrophils # 3.3 K/mm3 (1.8-7.8); Neutrophils % 55.2 % (37.0-80.0); Platelet Count 148 K/mm3 (142-424); Red Blood Count 3.79 M/mm3 (4.20-5.40); Red Cell Distribution Width 14.8 % (11.5-17.5); White Blood Count 5.9 K/mm3 (4.8-10.8)
--- NOTE | 2022-04-29 07:46 | HMH.PHAVTE ---
[facility] Pharmacy VTE Monitoring - Patient Demographics Admission date: 04/29/22 Report Date: 04/29/22 Time: 07:46 Allergies/Adverse Reactions: Patient Allergies Sulfa (Sulfonamide Antibiotics) [SULFA (SULFONAMIDE ANTIBIOTICS)] Allergy (Intermediate, Verified 11/21/20 09:16) Hives Height: 1.63 m Weight: 100.199 kg Patient Problems: Current Active Problems Encephalopathy (Acute) Cirrhosis of liver not due to alcohol (Acute) UTI (urinary tract infection) (Acute) - VTE Risk Labs: VTE Related Lab Results Hgb 13.2 g/dL (12.2-16.2) 04/29/22 07:12 Hct 42.2 % (37.0-47.0) 04/29/22 07:12 Plt Count 148 K/mm3 (142-424) 04/29/22 07:12 PT 13.0 seconds (10.1-12.5) H 04/28/22 22:05 INR 1.16 (0.9-1.1) H 04/28/22 22:05 APTT 32.6 seconds (22.8-30.6) H 04/28/22 22:05 BUN 23 mg/dl (7-17) H 04/28/22 21:15 Creatinine 1.10 mg/dl (0.52-1.04) H 04/28/22 21:15 Estimated Creat Clear 90 mL/min (50-200) 04/28/22 21:15 Was VTE Risk Assessment Performed: Yes VTE Score: 7 VTE Risk Level: Moderate Risk Clinical Trial Participant: No - Prophylaxis VTE Prophylaxis Ordered?: Yes Types of VTE Prophylaxis: TEDS Knee High
[2022-04-29 08:12] LABS: Chloride 102 mmol/L (98-107); Potassium 4.3 mmoL/L (3.5-5.1); Sodium 135 mmol/L (136-145)
[2022-04-29 08:15] LABS: Alanine Aminotransferase 48 U/L (12-78); Albumin Level 2.6 g/dl (3.5-5.0); Albumin/Globulin Ratio 0.7 (1.1-1.8); Alkaline Phosphatase 186 U/L (38-126); Anion Gap 10.3 mEq/L (5-15); Aspartate Amino Transferase 74 U/L (14-36); Bilirubin,Total 1.8 mg/dl (0.2-1.3); Blood Urea Nitrogen 25 mg/dl (7-17); Calcium 8.9 mg/dl (8.4-10.2); Carbon Dioxide 27 mmol/L (22.0-30.0); Creatinine Clearance Estimated 83 mL/min (50-200); Estimated Glomerular Filt Rate 50 ml/min (>60); GFR (African American) 61 ML/MIN (>60); Globulin 3.8 g/dL (1.3-3.2); Glucose 148 mg/dl (74-100); Total Protein,Serum 6.4 g/dl (6.3-8.2)
[2022-04-29 08:19] LABS: Lactic Acid 2.1 mmol/L (0.7-2.1)
--- NOTE | 2022-04-29 09:14 | HMH.HP ---
*Admission Date: 04/29/22 *Chief complaint: mental status changes, uti *History of present illness: Patient is a 61-year-old white female, admitted to our service from the emergency room with a presentation of 3 days of general weakness and fatigue, nausea, vomiting, dysuria. When questioned by ER staff she relayed that she did not remember much over the last 3 days, had been increasingly somnolent Patient is a marginal historian but relays a history of cirrhosis and has likely had elevated ammonia the past. Her home regimen includes lactulose. Patient had lab findings suggesting urinary tract infection. She is admitted for further evaluation and treatment. She relays history of cardiac surgery in july, closed a hole in my heart Follows a [employer] helper in [place]. [facility] History Medical History: Reports:: Congestive Heart Failure, Gastroesophageal Reflux Disease(GERD), Heart Murmur, Hepatitis, Hypertension, MRSA (spider bite), Peripheral Vascular Disease, Transient Ischemic Attacks (TIA), Ulcer Denies:: Cancer, Diabetes Mellitus Type 1, Diabetes Mellitus Type 2 *Have you ever received a pneumonia vaccine?: No *Have you received a flu vaccine this season?: No Other Medical History: Reports: Anemia, Arthritis, Liver Disease, Other Other Surgeries: Yes: Cardiac Catheterization, Cholecystectomy, , EGD, Tubal Ligation Amputation: No Fractures: Yes (right leg and ankle) - *Social History Last grade of school completed: GED Smoking Status: Never smoker Alcohol Intake: never Alcohol Intake Frequency:: holidays/special occasions only Substance Use Type: denies use *Occupational Status:: disabled Housing: apartment Household Members: significant other *Travel in the last 8 weeks: None Family Hx:: Cancer, Coronary Artery Disease, Diabetes, Heart Attack, Hyperlipidemia, Hypertension Review of Systems - Constitutional Reports anorexia, Reports daytime sleepiness, Reports fatigue, Reports lack of energy, Reports malaise, Reports weakness - Eyes Denies change in vision - ENT Denies abnormal hearing - *Cardiovascular Denies chest pain - *Respiratory Denies shortness of breath - *Gastrointestinal Reports nausea, Reports vomiting, Denies bright, red blood in stools, Denies black, tarry stools - *Genitourinary Reports painful urination - *Musculoskeletal Reports muscle weakness - Integumentary/Breasts Denies yellowing of the skin - *Neurologic Reports behavioral changes - Psychiatric Reports behavioral changes, Reports confusion - Endocrine Denies increased hunger - Hematologic/Lymphatic Denies easy bleeding, Denies easy bruising - Allergic/Immunologic Denies hives Meds Home Medications Medication Instructions Recorded Confirmed Type hydroxyzine HCl 10 mg tablet 10 mg PO QIDP PRN 03/03/20 04/29/22 History Bumetanide 1 mg PO DAILY 04/29/22 04/29/22 History Lactulose 30 ml PO QID 04/29/22 04/29/22 History Magnesium Oxide [Magnesium] 400 mg PO DAILY 04/29/22 04/29/22 History Metoprolol Succinate [Metoprolol 25 mg PO HS 04/29/22 04/29/22 History Succinate 25mg Tablet*] Pantoprazole Sodium 40 mg PO DAILY 04/29/22 04/29/22 History Rifaximin [Xifaxan] 550 mg PO BID 04/29/22 04/29/22 History Spironolactone 100 mg PO DAILY 04/29/22 04/29/22 History Sucralfate [Sucralfate 1gm 1 gm PO QID 04/29/22 04/29/22 History Tab] ondansetron HCL [Ondansetron 4mg 4 mg PO TIDP PRN 04/29/22 04/29/22 History tab*] Allergies Allergy/AdvReac Type Severity Reaction Status Date / Time Sulfa (Sulfonamide Allergy Intermediate Hives Verified 11/21/20 09:16 Antibiotics) [SULFA (SULFONAMIDE ANTIBIOTICS)] Exam Vital signs and Labs for Last 24 Hours: Temp Pulse Resp BP Pulse Ox 97.7 F 84 16 123/58 L 100 04/29/22 07:38 04/29/22 07:38 04/29/22 07:38 04/29/22 07:38 04/29/22 07:38 Laboratory Results - last 24 hr 04/28/22 20:51: SARS-CoV-2 (PCR) Not detected, Inf
[2022-04-29 10:22] LABS: Ammonia 128 umol/L (9-30)
--- NOTE | 2022-04-29 11:14 | PC.NURSE ---
Addendum entered by Felicitas Kilgore RN 04/29/22 17:54: WAS NOTIFIED THIS AFTERNOON ABOUT PT'S HR AND SHE WAS NOT TOTALLY SURE THE LAST TIME SHE TOOK HER METOPROLOL. METOPROLOL WAS ORDERED. AFTER METOPROLOL HR WAS INCREASING TO 140-150'S MORE FREQUENTLY. RT NOTIFIED TO DO EKG. NOTIFIED AND HE STATED TO START PT ON CARDIZEM DRIP AND HE WOULD BE HERE THIS EVENING TO ROUND ON PT. PT WAS TRANSFERRED TO STEP DOWN. PT HAS NO COMPLAINTS AT THIS TIME. REPORT HAND OFF TO CATHY GARCIA RN. Original Note: PT IS RESTING IN BED. ALERT AND ORIENTED X4. LUNG SOUNDS CLEAR. ABDOMEN SOFT WITH SOME TENDERNESS NOTED (RLQ). PT IS EATING AND DRINKING WELL. MEDICATED PER MAR FOR NAUSEA. SWELLING NOTED TO BLE. LUNG SOUNDS CLEAR. PT AMBULATES TO THE BATHROOM STANDBY ASSIST. WILL CONTINUE TO MONITOR.
--- NOTE | 2022-04-29 12:57 | HMH.PHAINT ---
home medication list verified using list from [facility]
--- NOTE | 2022-04-29 16:00 | ECG_ITS ---
APPROVED REPORT Exam: Resting ECG HR:122 bpm ECG Measurements Heart Rate 122 AXES AR 173 P -9 QRSd 86 QRS -32 QT 358 T 32 QTc 431 Conclusion SINUS Rhythm with development of [place] and then SVT - abn study ABNORMAL ECG UNCONFIRMED REPORT Electronically signed by : Luis A Hammonds MD 04/29/2022 20:34:20
--- NOTE | 2022-04-29 21:10 | CT_ITS ---
PROCEDURE INFORMATION: Exam: CT Abdomen And Pelvis With Contrast Exam date and time: 04/29/2022 11:12 PM Age: 61 years old Clinical indication: Abdominal pain; Localized; Right; Prior surgery; Additional info: Abdominal pain, right TECHNIQUE: Imaging protocol: Computed tomography of the abdomen and pelvis with contrast. Radiation optimization: All CT scans at this facility use at least one of these dose optimization techniques: automated exposure control; mA and/or kV adjustment per patient size (includes targeted exams where dose is matched to clinical indication); or iterative reconstruction. Contrast material: ISOVUE; Contrast volume: 75 ml; Contrast route: IV; COMPARISON: CT ABDOMEN PELVIS W CON 06/12/2019 10:03 PM FINDINGS: Tubes, catheters and devices: Atrial septal closure device partially visualized. Pleural spaces: Small right pleural effusion with associated atelectasis. Heart: Calcification of the mitral valve annulus. Liver: Nodular hepatic peripheral contour, compatible cirrhosis. Gallbladder and bile ducts: Normal. Pancreas: Normal. Spleen: Normal. Adrenal glands: Normal. No mass. Kidneys and ureters: Normal. Stomach and bowel: Moderate ingested contents-distention of the stomach, without obstruction. Moderate amount of stool throughout the colon, compatible with constipation. No obstruction. Appendix: No evidence of appendicitis. Intraperitoneal space: Unremarkable. No free air. No significant fluid collection. Vasculature: Intrahepatic portosystemic shunt present, which appears patent. Multiple phleboliths within the pelvis. Lymph nodes: Unremarkable. No enlarged lymph nodes. Urinary bladder: Unremarkable as visualized. Reproductive: Small bilateral ovarian cysts. Bones/joints: No acute abnormality. Soft tissues: Small fat containing umbilical hernia. IMPRESSION: 1. Moderate amount of stool throughout the colon, compatible with constipation. No obstruction. 2. Small right pleural effusion with associated atelectasis.
[2022-04-29 22:22] LABS: Chloride 103 mmol/L (98-107); Potassium 5.1 mmoL/L (3.5-5.1); Sodium 133 mmol/L (136-145)
[2022-04-29 22:24] LABS: Ammonia 150 umol/L (9-30); Blood Urea Nitrogen 23 mg/dl (7-17); Creatinine Clearance Estimated 83 mL/min (50-200); Estimated Glomerular Filt Rate 50 ml/min (>60); GFR (African American) 61 ML/MIN (>60)
[2022-04-29 22:25] LABS: Alanine Aminotransferase 44 U/L (12-78); Albumin Level 2.4 g/dl (3.5-5.0); Albumin/Globulin Ratio 0.6 (1.1-1.8); Alkaline Phosphatase 178 U/L (38-126); Anion Gap 8.1 mEq/L (5-15); Aspartate Amino Transferase 77 U/L (14-36); Bilirubin,Total 1.5 mg/dl (0.2-1.3); Calcium 8.4 mg/dl (8.4-10.2); Carbon Dioxide 27 mmol/L (22.0-30.0); Globulin 3.7 g/dL (1.3-3.2); Glucose 137 mg/dl (74-100); Total Protein,Serum 6.1 g/dl (6.3-8.2)
[2022-04-30] VITALS (9 sets, daily range): BP systolic 109–124; BP diastolic 46–84; PULSE 60–78; RESP 14–26; TEMP 36.4–36.9; O2SAT 97–99; BMI 38.7
--- NOTE | 2022-04-30 05:50 | PC.NURSE ---
pt's HR less than 60 sustained, notified MD Alen MD stated to stop cardizem drip at this time, drip stopped
[2022-04-30 05:52] LABS: Basophils # 0.2 K/mm3 (0-0.2); Basophils % 3.2 % (0.1-2.0); Eosinophils # 0.2 K/mm3 (0.0-0.4); Eosinophils % 3.3 % (0.1-12.0); Hematocrit 43.7 % (37.0-47.0); Hemoglobin 13.7 g/dL (12.2-16.2); Lymphocytes # 1.7 K/mm3 (0.7-4.5); Lymphocytes % 29.9 % (10-50); Mean Corpuscular HGB Conc 31.2 g/dL (31.8-35.4); Mean Corpuscular Hemoglobin 35.1 pg (27.0-31.2); Mean Corpuscular Volume 112.4 fl (81-99); Mean Platelet Volume 8.7 fl (7.4-10.4); Monocytes # 0.7 K/mm3 (0.1-1.0); Monocytes % 13.3 % (1.7-9.3); Neutrophils # 2.8 K/mm3 (1.8-7.8); Neutrophils % 50.3 % (37.0-80.0); Platelet Count 151 K/mm3 (142-424); Red Blood Count 3.89 M/mm3 (4.20-5.40); Red Cell Distribution Width 14.9 % (11.5-17.5); White Blood Count 5.5 K/mm3 (4.8-10.8)
[2022-04-30 05:57] LABS: Chloride 104 mmol/L (98-107); Potassium 5.1 mmoL/L (3.5-5.1); Sodium 134 mmol/L (136-145)
[2022-04-30 06:00] LABS: Alanine Aminotransferase 46 U/L (12-78); Albumin Level 2.5 g/dl (3.5-5.0); Albumin/Globulin Ratio 0.6 (1.1-1.8); Alkaline Phosphatase 187 U/L (38-126); Ammonia 149 umol/L (9-30); Anion Gap 8.1 mEq/L (5-15); Aspartate Amino Transferase 70 U/L (14-36); Bilirubin,Total 1.8 mg/dl (0.2-1.3); Blood Urea Nitrogen 22 mg/dl (7-17); Calcium 8.8 mg/dl (8.4-10.2); Carbon Dioxide 27 mmol/L (22.0-30.0); Creatinine Clearance Estimated 78 mL/min (50-200); Estimated Glomerular Filt Rate 45 ml/min (>60); GFR (African American) 55 ML/MIN (>60); Glucose 142 mg/dl (74-100); Total Protein,Serum 6.5 g/dl (6.3-8.2)
--- NOTE | 2022-04-30 11:10 | HMH.CNCARD ---
History of Present Illness Consult date: 04/30/22 Requesting physician: Dev Lowry Chief complaint: heart racing History of present illness: This is a 61-year-old white female who presented to the emergency department with a 3-day history of weakness, fatigue, nausea, vomiting and dysuria. The patient states that she does not really remember much of what happened prior to her coming into the hospital but she knows that she had been increasingly unaware of what was going on with her and her surroundings and she just did not feel well. The patient has a history of cirrhosis with elevated ammonia levels in the past. The patient also had a UTI on admission. The patient reported that she has a history of a heart surgery in July 2021 where they closed a hole in her heart. She has a card that shows that she has a septal occluder device in place presumably for an ASD repair. We will try to get the records from . The patient states that she follows with Dr. Carbone in [facility]. The patient has also been having racing of the heart. She states that it feels like her heart speeds up and then it will suddenly just stop racing. She denies any chest pain or pressure. She states that she does have some shortness of breath with her weakness and fatigue when she exerts herself. It does improve with rest. She denies any fever or chills. She denies any diarrhea. She denies any PND or orthopnea. [facility] History I have reviewed the patient's past medical history: Yes Medical History: Reports:: Congestive Heart Failure, Gastroesophageal Reflux Disease(GERD), Heart Murmur, Hepatitis, Hypertension, MRSA (spider bite), Peripheral Vascular Disease, Transient Ischemic Attacks (TIA), Ulcer Denies:: Cancer, Diabetes Mellitus Type 1, Diabetes Mellitus Type 2 *Have you ever received a pneumonia vaccine?: No *Have you received a flu vaccine this season?: No Other Medical History: Reports: Anemia, Arthritis, Liver Disease, Other Other Surgeries: Yes: Cardiac Catheterization, Cholecystectomy, , EGD, Tubal Ligation Amputation: No Fractures: Yes (right leg and ankle) - *Social History Last grade of school completed: GED Smoking Status: Never smoker Alcohol Intake: never Alcohol Intake Frequency:: holidays/special occasions only Substance Use Type: denies use *Occupational Status:: disabled Housing: apartment Household Members: significant other *Travel in the last 8 weeks: None Family Hx:: Cancer, Coronary Artery Disease, Diabetes, Heart Attack, Hyperlipidemia, Hypertension Meds Home Medications Medication Instructions Recorded Confirmed Type hydroxyzine HCl 10 mg tablet 10 mg PO QIDP PRN 03/03/20 04/29/22 History Bumetanide 1 mg PO DAILY 04/29/22 04/29/22 History Lactulose 30 ml PO QID 04/29/22 04/29/22 History Magnesium Oxide [Magnesium] 400 mg PO DAILY 04/29/22 04/29/22 History Metoprolol Succinate [Metoprolol 25 mg PO HS 04/29/22 04/29/22 History Succinate 25mg Tablet*] Pantoprazole Sodium 40 mg PO DAILY 04/29/22 04/29/22 History Rifaximin [Xifaxan] 550 mg PO BID 04/29/22 04/29/22 History Spironolactone 100 mg PO DAILY 04/29/22 04/29/22 History Sucralfate [Sucralfate 1gm 1 gm PO QID 04/29/22 04/29/22 History Tab] ondansetron HCL [Ondansetron 4mg 4 mg PO TIDP PRN 04/29/22 04/29/22 History tab*] Allergies Allergy/AdvReac Type Severity Reaction Status Date / Time Sulfa (Sulfonamide Allergy Intermediate Hives Verified 11/21/20 09:16 Antibiotics) [SULFA (SULFONAMIDE ANTIBIOTICS)] Exam Vital signs and Labs for Last 24 Hours: Temp Pulse Resp BP Pulse Ox 97.9 F 62 16 109/46 L 97 04/30/22 04:00 04/30/22 08:00 04/30/22 08:00 04/30/22 08:00 04/30/22 08:00 Laboratory Results - last 24 hr 04/28/22 21:00: Urine Color Dk yellow, Urine Appearance Cloudy, Urine pH 5.5, Ur Specific [place] >= 1.030, Urine Protein Negative, Urine Glucose (UA) Negative, Urine Ketones Trace, Urine Blood 2+, Urin
--- NOTE | 2022-04-30 11:18 | CA_ITS ---
APPROVED REPORT EXAM: Comprehensive 2D, Doppler, and color-flow Echocardiogram Branch Billing Payroll Clerk: Elle Reed CRT Ht: 5 ft 4 in Wt: 227lbs BSA: 2.06 BP: 109/46 mmHg Indications: Murmur, Shortness of Breath, Fatigue, Hypertension/HDD, cirrhosis, prior ASD repair, closure device 08/19, abn ekg, arrhythmia Echo Enhancing Agent Indication: Rule out Shunt Agent(s) / Amount(s) Used: Agitated Saline 15 cc Comments: b/s appears negative 2D Dimensions LVOT 1.79 cm (M/F) 1.5-2.5 LA Volume 85.50 mL LA Volume Index 41.50 mL/m2 (M/F) 16-34 M-Mode Dimensions RVDd 2.65 cm (0.9-2.6) LA Diam 3.82 cm (1.9-4.0) LVDd 3.87 cm (3.5-5.7) Ao Diam 3.34 cm (2.0-3.7) LVDs 2.94 cm (3.5-5.7) IVSd 1.40 cm (0.6-1.1) PWd 1.11 cm (0.6-1.1) EF (Teich) 48.50% FS 24.00% EDV (Teich) 64.70 mL TAPSE 3.15 (<1.7) ESV (Teich) 33.30 mL LV Diastology E Decel Time 330.00 (160-240 msec) E/A Ratio 0.68 MED E' 4.90 (< 7 cm/sec) MED A' 5.30 cm/s E'/MED E' Ratio 22.90 (>14) LAT E' 5.20 (<10 cm/sec) LAT A' 18.50 cm/s E/LAT E' Ratio 21.58 (>14) Aortic Valve LVOT Max 121.00 (70-110 cm/s) LVOT VTI 28.57 cm AoV Peak Jay. 142.00 (50-130 cm/s) AO Peak GR. 8.10 mmHg AO Mean GR. 4.80 (<5 mmHg) AO VTI 27.88 (18-25 cm) LINWOOD (VTI) 2.58 (2.5-4.5 cm2) Mitral Valve MV A Velocity 164.00 (40-130 cm/s) E/A Ratio 0.68 MV Decel. Time 330.00 (160-240 ms) Pulmonary Valve PV Peak Velocity 136.00 (50-150 cm/s) Tricuspid Valve TR P. Velocity 194.00 cm/s RAP Estimate 10.00 mmHg RVSP 25.10 mmHg Left Ventricle Left atrium is mildly enlarged, left ventricle is normal size mild concentric left ventricular hypertrophy, estimated ejection fraction 55% with no regional wall motion abnormality, grade 1 diastolic dysfunction seen with tissue Doppler evidence of raise left atrial pressure. Right Ventricle Right atrium and right ventricle are mildly enlarged with normal contractility. Atria There is a closure device noted in the interatrial septum, there is no flow across the interatrial septum, agitated saline contrast study did not identify intracardiac shunt. Aortic Valve Aortic valve is minimally thickened and calcified without aortic stenosis aortic insufficiency. Mitral Valve Mitral valve has dense mitral calcification, leaflets are minimally thickened, there is no mitral stenosis, there is mild mitral regurgitation. Tricuspid Valve Tricuspid valve is grossly normal, there is mild tricuspid regurgitation, tricuspid regurgitation jet velocity is inadequate for calculation of the right ventricular systolic pressure. Pulmonic Valve Pulmonic valve is poorly visualized. Great Vessels Aortic root is normal size. Inferior vena cava is normal size with normal inspiratory collapse. Pericardium No significant pericardial effusion noted. Conclusion 1. Biatrial enlargement, normal left ventricular size, mild concentric left ventricular hypertrophy, estimated ejection fraction 55% with no regional wall motion abnormality, grade 1 diastolic dysfunction seen with tissue Doppler evidence of reduced left atrial pressure. 2. There is occluder device seen in the interatrial septum without any intracardiac shunt. 3. Mild mitral and tricuspid regurgitation. 4. No significant pericardial effusion noted. 5. Inferior vena cava normal with normal inspiratory collapse. Electronically signed by : Anupam Merino MD 05/01/2022 05:48:47
[2022-04-30 12:02] LABS: POC Glucose,Bedside 87 (70-110)
--- NOTE | 2022-04-30 12:02 | PC.NURSE ---
Sent request information paper to [facility] Records department requesting information that Mary Ellen Gann requested.
--- NOTE | 2022-04-30 13:31 | HMH.DCSUM ---
General - General Admission date:: 04/29/22 Discharge date: 04/30/22 HPI HPI: Patient is a 61-year-old white female, admitted to our service from the emergency room with a presentation of 3 days of general weakness and fatigue, nausea, vomiting, dysuria. When questioned by ER staff she relayed that she did not remember much over the last 3 days, had been increasingly somnolent Patient is a marginal historian but relays a history of cirrhosis and has likely had elevated ammonia the past. Her home regimen includes lactulose. Patient had lab findings suggesting urinary tract infection. She is admitted for further evaluation and treatment. 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 Hospital Course Hospital Course: Patient is a 61-year-old white female, admitted to our service from the emergency room with a presentation of 3 days of general weakness and fatigue, nausea, vomiting, dysuria. When questioned by ER staff she relayed that she did not remember much over the last 3 days, had been increasingly somnolent Patient is a marginal historian but relays a history of cirrhosis and has likely had elevated ammonia the past. Her home regimen includes lactulose. Patient had lab findings suggesting urinary tract infection. Plan: 1. The patient scented to the emergency department with complaints of dysuria, nausea, vomiting and weakness and fatigue. The patient states that she really does not remember what all happened prior to her admission but she just was not feeling well. The patient was subsequently admitted to the hospital for a history of cirrhosis and elevated liver function and ammonia levels. Will defer management this to her primary care team. 2. The patient reported that she had a heart surgery in July 2021 where they repaired a hole in her heart. She does have a card for a septal occluder device. We presume that the patient had an ASD repair. We will try to get the records of this from [facility]. 3. The patient does have a heart murmur. We will get an echocardiogram to evaluate this heart murmur and her LV function as well as the history she reports of having a hole in her heart. 4. The patient did have some episodes of tachycardia during her hospital stay. Dr. Enriquez has reviewed these EKGs. He does not think that this is atrial fibrillation or atrial flutter. There is no evidence of a wenckebach on EKG either. Dr. Enriquez feels that these episodes are sinus rhythm with PACs. She also had episodes of sinus rhythm with a PAC followed by SVT. 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 The patient will need referral to an lamp inspector for an ablation for her SVT. 5. Stop the diltiazem drip and start diltiazem ER 120 mg p.o. daily for suppression of the SVT. 6. Continue metoprolol at current dose. 7. Her blood pressure is well controlled. 8. Her LDL goal is less than 100. 9. The patient denies any chest pain or pressure. She ruled out for an HI with 2 negative troponins. No plans for invasive left cardiac catheterization at this time. 10. Further recommendations will be made pending the patient's response to treatment. Thank you for the opportunity to help dissipate in the care of this patient. All recommendations and orders are per Dr. Enriquez. Urine culture has grown E. coli which is sensitive to the ceftriaxone IV she was receiving, and will be discharged on cefdinir. During her stay it was believed she changed into a A. fib/flutter rhythm and was placed on a diltiazem drip, cardiology does not believe this was the rhythm and stated it was sinus rhythm with PACs. She did have several episodes of sinus rhythm with PACs going into SVT back into sinus rhythm with PACs and diltiazem along with she will be started for this. She also has a history of ASD repair and will follow-u
--- NOTE | 2022-04-30 14:10 | PC.NURSE ---
4MG ZOFRAN IV GIVEN TO PT PRIOR TO DC PER JENNIE
--- NOTE | 2022-04-30 14:58 | HMH.PHAINT ---
DISCHARGE MEDICATION COUNSELING PROVIDED. DISCUSSED THE FOLLOWING NEW PRESCRIPTIONS: -CEFDINIR (TWICE DAILY, FOR INFECTION, FOR 10 DAYS, MAY CAUSE UPSET STOMACH, NAUSEA, DIARRHEA, TAKE WITH FOOD) -DILTIAZEM (DAILY, FOR HEART RATE/BLOOD PRESSURE, CAN LOWER HR/BP, DIZZINESS, LIGHTHEADEDNESS, LOWER LIMB SWELLING POSSIBLE) PATIENT VERBALIZED NO QUESTIONS AT THIS TIME.
--- NOTE | 2022-04-30 15:07 | PC.NURSE ---
pt waiting on to go home
--- NOTE | 2022-04-30 15:52 | PC.NURSE ---
pt being taken down to vehicle via wheel chair by staff
--- NOTE | 2022-05-01 14:16 | CARE MANAGER ---
Contacted patient related to discharge from hospital. She states she is doing well, but hasn't been able to schedule either appointment they wanted her to schedule. Contacted Dr. Carbone's office and they are going to call patient with appointment. Dr. Moore's office I had to leave voicemail for them to call back with appointment. Patient denies other issues or concenrs. JACK Srivastava
== END 2022-04-30 16:03 | disposition home or self-care (01) | DRG 442 ==
LOC: ER 22:28 → 2ND 04-29 01:31
PROVIDERS: Admitting Provider Family Medicine; Emergency Provider Emergency Medicine; PCP Emergency Medicine; Visit Provider Family Medicine
DX: K72.90 Hepatic failure, unspecified without coma (principal); I47.1 Supraventricular tachycardia; N30.00 Acute cystitis without hematuria; E66.9 Obesity, unspecified; Z68.38 Body mass index [BMI] 38.0-38.9, adult; K74.60 Unspecified cirrhosis of liver; I50.9 Heart failure, unspecified; K21.9 Gastro-esophageal reflux disease without esophagitis; I73.9 Peripheral vascular disease, unspecified; M19.90 Unspecified osteoarthritis, unspecified site; I11.0 Hypertensive heart disease with heart failure
CPT/HCPCS: 36415; 71045; 74177; 80053; 81001; 82140; 82803; 82962; 83605; 83690; 83880; 84484; 85025; 85610; 85730; 87040; 87086; 87088; 87186; 93005; 93306; 99285; C9803; G0378; J0696; J2405; Q9967; U0003; U0005

== ENCOUNTER 2022-05-24 13:47 | Inpatient (IN) | payer MEDICARE, MEDICAID, SELFPAY ==
[2022-05-24] VITALS (12 sets, daily range): BP systolic 102–144; BP diastolic 53–91; PULSE 78–117; RESP 12–20; TEMP 36.4–36.6; O2SAT 95–100; BMI 42.9; BMI 24.0
--- NOTE | 2022-05-24 13:57 | XR_ITS ---
FINAL REPORT CLINICAL HISTORY: ams COMPARISON: 04/28/2022 FINDINGS: SINGLE-VIEW CHEST There is mild cardiomegaly. The mediastinum is normal. There is a small right effusion. There is chronic scarring at the bases. Findings are similar to previous. There is no pneumothorax. IMPRESSION: Small right effusion. Reviewed, Interpreted and Dictated by Aldair Manriquez MD Transcribed by Laura Rosenthal Authenticated and [facility]
--- NOTE | 2022-05-24 14:06 | HMH.EDGENADL ---
Discharge Plan Disposition Chief Complaint: Altered Mental Status Prescriptions Prescriptions: No Action hydroxyzine HCl 10 mg tablet 10 mg PO QIDP PRN (Reason: Anxiety) Rx Instructions: 10 MG PO THREE TO FOUR TIMES DAILY PRN FOR ANX sucralfate 1 GM tablet 1 gm PO QID Rx Instructions: Take 1 tablet by mouth 4 times daily before meals and at bedtime ondansetron HCl 4 MG tablet 4 mg PO TIDP PRN (Reason: Nausea And Vomiting) Rx Instructions: 1T PO Q8H spironolactone 100 MG tablet 100 mg PO DAILY Rx Instructions: Take 1 tablet by mouth once daily. pantoprazole 40 MG tablet,delayed release (DR/EC) 40 mg PO DAILY Rx Instructions: Take 1 tablet by mouth once daily bumetanide 1 MG tablet 1 mg PO DAILY Rx Instructions: Take 1 tablet by mouth once daily metoprolol succinate 25 MG tablet extended release 24 hr 25 mg PO HS Rx Instructions: Take 1 tablet by mouth at bedtime lactulose 10 GM/15 ML solution 30 ml PO QID Rx Instructions: take 30 ML BY MOUTH FOUR TIMES DAILY FOR encephalopathy rifaximin 550 MG tablet 550 mg PO BID Rx Instructions: Take 1 tablet by mouth twice daily magnesium oxide 400 MG capsule 400 mg PO DAILY diltiazem HCl 120 MG capsule,extended release 24hr 120 mg PO DAILY 30 Days Qty: 30 0RF Discharge ED Provider: Kyler Jett General Adult HPI General Chief complaint: Altered Mental Status Stated complaint: weakness Time Seen by Provider: 05/24/22 14:21 Mode of Arrival: EMS Source of Information: Patient Limitations: No Limitations Description of Symptoms (Recalled from ER Triage Doc. by RN): to ed per squad with c/o confusion starting yesterday. pt with hx of liver issues . pt disoriented to place and time. blood sugar 96. squad reports o2 sat at home was 85% ra, History of Present Illness HPI narrative: Patient arrives by ambulance for altered mental status. Unable to obtain any significant history from her. She has no complaints denies pain, denies feeling ill. She has a history of cirrhosis with hepatic encephalopathy. On EMS arrival patient had low pulse oximetry and was placed on nasal cannula oxygen. Related Data Home Medications Medication Instructions Recorded Confirmed hydroxyzine HCl 10 mg tablet 10 mg PO QIDP PRN Anxiety 03/03/20 05/13/22 bumetanide 1 mg tablet 1 mg PO DAILY Fluid 08/01/22 08/15/22 lactulose 10 gram/15 mL oral 30 ml PO QID encephalopathy 04/29/22 05/13/22 solution magnesium oxide 400 mg PO DAILY Supplement 04/29/22 05/13/22 metoprolol succinate 25 mg 25 mg PO HS blood pressure 04/29/22 05/13/22 tablet,extended release 24 hr ondansetron HCl 4 mg tablet 4 mg PO TIDP PRN Nausea And 04/29/22 05/13/22 Vomiting pantoprazole 40 mg tablet,delayed 40 mg PO DAILY acid reflux 04/29/22 05/13/22 release rifaximin 550 mg tablet 550 mg PO BID cirrhosis 04/29/22 05/13/22 spironolactone 100 mg tablet 100 mg PO DAILY Fluid 04/29/22 05/13/22 sucralfate 1 gram tablet 1 gm PO QID stomach 04/29/22 05/13/22 Previous Rx's Medication Instructions Recorded diltiazem HCl 120 mg 120 mg PO DAILY 30 days #30 caps 04/30/22 capsule,extended release 24 hr Allergies Allergy/AdvReac Type Severity Reaction Status Date / Time Sulfa (Sulfonamide Allergy Intermediate Hives Verified 05/13/22 15:10 Antibiotics) [SULFA (SULFONAMIDE ANTIBIOTICS)] [facility] Medical History Atrial septal defect Back Pain Dyspnea History of TIA (transient ischemic attack) HTN (hypertension) Social History Smoking Status: Never smoker alcohol intake: never substance use type: denies use current occupational status: disabled Travel in the last 8 weeks: None household members: significant other housing: apartment current occupational exposu
--- NOTE | 2022-05-24 14:08 | CT_ITS ---
FINAL REPORT TECHNIQUE: Axial CT images were performed through the head. Coronal reformatted images were submitted. This study was performed with techniques to keep radiation doses as low as reasonably achievable (ALARA). Individualized dose reduction techniques using automated exposure control or adjustment of mA and/or kV according to the patient's size were employed. CLINICAL HISTORY: ams FINDINGS: The ventricles are normal in size. There is no evidence of hemorrhage. There is no mass or edema identified. There is no abnormal extra-axial fluid seen. There may be an old lacunar infarct anterior to the head of the left caudate. Finding is best seen on image 43 of series 3. The sinuses are well aerated. IMPRESSION: No acute intracranial process. Reviewed, Interpreted and Dictated by Aldair Manriquez MD Transcribed by Laura Rosenthal Authenticated and . [facility]
--- NOTE | 2022-05-24 14:18 | PC.NURSE ---
PT GONE TO CT
--- NOTE | 2022-05-24 14:30 | PC.NURSE ---
PT BACK FROM CT , LAB HERE FOR ADDITIONAL BLOOD
--- NOTE | 2022-05-24 14:35 | ECG_ITS ---
APPROVED REPORT Exam: Resting ECG HR:91 bpm ECG Measurements Heart Rate 91 AXES QRSd 116 QRS -41 QT 380 T 53 QTc 428 Conclusion ATRIAL FIBRILLATION LEFT AXIS DEVIATION [QRS AXIS < -30] LOW QRS VOLTAGE IN PRECORDIAL LEADS [QRS DEFLECTION < 1.0 mV IN CHEST LEADS] PATTERN CONSISTENT WITH PULMONARY DISEASE MODERATE INTRAVENTRICULAR CONDUCTION DELAY [110+ ms QRS DURATION] ABNORMAL ECG UNCONFIRMED REPORT Electronically signed by : Luis A Hammonds MD 05/25/2022 07:59:57
[2022-05-24 14:39] LABS: Ammonia 95 umol/L (9-30); Lactic Acid 1.9 mmol/L (0.7-2.1)
[2022-05-24 14:45] LABS: Basophils # 0.2 K/mm3 (0-0.2); Eosinophils # 0.1 K/mm3 (0.0-0.4); Eosinophils % 1.2 % (0.1-12.0); Hematocrit 44.2 % (37.0-47.0); Hemoglobin 13.2 g/dL (12.2-16.2); Lymphocytes # 1.5 K/mm3 (0.7-4.5); Lymphocytes % 23.2 % (10-50); Mean Corpuscular HGB Conc 29.7 g/dL (31.8-35.4); Mean Corpuscular Volume 117.8 fl (81-99); Mean Platelet Volume 10.1 fl (7.4-10.4); Monocytes # 0.6 K/mm3 (0.1-1.0); Monocytes % 9.3 % (1.7-9.3); Neutrophils % 63.3 % (37.0-80.0); Platelet Count 125 K/mm3 (142-424); Red Blood Count 3.76 M/mm3 (4.20-5.40); Red Cell Distribution Width 15.5 % (11.5-17.5); White Blood Count 6.4 K/mm3 (4.8-10.8)
[2022-05-24 14:51] LABS: Coronavirus 19, PCR Not Detected (NotDetected); Influenza A, PCR Not Detected (NotDetected); Influenza B, PCR Not Detected (NotDetected)
[2022-05-24 14:55] LABS: ABG Base Excess -1.6 mmol/L (-2.4-2.3); ABG HCO3 22.3 mmhg (22.0-26.0); ABG Oxygen Saturation 99 % (90-100); ABG PCO2 32.3 mmhg (35.0-45.0); ABG PH 7.46 mmol/L (7.35-7.45); ABG PO2 123.9 mmhg (80-100); ABG TCO2 23.3 mmhg (23-27); Allen's Test Acceptable; Oxygen 2L %; Source Right Radial
[2022-05-24 15:26] LABS: Alanine Aminotransferase 53 U/L (12-78); Albumin Level 2.7 g/dl (3.5-5.0); Albumin/Globulin Ratio 0.7 (1.1-1.8); Alkaline Phosphatase 226 U/L (38-126); Anion Gap 10.6 mEq/L (5-15); Aspartate Amino Transferase 87 U/L (14-36); Bilirubin,Total 2.8 mg/dl (0.2-1.3); Blood Urea Nitrogen 23 mg/dl (7-17); Calcium 8.9 mg/dl (8.4-10.2); Carbon Dioxide 24 mmol/L (22.0-30.0); Chloride 103 mmol/L (98-107); Creatinine Clearance Estimated 38 mL/min (50-200); Estimated Glomerular Filt Rate 41 ml/min (>60); GFR (African American) 50 ML/MIN (>60); Globulin 4.1 g/dL (1.3-3.2); Glucose 118 mg/dl (74-100); Potassium 5.6 mmoL/L (3.5-5.1); Sodium 132 mmol/L (136-145); Total Protein,Serum 6.8 g/dl (6.3-8.2)
[2022-05-24 15:37] LABS: INR 1.13 (0.9-1.1); Prothrombin Time 12.7 seconds (10.1-12.5)
[2022-05-24 15:38] LABS: Troponin I < 0.01 ng/ml (0.00-0.034)
[2022-05-24 16:35] LABS: Microscopic, Urine URINE MICROSCOPIC (MICROSCOPIC)
[2022-05-24 16:37] LABS: Ethyl Alcohol < 10 mg/dl (0-10)
[2022-05-24 16:38] LABS: Appearance,Urine CLEAR (Clear); Bilirubin,Urine Negative (Negative); Blood, Urine Negative (Negative); Color,Urine YELLOW (Yellow); Glucose,Urine (UA) Negative (Negative); Ketones,Urine Negative (Negative); Leukocyte Esterase,Urine TRACE (Negative); Nitrate,Urine Negative (Negative); Protein,Urine Negative (Negative); Specific Gravity, Urine 1.015 (1.005-1.030); Urobilinogen,Urine 0.2 EU/dl (0.2)
[2022-05-24 16:49] LABS: Bacteria,Urine 1+ /lpf; WBC,Urine Occasional #/hpf (0-3)
[2022-05-24 16:50] LABS: Benzodiazepines Screen,Urine Negative ng/ml (<200)
--- NOTE | 2022-05-24 16:50 | PC.NURSE ---
SERVICE DR HURTADO
[2022-05-24 16:51] LABS: Amphetamine/Metha Screen,Urine Negative ng/ml (<1000); Barbiturates Screen,Urine Negative ng/ml (<200)
[2022-05-24 16:52] LABS: Methadone Screen,Urine Negative ng/ml (<300)
[2022-05-24 16:53] LABS: Cannabinoid Screen,Urine Negative ng/ml (<50); Cocaine Screen,Urine Negative ng/ml (<300)
[2022-05-24 16:54] LABS: Opiate Screen,Urine Positive ng/ml (<300)
--- NOTE | 2022-05-24 16:54 | PC.NURSE ---
DR MORGAN SPEAKING TO DR MILLER ABOUT POSSIBLE ADMISSION
[2022-05-24 16:55] LABS: Phencyclidine Screen,Urine Negative ng/ml (<25)
--- NOTE | 2022-05-24 18:03 | PC.NURSE ---
report called to floor
[2022-05-24 18:36] LABS: Troponin I < 0.01 ng/ml (0.00-0.034)
--- NOTE | 2022-05-24 18:45 | PC.NURSE ---
spoke with pt's family and informed them of pt's plan of care
--- NOTE | 2022-05-24 19:21 | PC.NURSE ---
TRANSPORTATION SERVICES REPRESENTATIVE HERE TO TRANSPORT UPSTAIRS
--- NOTE | 2022-05-24 19:21 | PC.NURSE ---
PT ARRIVED TO FLOOR VIA STRETCHEER AT THIS TIME
--- NOTE | 2022-05-24 23:09 | PC.NURSE ---
PT IS A POOR HISTORIAN AND IS CONFUSED. ADMISSION DONE PER MEDICAL RECORD.
[2022-05-25] VITALS: BP 129/67; PULSE 110; RESP 18; TEMP 36.4; O2SAT 100
[2022-05-25 04:00] VITALS: BP 135/74; PULSE 62; RESP 18; TEMP 36.7; O2SAT 98
--- NOTE | 2022-05-25 04:22 | PC.NURSE ---
EDYTA TOLD THIS RN THAT PT STATED THAT HER IV WAS HURING AND STATED THAT PT'S BP WAS ELEVATED. THIS RN WENT TO CHECK ON PT. IV IS PATENT WITH NO SIGN SOF INFILTRATION. THIS RN ASKED PT IF SHE WOULD LIKE STAFF TO CHANGE IV SITE AND PT REFUSED. PT EDUCATED ON NEED FOR AN IV WHILE IN THE HOSPITAL.
[2022-05-25 05:00] VITALS: BMI 40.6
--- NOTE | 2022-05-25 05:49 | PC.NURSE ---
PT IS ALERT TO PERSON ONLY. SHE HAS RESTED WELL THIS SHIFT. SHE DID HAVE ONE EPISODE OF INCONTINENCE. LUNG SOUNDS REMAIN DIMINISHED BUT IS TOLERATING 3L NASAL CANNULA TO ROOM AIR WELL. PT HAS AMBULATED TO THE BATHROOM WITH ONE ASSIST AND DID WELL. SHE DID C/O HER IV BOTHERING HER ONCE THIS SHIFT BUT REFUSED FOR STAFF TO CHANGE IV SITES BECAUSE SHE DID NOT WANT TO BE STUCK AGAIN. IV REMAINS PATENT WITH NO SIGNS OF INFILTRATION. PT HAS NO OTHER COMPLAINTS OR CONCERNS AT THIS TIME. VSS.
[2022-05-25 08:00] VITALS: BP 131/81; PULSE 69; RESP 16; TEMP 36.4; O2SAT 98
--- NOTE | 2022-05-25 09:27 | EXP.HP ---
History of Present Illness *Admission Date: 05/24/22 *Reason for visit:: altered mental status *History of present illness: this patient presented to the ed -: per squad with c/o confusion starting yesterday. pt with hx of liver issues . pt disoriented to place and time. blood sugar 96. squad reports o2 sat at home was 85% ra, Patient arrives by ambulance for altered mental status.? Unable to obtain any significant history from her.? She has no complaints denies pain, denies feeling ill.? She has a history of cirrhosis with hepatic encephalopathy.? On EMS arrival patient had low pulse oximetry and was placed on nasal cannula oxygen. pt with acute hepatic enceph and was admitted [facility] Medical History (Updated 05/24/22 @ 21:33 by Shannon Kwok, JACK) Arrhythmia Atrial septal defect Back Pain Dyspnea History of chest pain History of TIA (transient ischemic attack) HTN (hypertension) Social History Smoking Status: Never smoker alcohol intake: never substance use type: denies use current occupational status: disabled Travel in the last 8 weeks: None household members: significant other housing: apartment current occupational exposures/hazards: No caffeine: No Review of Systems Review of Systems Review of systems:: pertinent systems reviewed and negative unless documented below Constitutional Constitutional: Reports fatigue, Denies fever(s) and Denies headache(s) Eyes Eyes: Denies change in vision ENT Ears, Nose, Mouth, and Throat: Denies epistaxis, Denies headache(s) and Denies nasal congestion *Cardiovascular Cardiovascular: Denies chest pain *Respiratory Respiratory: Denies hemoptysis *Gastrointestinal Gastrointestinal: Reports as per HPI and Denies diarrhea *Genitourinary Genitourinary: Denies hematuria *Musculoskeletal Musculoskeletal: Denies joint swelling Integumentary/Breasts Skin/Breast: Denies rash *Neurologic Neurologic: Reports behavioral changes, Denies convulsions, Denies localized weakness, Denies headache(s) and Denies seizure-like activity Psychiatric Psychiatric: Reports behavioral changes Endocrine Endocrine: Reports fatigue Meds Home Medications and Allergies Home Medications Medication Instructions Recorded Confirmed Type hydroxyzine HCl 10 mg tablet 10 mg PO QIDP PRN Anxiety 03/03/20 05/24/22 History bumetanide 1 mg tablet 1 mg PO DAILY Fluid 04/29/22 05/24/22 History lactulose 10 gram/15 mL oral 30 ml PO QID encephalopathy 04/29/22 05/24/22 History solution magnesium oxide 400 mg PO DAILY Supplement 04/29/22 05/24/22 History metoprolol succinate 25 mg 25 mg PO HS High blood pressure 04/29/22 05/24/22 History tablet,extended release 24 hr ondansetron HCl 4 mg tablet 4 mg PO TIDP PRN Nausea And 04/29/22 05/24/22 History Vomiting pantoprazole 40 mg tablet,delayed 40 mg PO DAILY Reflux/Acid reflux 04/29/22 05/24/22 History release rifaximin 550 mg tablet 550 mg PO BID CIRRHOSIS 04/29/22 05/24/22 History spironolactone 100 mg tablet 100 mg PO DAILY Fluid 04/29/22 05/24/22 History sucralfate 1 gram tablet 1 gm PO QID Reflux/Acid reflux 04/29/22 05/24/22 History diltiazem HCl 120 mg 120 mg PO DAILY High blood pressure 05/24/22 05/24/22 History capsule,extended release 24 hr New Prescriptions to Start Prescriptions: Allergies Allergy/AdvReac Type Severity Reaction Status Date / Time Sulfa (Sulfonamide Allergy Intermediate Hives Verified 05/13/22 15:10 Antibiotics) [SULFA (SULFONAMIDE ANTIBIOTICS)] Exam Data for Last 24 hours Vital signs and Labs for Last 24 Hours: Temp Pulse Resp BP Pulse Ox 97.5 F L 69 16 131/81 98 05/25/22 08:00 05/25/22 08:00 05/25/22 08:00 05/25/22 08:00 05/25/22 08:00 Laboratory Results - last 24 hr 05/24/22 14:15: WBC 6.4, RBC 3.76 L, Hgb 13.2, Hct 44.2, MCV 117.8 H, MCH 35.0 H, MCHC 29.7 L, RDW 15.5, Plt Count 125 L, MPV 10.1, Neut
--- NOTE | 2022-05-25 11:35 | HMH.PHAINT1 ---
Pharmacy Intervention Comments: MEDICATION RECONCILIATION COMPLETE USING LIST FROM MOST RECENT MD OFFICE VISIT AND EXTERNAL PHARMACY FILL HISTORY.
[2022-05-25 11:44] LABS: Basophils # 0.1 K/mm3 (0-0.2); Basophils % 1.5 % (0.1-2.0); Eosinophils # 0.1 K/mm3 (0.0-0.4); Eosinophils % 1.4 % (0.1-12.0); Hematocrit 41.4 % (37.0-47.0); Hemoglobin 13.2 g/dL (12.2-16.2); Lymphocytes # 1.1 K/mm3 (0.7-4.5); Lymphocytes % 19.1 % (10-50); Mean Corpuscular HGB Conc 31.8 g/dL (31.8-35.4); Mean Corpuscular Hemoglobin 36.6 pg (27.0-31.2); Mean Corpuscular Volume 115.1 fl (81-99); Mean Platelet Volume 10.4 fl (7.4-10.4); Monocytes # 0.7 K/mm3 (0.1-1.0); Monocytes % 12.2 % (1.7-9.3); Neutrophils # 3.7 K/mm3 (1.8-7.8); Neutrophils % 65.9 % (37.0-80.0); Platelet Count 127 K/mm3 (142-424); Red Cell Distribution Width 15.4 % (11.5-17.5); White Blood Count 5.7 K/mm3 (4.8-10.8)
[2022-05-25 11:49] LABS: Ammonia 70 umol/L (9-30)
[2022-05-25 12:05] LABS: Alanine Aminotransferase 52 U/L (12-78); Albumin Level 2.4 g/dl (3.5-5.0); Albumin/Globulin Ratio 0.6 (1.1-1.8); Alkaline Phosphatase 183 U/L (38-126); Anion Gap 10.1 mEq/L (5-15); Aspartate Amino Transferase 84 U/L (14-36); Blood Urea Nitrogen 20 mg/dl (7-17); Calcium 9.1 mg/dl (8.4-10.2); Carbon Dioxide 20 mmol/L (22.0-30.0); Chloride 107 mmol/L (98-107); Creatinine Clearance Estimated 45 mL/min (50-200); Estimated Glomerular Filt Rate 50 ml/min (>60); GFR (African American) 61 ML/MIN (>60); Globulin 4.1 g/dL (1.3-3.2); Glucose 115 mg/dl (74-100); Sodium 131 mmol/L (136-145); Total Protein,Serum 6.5 g/dl (6.3-8.2)
[2022-05-25 12:18] LABS: Potassium 6.1 mmoL/L (3.5-5.1)
--- NOTE | 2022-05-25 13:10 | PC.NURSE ---
Notified Dr. Childress of critical K of 6.1 @ 6616. See mar for orders.
[2022-05-25 13:21] VITALS: PULSE 60; PULSE 62; O2SAT 99
[2022-05-25 16:00] VITALS: BP 116/59; PULSE 92; RESP 16; TEMP 36.4; O2SAT 100
[2022-05-25 17:57] VITALS: BMI 40.6
--- NOTE | 2022-05-25 19:01 | PC.NURSE ---
No acute changes since am assessment. Patient remains on 3 L NC. a/o. Has been tearful x 1, stated she didn't think she was able to remember her phone number, but then was able to tell me what it was and was correct, when this nurse looked up number. VSS. CB in reach.
[2022-05-25 19:20] LABS: Anion Gap 11.7 mEq/L (5-15); Blood Urea Nitrogen 21 mg/dl (7-17); Carbon Dioxide 24 mmol/L (22.0-30.0); Chloride 105 mmol/L (98-107); Creatinine Clearance Estimated 38 mL/min (50-200); Estimated Glomerular Filt Rate 41 ml/min (>60); GFR (African American) 50 ML/MIN (>60); Glucose 122 mg/dl (74-100); Potassium 5.7 mmoL/L (3.5-5.1); Sodium 135 mmol/L (136-145)
[2022-05-25 20:00] VITALS: BP 130/55; PULSE 67; RESP 17; TEMP 36.7; O2SAT 100
[2022-05-26] VITALS (7 sets, daily range): BP systolic 115–163; BP diastolic 66–98; PULSE 75–160; RESP 16–19; TEMP 36.5–37.1; O2SAT 96–100; BMI 40.6
--- NOTE | 2022-05-26 | ECG_ITS ---
APPROVED REPORT Exam: Resting ECG HR:135 bpm ECG Measurements Heart Rate 135 AXES QRSd 89 QRS -37 QT 290 T 54 QTc 369 Conclusion ATRIAL FLUTTER/TACHYCARDIA WITH RAPID VENTRICULAR RESPONSE LEFT AXIS DEVIATION [QRS AXIS < -30] PATTERN CONSISTENT WITH PULMONARY DISEASE ABNORMAL ECG INTERPRETATION BASED ON A DEFAULT AGE OF 38 YEARS UNCONFIRMED REPORT Electronically signed by : Luis A Hammonds MD 05/27/2022 20:10:15
--- NOTE | 2022-05-26 04:37 | PC.NURSE ---
pt is A&OX4. O2 sats have been above 95 on 3L NC. pt has ambulated to and from bathroom with assistance. complaint of nausea, medicated per mar and was relieved. CB in reach.
--- NOTE | 2022-05-26 09:17 | PC.NURSE ---
courtesy tech round: Pt states she is comfortable and does not need anything at this time.
[2022-05-26 10:12] LABS: Alanine Aminotransferase 57 U/L (12-78); Albumin Level 2.6 g/dl (3.5-5.0); Albumin/Globulin Ratio 0.6 (1.1-1.8); Alkaline Phosphatase 239 U/L (38-126); Aspartate Amino Transferase 104 U/L (14-36); Bilirubin,Total 2.1 mg/dl (0.2-1.3); Blood Urea Nitrogen 17 mg/dl (7-17); Carbon Dioxide 20 mmol/L (22.0-30.0); Chloride 109 mmol/L (98-107); Creatinine Clearance Estimated 45 mL/min (50-200); Estimated Glomerular Filt Rate 50 ml/min (>60); GFR (African American) 61 ML/MIN (>60); Globulin 4.2 g/dL (1.3-3.2); Glucose 115 mg/dl (74-100); Sodium 134 mmol/L (136-145); Total Protein,Serum 6.8 g/dl (6.3-8.2)
[2022-05-26 11:08] LABS: Ammonia 90 umol/L (9-30)
--- NOTE | 2022-05-26 11:08 | EXP.ACUTE.PN ---
Subjective *Date: 05/27/22 *Time: 06:23 Interval history: doing better but still confused - labs pending - pt w/o specific c/o Medical Exam Vital signs and Labs for Last 24 Hours: Temp Pulse Resp BP Pulse Ox FiO2 97.7 F 75 16 136/73 98 28 05/26/22 08:00 05/26/22 08:00 05/26/22 08:00 05/26/22 08:00 05/26/22 08:00 05/25/22 18:54 Laboratory Results - last 24 hr 05/25/22 11:30: WBC 5.7, RBC 3.60 L, Hgb 13.2, Hct 41.4, MCV 115.1 H, MCH 36.6 H, MCHC 31.8, RDW 15.4, Plt Count 127 L, MPV 10.4, Neut % (Auto) 65.9, Lymph % (Auto) 19.1, [place] % (Auto) 12.2 H, Eos % (Auto) 1.4, Baso % (Auto) 1.5, Neut # (Auto) 3.7, Lymph # (Auto) 1.1, [place] # (Auto) 0.7, Eos # (Auto) 0.1, Baso # (Auto) 0.1 05/25/22 11:30: Sodium 131 L, Potassium 6.1 H*, Chloride 107, Carbon Dioxide 20 L, Anion Gap 10.1, BUN 20 H, Creatinine 1.10 H, Estimated Creat Clear 45, Estimated GFR 50 L, Est GFR ( Amer) 61 D, Glucose 115 H, Calcium 9.1, Total Bilirubin 3.0 H, AST 84 H, ALT 52, Alkaline Phosphatase 183 H, Total Protein 6.5, Albumin 2.4 L D, Globulin 4.1 H, Albumin/Globulin Ratio 0.6 L 05/25/22 11:30: Ammonia 70 H 05/25/22 19:05: Sodium 135 L, Potassium 5.7 H, Chloride 105, Carbon Dioxide 24, Anion Gap 11.7, BUN 21 H, Creatinine 1.30 H, Estimated Creat Clear 38, Estimated GFR 41 L, Est GFR ( Amer) 50 L, Glucose 122 H, Calcium 9.0 05/26/22 09:00: Sodium 134 L, Chloride 109 H, Carbon Dioxide 20 L, BUN 17, Creatinine 1.10 H, Estimated Creat Clear 45, Estimated GFR 50 L, Est GFR ( Amer) 61 D, Glucose 115 H, Calcium 9.0, Total Bilirubin 2.1 H, AST 104 H, ALT 57, Alkaline Phosphatase 239 H, Total Protein 6.8, Albumin 2.6 L, Globulin 4.2 H, Albumin/Globulin Ratio 0.6 L I & O for Labs for Last 24 Hours: Intake & Output 05/23/22 05/24/22 05/25/22 05/26/22 11:59 11:59 11:59 11:59 Intake Total 434 / 434 420 / 420 Output Total 0 / 0 0 / 0 Balance 434 / 434 420 / 420 Weight 244 lb 4 oz 244 lb 2.591 oz Head: atraumatic Eyes: as per HPI ENT: mucous membranes dry Neck: trachea midline Respiratory: decreased breath sounds Cardiac: Reg Rate and Rhythm and Systolic Murmur GI: soft Extremities: edema Skin: dry Neuro: Cranial Nerve 2-12 Intact and No Lateralizing Findings Assessment and Plan *Assessment and plan (1) Hyperkalemia: Status: Acute Category: Medical Code(s): E87.5 - Hyperkalemia Assessment and plan all Dx Plan of Treatment: Follow up as ordered by primary care provider- will adjust orders and treat hyperkalemia
[2022-05-26 12:11] LABS: Anion Gap 11.4 mEq/L (5-15); Potassium 6.4 mmoL/L (3.5-5.1)
[2022-05-26 13:38] LABS: Basophils # 0.1 K/mm3 (0-0.2); Eosinophils # 0.1 K/mm3 (0.0-0.4); Eosinophils % 2.2 % (0.1-12.0); Hematocrit 41.3 % (37.0-47.0); Hemoglobin 12.5 g/dL (12.2-16.2); Lymphocytes # 1.4 K/mm3 (0.7-4.5); Lymphocytes % 21.4 % (10-50); Mean Corpuscular HGB Conc 30.3 g/dL (31.8-35.4); Mean Corpuscular Volume 115.5 fl (81-99); Mean Platelet Volume 9.7 fl (7.4-10.4); Monocytes # 0.6 K/mm3 (0.1-1.0); Monocytes % 8.9 % (1.7-9.3); Neutrophils # 4.2 K/mm3 (1.8-7.8); Neutrophils % 66.4 % (37.0-80.0); Platelet Count 147 K/mm3 (142-424); Red Blood Count 3.58 M/mm3 (4.20-5.40); Red Cell Distribution Width 15.6 % (11.5-17.5); White Blood Count 6.3 K/mm3 (4.8-10.8)
--- NOTE | 2022-05-26 18:48 | PC.NURSE ---
Pt has been more confused this am, although pt is a/o x 4 at this time. Did give update when here to visit earlier this shift. Pt stated she was dizzy when up to bathroom. 02 per nasal cannula applied for comfort. VSS. CB in reach. Meds given per nov.
--- NOTE | 2022-05-26 19:33 | PC.NURSE ---
Pt's hr irregular, and has a hx of a flutter and palpitations. Have asked if Dr. Childress would like vte, such as lovenox, awaiting response at this time.
--- NOTE | 2022-05-26 19:36 | PC.NURSE ---
Dr. Childress ordered lovenox 40 mg daily.
--- NOTE | 2022-05-26 22:00 | PC.NURSE ---
Addendum entered by Joana De Paz RN 05/27/22 00:45: v/s at this time 2200 126/74, o2 sats 98% on 2L of o2; hr 128. Original Note: 2200 pt placed on telemetry for elevated potassium level, was noted pt HR 167, noted pt up to bathroom at this time, after voiding ekg was obtained while pt lying in bed, noted atrial flutter/tachycardia with rvr, ekg was taken to the emergency room for dr castillo to review, dr castillo was also notified pt takes diltizem and metoprolol at home and not currently on this, note new order received to start dilitiazem and metoprolol per home doses, repeated and verified. dr castillo stated that a new potassium level should have been done at 7pm. no other orders given at this time.
--- NOTE | 2022-05-26 23:40 | PC.NURSE ---
dr castillo was called regarding no order for potassium level seen in chart, also informed dr castillo that pt HR still elevated 150-160's at this time, verbal order received to draw stat potassium level and give metoprolol 2.5mg ivp x1, repeated and verified.
[2022-05-27] VITALS (8 sets, daily range): BP systolic 127–153; BP diastolic 55–78; PULSE 72–120; RESP 16–20; TEMP 36.6–37; O2SAT 96–99; BMI 39.6
[2022-05-27 00:22] LABS: Potassium 4.5 mmoL/L (3.5-5.1)
--- NOTE | 2022-05-27 05:05 | PC.NURSE ---
Addendum entered by Joana De Paz RN 05/27/22 05:29: pt remains on 02 at 2L pnc with 02 sats 97%; lung sounds diminished Original Note: no changes from previous assessment, pt was in atrial fib with rvr at start of shift, pt converted to nsr at aprox 2am, mild generalized edema, vss, currently telemetry reveals nsr; lovenox started, po dilitizem and metoprolol as prescribed at home was given along with metoprolol 2.5mg iv this shift, skin pwd, pt is alert and oriented to name, , place, year, but confused at times to situation but pt is aware of her confusion, repeat potassium level was 4.5, no other issues noted at this time.
[2022-05-27 06:57] LABS: Anion Gap 7.3 mEq/L (5-15); Blood Urea Nitrogen 13 mg/dl (7-17); Carbon Dioxide 26 mmol/L (22.0-30.0); Chloride 105 mmol/L (98-107); Creatinine Clearance Estimated 98 mL/min (50-200); Estimated Glomerular Filt Rate 63 ml/min (>60); GFR (African American) 77 ML/MIN (>60); Glucose 125 mg/dl (74-100); Potassium 4.3 mmoL/L (3.5-5.1); Sodium 134 mmol/L (136-145)
[2022-05-27 07:12] LABS: Basophils # 0.1 K/mm3 (0-0.2); Basophils % 1.5 % (0.1-2.0); Eosinophils # 0.2 K/mm3 (0.0-0.4); Eosinophils % 2.8 % (0.1-12.0); Lymphocytes # 1.5 K/mm3 (0.7-4.5); Lymphocytes % 23.6 % (10-50); Mean Corpuscular Hemoglobin 34.8 pg (27.0-31.2); Mean Platelet Volume 9.5 fl (7.4-10.4); Monocytes # 0.8 K/mm3 (0.1-1.0); Monocytes % 12.5 % (1.7-9.3); Neutrophils # 3.8 K/mm3 (1.8-7.8); Neutrophils % 59.6 % (37.0-80.0); Platelet Count 147 K/mm3 (142-424); Red Blood Count 3.45 M/mm3 (4.20-5.40); Red Cell Distribution Width 15.7 % (11.5-17.5); White Blood Count 6.4 K/mm3 (4.8-10.8)
[2022-05-27 07:58] LABS: Ammonia 56 umol/L (9-30)
--- NOTE | 2022-05-27 09:44 | HMH.OTEV ---
OT Inpatient Evaluation Rehab OT IP Evaluation Start: 05/27/22 09:21 Freq: ONCE Status: Complete Protocol: Document 05/27/22 09:37 ARIELMAYURI (Rec: 05/27/22 09:43 RANDEE [id number]) Rehab OT IP Assessment Subjective History 61 year old female admitted to [facility] for altered mental status. this patient presented to the ed -: per squad with c/o confusion starting yesterday. pt with hx of liver issues . pt disoriented to place and time. blood sugar 96. squad reports o2 sat at home was 85% ra, Patient arrives by ambulance for altered mental status.? Unable to obtain any significant history from her.? She has no complaints denies pain, denies feeling ill.? She has a history of cirrhosis with hepatic encephalopathy.? On EMS arrival patient had low pulse oximetry and was placed on nasal cannula oxygen. pt with acute hepatic enceph and was admitted PMH: Arrhythmia Atrial septal defect Back Pain Dyspnea History of chest pain History of TIA (transient ischemic attack) HTN (hypertension) Patient lives in 2 level apartment with . 10-[address]. Patient will have to recently move to [facility] for apartment to be remodeled. Patient used cane to ambulate within home. hx of falling. assist with ADLs as needed. Subjective I can try to get up. Patient donned B socks on indepedently. Instructed Patient on proper hand and foot placement to complete sit ->stand transfer with standard walker SUP. Instructed
--- NOTE | 2022-05-27 09:45 | HMH.PTEV ---
Physical Therapy Evaluation Rehab PT IP Evaluation Start: 05/27/22 09:20 Freq: ONCE Status: Active Protocol: Document 05/27/22 09:42 CORAL (Rec: 05/27/22 09:45 CORAL [id number]) Subjective/History History History this patient presented to the ed -: per squad with c/o confusion starting yesterday. pt with hx of liver issues . pt disoriented to place and time. blood sugar 96. squad reports o2 sat at home was 85% ra, Subjective Subjective Pt reports she lives in apartment w/ spouse - uses SPC at home on bad days Rehab PT IP Eval Objective Appearance Patient Behavior Appropriate,Cooperative Patient Orientation Place,Name,Birthday,Year, Situation Difficulty following instructions none Speech Pattern Clear,Appropriate,Soft-Spoken Ambulation Patient Able to Ambulate Yes Ambulation Observation IP General Gait Pattern Observation No Deviations/Normal Ambulation Distance (feet) 30 Ambulation Assistive Device Standard Walker Ambulation Ability Supervision/Stand by Balance Ability to Arise Able, uses arms to help Sitting Balance Steady, safe Standing Balance Narrow stance w/o support Dynamic Sitting Balance Ability Good Dynamic Standing Balance Ability Fair Transfers Chair Transfer Ability Independent,Supervision/Stand by Sit to Stand Chair Transfer Ability Independent,Supervision/Stand by ROM All Extremities PT ROM Status WFL MMT All Extremities PT MMT WFL Rehab PT IP prob,goals,plan Problems Date of Evaluation: 05/27/22 Rehab Potential Rehab Potential Innapropriate for Skilled Therapy Discharge Plan PT Discharge Plan Pt independent w/ transfers, gait and care. No skilled therapy needs at this time. Pt safe to return home w/ spouse once medically stable. G -code Required No Eval Complexity Eval Charge Codes 03652 - Low Complexity PHYSICIAN CERTIFICATION: I certify the specified therapy services for Maria Luisa Rodrigues are required, authorized, and reviewed every 30 days.
--- NOTE | 2022-05-27 09:59 | HMH.OTEV ---
OT Inpatient Evaluation Rehab OT IP Evaluation Start: 05/27/22 09:21 Freq: ONCE Status: Complete Protocol: Document 05/27/22 09:37 ARIELMAYURI (Rec: 05/27/22 09:43 RANDEE [id number]) Rehab OT IP Assessment Subjective History 61 year old female admitted to [facility] for altered mental status. this patient presented to the ed -: per squad with c/o confusion starting yesterday. pt with hx of liver issues . pt disoriented to place and time. blood sugar 96. squad reports o2 sat at home was 85% ra, Patient arrives by ambulance for altered mental status.? Unable to obtain any significant history from her.? She has no complaints denies pain, denies feeling ill.? She has a history of cirrhosis with hepatic encephalopathy.? On EMS arrival patient had low pulse oximetry and was placed on nasal cannula oxygen. pt with acute hepatic enceph and was admitted PMH: Arrhythmia Atrial septal defect Back Pain Dyspnea History of chest pain History of TIA (transient ischemic attack) HTN (hypertension) Patient lives in 2 level apartment with . 10-12 [address]. Patient will have to recently move to [facility] for apartment to be remodeled. Patient used cane to ambulate within home. hx of falling. assist with ADLs as needed. Subjective I can try to get up. Patient donned B socks on indepedently. Instructed Patient on proper hand and foot placement to complete sit ->stand transfer with standard walker SUP. Instructed
--- NOTE | 2022-05-27 10:53 | ECG_ITS ---
APPROVED REPORT Exam: Resting ECG HR:77 bpm ECG Measurements Heart Rate 77 AXES WI 178 P 48 QRSd 90 QRS -17 QT 398 T 55 QTc 429 Conclusion SINUS RHYTHM WITH OCCASIONAL SUPRAVENTRICULAR PREMATURE COMPLEXES Left atrial abnormality BORDERLINE ECG UNCONFIRMED REPORT Electronically signed by : Luis A Hammonds MD 05/27/2022 20:08:05
--- NOTE | 2022-05-27 13:01 | P.PN_ITS ---
Subjective *Date: 05/27/22 *Time: 20:23 Interval history: doing better - labs improved - hr dec but still not at baseline and dec po intake Medical Exam Vital signs and Labs for Last 24 Hours: Temp Pulse Resp BP Pulse Ox FiO2 98.1 F 77 20 153/67 H 98 28 05/27/22 10:47 05/27/22 10:47 05/27/22 10:47 05/27/22 10:47 05/27/22 10:47 05/25/22 18:54 Laboratory Results - last 24 hr 05/26/22 10:30: WBC 6.3, RBC 3.58 L, Hgb 12.5, Hct 41.3, MCV 115.5 H, MCH 35.0 H , MCHC 30.3 L, RDW 15.6, Plt Count 147, MPV 9.7, Neut % (Auto) 66.4, Lymph % (Auto) 21.4, [place] % (Auto) 8.9, Eos % (Auto) 2.2, Baso % (Auto) 1.0, Neut # (Auto) 4.2, Lymph # (Auto) 1.4, [place] # (Auto) 0.6, Eos # (Auto) 0.1, Baso # (Auto) 0.1 05/26/22 23:59: Potassium 4.5 D 05/27/22 06:20: WBC 6.4, RBC 3.45 L, Hgb 12.0 L, Hct 40.0, MCV 116.0 H, MCH 34.8 H, MCHC 30.0 L, RDW 15.7, Plt Count 147, MPV 9.5, Neut % (Auto) 59.6, Lymph % (Auto) 23.6, [place] % (Auto) 12.5 H, Eos % (Auto) 2.8, Baso % (Auto) 1.5, Neut # (Auto) 3.8, Lymph # (Auto) 1.5, [place] # (Auto) 0.8, Eos # (Auto) 0.2, Baso # (Auto) 0.1 05/27/22 06:20: Sodium 134 L, Potassium 4.3, Chloride 105, Carbon Dioxide 26, Anion Gap 7.3, BUN 13, Creatinine 0.90, Estimated Creat Clear 98, Estimated GFR 63, Est GFR ( Amer) 77 D, Glucose 125 H, Calcium 8.0 L 05/27/22 07:39: Ammonia 56 H I & O for Labs for Last 24 Hours: Intake & Output 05/25/22 05/26/22 05/27/22 05/28/22 11:59 11:59 11:59 11:59 Intake Total 434 / 434 420 / 420 1725 / 1725 Output Total 0 / 0 0 / 0 301 / 301 Balance 434 / 434 420 / 420 1424 / 1424 Weight 244 lb 4 oz 244 lb 2.591 oz 238 lb 4 oz Microbiology Reports for the Last 24 Hours: Microbiology 05/24/22 14:50 Blood Blood Culture - Preliminary NO GROWTH AFTER 48 HOURS 05/24/22 14:50 Blood Blood Culture - Preliminary NO GROWTH AFTER 48 HOURS Head: atraumatic Eyes: as per HPI ENT: normal exam Neck: trachea midline Respiratory: decreased breath sounds Cardiac: Reg Rate and Rhythm GI: soft Extremities: edema and calf tenderness Skin: intact Neuro: No Lateralizing Findings Assessment and Plan Assessment and plan all Dx Plan of Treatment: Hx of Paf/SVT Chadsvasc score 2 -echo 05/20- EF 55, Grade one dd, occluder device in intratrial septal wall without inracardiac shunt. -Currently NSR rate of 60. Continue Diltizem 120mg QD and Metoprolol 25mg QD -High bleed risk with hx of cirrhosis and bleeding esophageal varices, discussed risk of bleeding vs stroke with patient. No OAC at this time. Hx of ASD s/p Repair -Follow up with Tona Melarakalemia -Hold Aldcactone for now. Can restart in the office. GONZALEZ and hx of Esophageal Varices -Primary service CV stable: will sign off. follow up in office in one week.
--- NOTE | 2022-05-27 14:12 | EXP.CARD.CON ---
History of Present Illness History of Present Illness Consult date: 05/27/22 Requesting physician: Joaquín Childress Consult reason: atrial fibrillation Chief complaint: ams Additional Medical History:: Past medical Hx: PAF and SVT-Seeing EP at May HX of ASD s/p Repair PALMA Ruptured esophageal varices 2019 History of present illness: 61 year old white female presented to ED on 05/24/2022 with complaint of ams. Patient has hx of palma and hepatic encehalopathy. Labs as follow: Potassium 6.4, Creatinine 1.10, Total Bili 2.1, AST 104, Alk Phos 239, and ammonia level was 90. Chest xray was positive for small right effusion. Initial EKG showed NSR rate of 91 with pvcs and short runs of svt. Patient denies chest pain or soa. Cardiology asked to consult. patient currently in NSR rate of 60 PFSH PFSH Medical History (Updated 05/27/22 @ 14:22 by Nelida Bates APRN) Arrhythmia Atrial septal defect Back Pain Dyspnea History of chest pain History of TIA (transient ischemic attack) HTN (hypertension) Social History Smoking Status: Never smoker alcohol intake: never substance use type: denies use current occupational status: disabled Travel in the last 8 weeks: None household members: significant other housing: apartment current occupational exposures/hazards: No caffeine: No Review of Systems Review of Systems Review of systems:: pertinent systems reviewed and negative unless documented below Constitutional Constitutional: Denies headache(s) ENT Ears, Nose, Mouth, and Throat: Denies headache(s) *Cardiovascular Cardiovascular: Reports system reviewed and no additional complaints, except as documented, Denies chest pain, Reports dyspnea, Reports irregular heart rhythm and Reports rapid heart rate *Respiratory Respiratory: Reports system reviewed and no additional complaints, except as documented and Reports dyspnea *Gastrointestinal Gastrointestinal: Reports system reviewed and no additional complaints, except as documented *Neurologic Neurologic: Reports behavioral changes, Denies convulsions, Denies localized weakness, Denies headache(s) and Denies seizure-like activity Psychiatric Psychiatric: Reports behavioral changes Exam Data for Last 24 hours Vital signs and Labs for Last 24 Hours: Temp Pulse Resp BP Pulse Ox FiO2 98.1 F 77 20 153/67 H 98 28 05/27/22 10:47 05/27/22 10:47 05/27/22 10:47 05/27/22 10:47 05/27/22 10:47 05/25/22 18:54 Laboratory Results - last 24 hr 05/26/22 23:59: Potassium 4.5 D 05/27/22 06:20: WBC 6.4, RBC 3.45 L, Hgb 12.0 L, Hct 40.0, MCV 116.0 H, MCH 34.8 H, MCHC 30.0 L, RDW 15.7, Plt Count 147, MPV 9.5, Neut % (Auto) 59.6, Lymph % (Auto) 23.6, [place] % (Auto) 12.5 H, Eos % (Auto) 2.8, Baso % (Auto) 1.5, Neut # (Auto) 3.8, Lymph # (Auto) 1.5, [place] # (Auto) 0.8, Eos # (Auto) 0.2, Baso # (Auto) 0.1 05/27/22 06:20: Sodium 134 L, Potassium 4.3, Chloride 105, Carbon Dioxide 26, Anion Gap 7.3, BUN 13, Creatinine 0.90, Estimated Creat Clear 98, Estimated GFR 63, Est GFR ( Amer) 77 D, Glucose 125 H, Calcium 8.0 L 05/27/22 07:39: Ammonia 56 H I & O for Last 24 hours: Intake & Output 05/24/22 05/25/22 05/26/22 05/27/22 23:59 23:59 23:59 23:59 Intake Total 614 / 614 1024 / 1024 941 / 941 Output Total 0 / 0 300 / 300 Balance 614 / 614 1023 / 1023 641 / 641 Weight 144 lb 6 oz 244 lb 0.827 oz 244 lb 2.591 oz 238 lb 4 oz Microbiology Reports for the Last 24 Hours: Microbiology 05/24/22 14:50 Blood Blood Culture - Preliminary NO GROWTH AFTER 48 HOURS 05/24/22 14:50 Blood Blood Culture - Preliminary NO GROWTH AFTER 48 HOURS Constitutional Constitutional: no acute distress *Routine Respiratory Exam Respiratory: Present CTA bilaterally and symmetric chest movement *Routine Cardiovascular Exam Cardiovascular: Present RRR, Norm
--- NOTE | 2022-05-27 18:08 | PC.NURSE ---
VS stable, patient remained alert and oriented and on room air. Lactulose given throughout the day and one bowel movement noted in am. Ammonia levels continue to taper down. New iv being attempted with ultrasound.
--- NOTE | 2022-05-27 18:25 | PC.NURSE ---
20 gauge iv placed in the right AC via ultrasound. tolerated well
[2022-05-28] VITALS: BP 116/57; PULSE 85; PULSE 90; RESP 18; TEMP 36.6; O2SAT 97
[2022-05-28 04:00] VITALS: BP 110/52; PULSE 84; PULSE 90; RESP 18; TEMP 36.5; O2SAT 98
[2022-05-28 05:00] VITALS: BMI 40.4
[2022-05-28 06:46] LABS: Basophils # 0.1 K/mm3 (0-0.2); Eosinophils # 0.3 K/mm3 (0.0-0.4); Eosinophils % 3.8 % (0.1-12.0); Hematocrit 36.4 % (37.0-47.0); Hemoglobin 11.6 g/dL (12.2-16.2); Lymphocytes # 1.8 K/mm3 (0.7-4.5); Lymphocytes % 22.8 % (10-50); Mean Corpuscular HGB Conc 31.8 g/dL (31.8-35.4); Mean Corpuscular Hemoglobin 35.2 pg (27.0-31.2); Mean Corpuscular Volume 110.5 fl (81-99); Mean Platelet Volume 8.4 fl (7.4-10.4); Monocytes % 12.4 % (1.7-9.3); Neutrophils # 4.7 K/mm3 (1.8-7.8); Platelet Count 129 K/mm3 (142-424); Red Blood Count 3.29 M/mm3 (4.20-5.40); White Blood Count 7.8 K/mm3 (4.8-10.8)
[2022-05-28 06:55] LABS: Chloride 104 mmol/L (98-107); Potassium 4.8 mmoL/L (3.5-5.1); Sodium 133 mmol/L (136-145)
[2022-05-28 06:58] LABS: Anion Gap 8.8 mEq/L (5-15); Blood Urea Nitrogen 21 mg/dl (7-17); Calcium 8.1 mg/dl (8.4-10.2); Carbon Dioxide 25 mmol/L (22.0-30.0); Creatinine Clearance Estimated 50 mL/min (50-200); Estimated Glomerular Filt Rate 72 ml/min (>60); GFR (African American) 88 ML/MIN (>60); Glucose 134 mg/dl (74-100)
[2022-05-28 06:59] LABS: Ammonia 35 umol/L (9-30)
[2022-05-28 08:00] VITALS: BP 108/50; PULSE 70; PULSE 76; RESP 17; TEMP 36.7; O2SAT 100
--- NOTE | 2022-05-28 10:07 | SW/DCPLANNER ---
Addendum entered by Love Navarrete 05/28/22 11:58: Daija batista/ [facility] stated that services will start tomorrow. Original Note: I spoke with this patient regarding discharge plans. Patient stated that she resides at home with her but could benefit from home health services for: medication management and PT/OT. Patient resides in [facility]: patient information will be faxed to [facility].
--- NOTE | 2022-05-28 10:22 | PC.NURSE ---
Rounded on pt, cleaned and straightened room. Pt in bed sleeping, no needs at this time.
--- NOTE | 2022-05-28 10:46 | EXP.DC.SUM ---
General Admission date:: 05/24/22 Discharge date: 05/28/22 HPI HPI HPI: this patient presented to the ed -: per squad with c/o confusion starting yesterday. pt with hx of liver issues . pt disoriented to place and time. blood sugar 96. squad reports o2 sat at home was 85% ra, Patient arrives by ambulance for altered mental status.? Unable to obtain any significant history from her.? She has no complaints denies pain, denies feeling ill.? She has a history of cirrhosis with hepatic encephalopathy.? On EMS arrival patient had low pulse oximetry and was placed on nasal cannula oxygen. pt with acute hepatic enceph and was admitted Hospital Course Hospital Course Hospital Course: 61 YOF presented to the ed -: per squad with c/o confusion starting yesterday. pt with hx of liver issues . pt disoriented to place and time. blood sugar 96. squad reports o2 sat at home was 85% ra, Patient arrives by ambulance for altered mental status.? Unable to obtain any significant history from her.? She has no complaints denies pain, denies feeling ill.? She has a history of cirrhosis with hepatic encephalopathy.? On EMS arrival patient had low pulse oximetry and was placed on nasal cannula oxygen. pt with acute hepatic enceph and was admitted Cardipology has seen and recommends: Plan of Treatment: Hx of Paf/SVT Chadsvasc score 2 -echo 05/20- EF 55, Grade one dd, occluder device in intratrial septal wall without inracardiac shunt. -Currently NSR rate of 60. Continue Diltizem 120mg QD and Metoprolol 25mg QD -High bleed risk with hx of cirrhosis and bleeding esophageal varices,? discussed risk of bleeding vs stroke with patient. No OAC at this time.? Hx of ASD s/p Repair -Follow up with Tona ?Hyperkalemia -Hold Aldcactone for now. Can restart in the office. GONZALEZ and hx of Esophageal Varices? -Primary service CV stable: will sign off. follow up in office in one week. Ammonia level 35, down from 90 She is sitting up in chair, alert and talking about her medicine regimen, she reports having family members assist in her care and the family will set up her medi-sets. Importance of maintaining medical regimen, diet, and making all appt.s stressed. Follow up with PCP in one week She appt with Dr. Carbone at [facility] tomorrow at 1315 and is aware Appt with [facility] GI, appt sched and she is aware Possible HHC for meds Exam Data for Last 24 hours Vital signs and Labs for Last 24 Hours: Temp Pulse Resp BP Pulse Ox FiO2 98.0 F 76 17 108/50 L 100 28 05/28/22 08:00 05/28/22 08:00 05/28/22 08:00 05/28/22 08:00 05/28/22 08:00 05/25/22 18:54 Laboratory Results - last 24 hr 05/28/22 06:38: WBC 7.8, RBC 3.29 L, Hgb 11.6 L, Hct 36.4 L, MCV 110.5 H, MCH 35.2 H, MCHC 31.8, RDW 15.0, Plt Count 129 L, MPV 8.4, Neut % (Auto) 60.0, Lymph % (Auto) 22.8, [place] % (Auto) 12.4 H, Eos % (Auto) 3.8, Baso % (Auto) 1.0, Neut # (Auto) 4.7, Lymph # (Auto) 1.8, [place] # (Auto) 1.0, Eos # (Auto) 0.3, Baso # (Auto) 0.1 05/28/22 06:38: Sodium 133 L, Potassium 4.8, Chloride 104, Carbon Dioxide 25, Anion Gap 8.8, BUN 21 H D, Creatinine 0.80, Estimated Creat Clear 50, Estimated GFR 72, Est GFR ( Amer) 88, Glucose 134 H, Calcium 8.1 L 05/28/22 06:38: Ammonia 35 H I & O for Last 24 hours: Intake & Output 05/25/22 05/26/22 05/27/22 05/28/22 23:59 23:59 23:59 23:59 Intake Total 614 / 614 1024 / 1024 1301 / 1301 1028 / 1028 Output Total 0 / 0 1600 / 1900 600 / 600 Balance 614 / 614 1023 / 1023 -299 / -599 428 / 428 Weight 244 lb 0.827 oz 244 lb 2.591 oz 238 lb 4 oz 242 lb 9.6 oz Constitutional Constitutional: no acute distress and chronically ill appearing *Routine HEENT Exam Head: Present normocephalic and atraumatic Eye: Present EOMI ENT: Present mucous membranes moist *Routine Neck Exam Neck: Present supple and full ROM *Routine Respiratory Exam Respiratory: Present accessory muscle use and decreased breath sounds *Routine Cardiovascu
[2022-05-28 11:08] VITALS: BP 124/55; PULSE 82; RESP 17; TEMP 36.7; O2SAT 97
[2022-05-28 12:00] VITALS: PULSE 90
--- NOTE | 2022-05-28 14:07 | PC.NURSE ---
Rounded on pt and she has no voiced complaints in re to her stay. CB in reach and pt up to chair at this time.
--- NOTE | 2022-05-29 13:07 | CARE MANAGER ---
Contacted patient related to hospital discharge. She states she is just resting, but that her biggest concern is that home health has told her they will not see her while she is staying in a hotel due to her apartment being remodeled. Contacted [facility] and they state they will actually see the patient while she is staying at the hotel. The patient denied any other questions or concerns. JACK Srivastava
== END 2022-05-28 14:33 | disposition home or self-care (01) | DRG 442 ==
LOC: ER 15:03 → 2ND 17:34
PROVIDERS: Nurse Practitioner Family; Admitting Provider Emergency Medicine; Emergency Provider Emergency Medicine; Visit Provider Emergency Medicine
DX: K72.90 Hepatic failure, unspecified without coma (principal); I47.1 Supraventricular tachycardia; Q21.1 Atrial septal defect; I48.3 Typical atrial flutter; I34.0 Nonrheumatic mitral (valve) insufficiency; I48.91 Unspecified atrial fibrillation; E87.5 Hyperkalemia; K74.60 Unspecified cirrhosis of liver
CPT/HCPCS: 36415; 70450; 71045; 80048; 80053; 80305; 81001; 82140; 82803; 83605; 84132; 84484; 85025; 85610; 87040; 93005; 94640; 97161; 97165; C9803; J2405; U0003; U0005

== ENCOUNTER 2022-06-18 16:50 | Inpatient (IN) | payer MEDICARE, MEDICAID, SELFPAY ==
[2022-06-18] VITALS (13 sets, daily range): BP systolic 90–110; BP diastolic 41–69; PULSE 64–76; RESP 15–29; TEMP 36.6–37; O2SAT 94–98; BMI 38.9; BMI 46.8
--- NOTE | 2022-06-18 16:58 | ECG_ITS ---
APPROVED REPORT Exam: Resting ECG HR:69 bpm ECG Measurements Heart Rate 69 AXES GA 174 P 45 QRSd 101 QRS -10 QT 404 T 39 QTc 423 Conclusion SINUS RHYTHM WITH OCCASIONAL SUPRAVENTRICULAR PREMATURE COMPLEXES LOW QRS VOLTAGE IN PRECORDIAL LEADS [QRS DEFLECTION < 1.0 mV IN CHEST LEADS] BORDERLINE ECG UNCONFIRMED REPORT Electronically signed by : Luis A Hammonds MD 06/18/2022 21:04:30
--- NOTE | 2022-06-18 17:01 | XR_ITS ---
PROCEDURE INFORMATION: Exam: XR Chest Exam date and time: 06/18/2022 5:16 PM Age: 61 years old Clinical indication: Angina and orthopnea (sob when lying down) and shortness of breath; Chest wall pain; Prior surgery; Surgery date: 6+ months; Surgery type: Asd; Patient HX: SOA, cp @ sternum, tightness x days. HX copd TECHNIQUE: Imaging protocol: Radiologic exam of the chest. Views: 1 view. COMPARISON: CR XR CHEST PORTABLE 05/24/2022 2:09 PM FINDINGS: Lungs: Pulmonary venous congestion with interstitial edema. Pleural spaces: Right pleural effusion, unchanged to slightly larger. Heart/Mediastinum: Cardiomegaly. Enlarged pulmonary arteries likely represent chronic pulmonary arterial hypertension. Vasculature: Vascular calcifications. Bones/joints: Unremarkable. IMPRESSION: 1. Pulmonary venous congestion with interstitial edema. 2. Right pleural effusion, unchanged to slightly larger.
[2022-06-18 17:24] LABS: Chloride 100 mmol/L (98-107); Potassium 5.2 mmoL/L (3.5-5.1); Sodium 137 mmol/L (136-145)
[2022-06-18 17:25] LABS: Coronavirus 19, PCR Not Detected (NotDetected); Influenza A, PCR Not Detected (NotDetected); Influenza B, PCR Not Detected (NotDetected)
[2022-06-18 17:27] LABS: Alanine Aminotransferase 37 U/L (12-78); Albumin Level 2.3 g/dl (3.5-5.0); Albumin/Globulin Ratio 0.6 (1.1-1.8); Alkaline Phosphatase 181 U/L (38-126); Anion Gap 15.2 mEq/L (5-15); Aspartate Amino Transferase 70 U/L (14-36); Bilirubin,Total 1.5 mg/dl (0.2-1.3); Blood Urea Nitrogen 39 mg/dl (7-17); Calcium 7.8 mg/dl (8.4-10.2); Carbon Dioxide 27 mmol/L (22.0-30.0); Creatinine Clearance Estimated 32 mL/min (50-200); Estimated Glomerular Filt Rate 17 ml/min (>60); GFR (African American) 21 ML/MIN (>60); Globulin 3.7 g/dL (1.3-3.2); Glucose 145 mg/dl (74-100)
[2022-06-18 17:36] LABS: Lactic Acid 2.6 mmol/L (0.7-2.1)
[2022-06-18 17:37] LABS: NT Pro Brain Natriuretic Pep. 1980 pg/mL (0-125)
[2022-06-18 17:39] LABS: Basophils # 0.4 K/mm3 (0-0.2); Basophils % 2.1 % (0.1-2.0); Eosinophils # 0.1 K/mm3 (0.0-0.4); Eosinophils % 0.4 % (0.1-12.0); Hemoglobin 10.6 g/dL (12.2-16.2); Lymphocytes # 1.6 K/mm3 (0.7-4.5); Lymphocytes % 7.8 % (10-50); Mean Corpuscular HGB Conc 33.1 g/dL (31.8-35.4); Mean Corpuscular Volume 108.8 fl (81-99); Mean Platelet Volume 20.6 fl (7.4-10.4); Monocytes % 9.7 % (1.7-9.3); Neutrophils # 16.4 K/mm3 (1.8-7.8); Neutrophils % 80.1 % (37.0-80.0); Platelet Count 102 K/mm3 (142-424); Red Blood Count 2.94 M/mm3 (4.20-5.40); Red Cell Distribution Width 16.3 % (11.5-17.5); White Blood Count 20.5 K/mm3 (4.8-10.8)
[2022-06-18 17:41] LABS: Troponin I < 0.01 ng/ml (0.00-0.034)
[2022-06-18 17:43] LABS: MANUAL DIFFERENTIAL MANUAL DIFFERENTIAL (MANUAL DIFF)
[2022-06-18 18:12] LABS: Lymphocytes % 11 % (10-50); Monocytes % 7 % (2-9); Neutrophils % 82 % (42-76); Total Cells Counted 100
[2022-06-18 18:13] LABS: Burr Cells 2+
[2022-06-18 18:14] LABS: Macrocytosis 1+
[2022-06-18 18:15] LABS: Platelet Estimate Slight Decrease
--- NOTE | 2022-06-18 18:26 | HMH.EDGENADL ---
Discharge Plan Disposition Patient Disposition: Admitted As Inpatient Condition: Serious Chief Complaint: Shortness of Breath/Dyspnea Prescriptions Prescriptions: No Action hydroxyzine HCl 10 mg tablet 10 mg PO QIDP PRN (Reason: Anxiety) sucralfate 1 GM tablet 1 gm PO QID ondansetron HCl 4 MG tablet 4 mg PO TIDP PRN (Reason: Nausea And Vomiting) pantoprazole 40 MG tablet,delayed release (DR/EC) 40 mg PO DAILY bumetanide 1 MG tablet 1 mg PO DAILY metoprolol succinate 25 MG tablet extended release 24 hr 25 mg PO HS lactulose 10 GM/15 ML solution 30 ml PO QID rifaximin 550 MG tablet 550 mg PO BID Rx Instructions: Take 1 tablet by mouth twice daily magnesium oxide 400 MG capsule 400 mg PO DAILY diltiazem HCl 120 mg capsule,extended release 24hr 120 mg PO DAILY Rx Instructions: TAKE 1 CAPSULE 1 TIME EACH DAY Referrals Follow up/Referrals: Joaquín Childress MD [Primary Care Provider] - See instructions Clinical Impressions Clinical Impression: HCAP (healthcare-associated pneumonia), Sepsis, Acute kidney injury Discharge ED Provider: Kyler Jett General Adult HPI General Chief complaint: Shortness of Breath/Dyspnea Stated complaint: weakness Time Seen by Provider: 06/18/22 17:30 Mode of Arrival: Ambulatory Source of Information: Patient Limitations: No Limitations Description of Symptoms (Recalled from ER Triage Doc. by RN): to ed per squad with c/o sob, nausea. pt states d/ga from [facility] approx 1 week ago. pt denies any chest pain. squad reports b/p correctional officer captain 50/23. pt alert and oriented speaking in complete sentences. squad gave solumedrol correctional officer captain blood sugar 147 History of Present Illness HPI narrative: Brought in by ambulance. Patient says for the past 2 days she has felt generally weak and lightheaded, has dyspnea on exertion. She has nausea. Chronic diarrhea from lactulose. She has a cough, nonproductive. Maximum temperature 99 degrees at home. Denies chest pain, abdominal pain. EMS reported hypotension during transport. Given IV fluids and Solu-Medrol during transport. Patient has a history of cirrhosis. She does not have known ascites. Reviewed most recent abdominal CT, it did not show ascites. Related Data Home Medications Medication Instructions Recorded Confirmed hydroxyzine HCl 10 mg tablet 10 mg PO QIDP PRN Anxiety 03/03/20 06/18/22 bumetanide 1 mg tablet 1 mg PO DAILY Fluid 04/29/22 06/18/22 lactulose 10 gram/15 mL oral 30 ml PO QID encephalopathy 04/29/22 06/18/22 solution magnesium oxide 400 mg PO DAILY Supplement 04/29/22 06/18/22 metoprolol succinate 25 mg 25 mg PO HS High blood pressure 04/29/22 06/18/22 tablet,extended release 24 hr ondansetron HCl 4 mg tablet 4 mg PO TIDP PRN Nausea And 04/29/22 06/18/22 Vomiting pantoprazole 40 mg tablet,delayed 40 mg PO DAILY Reflux/Acid reflux 04/29/22 06/18/22 release rifaximin 550 mg tablet 550 mg PO BID CIRRHOSIS 04/29/22 06/18/22 sucralfate 1 gram tablet 1 gm PO QID Reflux/Acid reflux 04/29/22 06/18/22 diltiazem HCl 120 mg 120 mg PO DAILY unknown 06/18/22 06/18/22 capsule,extended release 24 hr Allergies Allergy/AdvReac Type Severity Reaction Status Date / Time Sulfa (Sulfonamide Allergy Intermediate Hives Verified 06/04/22 12:14 Antibiotics) [SULFA (SULFONAMIDE ANTIBIOTICS)] [facility] Medical History (Updated 06/18/22 @ 20:12 by Kyler Jett MD) Abdominal pain Abnormal EKG Afib Arrhythmia Asthma with exacerbation Atrial flutter Atrial septal defect Back Pain BMI 36.0-36.9,adult CAP (community acquired pneumonia) Chest pain CHF exacerbation Collapse of right lung Congestive heart failure Congestive splenomegaly Cor pulmonale Coronary artery calcification seen on CAT scan DU (perforated duodenal ulcer) Dyspnea Dyspnea on exertion E. coli UTI (urinary tract infection) Edema Hematuria Hep C w/ coma, chronic Hep C
--- NOTE | 2022-06-18 19:05 | ECG_ITS ---
APPROVED REPORT Exam: Resting ECG HR:64 bpm ECG Measurements Heart Rate 64 AXES NC 183 P 46 QRSd 86 QRS -16 QT 400 T 49 QTc 410 Conclusion SINUS RHYTHM LOW QRS VOLTAGE IN PRECORDIAL LEADS [QRS DEFLECTION < 1.0 mV IN CHEST LEADS] BORDERLINE ECG UNCONFIRMED REPORT Electronically signed by : Luis A Hammonds MD 06/19/2022 17:42:46
--- NOTE | 2022-06-18 19:10 | PC.NURSE ---
Repeat EKG performed
[2022-06-18 19:32] LABS: Microscopic, Urine URINE MICROSCOPIC (MICROSCOPIC)
[2022-06-18 19:34] LABS: Appearance,Urine CLOUDY (Clear); Blood, Urine 2+ (Negative); Color,Urine YELLOW (Yellow); Glucose,Urine (UA) TRACE (Negative); Ketones,Urine TRACE (Negative); Leukocyte Esterase,Urine Negative (Negative); Nitrate,Urine Negative (Negative); Protein,Urine 1+ (Negative); Urobilinogen,Urine 0.2 EU/dl (0.2)
--- NOTE | 2022-06-18 19:37 | PC.NURSE ---
Addendum entered by Calista Mack RN 06/18/22 19:45: Time of event 190. Original Note: Rounded on patient, patient c/o chest tightness that has worsened over the last hour. MD notified. Repeat EKG notified.
[2022-06-18 19:46] LABS: Bilirubin,Urine 1+ (Negative)
[2022-06-18 19:49] LABS: Bacteria,Urine 1+ /lpf; WBC,Urine Occasional #/hpf (0-3)
--- NOTE | 2022-06-18 20:12 | PC.NURSE ---
Pt repositioned for comfort. No other needs voiced.
[2022-06-18 20:58] LABS: Reflex Lactic Add Lactic Reflex
[2022-06-18 21:01] LABS: Troponin I < 0.01 ng/ml (0.00-0.034)
[2022-06-18 21:12] LABS: Ammonia 11 umol/L (9-30)
--- NOTE | 2022-06-18 22:09 | PC.NURSE ---
Report called to JACK Ortega.
--- NOTE | 2022-06-18 22:20 | PC.NURSE ---
PT ARRIVED TO FLOOR VIA STRETCHER @ [phone]
[2022-06-18 22:58] LABS: Troponin I < 0.01 ng/ml (0.00-0.034)
[2022-06-19] VITALS (12 sets, daily range): BP systolic 104–116; BP diastolic 52–62; PULSE 53–85; RESP 16–20; TEMP 36.5–36.9; O2SAT 92–99; BMI 46.5
--- NOTE | 2022-06-19 04:46 | PC.NURSE ---
NO ACUTE CHANGES SINCE PREVIOUS ASSESSMENT. PT REMAINS ALERT AND ORIENTED X4. LUNG SOUNDS ARE DIMINISHED BILATERALLY. NSR ON TELE. PT HAS AMBULATED TO THE BATHROOM WITH STANDBY ASSISTANCE. TORO REMAINS IN PLACE DRAINING DARK, CLOUDY YELLOW URINE. PT HAS NOT C/O N/V. PT HAS C/O SOME ABD CRAMPING AFTER DOSE OF LACTULOSE. PT ALSO C/O DYSPNEA AND STATES SHE USUALLY GETS THIS WAY AT NIGHT. O2 SATS REMAINED IN THE 90'S BUT 2L NASAL CANNULA WAS PLACED ON PT FOR COMFORT. PT HAS STATED THAT SUPPLEMENTAL O2 HAS HELPED. VSS. CALL INMAN WITHIN REACH.
[2022-06-19 06:30] LABS: Basophils # 0.1 K/mm3 (0-0.2); Basophils % 0.9 % (0.1-2.0); Hematocrit 34.7 % (37.0-47.0); Hemoglobin 10.6 g/dL (12.2-16.2); Lymphocytes # 0.7 K/mm3 (0.7-4.5); Lymphocytes % 5.3 % (10-50); Mean Corpuscular HGB Conc 30.5 g/dL (31.8-35.4); Mean Corpuscular Hemoglobin 35.6 pg (27.0-31.2); Mean Platelet Volume 9.6 fl (7.4-10.4); Monocytes # 0.4 K/mm3 (0.1-1.0); Neutrophils # 12.3 K/mm3 (1.8-7.8); Neutrophils % 90.8 % (37.0-80.0); Platelet Count 105 K/mm3 (142-424); Red Blood Count 2.96 M/mm3 (4.20-5.40); Red Cell Distribution Width 15.4 % (11.5-17.5); White Blood Count 13.6 K/mm3 (4.8-10.8)
[2022-06-19 06:31] LABS: MANUAL DIFFERENTIAL MANUAL DIFFERENTIAL (MANUAL DIFF)
[2022-06-19 07:17] LABS: Anion Gap 16.1 mEq/L (5-15); Blood Urea Nitrogen 48 mg/dl (7-17); Calcium 7.5 mg/dl (8.4-10.2); Carbon Dioxide 23 mmol/L (22.0-30.0); Chloride 100 mmol/L (98-107); Creatinine Clearance Estimated 14 mL/min (50-200); Estimated Glomerular Filt Rate 15 ml/min (>60); GFR (African American) 18 ML/MIN (>60); Glucose 266 mg/dl (74-100); Potassium 5.1 mmoL/L (3.5-5.1); Sodium 134 mmol/L (136-145)
--- NOTE | 2022-06-19 07:24 | EXP.PHA.VTE ---
[facility] Pharmacy VTE Monitoring Patient Demographics Admission date: 06/18/22 Report Date: 06/19/22 Time: 07:24 Patient Allergies Sulfa (Sulfonamide Antibiotics) [SULFA (SULFONAMIDE ANTIBIOTICS)] Allergy (Intermediate, Verified 06/04/22 12:14) Hives Height: 1.6 m Weight: 119.975 kg Current Active Problems (Updated 06/18/22 @ 22:49 by Shannon Kwok RN) HCAP (healthcare-associated pneumonia) (Acute) Sepsis (Acute) Acute kidney injury (Acute) VTE Risk Labs: VTE Related Lab Results Hgb 10.6 g/dL (12.2-16.2) L 06/19/22 06:12 Hct 34.7 % (37.0-47.0) L 06/19/22 06:12 Plt Count 105 K/mm3 (142-424) L 06/19/22 06:12 BUN 48 mg/dl (7-17) H 06/19/22 06:12 Creatinine 3.20 mg/dl (0.52-1.04) H 06/19/22 06:12 Estimated Creat Clear 14 mL/min (50-200) 06/19/22 06:12 Was VTE Risk Assessment Performed: Yes VTE Score: 11 VTE Risk Level: Moderate Risk Prophylaxis VTE Prophylaxis Ordered?: Yes Types of VTE Prophylaxis: TEDS Knee High Location of Applied Device: Bilateral Lower Extremeties
--- NOTE | 2022-06-19 07:35 | HMH.PHAINT1 ---
Pharmacy Intervention Comments: Medication reconciliation completed on patient using external fill history from pharmacy.
--- NOTE | 2022-06-19 08:00 | PC.NURSE ---
rounded on patient. no questions or concerns currently. states she feels better, usually symptoms are more active at night. call light within reach, breakfast tray removed from table, and table placed within reach. encouraged her to ring out as needed
[2022-06-19 08:09] LABS: Lymphocytes % 4 % (10-50); Monocytes % 2 % (2-9); Neutrophils % 94 % (42-76); Total Cells Counted 100
[2022-06-19 08:10] LABS: Hypochromasia 2+
[2022-06-19 08:11] LABS: Macrocytosis 2+; Platelet Estimate Slight Decrease
--- NOTE | 2022-06-19 08:29 | EXP.PHA.CONS ---
Pharmacy Consult Date: 06/19/22 Time: 08:29 Referring provider: DR. MILLER Reason for Consult:: VANCOMYCIN DOSING Allergies Allergy/AdvReac Type Severity Reaction Status Date / Time Sulfa (Sulfonamide Allergy Intermediate Hives Verified 06/04/22 12:14 Antibiotics) [SULFA (SULFONAMIDE ANTIBIOTICS)] Home Medications Medication Instructions Recorded Confirmed Type bumetanide 1 mg tablet 1 mg PO DAILY Fluid 04/29/22 06/18/22 History lactulose 10 gram/15 mL oral 30 ml PO QID encephalopathy 04/29/22 06/18/22 History solution magnesium oxide 400 mg PO DAILY Supplement 04/29/22 06/18/22 History metoprolol succinate 25 mg 25 mg PO HS High blood pressure 04/29/22 06/18/22 History tablet,extended release 24 hr ondansetron HCl 4 mg tablet 4 mg PO TIDP PRN Nausea And 04/29/22 06/18/22 History Vomiting pantoprazole 40 mg tablet,delayed 40 mg PO DAILY Reflux/Acid reflux 04/29/22 06/18/22 History release rifaximin 550 mg tablet 550 mg PO BID cirrhosis 04/29/22 06/18/22 History sucralfate 1 gram tablet 1 gm PO QID Reflux/Acid reflux 04/29/22 06/18/22 History diltiazem HCl 120 mg 120 mg PO DAILY blood pressure 06/18/22 06/18/22 History capsule,extended release 24 hr New Prescriptions to Start Prescriptions: Height: 1.6 m Weight: 119.975 kg Laboratory Results:: Laboratory Results - last 24 hr 06/18/22 16:50: WBC 20.5 H*, RBC 2.94 L, Hgb 10.6 L, Hct 32.0 L, MCV 108.8 H, MCH 36.0 H, MCHC 33.1, RDW 16.3, Plt Count 102 L, MPV 20.6 H, Neut % (Auto) 80.1 H, Lymph % (Auto) 7.8 L, [place] % (Auto) 9.7 H, Eos % (Auto) 0.4, Baso % (Auto) 2.1 H, Neut # (Auto) 16.4 H, Lymph # (Auto) 1.6, [place] # (Auto) 2.0 H, Eos # (Auto) 0.1, Baso # (Auto) 0.4 H, Total Counted 100, Neutrophils % (Manual) 82 H, Lymphocytes % (Manual) 11, Monocytes % (Manual) 7, Platelet Estimate Slight decrease, Macrocytosis 1+, [place] Cells 2+ 06/18/22 16:50: Sodium 137, Potassium 5.2 H, Chloride 100, Carbon Dioxide 27, Anion Gap 15.2 H, BUN 39 H, Creatinine 2.80 H, Estimated Creat Clear 32, Estimated GFR 17 L*, Est GFR ( Amer) 21 L, Glucose 145 H, Calcium 7.8 L, Total Bilirubin 1.5 H, AST 70 H, ALT 37, Alkaline Phosphatase 181 H, Troponin I < 0.01, Total Protein 6.0 L, Albumin 2.3 L, Globulin 3.7 H, Albumin/Globulin Ratio 0.6 L 06/18/22 16:50: NT-Pro-B Natriuret Pep 1980 H 06/18/22 16:50: Lactate 2.6 H 06/18/22 17:01: SARS-CoV-2 (PCR) Not detected, Influenza A Untype (PCR) Not detected, Influenza Type B (PCR) Not detected 06/18/22 19:22: Urine Color Yellow, Urine Appearance Cloudy, Urine pH 6.0, Ur Specific [place] 1.020, Urine Protein 1+, Urine Glucose (UA) Trace, Urine Ketones Trace, Urine Blood 2+, Urine Nitrate Negative, Urine Bilirubin 1+ A, Urine Urobilinogen 0.2, Ur Leukocyte Esterase Negative, Urine RBC 10-20, Urine WBC Occasional, Ur Squamous Epith Cells 10-20, Urine Bacteria 1+ 06/18/22 20:21: Troponin I < 0.01 06/18/22 20:21: Ammonia 11 06/18/22 22:08: Troponin I < 0.01 06/18/22 22:08: Lactate 2.0 06/19/22 06:12: WBC 13.6 H D, RBC 2.96 L, Hgb 10.6 L, Hct 34.7 L, MCV 117.0 H, MCH 35.6 H, MCHC 30.5 L, RDW 15.4, Plt Count 105 L, MPV 9.6, Neut % (Auto) 90.8 H, Lymph % (Auto) 5.3 L, [place] % (Auto) 3.0, Eos % (Auto) 0.0 L, Baso % (Auto) 0.9, Neut # (Auto) 12.3 H, Lymph # (Auto) 0.7, [place] # (Auto) 0.4, Eos # (Auto) 0.0, Baso # (Auto) 0.1, Total Counted 100, Neutrophils % (Manual) 94 H, Lymphocytes % (Manual) 4 L, Monocytes % (Manual) 2, Platelet Estimate Slight decrease, Hypochromasia 2+, Macrocytosis 2+ 06/19/22 06:12: Sodium 134 L, Potassium 5.1, Chloride 100, Carbon Dioxide 23, Anion Gap 16.1 H, BUN 48 H, Creatinine 3.20 H, Estimated Creat Clear 14, Estimated GFR 15 L*, Est GFR ( Amer) 18 L*, Glucose 266 H D, Calcium 7.5 L Medical History: Medical History (Updated 06/18/22 @ 22:49 by Shannon Kwok, RN) Abdominal pain Abnormal EKG Afib Arrhythmia Arthritis Asthma with exacerbation Atrial flutter Atrial septal defect Back Pain BMI 36.0-36.
--- NOTE | 2022-06-19 11:28 | EXP.PULM.CON ---
History of Present Illness History of present illness: Ms. Morrow is a 61-year-old female no significant smoking history, significant secondhand smoke exposure, carries a prior diagnosis of COPD, not using any inhalers at home, history of decompensated cirrhosis currently on lactulose and diuretic regimen presented to the hospital with worsening respiratory distress for the last 4 days along with cough worsening productive phlegm subjective fevers pulmonary was called for further management. [facility] Medical History (Updated 06/19/22 @ 11:39 by Darnell Garcia MD) Abdominal pain Abnormal EKG Afib Arrhythmia Arthritis Asthma with exacerbation Atrial flutter Atrial septal defect Back Pain BMI 36.0-36.9,adult CAP (community acquired pneumonia) Chest pain CHF exacerbation Collapse of right lung Congestive heart failure Congestive heart failure Congestive splenomegaly COPD (chronic obstructive pulmonary disease) Cor pulmonale Coronary artery calcification seen on CAT scan DU (perforated duodenal ulcer) Dyspnea Dyspnea on exertion E. coli UTI (urinary tract infection) Edema Edema Gallbladder disease Hematuria Hep C w/ coma, chronic Hep C w/o coma, chronic History of chest pain History of gastroesophageal reflux (GERD) History of left heart catheterization (LHC) History of TIA (transient ischemic attack) HTN (hypertension) Hypocalcemia Hypokalemia Kidney stone Obesity (BMI 30.0-34.9) Overweight PAC (premature atrial contraction) Palpitations Pancytopenia Pleural effusion on right Pleural effusion, right Pneumonia Pneumonia Respiratory distress Right lower lobe pneumonia SVT (supraventricular tachycardia) SVT (supraventricular tachycardia) Thrombocytopenia Urinary tract infection UTI (urinary tract infection) Surgical History (Updated 06/18/22 @ 22:49 by Shannon Kwok RN) H/O section H/O esophagogastroduodenoscopy H/O tubal ligation History of cardiac cath History of section History of cholecystectomy History of right heart catheterization (RHC) S/P cholecystectomy Total knee replacement status Family History (Updated 06/18/22 @ 22:49 by Shannon Kwok, RN) Other Family history of COPD (chronic obstructive pulmonary disease) Family history of GERD Family history of acute heart failure Family history of cancer Family history of diabetes mellitus type II Family history of hyperlipidemia Family history of hypertension Family history of kidney stone Family history of myocardial infarction Social History (Updated 06/18/22 @ 22:49 by Shannon Kwok RN) Smoking Status: Never smoker alcohol intake: never substance use type: denies use current occupational status: disabled Travel in the last 8 weeks: None household members: significant other housing: apartment current occupational exposures/hazards: No caffeine: No Review of Systems Constitutional Constitutional: Reports fatigue, Reports lethargy and Reports weakness Eyes Eyes: Denies eye discharge, Denies dry eyes, Denies irritation and Denies itchy eyes ENT Ears, Nose, Mouth, and Throat: Denies epistaxis, Denies facial pain, Denies lip swelling and Denies throat swelling *Cardiovascular Cardiovascular: Reports dyspnea and Reports dyspnea on exertion *Respiratory Respiratory: Reports change in phlegm color, Reports chest congestion, Reports cough, Reports dyspnea, Reports dyspnea on exertion, Reports excessive phlegm production, Denies pain on inspiration, Denies pain with cough and Denies wheezing *Gastrointestinal Gastrointestinal: Denies abdominal pain, Denies belching and Denies cramping *Musculoskeletal Musculoskeletal: Reports back pain, Reports myalgias and Reports other (No small joint swelling or Pain) *Neurologic Neurologic: Reports weakness Psychiatric Psychiatric: Denies homicidal ideation and Denies suicidal ideation Endocrine Endocrine: Reports fatigue and Denies heat intolerance Hematolog
--- NOTE | 2022-06-19 12:57 | EXP.HP ---
History of Present Illness *Admission Date: 06/18/22 *History of present illness: 61-year-old female patient presented to the [facility] emergency department with reports of increasing shortness of breath for the past 2 days, lightheaded, and generalized weakness. She does report nausea but denies emesis, she also reports chronic diarrhea from lactulose, she does have a history of cirrhosis. Respiratory rate 24, white blood cell count 20.5, right lower lobe HCAP, creatinine 2.8 No definite focus of infection, but patient has a chronically abnormal chest x-ray with right pleural effusion and certainly could have a new pneumonia that is obscured by chronic findings.? Her symptoms suggest pneumonia.? She will therefore be treated with triple antibiotics for presumed healthcare associated pneumonia (Per Dr. Jett). In the emergency department she received normal saline 100 mL/hour, vancomycin, cefepime, and levofloxacin. [facility] Medical History (Updated 06/19/22 @ 11:39 by Darnell Garcia MD) Abdominal pain Abnormal EKG Afib Arrhythmia Arthritis Asthma with exacerbation Atrial flutter Atrial septal defect Back Pain BMI 36.0-36.9,adult CAP (community acquired pneumonia) Chest pain CHF exacerbation Collapse of right lung Congestive heart failure Congestive heart failure Congestive splenomegaly COPD (chronic obstructive pulmonary disease) Cor pulmonale Coronary artery calcification seen on CAT scan DU (perforated duodenal ulcer) Dyspnea Dyspnea on exertion E. coli UTI (urinary tract infection) Edema Edema Gallbladder disease Hematuria Hep C w/ coma, chronic Hep C w/o coma, chronic History of chest pain History of gastroesophageal reflux (GERD) History of left heart catheterization (LHC) History of TIA (transient ischemic attack) HTN (hypertension) Hypocalcemia Hypokalemia Kidney stone Obesity (BMI 30.0-34.9) Overweight PAC (premature atrial contraction) Palpitations Pancytopenia Pleural effusion on right Pleural effusion, right Pneumonia Pneumonia Respiratory distress Right lower lobe pneumonia SVT (supraventricular tachycardia) SVT (supraventricular tachycardia) Thrombocytopenia Urinary tract infection UTI (urinary tract infection) Surgical History (Updated 06/18/22 @ 22:49 by Shannon Kwok RN) H/O section H/O esophagogastroduodenoscopy H/O tubal ligation History of cardiac cath History of section History of cholecystectomy History of right heart catheterization (RHC) S/P cholecystectomy Total knee replacement status Family History (Updated 06/18/22 @ 22:49 by Shannon Kwok RN) Other Family history of COPD (chronic obstructive pulmonary disease) Family history of GERD Family history of acute heart failure Family history of cancer Family history of diabetes mellitus type II Family history of hyperlipidemia Family history of hypertension Family history of kidney stone Family history of myocardial infarction Social History (Updated 06/18/22 @ 22:49 by Shannon Kwok RN) Smoking Status: Never smoker alcohol intake: never substance use type: denies use current occupational status: disabled Travel in the last 8 weeks: None household members: significant other housing: apartment current occupational exposures/hazards: No caffeine: No Review of Systems Constitutional Constitutional: Reports system reviewed and no additional complaints, except as documented and Reports weakness Eyes Eyes: Reports system reviewed and no additional complaints, except as documented and Denies change in vision ENT Ears, Nose, Mouth, and Throat: Reports system reviewed and no additional complaints, except as documented, Denies dizziness, Denies dysphagia and Denies tongue swelling *Cardiovascular Cardiovascular: Denies chest pain, Denies chest pain with activity, Reports dyspnea and Reports dyspnea on exertion *Respiratory Respiratory: Reports co
--- NOTE | 2022-06-19 13:19 | PC.NURSE ---
Spoke with Mimi From [facility] about needing a sputum on pt.
--- NOTE | 2022-06-19 19:05 | PC.NURSE ---
Pt is A/ox4. She has been up to the bed and the chair the entire day. She has tolerated her cardiac diet well. She has not complained of any day or anything. She has been RA all day. She has be to the bathroom a few times to have BM.
[2022-06-20] VITALS (10 sets, daily range): BP systolic 111–152; BP diastolic 54–71; PULSE 60–124; RESP 16–19; TEMP 36.4–36.8; O2SAT 95–98; BMI 46.5
--- NOTE | 2022-06-20 04:45 | PC.NURSE ---
Pt is alert and oriented x4, pt has had no complaints this shift. Resting through the night with no issues. Pt ambulated to the bathroom with 1 assist. Pt lung sounds diminished. O2 sat >90% on room air. Pt abdomen soft and nontender, bowel sounds active. Pt has aggarwal in place and draining, urine cloudy and sediment noted. Call light in reach and working.
[2022-06-20 07:21] LABS: Basophils % 0.3 % (0.1-2.0); Hematocrit 35.3 % (37.0-47.0); Hemoglobin 10.4 g/dL (12.2-16.2); Lymphocytes # 0.8 K/mm3 (0.7-4.5); Lymphocytes % 6.2 % (10-50); Mean Corpuscular HGB Conc 29.5 g/dL (31.8-35.4); Mean Corpuscular Hemoglobin 35.4 pg (27.0-31.2); Mean Corpuscular Volume 120.2 fl (81-99); Mean Platelet Volume 9.5 fl (7.4-10.4); Monocytes # 1.1 K/mm3 (0.1-1.0); Monocytes % 8.5 % (1.7-9.3); Neutrophils # 11.2 K/mm3 (1.8-7.8); Neutrophils % 84.9 % (37.0-80.0); Platelet Count 125 K/mm3 (142-424); Red Blood Count 2.93 M/mm3 (4.20-5.40); Red Cell Distribution Width 15.4 % (11.5-17.5); White Blood Count 13.2 K/mm3 (4.8-10.8)
[2022-06-20 07:41] LABS: Anion Gap 15.5 mEq/L (5-15); Blood Urea Nitrogen 60 mg/dl (7-17); Calcium 7.5 mg/dl (8.4-10.2); Carbon Dioxide 21 mmol/L (22.0-30.0); Chloride 101 mmol/L (98-107); Creatinine Clearance Estimated 14 mL/min (50-200); Estimated Glomerular Filt Rate 14 ml/min (>60); GFR (African American) 17 ML/MIN (>60); Glucose 276 mg/dl (74-100); Potassium 5.5 mmoL/L (3.5-5.1); Sodium 132 mmol/L (136-145)
--- NOTE | 2022-06-20 09:56 | EXP.ACUTE.PN ---
Subjective *Date: 06/20/22 *Time: 09:56 Interval history: 61-year-old female patient sitting up in bed resting quietly she does report some increased shortness of breath this morning however when entering room nasal cannula was off patient. This morning she does have some bibasilar crackles and bilateral lower extremity edema appears slightly increased. Creatinine has increased from 3.2-3.3 today Medical Exam Vital signs and Labs for Last 24 Hours: Temp Pulse Resp BP Pulse Ox 97.6 F 90 17 111/67 98 06/20/22 08:00 06/20/22 08:00 06/20/22 08:00 06/20/22 08:00 06/20/22 08:00 Laboratory Results - last 24 hr 06/20/22 07:05: WBC 13.2 H, RBC 2.93 L, Hgb 10.4 L, Hct 35.3 L, MCV 120.2 H, MCH 35.4 H, MCHC 29.5 L, RDW 15.4, Plt Count 125 L, MPV 9.5, Neut % (Auto) 84.9 H, Lymph % (Auto) 6.2 L, [place] % (Auto) 8.5, Eos % (Auto) 0.0 L, Baso % (Auto) 0.3, Neut # (Auto) 11.2 H, Lymph # (Auto) 0.8, [place] # (Auto) 1.1 H, Eos # (Auto) 0.0, Baso # (Auto) 0.0 06/20/22 07:05: Sodium 132 L, Potassium 5.5 H, Chloride 101, Carbon Dioxide 21 L, Anion Gap 15.5 H, BUN 60 H, Creatinine 3.30 H, Estimated Creat Clear 14, Estimated GFR 14 L*, Est GFR ( Amer) 17 L*, Glucose 276 H, Calcium 7.5 L I & O for Labs for Last 24 Hours: Intake & Output 06/17/22 06/18/22 06/19/22 06/20/22 23:59 23:59 23:59 23:59 Intake Total 9 / 9 1107 / 1107 Output Total 0 / 0 600 / 600 Balance 0 / 0 1519 / 1519 1107 / 1107 Weight 264 lb 8 oz 262 lb 5.601 oz 262 lb 5.601 oz Head: Present atraumatic Eyes: Present as per HPI ENT: Present normal exam Neck: Present trachea midline Respiratory: Present decreased breath sounds and crackles; Absent accessory muscle use Cardiac: Present Irregularly Regular and No Murmur GI: Present soft and normal bowel sounds; Absent distention or tenderness Extremities: Present edema; Absent tenderness or calf tenderness Skin: Present intact and dry; Absent cyanosis or erythema Neuro: Present Motor Function Intact and oriented x 3; Absent Numbness Assessment and Plan *Assessment and plan (1) Pneumonia: Status: Acute Qualifiers: Pneumonia type: due to unspecified organism Laterality: right Lung location: lower lobe of lung Qualified Code(s): J18.9 - Pneumonia, unspecified organism Category: Medical Code(s): J18.9 - Pneumonia, unspecified organism (2) Pleural effusion on right: Status: Acute Category: Medical Code(s): J90 - Pleural effusion, not elsewhere classified (3) GERD (gastroesophageal reflux disease): Status: Chronic Qualifiers: Esophagitis presence: esophagitis presence not specified Qualified Code(s): K21.9 - Gastro-esophageal reflux disease without esophagitis Category: Medical Code(s): K21.9 - Gastro-esophageal reflux disease without esophagitis (4) Cirrhosis of liver: Status: Chronic Qualifiers: Ascites presence: unspecified Hepatic cirrhosis type: unspecified hepatic cirrhosis Qualified Code(s): K74.60 - Unspecified cirrhosis of liver Category: Medical Code(s): K74.60 - Unspecified cirrhosis of liver (5) Bilateral lower extremity edema: Status: Acute Category: Medical Code(s): R60.0 - Localized edema (6) Portal hypertension with esophageal varices: Status: Acute Category: Medical Code(s): K76.6 - Portal hypertension; I85.00 - Esophageal varices without bleeding (7) Obesity: Status: Chronic Category: Medical Code(s): E66.9 - Obesity, unspecified (8) Murmur, cardiac: Status: Acute Category: Medical Code(s): R01.1 - Cardiac murmur, unspecified (9) History of TIA (transient ischemic attack): Status: Chronic Category: Medical Code(s): Z86.73 - Personal history of transient ischemic attack (TIA), and cerebral infarction without residual deficits (10) Atrial septal defect: Status: Ch
--- NOTE | 2022-06-20 10:51 | EXP.CARD.CON ---
History of Present Illness History of Present Illness Consult date: 06/20/22 Requesting physician: Dev Lowry Consult reason: atrial fibrillation and shortness of breath Chief complaint: soa, weakness, headache, edema Additional Medical History:: Cirrhosis SVT PAF- No anticoagulation due to cirrhosis and ruptured esophageal varices Hepatic Encephalopathy Hep C ASD s/p repair Ruptured esophageal varices 2019 Echo from 05/20 Conclusion 1.? Biatrial enlargement, normal left ventricular size, mild concentric left ventricular hypertrophy, estimated ejection fraction 55% with no regional wall motion abnormality, grade 1 diastolic dysfunction seen with tissue Doppler evidence of reduced left atrial pressure. 2.? There is occluder device seen in the interatrial septum without any intracardiac shunt. 3.? Mild mitral and tricuspid regurgitation. 4.? No significant pericardial effusion noted. 5.? Inferior vena cava normal with normal inspiratory collaps Prelim Echo 06/20- EF > 55 History of present illness: 61 year old white female presented to ED on 06/18 with complaint of ongoing, progressive soa, generalized weakness, headache, and increased LE edema over the past 1.5 weeks. Patient also reports she has had ongoing cough and a low grade temp of 99 at home. Complains of ongoing diarrhea related to lactulose. Upon presentation to ED chest xray showed pulmonary venous congestion with interstitial edema, as well as, a right pleural effusion, unchanged to slightly larger then previous. EKG showed sr rate of 69 with pac present. Significant labs on presentations: WBC was 20.5, Hgb 10.6, Platelets 102, potassium was 5.2, Creatinine 2.80, Lactate 2.6, AST 70, alk phos 181, BNP 1980 serial trops negative. Patient was admitted to hospital for presumed pneumonia and treated with fluids and abx. Cardiology was asked to consult today for volume overload. Patient denies chest pain. Reports ongoing soa, cough, weakness, and all over swelling. [facility] Medical History (Updated 06/20/22 @ 12:03 by Nelida Bates, NATALIE) Abdominal pain Abnormal EKG Afib Arrhythmia Arthritis Asthma with exacerbation Atrial flutter Atrial septal defect Back Pain BMI 36.0-36.9,adult CAP (community acquired pneumonia) Chest pain CHF exacerbation Collapse of right lung Congestive heart failure Congestive heart failure Congestive splenomegaly COPD (chronic obstructive pulmonary disease) Cor pulmonale Coronary artery calcification seen on CAT scan DU (perforated duodenal ulcer) Dyspnea Dyspnea on exertion E. coli UTI (urinary tract infection) Edema Edema Gallbladder disease Hematuria Hep C w/ coma, chronic Hep C w/o coma, chronic History of chest pain History of gastroesophageal reflux (GERD) History of left heart catheterization (LHC) History of TIA (transient ischemic attack) HTN (hypertension) Hypocalcemia Hypokalemia Kidney stone Obesity (BMI 30.0-34.9) Overweight PAC (premature atrial contraction) Palpitations Pancytopenia Pleural effusion on right Pleural effusion, right Pneumonia Pneumonia Respiratory distress Right lower lobe pneumonia SVT (supraventricular tachycardia) SVT (supraventricular tachycardia) Thrombocytopenia Urinary tract infection UTI (urinary tract infection) Surgical History (Updated 06/18/22 @ 22:49 by Shannon Kwok, RN) H/O section H/O esophagogastroduodenoscopy H/O tubal ligation History of cardiac cath History of section History of cholecystectomy History of right heart catheterization (RHC) S/P cholecystectomy Total knee replacement status Family History (Updated 06/18/22 @ 22:49 by Shannon Kwok, RN) Other Family history of COPD (chronic obstructive pulmonary disease) Family history of GERD Family history of acute heart failure Family history of cancer Family history of diabetes mellitus type II Family history of hyperlipidemia Family history of hypertension Family history of breanne
--- NOTE | 2022-06-20 11:00 | PC.NURSE ---
per cardiology hold patient fluids. she is to be started on bumex drip
--- NOTE | 2022-06-20 11:21 | CA_ITS ---
APPROVED REPORT EXAM: Comprehensive 2D, Doppler, and color-flow Echocardiogram Physician Chief Of Pathology: Elle Reed CRT Ht: 5 ft 2 in Wt: 262lbs BSA: 2.14 BP: 111/67 mmHg Indications: Murmur, Shortness of Breath, Atrial Fibrillation, Peripheral Edema, cirrhosis, hep c, afib 2D Dimensions LVOT 1.82 cm (M/F) 1.5-2.5 LA Volume 70.80 mL LA Volume Index 33.10 mL/m2 (M/F) 16-34 M-Mode Dimensions RVDd 2.81 cm (0.9-2.6) LA Diam 4.27 cm (1.9-4.0) LVDd 5.16 cm (3.5-5.7) Ao Diam 3.32 cm (2.0-3.7) LVDs 3.42 cm (3.5-5.7) IVSd 1.21 cm (0.6-1.1) PWd 1.07 cm (0.6-1.1) EF (Teich) 62.20% FS 33.70% EDV (Teich) 127.20 mL ESV (Teich) 48.10 mL Left Ventricle Left atrium is mildly enlarged, left ventricle is normal size mild concentric left ventricular hypertrophy, estimated ejection fraction 55% with no regional wall motion abnormality, there is no Doppler performed. Right Ventricle Right atrium and right ventricle are mildly enlarged with normal contractility. Aortic Valve Aortic valve is thickened and calcified leaflet continue to display mobility, there is no Doppler performed. Mitral Valve Mitral valve has mitral annular calcification, leaflets are mobile, there is no Doppler performed. Tricuspid Valve Tricuspid valve grossly normal, there is no tricuspid stenosis, there is no Doppler performed Pulmonic Valve Pulmonic valve is poorly visualized. Great Vessels Aortic root is normal size. Inferior vena cava is poorly visualized. Pericardium No significant pericardial effusion noted. Conclusion 1. Biatrial enlargement, normal left ventricular size mild concentric left ventricular hypertrophy, estimated ejection fraction 55% with no regional wall motion abnormality. 2. Mildly enlarged right ventricle with normal contractility. 3. There is no Doppler performed. 4. There is no significant pericardial effusion noted. 5. Inferior vena cava is poorly visualized. Electronically signed by : Anupam Merino MD 06/21/2022 10:25:19
--- NOTE | 2022-06-20 15:29 | PC.NURSE ---
rounded on patient. patient up to chair in poor spirits stating shes tired of being sick. no specific concerns or questions. call light in reach. encouraged her to ring out as needed
--- NOTE | 2022-06-20 16:21 | EXP.PULM.PN ---
Subjective *Date: 06/20/22 *Time: 16:21 Interval history: No acute respiratory vents overnight. Continues to have cough with no productive phlegm. Initiating oxygen therapy overnight. Pulmonology Exam Inpatient Vital signs and Labs for Last 24 Hours: Temp Pulse Resp BP Pulse Ox 98.0 F 66 17 125/54 L 97 06/20/22 14:44 06/20/22 14:44 06/20/22 14:44 06/20/22 14:44 06/20/22 14:44 Laboratory Results - last 24 hr 06/20/22 07:05: WBC 13.2 H, RBC 2.93 L, Hgb 10.4 L, Hct 35.3 L, MCV 120.2 H, MCH 35.4 H, MCHC 29.5 L, RDW 15.4, Plt Count 125 L, MPV 9.5, Neut % (Auto) 84.9 H, Lymph % (Auto) 6.2 L, [place] % (Auto) 8.5, Eos % (Auto) 0.0 L, Baso % (Auto) 0.3, Neut # (Auto) 11.2 H, Lymph # (Auto) 0.8, [place] # (Auto) 1.1 H, Eos # (Auto) 0.0, Baso # (Auto) 0.0 06/20/22 07:05: Sodium 132 L, Potassium 5.5 H, Chloride 101, Carbon Dioxide 21 L, Anion Gap 15.5 H, BUN 60 H, Creatinine 3.30 H, Estimated Creat Clear 14, Estimated GFR 14 L*, Est GFR ( Amer) 17 L*, Glucose 276 H, Calcium 7.5 L I & O for Labs for Last 24 Hours: Intake & Output 06/17/22 06/18/22 06/19/22 06/20/22 23:59 23:59 23:59 23:59 Intake Total 2119 / 2119 1827 / 1827 Output Total 0 / 0 600 / 600 1100 / 1100 Balance 0 / 0 1519 / 1519 727 / 727 Weight 264 lb 8 oz 262 lb 5.601 oz 262 lb 5.601 oz Head: Present normocephalic and atraumatic ENT: Present normal exam, normal oropharynx and mucous membranes moist Neck: Present normal inspection and full ROM Respiratory: Present respiratory distress, crackles, diminished air movement and able to speak in complete sentences; Absent accessory muscle use or wheezes Cardiac: Present S1/S2, Tachycardia and radial pulses present GI: Present soft and distention; Absent tenderness or guarding Rectal (female): Present deferred (female): Present deferred Skin: Present intact; Absent cyanosis or jaundice Neuro: Present alert, awake and oriented x 3 Extremities: Present normal inspection; Absent clubbing or cyanosis Psychiatric: Present normal affect and cooperative Assessment and Plan *Assessment and plan (1) Pneumonia: Status: Acute Qualifiers: Pneumonia type: due to unspecified organism Laterality: right Lung location: lower lobe of lung Qualified Code(s): J18.9 - Pneumonia, unspecified organism Category: Medical Code(s): J18.9 - Pneumonia, unspecified organism (2) Pleural effusion on right: Status: Acute Category: Medical Code(s): J90 - Pleural effusion, not elsewhere classified Plan Ms. Morrow is a 61-year-old female no significant smoking history, significant secondhand smoke exposure, carries a prior diagnosis of COPD, not using any inhalers at home, history of decompensated cirrhosis currently on lactulose and diuretic regimen presented to the hospital with worsening respiratory distress along with cough worsening productive phlegm subjective fevers pulmonary was called for further management. #Right lower lobe pneumonia: #Acute hypoxic respiratory failure: #Right pleural effusion. 61-year-old history of decompensated cirrhosis. Most recent hospital admission was from April 2022 for decompensated cirrhosis and altered mentation. Present with worsening respiratory chest cough and productive phlegm. Afebrile on admission. Hemodynamically stable. Significant neutrophilic leukocytosis on admission at 23, improved now at 13 Chest x-ray from the admission personally reviewed, noted to have chronic right lower lobe pleural effusion along with new right lower lobe airspace disease when compared to her chest x-ray from most recent hospital admission Relevant past medical family and social history reviewed On examination patient appeared to be in mild respiratory distress. On room air saturating 95% and above. No wheezing noted on auscultation. Patient was initiated vancomycin levofloxacin in the ED. Interval update: Patient respiratory status remained stable. Leukocytosis
[2022-06-20 21:36] LABS: POC Glucose,Bedside 283 (70-110)
--- NOTE | 2022-06-20 22:52 | PC.NURSE ---
Received in report pt had only received 12.5mg of Albumin during day shift due to IV infiltrating. Ordered dose 25 mg. Ultrasound guided IV to left FA started by ER staff at 2215. 12,5 mg Albumin pulled from ER to be administered. Albumin hanging thrown away due to being opened >4hrs. Elicia from nightwatch called about IV rate. States it is ok to give 50ml 12.5 mg Albumin over 1 hour. States she will enter a one time order for the 2nd bottle of Albumin.
[2022-06-21] VITALS (8 sets, daily range): BP systolic 121–147; BP diastolic 54–68; PULSE 50–70; RESP 16–20; TEMP 36.6–37.1; O2SAT 93–96; BMI 48.0
[2022-06-21 06:16] LABS: POC Glucose,Bedside 120 (70-110)
[2022-06-21 06:50] LABS: Basophils # 0.1 K/mm3 (0-0.2); Basophils % 0.5 % (0.1-2.0); Eosinophils % 0.3 % (0.1-12.0); Hematocrit 33.5 % (37.0-47.0); Hemoglobin 10.7 g/dL (12.2-16.2); Lymphocytes # 1.3 K/mm3 (0.7-4.5); Lymphocytes % 9.3 % (10-50); Mean Corpuscular HGB Conc 32.1 g/dL (31.8-35.4); Mean Corpuscular Hemoglobin 36.4 pg (27.0-31.2); Mean Corpuscular Volume 113.5 fl (81-99); Mean Platelet Volume 9.7 fl (7.4-10.4); Monocytes # 1.1 K/mm3 (0.1-1.0); Monocytes % 7.8 % (1.7-9.3); Neutrophils # 11.6 K/mm3 (1.8-7.8); Neutrophils % 82.1 % (37.0-80.0); Platelet Count 156 K/mm3 (142-424); Red Blood Count 2.95 M/mm3 (4.20-5.40); Red Cell Distribution Width 15.3 % (11.5-17.5); White Blood Count 14.1 K/mm3 (4.8-10.8)
[2022-06-21 07:06] LABS: Sodium 134 mmol/L (136-145)
[2022-06-21 07:07] LABS: Blood Urea Nitrogen 63 mg/dl (7-17); Calcium 7.9 mg/dl (8.4-10.2); Chloride 101 mmol/L (98-107); Creatinine Clearance Estimated 17 mL/min (50-200); Estimated Glomerular Filt Rate 18 ml/min (>60); GFR (African American) 22 ML/MIN (>60); Glucose 119 mg/dl (74-100); Potassium 5.3 mmoL/L (3.5-5.1)
[2022-06-21 07:08] LABS: Anion Gap 14.3 mEq/L (5-15); Carbon Dioxide 24 mmol/L (22.0-30.0)
--- NOTE | 2022-06-21 09:26 | EXP.CARD.PN ---
Subjective Subjective Date: 06/21/22 Time: 08:00 Principal diagnosis: pneumonia, sepsis, ricci Interval history: Patient diuresed an additional 700 mls last night. Reports soa has improved. Bilateral LE edema improving. Potassium improved to 5.3. Creatinine down to 2.7 this am. Exam Data for Last 24 hours Vital signs and Labs for Last 24 Hours: Temp Pulse Resp BP Pulse Ox 97.8 F 61 18 128/54 L 96 06/21/22 08:00 06/21/22 08:00 06/21/22 08:00 06/21/22 08:00 06/21/22 08:00 Laboratory Results - last 24 hr 06/20/22 20:48: POC Glucose 283 H 06/21/22 06:06: POC Glucose 120 H 06/21/22 06:18: WBC 14.1 H, RBC 2.95 L, Hgb 10.7 L, Hct 33.5 L, MCV 113.5 H, MCH 36.4 H, MCHC 32.1, RDW 15.3, Plt Count 156, MPV 9.7, Neut % (Auto) 82.1 H, Lymph % (Auto) 9.3 L, [place] % (Auto) 7.8, Eos % (Auto) 0.3, Baso % (Auto) 0.5, Neut # (Auto) 11.6 H, Lymph # (Auto) 1.3, [place] # (Auto) 1.1 H, Eos # (Auto) 0.0, Baso # (Auto) 0.1 06/21/22 06:18: Sodium 134 L, Potassium 5.3 H, Chloride 101, Carbon Dioxide 24, Anion Gap 14.3, BUN 63 H, Creatinine 2.70 H, Estimated Creat Clear 17, Estimated GFR 18 L*, Est GFR ( Amer) 22 L D, Glucose 119 H D, Calcium 7.9 L I & O for Last 24 hours: Intake & Output 06/18/22 06/19/22 06/20/22 06/21/22 23:59 23:59 23:59 23:59 Intake Total 2118 / 2119 2066 / 206 480 / 480 Output Total 0 / 0 600 / 600 1100 / 1100 800 / 800 Balance 0 / 0 1519 / 1519 967 / 967 -320 / -320 Weight 264 lb 8 oz 262 lb 5.601 oz 262 lb 5.601 oz 271 lb 3 oz Microbiology Reports for the Last 24 Hours: Microbiology 06/18/22 16:50 Blood Blood Culture - Preliminary NO GROWTH AFTER 48 HOURS 06/18/22 16:50 Blood Blood Culture - Preliminary NO GROWTH AFTER 48 HOURS Constitutional Constitutional: no acute distress *Routine Respiratory Exam Respiratory: Present CTA bilaterally and symmetric chest movement *Routine Cardiovascular Exam Cardiovascular: Present RRR, Normal S1 and Normal S2 *Routine Abdominal Exam Abdominal: Present soft and normoactive bowel sounds; Absent tenderness *Routine Extremities Exam Extremities: Present edema, full ROM and normal capillary refill Comments: Bilateral LE edema noted but improved from yesterday. *Routine Skin Exam Skin: Present intact, dry and warm Detailed Neck Exam: Thyroids Thyroid: Absent bruit Progress Note: A&P Assessment and plan (1) Pneumonia: Status: Acute (2) Pleural effusion on right: Status: Acute Assessment and Plan Assessment and Plan for All Diagnoses:: Volume overload/LE edema -Will give one time dose of Bumex 2mg IV, monitor I&O -EF remains > 55 -secondary to cirrhosis 06/21- LE edema improved since yesterday. 1100mls uop noted from dose yesterday. Plan to give additional 2 doses of bumex 2mg IV today. If labs/symptoms continue to improve can transition to Bumex 2mg PO QD after Chronic right sided pleural effusion/Pneumonia -effusion stable -Pulmonary following -Needs diuresis, see above. Abx per pulmonary 06/21- SOA improving. Liver cirrhosis -Defer to primary service RICCI/Hyperkalemia -Could be from congestion. not improving with fluids, worsening. Gave Bumex 2mg IV and patient had 400 mls UOP in 1 hour. Albumin low, will replace. repeat labs in am. If improving will add bumex 2mg IV BID. Hold fluids 06/21- Improving. Creatinine down to 2.7, potassium down to 5.3 Hx of afib/svt/Atrial septal defect s/p repair -No significant change to echo, see above -Remains nsr -continue Dilt 120mg PO QD and Metoprolol 25mg QD -No OAC due to cirrhosis, thromboyctopenia, and hx of ruptured esophageal varices. 06/21- Patient had good response to bumex 2mg IV yesterday with 1100mls uop and improvement of soa and LE edema. I have ordered an additional 2mg of Bumex x 2 for today. If labs continue to improve start Bumex 2mg PO QD.
--- NOTE | 2022-06-21 09:35 | HMH.PTEV ---
Physical Therapy Evaluation Rehab PT IP Evaluation Start: 06/21/22 09:04 Freq: ONCE Status: Active Protocol: Document 06/21/22 09:31 RHIANNON (Rec: 06/21/22 09:35 PHORJEFFERY [id number]) Subjective/History History History 61 yowf adm to [facility] with PNA and RICCI. She reports she lives with her spouse and has multiple steps to enter her home. She reports using a cane for ambulation at baseline and is generally independent with all ADLs. Subjective Subjective Pt reports feeling very weak and tired this am. Agrees to OOB activity. No c/o pain. Rehab PT IP Eval Objective Appearance Patient Behavior Appropriate Patient Orientation Person,Place,Time Difficulty following instructions none Speech Pattern Clear Ambulation Patient Able to Ambulate Yes Ambulation Observation IP General Gait Pattern Observation Wide Based Gait Ambulation Distance (feet) 20 Ambulation Assistive Device None Ambulation Ability Contact Guard/Hand Hold Balance Ability to Arise Able, w/o using arms Sitting Balance Steady, safe Standing Balance Steady, wide stance Dynamic Sitting Balance Ability Good Dynamic Standing Balance Ability Fair Transfers Bed Transfer Ability Contact Guard/Hand Hold Chair Transfer Ability Contact Guard/Hand Hold Sit to Stand Bed Transfer Ability Contact Guard/Hand Hold Sit to Stand Chair Transfer Ability Contact Guard/Hand Hold Rehab PT IP prob,goals,plan Problems Date of Evaluation: 06/21/22 PT IP Problems Bed Mobility,Transfers,Gait Rehab Potential Rehab Potential Good Plan PT Intervention Plan Bed Mobility,Transfers,Gait, Therapeutic Exercise PT Plan Frequency BID Duration LOS Discharge Goals Bed Transfer Ability Supervision/Stand by Sit to Stand Chair Transfer Ability Supervision/Stand by Ambulation Distance (feet) 30 Discharge Plan PT Discharge Plan Pt is appropriate to return home once medically stable, recommend home health therapy. G -code Required No Eval Complexity Eval Charge Codes 22976 - Moderate Complexity PHYSICIAN CERTIFICATION: I certify the specified therapy services for Maria Luisa Rodrigues are required, authorized, and reviewed every 30 days.
--- NOTE | 2022-06-21 09:43 | EXP.ACUTE.PN ---
Subjective *Date: 06/21/22 *Time: 19:41 Interval history: 61-year-old female patient sitting up in recliner resting quietly in no respiratory distress. IV fluids were stopped yesterday and she received Bumex IV with good urinary response. Oxygen saturation 96% on room air with less bilateral lower extremity edema. Long discussion with patient regarding attending all scheduled appointments Medical Exam Vital signs and Labs for Last 24 Hours: Temp Pulse Resp BP Pulse Ox 97.8 F 61 18 128/54 L 96 06/21/22 08:00 06/21/22 08:00 06/21/22 08:00 06/21/22 08:00 06/21/22 08:00 Laboratory Results - last 24 hr 06/20/22 20:48: POC Glucose 283 H 06/21/22 06:06: POC Glucose 120 H 06/21/22 06:18: WBC 14.1 H, RBC 2.95 L, Hgb 10.7 L, Hct 33.5 L, MCV 113.5 H, MCH 36.4 H, MCHC 32.1, RDW 15.3, Plt Count 156, MPV 9.7, Neut % (Auto) 82.1 H, Lymph % (Auto) 9.3 L, [place] % (Auto) 7.8, Eos % (Auto) 0.3, Baso % (Auto) 0.5, Neut # (Auto) 11.6 H, Lymph # (Auto) 1.3, [place] # (Auto) 1.1 H, Eos # (Auto) 0.0, Baso # (Auto) 0.1 06/21/22 06:18: Sodium 134 L, Potassium 5.3 H, Chloride 101, Carbon Dioxide 24, Anion Gap 14.3, BUN 63 H, Creatinine 2.70 H, Estimated Creat Clear 17, Estimated GFR 18 L*, Est GFR ( Amer) 22 L D, Glucose 119 H D, Calcium 7.9 L I & O for Labs for Last 24 Hours: Intake & Output 06/18/22 06/19/22 06/20/22 06/21/22 23:59 23:59 23:59 23:59 Intake Total 2119 / 2119 2067 / 2067 480 / 480 Output Total 0 / 0 600 / 600 1100 / 1100 800 / 800 Balance 0 / 0 1519 / 1519 967 / 967 -320 / -320 Weight 264 lb 8 oz 262 lb 5.601 oz 262 lb 5.601 oz 271 lb 3 oz Microbiology Reports for the Last 24 Hours: Microbiology 06/18/22 16:50 Blood Blood Culture - Preliminary NO GROWTH AFTER 48 HOURS 06/18/22 16:50 Blood Blood Culture - Preliminary NO GROWTH AFTER 48 HOURS Head: Present atraumatic Eyes: Present as per HPI ENT: Present normal exam Neck: Present normal inspection and trachea midline; Absent tenderness Respiratory: Present crackles; Absent accessory muscle use Cardiac: Present Reg Rate and Rhythm and Audible Murmur GI: Present soft and normal bowel sounds; Absent distention or tenderness Extremities: Present full ROM and edema Skin: Present intact and dry; Absent cyanosis or erythema Neuro: Present Motor Function Intact, Weakness, oriented x 3 and moves all extremities Assessment and Plan *Assessment and plan (1) Dyspnea on exertion: Status: Acute Category: Medical Code(s): R06.09 - Other forms of dyspnea (2) Pleural effusion: Status: Acute Category: Medical Code(s): J90 - Pleural effusion, not elsewhere classified (3) SVT (supraventricular tachycardia): Status: Acute Category: Medical Code(s): I47.1 - Supraventricular tachycardia (4) Pneumonia: Status: Acute Qualifiers: Pneumonia type: due to unspecified organism Laterality: right Lung location: lower lobe of lung Qualified Code(s): J18.9 - Pneumonia, unspecified organism Category: Medical Code(s): J18.9 - Pneumonia, unspecified organism (5) Bilateral lower extremity edema: Status: Acute Category: Medical Code(s): R60.0 - Localized edema (6) Portal hypertension with esophageal varices: Status: Acute Category: Medical Code(s): K76.6 - Portal hypertension; I85.00 - Esophageal varices without bleeding (7) Hepatic encephalopathy: Status: Acute Category: Medical Code(s): K72.90 - Hepatic failure, unspecified without coma Plan 1. Continue current medical management 2. Pulmonary following 3. Cardiology following
--- NOTE | 2022-06-21 09:53 | HMH.OTEV ---
OT Inpatient Evaluation Rehab OT IP Evaluation Start: 06/21/22 09:05 Freq: ONCE Status: Complete Protocol: [facility] (Rec: 06/21/22 09:52 [facility] [id number]) Rehab OT IP Assessment Subjective History Pt oriented x 3 on arrival. Pt agreeable to engage in therapy evaluation. Pt was admitted via ED on 06/18/22 due to PNA. Prior to being in the hospital pt lived at home with her . They are currently living in a Motel due to their apartment being updated. Pt claims before she got sick she was independent with all ADLs. She also reports she was independent with cooking and cleaning. Her would assist with cleaning and he completed all grocery shopping. She was still driving, but not very often. Pt does use a cane/ walker during ambulation. Subjective I just feel so weak. Objective Patient Orientation Person,Place,Birthday Upper Extremity Gross ROM WFL Bed Mobility bed mobility-scooting,bed mobility - supine/sit,bed mobility - rolling Assist Level Supervision/Stand by Transfer Training Sit/Stand Transfer Assist Level Contact Guard/Hand Hold Rehab OT IP prob,goals,plan Problems Date of Evaluation: 06/21/22 OT IP Problems Bed Mobility,Transfers,Balance ,Self care,Safety Rehab Potential Rehab Potential Good Equipment Needs Assistive Devices Rolling / Wheeled Walker Plan OT intervention Plan Bed Mobility,Transfers,Balance ,Self care,Safety,Therapeutic Exercise OT Plan Frequency BID Duration LOS Discharge Goals Bed Mobility Ability Standby Assistance Sit to Stand Chair Transfer Ability Supervision/Stand by Chair Transfer Ability Supervision/Stand by Chair Transfer Technique Sit to/from Ambulatory Chair Transfer Assistive Devices Rolling Walker Feeding Ability Assist with Tray Set Up Lower Body Dressing Ability Standby Assistance Upper Body Dressing Ability Standby Assistance Bathing Ability
--- NOTE | 2022-06-21 10:38 | EXP.PULM.PN ---
Subjective *Date: 06/21/22 *Time: 10:44 Interval history: No acute respiratory events overnight. Patient continued to remain on room air Pulmonology Exam Inpatient Vital signs and Labs for Last 24 Hours: Temp Pulse Resp BP Pulse Ox 97.8 F 61 18 128/54 L 96 06/21/22 08:00 06/21/22 08:00 06/21/22 08:00 06/21/22 08:00 06/21/22 08:00 Laboratory Results - last 24 hr 06/20/22 20:48: POC Glucose 283 H 06/21/22 06:06: POC Glucose 120 H 06/21/22 06:18: WBC 14.1 H, RBC 2.95 L, Hgb 10.7 L, Hct 33.5 L, MCV 113.5 H, MCH 36.4 H, MCHC 32.1, RDW 15.3, Plt Count 156, MPV 9.7, Neut % (Auto) 82.1 H, Lymph % (Auto) 9.3 L, Will % (Auto) 7.8, Eos % (Auto) 0.3, Baso % (Auto) 0.5, Neut # (Auto) 11.6 H, Lymph # (Auto) 1.3, Will # (Auto) 1.1 H, Eos # (Auto) 0.0, Baso # (Auto) 0.1 06/21/22 06:18: Sodium 134 L, Potassium 5.3 H, Chloride 101, Carbon Dioxide 24, Anion Gap 14.3, BUN 63 H, Creatinine 2.70 H, Estimated Creat Clear 17, Estimated GFR 18 L*, Est GFR ( Amer) 22 L D, Glucose 119 H D, Calcium 7.9 L I & O for Labs for Last 24 Hours: Intake & Output 06/18/22 06/19/22 06/20/22 06/21/22 23:59 23:59 23:59 23:59 Intake Total 2119 / 2119 2067 / 2067 480 / 480 Output Total 0 / 0 600 / 600 1100 / 1100 800 / 800 Balance 0 / 0 1519 / 1519 967 / 967 -320 / -320 Weight 264 lb 8 oz 262 lb 5.601 oz 262 lb 5.601 oz 271 lb 3 oz Microbiology Reports for the Last 24 Hours: Microbiology 06/18/22 16:50 Blood Blood Culture - Preliminary NO GROWTH AFTER 48 HOURS 06/18/22 16:50 Blood Blood Culture - Preliminary NO GROWTH AFTER 48 HOURS Head: Present normocephalic and atraumatic ENT: Present normal exam, normal oropharynx and mucous membranes moist Neck: Present normal inspection and full ROM Respiratory: Present respiratory distress, crackles, diminished air movement and able to speak in complete sentences; Absent accessory muscle use or wheezes Cardiac: Present S1/S2, Tachycardia and radial pulses present GI: Present soft and distention; Absent tenderness or guarding Rectal (female): Present deferred (female): Present deferred Skin: Present intact; Absent cyanosis or jaundice Neuro: Present alert, awake and oriented x 3 Extremities: Present normal inspection; Absent clubbing or cyanosis Psychiatric: Present normal affect and cooperative Assessment and Plan *Assessment and plan (1) Pneumonia: Status: Acute Qualifiers: Laterality: right Lung location: lower lobe of lung Pneumonia type: due to unspecified organism Qualified Code(s): J18.9 - Pneumonia, unspecified organism Category: Medical Code(s): J18.9 - Pneumonia, unspecified organism (2) Pleural effusion on right: Status: Acute Category: Medical Code(s): J90 - Pleural effusion, not elsewhere classified (3) Dyspnea on exertion: Status: Acute Category: Medical Code(s): R06.09 - Other forms of dyspnea Plan Ms. Morrow is a 61-year-old female no significant smoking history, significant secondhand smoke exposure, carries a prior diagnosis of COPD, not using any inhalers at home, history of decompensated cirrhosis currently on lactulose and diuretic regimen presented to the hospital with worsening respiratory distress along with cough worsening productive phlegm subjective fevers pulmonary was called for further management. #Right lower lobe pneumonia: #Acute hypoxic respiratory failure: #Right pleural effusion. 61-year-old history of decompensated cirrhosis. Most recent hospital admission was from April 2022 for decompensated cirrhosis and altered mentation. Present with worsening respiratory chest cough and productive phlegm. Afebrile on admission. Hemodynamically stable. Significant neutrophilic leukocytosis on admission at 23, improved now at 13 Chest x-ray from the admission personally reviewed, noted to have chronic right lower lobe pleural effus
--- NOTE | 2022-06-21 14:50 | DIET.NUTRFU ---
Patient was up in chair during rounds on room air, no oxygen needed. She was given IVF and albumin yesterday and bumex with good urine output noted. Her BLE appeared better with less edema. She continues on lactulose with 4 BM noted yesterday. Wt is up at 123kg, was 119kg possibly d/t the IVF. She reports eating toast and brown this morning, lack of appetite continues on cardiac diet. Boost clear in place for additional calories and protein if consumed. Labs: Na 134L, K 5.3H, Cr 2.7 (3.3), glucose 119H, insulin in place. Will continue to encourage po intake.
--- NOTE | 2022-06-21 15:14 | PC.NURSE ---
0850 patient morning meds administered. assisted with transferring to bedside commode to have a bm. no questions or concerns. call light within reach.
--- NOTE | 2022-06-21 18:15 | PC.NURSE ---
Patient diuresed with bumex. 2200ml out of aggarwal cath. VS stable and pt remained on room air. Bedside commode utilized for bowel movements. Patient alert and oriented with no other complaints.
[2022-06-22] VITALS (8 sets, daily range): BP systolic 121–149; BP diastolic 53–75; PULSE 50–81; RESP 16–18; TEMP 36.5–36.9; O2SAT 93–98
--- NOTE | 2022-06-22 05:17 | PC.NURSE ---
NO ACUTE CHANGES SINCE PREVIOUS ASSESSMENT. PT HAS RESTED INTERMITTENTLY THIS SHIFT. LUNG SOUNDS ARE CLEAR BILATERALLY. TOLERATING ROOM AIR WELL. PT DOES STATE THAT SHE GETS SOME SHORTNESS OF AIR WHEN AMBULATING TO THE BATHROOM. PT HAS NOT C/O PAIN OR N/V/D. TORO REMAINS IN PLACE, HAS DRAINED 550ML OF URINE SO FAR THIS SHIFT. PT HAS VOICED HER DESIRE TO GO HOME THIS SHIFT BECASUE SHE STATES SHE IS FEELING BETTER. CALL INMAN WITHIN REACH.
[2022-06-22 06:52] LABS: Anion Gap 12.1 mEq/L (5-15); Blood Urea Nitrogen 57 mg/dl (7-17); Calcium 7.9 mg/dl (8.4-10.2); Carbon Dioxide 27 mmol/L (22.0-30.0); Chloride 101 mmol/L (98-107); Creatinine Clearance Estimated 23 mL/min (50-200); Estimated Glomerular Filt Rate 25 ml/min (>60); GFR (African American) 30 ML/MIN (>60); Glucose 139 mg/dl (74-100); Potassium 5.1 mmoL/L (3.5-5.1); Sodium 135 mmol/L (136-145)
[2022-06-22 06:57] LABS: Basophils # 0.2 K/mm3 (0-0.2); Eosinophils # 0.4 K/mm3 (0.0-0.4); Eosinophils % 4.4 % (0.1-12.0); Hematocrit 35.1 % (37.0-47.0); Hemoglobin 10.9 g/dL (12.2-16.2); Lymphocytes # 1.1 K/mm3 (0.7-4.5); Mean Corpuscular HGB Conc 31.2 g/dL (31.8-35.4); Mean Corpuscular Hemoglobin 35.1 pg (27.0-31.2); Mean Corpuscular Volume 112.4 fl (81-99); Monocytes # 1.3 K/mm3 (0.1-1.0); Monocytes % 13.9 % (1.7-9.3); Neutrophils # 6.3 K/mm3 (1.8-7.8); Neutrophils % 67.7 % (37.0-80.0); Platelet Count 143 K/mm3 (142-424); Red Blood Count 3.12 M/mm3 (4.20-5.40); Red Cell Distribution Width 15.4 % (11.5-17.5); White Blood Count 9.3 K/mm3 (4.8-10.8)
--- NOTE | 2022-06-22 09:34 | P.PN_ITS ---
Subjective *Date: 06/22/22 *Time: 09:34 Medical Exam Vital signs and Labs for Last 24 Hours: Temp Pulse Resp BP Pulse Ox 97.9 F 69 18 141/67 H 96 06/22/22 08:00 06/22/22 08:00 06/22/22 08:00 06/22/22 08:00 06/22/22 08:00 Laboratory Results - last 24 hr 06/22/22 06:05: WBC 9.3 D, RBC 3.12 L, Hgb 10.9 L, Hct 35.1 L, MCV 112.4 H, MCH 35.1 H, MCHC 31.2 L, RDW 15.4, Plt Count 143, MPV 9.0, Neut % (Auto) 67.7, Lymph % (Auto) 12.0, [place] % (Auto) 13.9 H, Eos % (Auto) 4.4, Baso % (Auto) 2.0, Neut # (Auto) 6.3, Lymph # (Auto) 1.1, [place] # (Auto) 1.3 H, Eos # (Auto) 0.4, Baso # (Auto) 0.2 06/22/22 06:05: Sodium 135 L, Potassium 5.1, Chloride 101, Carbon Dioxide 27, Anion Gap 12.1, BUN 57 H, Creatinine 2.00 H D, Estimated Creat Clear 23, Estimated GFR 25 L, Est GFR ( Amer) 30 L D, Glucose 139 H, Calcium 7.9 L I & O for Labs for Last 24 Hours: Intake & Output 06/19/22 06/20/22 06/21/22 06/22/22 23:59 23:59 23:59 23:59 Intake Total 2119 / 2119 2067 / 2067 1440 / 1440 360 / 360 Output Total 600 / 600 1100 / 1100 2600 / 2600 150 / 150 Balance 1519 / 1519 967 / 967 -1160 / -1160 210 / 210 Weight 119 kg 119 kg 123.009 kg The patient's infection will respond to the chosen ABx?: Yes (BLOOD CULTURES NEGATIVE, SPUTUM UNCOLLECTED) Is the patient receiving the right drug, dose, and route?: Yes Could a more targeted ABx be ordered?: No
--- NOTE | 2022-06-22 15:16 | EXP.PN ---
Subjective *Date: 06/22/22 *Time: 15:16 Interval history: getting out of bed c/o dyspnea w/exertion good diuresis wbc normalizing creat declining to 2.0 with normal k Exam Data for Last 24 hours Vital signs and Labs for Last 24 Hours: Temp Pulse Resp BP Pulse Ox 97.7 F 58 L 18 148/70 H 94 L 06/22/22 12:00 06/22/22 12:00 06/22/22 12:00 06/22/22 12:00 06/22/22 12:00 Laboratory Results - last 24 hr 06/22/22 06:05: WBC 9.3 D, RBC 3.12 L, Hgb 10.9 L, Hct 35.1 L, MCV 112.4 H, MCH 35.1 H, MCHC 31.2 L, RDW 15.4, Plt Count 143, MPV 9.0, Neut % (Auto) 67.7, Lymph % (Auto) 12.0, [place] % (Auto) 13.9 H, Eos % (Auto) 4.4, Baso % (Auto) 2.0, Neut # (Auto) 6.3, Lymph # (Auto) 1.1, [place] # (Auto) 1.3 H, Eos # (Auto) 0.4, Baso # (Auto) 0.2 06/22/22 06:05: Sodium 135 L, Potassium 5.1, Chloride 101, Carbon Dioxide 27, Anion Gap 12.1, BUN 57 H, Creatinine 2.00 H D, Estimated Creat Clear 23, Estimated GFR 25 L, Est GFR ( Amer) 30 L D, Glucose 139 H, Calcium 7.9 L I & O for Last 24 hours: Intake & Output 06/19/22 06/20/22 06/21/22 06/22/22 23:59 23:59 23:59 23:59 Intake Total 2119 / 2119 2067 / 2067 1440 / 1440 840 / 840 Output Total 600 / 600 1100 / 1100 2600 / 2600 750 / 750 Balance 1519 / 1519 967 / 967 -1160 / -1160 90 / 90 Weight 262 lb 5.601 oz 262 lb 5.601 oz 271 lb 3 oz Constitutional Constitutional: obese and chronically ill appearing *Routine HEENT Exam Head: Present normocephalic Eye: Present EOMI ENT: Present mucous membranes moist *Routine Neck Exam Neck: Present supple *Routine Respiratory Exam Respiratory: Absent accessory muscle use or respiratory distress *Routine Cardiovascular Exam Cardiovascular: Present RRR *Routine Abdominal Exam Abdominal: Present soft and obese *Routine Extremities Exam Extremities: Present edema; Absent extremity cold to touch *Routine Skin Exam Skin: Absent jaundice *Routine Neurological Exam Neurological: Present alert and oriented X3 Assessment and Plan *Assessment and plan (1) Dyspnea on exertion: Status: Acute Category: Medical Code(s): R06.09 - Other forms of dyspnea (2) Pneumonia: Status: Acute Qualifiers: Pneumonia type: due to unspecified organism Laterality: right Lung location: lower lobe of lung Qualified Code(s): J18.9 - Pneumonia, unspecified organism Category: Medical Code(s): J18.9 - Pneumonia, unspecified organism (3) Cirrhosis of liver: Status: Chronic Qualifiers: Ascites presence: unspecified Hepatic cirrhosis type: unspecified hepatic cirrhosis Qualified Code(s): K74.60 - Unspecified cirrhosis of liver Category: Medical Code(s): K74.60 - Unspecified cirrhosis of liver (4) Bilateral lower extremity edema: Status: Acute Category: Medical Code(s): R60.0 - Localized edema (5) Cirrhosis of liver not due to alcohol: Status: Chronic Category: Medical Code(s): K74.60 - Unspecified cirrhosis of liver (6) Obesity: Status: Chronic Category: Medical Code(s): E66.9 - Obesity, unspecified (7) Murmur, cardiac: Status: Acute Category: Medical Code(s): R01.1 - Cardiac murmur, unspecified (8) Acute kidney injury: Status: Acute Category: Medical Code(s): N17.9 - Acute kidney failure, unspecified (9) History of TIA (transient ischemic attack): Status: Chronic Category: Medical Code(s): Z86.73 - Personal history of transient ischemic attack (TIA), and cerebral infarction without residual deficits (10) HTN (hypertension): Status: Chronic Qualifiers: Hypertension type: essential hypertension Category: Medical Code(s): I10 - Essential (primary) hypertension Plan continue levaquin bumex 2mg q12 sequential examination to gauge effect of diuresis
[2022-06-22 15:52] LABS: POC Glucose,Bedside 216 (70-110)
--- NOTE | 2022-06-22 19:15 | PC.NURSE ---
Pt remains on RA at this time. VSS. CB in reach. Pt has been up to chiar most of shift. Lungs diminished. Newby removed and prophylactic Lovenox ordered and given per nov.
[2022-06-23] VITALS (12 sets, daily range): BP systolic 105–147; BP diastolic 48–74; PULSE 50–65; RESP 16–20; TEMP 36.4–37.2; O2SAT 95–97; BMI 47.0
--- NOTE | 2022-06-23 04:10 | PC.NURSE ---
pt A&OX4. rested well this shift. O2 sats >90% on RA. no c/o pain or SOA this shift. able to ambulate to and from the bathroom with assistance but has been using BSC. CB in reach.
[2022-06-23 07:22] LABS: Basophils # 0.2 K/mm3 (0-0.2); Basophils % 1.9 % (0.1-2.0); Eosinophils # 0.5 K/mm3 (0.0-0.4); Eosinophils % 5.6 % (0.1-12.0); Hematocrit 33.4 % (37.0-47.0); Hemoglobin 10.5 g/dL (12.2-16.2); Lymphocytes % 11.7 % (10-50); Mean Corpuscular HGB Conc 31.5 g/dL (31.8-35.4); Mean Corpuscular Hemoglobin 35.3 pg (27.0-31.2); Mean Corpuscular Volume 112.1 fl (81-99); Mean Platelet Volume 8.9 fl (7.4-10.4); Monocytes # 1.3 K/mm3 (0.1-1.0); Monocytes % 15.2 % (1.7-9.3); Neutrophils # 5.4 K/mm3 (1.8-7.8); Neutrophils % 65.6 % (37.0-80.0); Platelet Count 139 K/mm3 (142-424); Red Blood Count 2.98 M/mm3 (4.20-5.40); Red Cell Distribution Width 15.3 % (11.5-17.5); White Blood Count 8.3 K/mm3 (4.8-10.8)
[2022-06-23 07:31] LABS: Anion Gap 11.8 mEq/L (5-15); Blood Urea Nitrogen 45 mg/dl (7-17); Calcium 7.8 mg/dl (8.4-10.2); Carbon Dioxide 26 mmol/L (22.0-30.0); Chloride 102 mmol/L (98-107); Creatinine Clearance Estimated 33 mL/min (50-200); Estimated Glomerular Filt Rate 38 ml/min (>60); GFR (African American) 46 ML/MIN (>60); Glucose 154 mg/dl (74-100); Potassium 4.8 mmoL/L (3.5-5.1); Sodium 135 mmol/L (136-145)
[2022-06-23 11:45] LABS: POC Glucose,Bedside 228 (70-110)
[2022-06-23 11:45] LABS: POC Glucose,Bedside 207 (70-110)
[2022-06-23 11:45] LABS: POC Glucose,Bedside 118 (70-110)
--- NOTE | 2022-06-23 13:53 | XR_ITS ---
PROCEDURE INFORMATION: Exam: XR Chest Exam date and time: 06/23/2022 1:57 PM Age: 61 years old Clinical indication: Cardiovascular condition or disease; Congestive heart failure (chf); Cause unknown; Type unknown TECHNIQUE: Imaging protocol: Radiologic exam of the chest. Views: 1 view. COMPARISON: CR XR CHEST PORTABLE 06/18/2022 5:16 PM FINDINGS: Lungs: Nonspecific bibasilar consolidation is present, consistent with atelectasis, edema, or pneumonia. Pleural spaces: Right pleural effusion. There is no evidence of pneumothorax. Heart/Mediastinum: Heart demonstrates mild diffuse enlargement. Vasculature: The vasculature demonstrates diffuse mild atherosclerotic calcification. Bones/joints: The thoracic spine demonstrates mild degenerative changes at multiple levels. IMPRESSION: 1. Nonspecific bibasilar consolidation is present, consistent with atelectasis, edema, or pneumonia. 2. Right pleural effusion. 3. Mild cardiomegaly.
--- NOTE | 2022-06-23 13:56 | EXP.PN ---
Subjective *Date: 06/23/22 *Time: 13:56 Interval history: relays having a bad night c/o dyspnea this morning diuresis via bumex with subjective improvement creat down to 1.4 Exam Data for Last 24 hours Vital signs and Labs for Last 24 Hours: Temp Pulse Resp BP Pulse Ox 98.2 F 64 17 147/74 H 95 06/23/22 10:38 06/23/22 12:00 06/23/22 10:38 06/23/22 10:38 06/23/22 10:38 Laboratory Results - last 24 hr 06/22/22 15:35: POC Glucose 216 H 06/22/22 21:11: POC Glucose 228 H 06/23/22 05:32: POC Glucose 118 H 06/23/22 07:07: WBC 8.3, RBC 2.98 L, Hgb 10.5 L, Hct 33.4 L, MCV 112.1 H, MCH 35.3 H, MCHC 31.5 L, RDW 15.3, Plt Count 139 L, MPV 8.9, Neut % (Auto) 65.6, Lymph % (Auto) 11.7, [place] % (Auto) 15.2 H, Eos % (Auto) 5.6, Baso % (Auto) 1.9, Neut # (Auto) 5.4, Lymph # (Auto) 1.0, [place] # (Auto) 1.3 H, Eos # (Auto) 0.5 H, Baso # (Auto) 0.2 06/23/22 07:07: Sodium 135 L, Potassium 4.8, Chloride 102, Carbon Dioxide 26, Anion Gap 11.8, BUN 45 H, Creatinine 1.40 H D, Estimated Creat Clear 33, Estimated GFR 38 L, Est GFR ( Amer) 46 L D, Glucose 154 H, Calcium 7.8 L 06/23/22 11:29: POC Glucose 207 H I & O for Last 24 hours: Intake & Output 06/20/22 06/21/22 06/22/22 06/23/22 23:59 23:59 23:59 23:59 Intake Total 2066 / 2066 1440 / 1440 1080 / 1080 540 / 540 Output Total 1100 / 1100 2600 / 2600 1350 / 1350 1550 / 1550 Balance 967 / 967 -1160 / -1160 -270 / -270 -1010 / -1010 Weight 262 lb 5.601 oz 271 lb 3 oz 265 lb 10.794 oz Constitutional Constitutional: no acute distress, obese, chronically ill appearing and cooperative *Routine HEENT Exam Head: Present normocephalic Eye: Absent conjunctival icterus ENT: Present mucous membranes moist *Routine Neck Exam Neck: Present supple *Routine Respiratory Exam Respiratory: Present rhonchi and crackles; Absent accessory muscle use or wheezes *Routine Cardiovascular Exam Cardiovascular: Present RRR *Routine Abdominal Exam Abdominal: Present soft and obese *Routine Extremities Exam Extremities: Present edema and pulses intact; Absent cyanosis or calf tenderness *Routine Skin Exam Skin: Absent jaundice *Routine Neurological Exam Neurological: Present alert, oriented X3, vision grossly intact and hearing grossly intact Assessment and Plan *Assessment and plan (1) Dyspnea on exertion: Status: Acute Category: Medical Code(s): R06.09 - Other forms of dyspnea (2) Pneumonia: Status: Acute Qualifiers: Pneumonia type: due to unspecified organism Laterality: right Lung location: lower lobe of lung Qualified Code(s): J18.9 - Pneumonia, unspecified organism Category: Medical Code(s): J18.9 - Pneumonia, unspecified organism (3) Cirrhosis of liver: Status: Chronic Qualifiers: Ascites presence: unspecified Hepatic cirrhosis type: unspecified hepatic cirrhosis Qualified Code(s): K74.60 - Unspecified cirrhosis of liver Category: Medical Code(s): K74.60 - Unspecified cirrhosis of liver (4) Bilateral lower extremity edema: Status: Acute Category: Medical Code(s): R60.0 - Localized edema (5) Obesity: Status: Chronic Category: Medical Code(s): E66.9 - Obesity, unspecified (6) Murmur, cardiac: Status: Acute Category: Medical Code(s): R01.1 - Cardiac murmur, unspecified (7) Acute kidney injury: Status: Acute Category: Medical Code(s): N17.9 - Acute kidney failure, unspecified (8) History of TIA (transient ischemic attack): Status: Chronic Category: Medical Code(s): Z86.73 - Personal history of transient ischemic attack (TIA), and cerebral infarction without residual deficits (9) HTN (hypertension): Status: Chronic Qualifiers: Hypertension type: essential hypertension Category: Medical Code(s): I10 - Essential (primary) hypertension Plan diuresis via bumex q12 c
--- NOTE | 2022-06-23 13:59 | PC.NURSE ---
Called RAD about chest xray order
[2022-06-23 16:56] LABS: POC Glucose,Bedside 172 (70-110)
--- NOTE | 2022-06-23 19:30 | PC.NURSE ---
Pt is A/ox4. She has been up to the chair most of the day. She has tolerated cardiac diet well. She has remained RA all day and tolerated it well.
[2022-06-24] VITALS: PULSE 70
[2022-06-24 04:00] VITALS: BP 125/53; PULSE 60; PULSE 65; RESP 20; TEMP 37.1; O2SAT 95
[2022-06-24 04:38] VITALS: BMI 46.0
--- NOTE | 2022-06-24 04:46 | PC.NURSE ---
PT HAS SLEPT MOST OF THE NIGHT, HAS USED BSC WITH 1 ASSIST. +2 PITTING EDEMA NOTED TO BLE. LUNG SOUND DIMINISHED. NO C/O. NO NEEDS AT THIS TIME.
[2022-06-24 05:21] LABS: POC Glucose,Bedside 124 (70-110)
[2022-06-24 06:05] LABS: Basophils # 0.1 K/mm3 (0-0.2); Basophils % 1.8 % (0.1-2.0); Eosinophils # 0.3 K/mm3 (0.0-0.4); Eosinophils % 4.9 % (0.1-12.0); Hematocrit 33.9 % (37.0-47.0); Hemoglobin 10.4 g/dL (12.2-16.2); Lymphocytes # 0.9 K/mm3 (0.7-4.5); Lymphocytes % 13.9 % (10-50); Mean Corpuscular HGB Conc 30.8 g/dL (31.8-35.4); Mean Corpuscular Hemoglobin 34.6 pg (27.0-31.2); Mean Corpuscular Volume 112.5 fl (81-99); Mean Platelet Volume 8.6 fl (7.4-10.4); Monocytes # 1.1 K/mm3 (0.1-1.0); Monocytes % 17.2 % (1.7-9.3); Neutrophils # 4.1 K/mm3 (1.8-7.8); Neutrophils % 62.3 % (37.0-80.0); Platelet Count 124 K/mm3 (142-424); Red Blood Count 3.02 M/mm3 (4.20-5.40); Red Cell Distribution Width 15.3 % (11.5-17.5); White Blood Count 6.5 K/mm3 (4.8-10.8)
[2022-06-24 06:17] LABS: Anion Gap 9.3 mEq/L (5-15); Blood Urea Nitrogen 36 mg/dl (7-17); Calcium 7.9 mg/dl (8.4-10.2); Carbon Dioxide 32 mmol/L (22.0-30.0); Chloride 99 mmol/L (98-107); Creatinine Clearance Estimated 38 mL/min (50-200); Estimated Glomerular Filt Rate 45 ml/min (>60); GFR (African American) 55 ML/MIN (>60); Glucose 128 mg/dl (74-100); Potassium 4.3 mmoL/L (3.5-5.1); Sodium 136 mmol/L (136-145)
[2022-06-24 06:23] LABS: POC Glucose,Bedside 229 (70-110)
[2022-06-24 08:00] VITALS: BP 150/60; PULSE 60; PULSE 62; RESP 14; TEMP 36.6; O2SAT 97
--- NOTE | 2022-06-24 10:04 | EXP.PULM.PN ---
Subjective *Date: 06/24/22 *Time: 10:04 Interval history: No acute respiratory vents over the weekend. Remains on room air. Pulmonology Exam Inpatient Vital signs and Labs for Last 24 Hours: Temp Pulse Resp BP Pulse Ox 97.8 F 62 14 150/60 H 97 06/24/22 08:00 06/24/22 08:00 06/24/22 08:00 06/24/22 08:00 06/24/22 08:00 Laboratory Results - last 24 hr 06/22/22 21:11: POC Glucose 228 H 06/23/22 05:32: POC Glucose 118 H 06/23/22 11:29: POC Glucose 207 H 06/23/22 16:40: POC Glucose 172 H 06/23/22 20:38: POC Glucose 229 H 06/24/22 05:12: POC Glucose 124 H 06/24/22 05:53: WBC 6.5, RBC 3.02 L, Hgb 10.4 L, Hct 33.9 L, MCV 112.5 H, MCH 34.6 H, MCHC 30.8 L, RDW 15.3, Plt Count 124 L, MPV 8.6, Neut % (Auto) 62.3, Lymph % (Auto) 13.9, [place] % (Auto) 17.2 H, Eos % (Auto) 4.9, Baso % (Auto) 1.8, Neut # (Auto) 4.1, Lymph # (Auto) 0.9, [place] # (Auto) 1.1 H, Eos # (Auto) 0.3, Baso # (Auto) 0.1 06/24/22 05:53: Sodium 136, Potassium 4.3, Chloride 99, Carbon Dioxide 32 H, Anion Gap 9.3, BUN 36 H, Creatinine 1.20 H, Estimated Creat Clear 38, Estimated GFR 45 L, Est GFR ( Amer) 55 L, Glucose 128 H, Calcium 7.9 L I & O for Labs for Last 24 Hours: Intake & Output 06/21/22 06/22/22 06/23/22 06/24/22 23:59 23:59 23:59 23:59 Intake Total 1440 / 1440 1080 / 1080 1122 / 1122 240 / 240 Output Total 2600 / 2600 1350 / 1350 2750 / 2750 900 / 900 Balance -1160 / -1160 -270 / -270 -1628 / -1628 -660 / -660 Weight 271 lb 3 oz 265 lb 10.794 oz 260 lb Microbiology Reports for the Last 24 Hours: Microbiology 06/18/22 16:50 Blood Blood Culture - Final NO GROWTH AFTER 5 DAYS 06/18/22 16:50 Blood Blood Culture - Final NO GROWTH AFTER 5 DAYS Constitutional: Present mild distress and cooperative; Absent combative or agitated Head: Present normocephalic and atraumatic; Absent cushingoid faces ENT: Present normal oropharynx and mucous membranes moist Neck: Present normal inspection and trachea midline Respiratory: Present rhonchi; Absent accessory muscle use, CTA bilaterally, wheezes, crackles or able to speak in complete sentences Cardiac: Present S1/S2 and radial pulses present GI: Present soft; Absent tenderness or guarding Rectal (female): Present deferred (female): Present deferred Skin: Present intact; Absent dry or pallor Neuro: Present alert, awake and oriented x 3 Extremities: Absent clubbing or cyanosis Psychiatric: Present normal affect and cooperative Assessment and Plan *Assessment and plan (1) Pneumonia: Status: Acute Qualifiers: Pneumonia type: due to unspecified organism Laterality: right Lung location: lower lobe of lung Qualified Code(s): J18.9 - Pneumonia, unspecified organism Category: Medical Code(s): J18.9 - Pneumonia, unspecified organism (2) Pleural effusion on right: Status: Acute Category: Medical Code(s): J90 - Pleural effusion, not elsewhere classified (3) Dyspnea on exertion: Status: Acute Category: Medical Code(s): R06.09 - Other forms of dyspnea Plan Ms. Morrow is a 61-year-old female no significant smoking history, significant secondhand smoke exposure, carries a prior diagnosis of COPD, not using any inhalers at home, history of decompensated cirrhosis currently on lactulose and diuretic regimen presented to the hospital with worsening respiratory distress along with cough worsening productive phlegm subjective fevers pulmonary was called for further management. #Right lower lobe pneumonia: #Acute hypoxic respiratory failure: #Right pleural effusion. 61-year-old history of decompensated cirrhosis. Most recent hospital admission was from April 2022 for decompensated cirrhosis and altered mentation. Present with worsening respiratory chest cough and productive phlegm. Afebrile on admission. Hemodynamically stable. Significant neutrophilic leukocytosis on admission a
[2022-06-24 11:20] LABS: POC Glucose,Bedside 132 (70-110)
[2022-06-24 11:47] VITALS: BP 123/75; PULSE 59; RESP 16; TEMP 36.7; O2SAT 97
--- NOTE | 2022-06-24 12:07 | EXP.DC.SUM ---
General Admission date:: 06/18/22 Discharge date: 06/24/22 HPI HPI HPI: 61-year-old female patient presented to the [facility] emergency department with reports of increasing shortness of breath for the past 2 days, lightheaded, and generalized weakness. She does report nausea but denies emesis, she also reports chronic diarrhea from lactulose, she does have a history of cirrhosis. Respiratory rate 24, white blood cell count 20.5, right lower lobe HCAP, creatinine 2.8 No definite focus of infection, but patient has a chronically abnormal chest x-ray with right pleural effusion and certainly could have a new pneumonia that is obscured by chronic findings.? Her symptoms suggest pneumonia.? She will therefore be treated with triple antibiotics for presumed healthcare associated pneumonia (Per Dr. Jett). In the emergency department she received normal saline 100 mL/hour, vancomycin, cefepime, and levofloxacin. Hospital Course Hospital Course Hospital Course: pt was admitted and treated with abx - pt was seen by pul medicine - pt is a 61-year-old female no significant smoking history, significant secondhand smoke exposure, carries a prior diagnosis of COPD, not using any inhalers at home, history of decompensated cirrhosis currently on lactulose and diuretic regimen presented to the hospital with worsening respiratory distress for the last 4 days along with cough worsening productive phlegm subjective fevers pulmonary was called for further management.Assessment and plan (1) Pneumonia: ?Status:?Acute ?Qualifiers: ?Pneumonia type:?due to unspecified organism??Laterality:?right??Lung location:?lower lobe of lung? Qualified Code(s):?J18.9 - Pneumonia, unspecified organism ?Category:?Medical ?Code(s): J18.9 - Pneumonia, unspecified organism (2) Pleural effusion on right: ?Status:?Acute ?Category:?Medical ?Code(s): J90 - Pleural effusion, not elsewhere classified Plan Ms. Morrow is a 61-year-old female no significant smoking history, significant secondhand smoke exposure, carries a prior diagnosis of COPD, not using any inhalers at home, history of decompensated cirrhosis currently on lactulose and diuretic regimen presented to the hospital with worsening respiratory distress along with cough worsening productive phlegm subjective fevers pulmonary was called for further management. #Right lower lobe pneumonia: #Acute hypoxic respiratory failure: #Right pleural effusion. 61-year-old history of decompensated cirrhosis.? Most recent hospital admission was from April 2022 for decompensated cirrhosis and altered mentation. Present with worsening respiratory chest cough and productive phlegm.? Afebrile on admission.? Hemodynamically stable.? Significant neutrophilic leukocytosis on admission at 23, improved now at 13 Chest x-ray from the admission personally reviewed, noted to have chronic right lower lobe pleural effusion along with new right lower lobe airspace disease when compared to her chest x-ray from most recent hospital admission Relevant past medical family and social history reviewed On examination patient appeared to be in mild respiratory distress.? On room air saturating 95% and above.? No wheezing noted on auscultation. Patient was initiated vancomycin levofloxacin in the ED. Plan: -Sputum culture with induction? and nasal MRSA PCR -Continue levofloxacin renally dosed , currently on 500mg Q48 hrs -Will discontinue vancomycin and cefepime.? We will closely monitor clinically anf F/U cultures. BC pending -Initiate albuterol every 6 hours and as needed basis.? We will evaluate the possibility of COPD with PFTs as an outpatient basis -We will monitor clinically for pleural effusion.? No need for thoracentesis at this point of time.? Patient admits prior to episodes of thoracentesis for her pleural effusion.? She is currently following with liver clinic.? Multiple prior history of E. col
--- NOTE | 2022-06-25 13:20 | CARE MANAGER ---
Spoke with patient for post discharge phone interview. Patient states that she is doing well and has no issues.
[2022-06-29 17:47] LABS: MRSA DNA PCR Negative
== END 2022-06-24 13:24 | disposition home or self-care (01) | DRG 193 ==
LOC: ER 20:12 → 2ND 22:05
PROVIDERS: Internal Medicine Pulmonary Disease; Nurse Practitioner Family; Admitting Provider Emergency Medicine; Emergency Provider Emergency Medicine; PCP Emergency Medicine; Visit Provider Emergency Medicine
DX: J18.9 Pneumonia, unspecified organism (principal); A41.9 Sepsis, unspecified organism; J96.01 Acute respiratory failure with hypoxia; I85.00 Esophageal varices without bleeding; J44.0 Chronic obstructive pulmonary disease with (acute) lower respiratory infection; Z68.42 Body mass index [BMI] 45.0-49.9, adult; N17.9 Acute kidney failure, unspecified; K76.6 Portal hypertension; K74.60 Unspecified cirrhosis of liver; E66.9 Obesity, unspecified; Z86.73 Personal history of transient ischemic attack (TIA), and cerebral infarction without residual deficits; B18.2 Chronic viral hepatitis C; K21.9 Gastro-esophageal reflux disease without esophagitis; I34.0 Nonrheumatic mitral (valve) insufficiency; E87.5 Hyperkalemia; K72.90 Hepatic failure, unspecified without coma; I11.0 Hypertensive heart disease with heart failure; I50.9 Heart failure, unspecified
CPT/HCPCS: 36415; 51702; 71045; 80048; 80053; 81001; 82140; 82962; 83605; 83880; 84484; 85007; 85025; 87040; 87086; 87641; 93005; 93308; 97110; 97116; 97162; 97166; 99285; C9803; J0692; J1956; P9047; U0003; U0005

== ENCOUNTER 2022-07-13 13:06 | Inpatient (IN) | payer MEDICARE, MEDICAID, SELFPAY ==
[2022-07-13] VITALS (14 sets, daily range): BP systolic 119–171; BP diastolic 57–81; PULSE 58–84; RESP 17–20; TEMP 36.5–36.8; O2SAT 95–100; BMI 36.6; BMI 53.2; BMI 54.9; BMI 44.7
--- NOTE | 2022-07-13 13:08 | HMH.EDGENADL ---
Discharge Plan Disposition Patient Disposition: Admitted As Inpatient Condition: Fair Clinical Impressions Clinical Impression: CHF exacerbation, Pulmonary edema cardiac cause, Fluid overload Discharge ED Provider: Alanna Mcfadden Adult HPI General Chief complaint: Shortness of Breath/Dyspnea Stated complaint: SOA Time Seen by Provider: 07/13/22 13:08 Mode of Arrival: EMS Source of Information: Patient and EMS Limitations: No Limitations History of Present Illness HPI narrative: 61-year-old female presenting to the emergency department with leg swelling, decreased urination, shortness of breath. Symptoms gotten worse over the last 2 days. Feels that both of her legs are quite swollen. Now having swelling of her hands and arms. She has had very little urine output. Small amount this morning, yellow in color. She takes a diuretic, Bumex 2 mg daily. Suffers from liver failure. Denies history of kidney failure. No recent illness, fevers, chills, nausea, vomiting. She has been eating and drinking well. Denies lower abdominal pain or flank pain. Related Data Home Medications Medication Instructions Recorded Confirmed lactulose 10 gram/15 mL oral 30 ml PO QID encephalopathy 04/29/22 06/28/22 solution magnesium oxide 400 mg PO DAILY Supplement 04/29/22 06/28/22 metoprolol succinate 25 mg 25 mg PO HS High blood pressure 04/29/22 06/28/22 tablet,extended release 24 hr ondansetron HCl 4 mg tablet 4 mg PO TIDP PRN Nausea And 04/29/22 06/28/22 Vomiting pantoprazole 40 mg tablet,delayed 40 mg PO DAILY Reflux/Acid reflux 04/29/22 06/28/22 release rifaximin 550 mg tablet 550 mg PO BID cirrhosis 04/29/22 06/28/22 sucralfate 1 gram tablet 1 gm PO QID Reflux/Acid reflux 04/29/22 06/28/22 diltiazem HCl 120 mg 120 mg PO DAILY blood pressure 06/18/22 06/28/22 capsule,extended release 24 hr spironolactone 100 mg tablet 100 mg PO DAILY 06/28/22 06/28/22 Previous Rx's Medication Instructions Recorded bumetanide 1 mg tablet 2 mg PO DAILY Fluid #60 tabs 06/24/22 metoprolol succinate 25 mg 25 mg PO DAILY #30 tabs 06/24/22 tablet,extended release 24 hr levofloxacin 500 mg tablet 500 mg PO DAILY #7 tabs 06/28/22 pregabalin 25 mg capsule (Lyrica) 25 mg PO TID back pain #30 caps 06/28/22 Allergies Allergy/AdvReac Type Severity Reaction Status Date / Time Sulfa (Sulfonamide Allergy Intermediate Hives Verified 06/28/22 11:27 Antibiotics) [SULFA (SULFONAMIDE ANTIBIOTICS)] [facility] Medical History (Updated 07/13/22 @ 16:59 by Alanna Mcfadden DO) Abdominal pain Abnormal EKG Afib Arrhythmia Arthritis Asthma with exacerbation Atrial flutter Atrial septal defect Back Pain Bilateral lower extremity edema BMI 36.0-36.9,adult CAP (community acquired pneumonia) Chest pain CHF exacerbation Cirrhosis of liver Collapse of right lung Congestive heart failure Congestive heart failure Congestive splenomegaly COPD (chronic obstructive pulmonary disease) Cor pulmonale Coronary artery calcification seen on CAT scan DU (perforated duodenal ulcer) Dyspnea Dyspnea on exertion Dyspnea on exertion E. coli UTI (urinary tract infection) Edema Edema Gallbladder disease GERD (gastroesophageal reflux disease) HCAP (healthcare-associated pneumonia) Hematuria Hep C w/ coma, chronic Hep C w/o coma, chronic History of chest pain History of gastroesophageal reflux (GERD) History of left heart catheterization (LHC) History of TIA (transient ischemic attack) HTN (hypertension) Hypocalcemia Hypokalemia Kidney stone Moderate mitral regurgitation Murmur, cardiac Obesity (BMI 30.0-34.9) Overweight PAC (premature atrial contraction) Palpitations Pancytopenia Pleural effusion Pleural effusion on right Pleural effusion, right Pneumonia Pneumonia Respiratory distress Right lower lobe pneumonia SVT (supraventricular tachycardia) SVT (supraventricular tachycardia) Thrombocytopenia Urinary tract infection
--- NOTE | 2022-07-13 13:12 | XR_ITS ---
PROCEDURE INFORMATION: Exam: XR Chest Exam date and time: 07/13/2022 1:27 PM Age: 61 years old Clinical indication: Shortness of breath; Additional info: Short of breath TECHNIQUE: Imaging protocol: Radiologic exam of the chest. Views: 1 view. Portable AP exam 1:31 p.m. COMPARISON: CR XR CHEST PORTABLE 06/23/2022 1:57 PM FINDINGS: Tubes, catheters and devices: Overlying oxygen tubing. Lungs: Worsened consolidation in the right lower lobe, slightly worsened mild atelectasis or patchy airspace disease in the right middle lobe partially obscuring the right heart border. Left lung remains well inflated with minimal subsegmental atelectasis in the lower lung, no focal consolidation. Pleural spaces: Can not exclude trace pleural fluid on the right. No pneumothorax. Heart/Mediastinum: Chronic cardiac enlargement, unchanged. Vasculature: Calcified plaques in the aortic arch. Bones/joints: There are spinal degenerative changes, with multilevel disc narrrowing and spondylosis. IMPRESSION: 1. Worsening consolidation and volume loss in the right lower and middle lobes compared with 06/23/2022, correlate for pneumonia versus asymmetric edema. 2. Cardiomegaly.
--- NOTE | 2022-07-13 14:47 | ECG_ITS ---
APPROVED REPORT Exam: Resting ECG HR:59 bpm ECG Measurements Heart Rate 59 AXES MS 193 P 48 QRSd 91 QRS 35 QT 444 T 62 QTc 442 Conclusion SINUS BRADYCARDIA LOW QRS VOLTAGE IN PRECORDIAL LEADS [QRS DEFLECTION < 1.0 mV IN CHEST LEADS] BORDERLINE ECG UNCONFIRMED REPORT Electronically signed by : Luis A Hammonds MD 07/15/2022 21:25:56
--- NOTE | 2022-07-13 15:26 | PC.NURSE ---
Called lab to check on blood. They said they never received blood on the pt. notified.
--- NOTE | 2022-07-13 15:32 | PC.NURSE ---
pt taken off vapotherm, oxygen with 4 L nc sats at 95, pt sleeping at this time. Respiratory notified
[2022-07-13 15:49] LABS: Appearance,Urine CLEAR (Clear); Blood, Urine TRACE-I (Negative); Color,Urine YELLOW (Yellow); Glucose,Urine (UA) Negative (Negative); Ketones,Urine Negative (Negative); Leukocyte Esterase,Urine Negative (Negative); Microscopic, Urine URINE MICROSCOPIC (MICROSCOPIC); Nitrate,Urine Negative (Negative); Protein,Urine Negative (Negative); Specific Gravity, Urine 1.025 (1.005-1.030); Urobilinogen,Urine 0.2 EU/dl (0.2)
[2022-07-13 16:07] LABS: Bilirubin,Urine 1+ (Negative)
[2022-07-13 16:08] LABS: Squamous Epithelial Cell,Urine Occasional #/hpf (0-5); WBC,Urine Occasional #/hpf (0-3)
[2022-07-13 16:29] LABS: Coronavirus 19, PCR Not Detected (NotDetected); Influenza A, PCR Not Detected (NotDetected); Influenza B, PCR Not Detected (NotDetected)
[2022-07-13 16:32] LABS: Basophils # 0.1 K/mm3 (0-0.2); Basophils % 1.4 % (0.1-2.0); Eosinophils # 0.2 K/mm3 (0.0-0.4); Eosinophils % 4.5 % (0.1-12.0); Hematocrit 33.5 % (37.0-47.0); Hemoglobin 10.9 g/dL (12.2-16.2); Lymphocytes # 1.3 K/mm3 (0.7-4.5); Lymphocytes % 28.4 % (10-50); Mean Corpuscular HGB Conc 32.4 g/dL (31.8-35.4); Mean Corpuscular Hemoglobin 35.9 pg (27.0-31.2); Mean Corpuscular Volume 110.8 fl (81-99); Mean Platelet Volume 8.8 fl (7.4-10.4); Monocytes # 0.7 K/mm3 (0.1-1.0); Monocytes % 14.4 % (1.7-9.3); Neutrophils # 2.4 K/mm3 (1.8-7.8); Neutrophils % 51.3 % (37.0-80.0); Platelet Count 132 K/mm3 (142-424); Red Blood Count 3.02 M/mm3 (4.20-5.40); Red Cell Distribution Width 16.2 % (11.5-17.5); White Blood Count 4.7 K/mm3 (4.8-10.8)
[2022-07-13 16:47] LABS: Chloride 96 mmol/L (98-107)
[2022-07-13 16:48] LABS: Potassium 3.5 mmoL/L (3.5-5.1); Sodium 138 mmol/L (136-145)
[2022-07-13 16:50] LABS: Alanine Aminotransferase 27 U/L (12-78); Aspartate Amino Transferase 61 U/L (14-36); Blood Urea Nitrogen 23 mg/dl (7-17); Creatinine Clearance Estimated 41 mL/min (50-200); Estimated Glomerular Filt Rate 45 ml/min (>60); GFR (African American) 55 ML/MIN (>60)
[2022-07-13 16:51] LABS: Albumin Level 2.4 g/dl (3.5-5.0); Albumin/Globulin Ratio 0.6 (1.1-1.8); Alkaline Phosphatase 241 U/L (38-126); Anion Gap 9.5 mEq/L (5-15); Bilirubin,Total 1.9 mg/dl (0.2-1.3); Calcium 7.8 mg/dl (8.4-10.2); Carbon Dioxide 36 mmol/L (22.0-30.0); Globulin 3.8 g/dL (1.3-3.2); Glucose 183 mg/dl (74-100); Total Protein,Serum 6.2 g/dl (6.3-8.2)
[2022-07-13 17:00] LABS: NT Pro Brain Natriuretic Pep. 562 pg/mL (0-125)
[2022-07-13 17:14] LABS: Troponin I < 0.01 ng/ml (0.00-0.034)
[2022-07-13 17:56] LABS: INR 1.27 (0.9-1.1); Prothrombin Time 13.5 seconds (10.1-12.5)
--- NOTE | 2022-07-13 18:07 | EXP.HP ---
History of Present Illness *Admission Date: 07/13/22 *Reason for visit:: shortness of breath, swelling *History of present illness: Patient is a 61-year-old female with past medical history of nonalcoholic cirrhosis, uncertain diagnosis of hep C, CHF, COPD, and hypertension who comes to the ER for diffuse swelling and shortness of breath. Patient reports she was here about 3 weeks ago and she had similar symptoms. She was treated with IV diuresis as well as IV antibiotics for pneumonia at that time. Patient additionally was in renal failure during admission 3 weeks ago and this gradually improved. She reports since being discharged home she is gradually gotten more short of breath and more swelling in her feet, legs, and now her hands. She reports being compliant with all her medications. She denies fever, chills, she does report a somewhat productive cough. She denies a history of smoking, although she does have extensive secondhand smoke exposure. Patient additionally reports that at some point in the past she had ruptured esophageal varices that required banding at . She is currently on lactulose. [facility] Medical History (Updated 07/13/22 @ 16:59 by Alanna Mcfadden DO) Abdominal pain Abnormal EKG Afib Arrhythmia Arthritis Asthma with exacerbation Atrial flutter Atrial septal defect Back Pain Bilateral lower extremity edema BMI 36.0-36.9,adult CAP (community acquired pneumonia) Chest pain CHF exacerbation Cirrhosis of liver Collapse of right lung Congestive heart failure Congestive heart failure Congestive splenomegaly COPD (chronic obstructive pulmonary disease) Cor pulmonale Coronary artery calcification seen on CAT scan DU (perforated duodenal ulcer) Dyspnea Dyspnea on exertion Dyspnea on exertion E. coli UTI (urinary tract infection) Edema Edema Gallbladder disease GERD (gastroesophageal reflux disease) HCAP (healthcare-associated pneumonia) Hematuria Hep C w/ coma, chronic Hep C w/o coma, chronic History of chest pain History of gastroesophageal reflux (GERD) History of left heart catheterization (LHC) History of TIA (transient ischemic attack) HTN (hypertension) Hypocalcemia Hypokalemia Kidney stone Moderate mitral regurgitation Murmur, cardiac Obesity (BMI 30.0-34.9) Overweight PAC (premature atrial contraction) Palpitations Pancytopenia Pleural effusion Pleural effusion on right Pleural effusion, right Pneumonia Pneumonia Respiratory distress Right lower lobe pneumonia SVT (supraventricular tachycardia) SVT (supraventricular tachycardia) Thrombocytopenia Urinary tract infection UTI (urinary tract infection) Surgical History H/O section H/O esophagogastroduodenoscopy H/O tubal ligation History of cardiac cath History of section History of cholecystectomy History of right heart catheterization (RHC) S/P cholecystectomy Total knee replacement status Family History Other Family history of COPD (chronic obstructive pulmonary disease) Family history of GERD Family history of acute heart failure Family history of cancer Family history of diabetes mellitus type II Family history of hyperlipidemia Family history of hypertension Family history of kidney stone Family history of myocardial infarction Social History Smoking Status: Never smoker alcohol intake: never substance use type: denies use current occupational status: disabled Travel in the last 8 weeks: None household members: significant other housing: apartment current occupational exposures/hazards: No caffeine: No Review of Systems Constitutional Constitutional: Denies body ache(s), Denies chills, Reports fatigue, Denies fever(s) and Denies headache(s) Eyes Eyes: Denies change in vision and Denies loss of vision ENT Ears, Nose, Mouth, and
--- NOTE | 2022-07-13 18:49 | PC.NURSE ---
spoke with hospitalist about lovenox order. states he is going to d/c order
--- NOTE | 2022-07-13 19:02 | PC.NURSE ---
lab called for blood collection
--- NOTE | 2022-07-13 20:15 | PC.NURSE ---
Lab attempted multiple times to obtain blood for labs but was unsuccessful
--- NOTE | 2022-07-13 20:22 | PC.NURSE ---
Report called to Kaleb Pruitt at this time
--- NOTE | 2022-07-13 20:30 | PC.NURSE ---
PT ARRIVED TO FLOOR VIA STRETCHER @ 2032
[2022-07-13 20:32] LABS: Troponin I 0.02 ng/ml (0.00-0.034)
[2022-07-13 20:47] LABS: Lactic Acid 1.6 mmol/L (0.7-2.1)
[2022-07-13 20:48] LABS: Ammonia 21 umol/L (9-30)
[2022-07-13 22:16] LABS: POC Glucose,Bedside 180 (70-110)
[2022-07-14] VITALS: BP 137/76; PULSE 97; RESP 20; TEMP 36.8; O2SAT 94
[2022-07-14 00:22] LABS: Troponin I 0.02 ng/ml (0.00-0.034)
[2022-07-14 04:00] VITALS: BP 99/70; PULSE 86; RESP 20; TEMP 36.6; O2SAT 95
[2022-07-14 05:00] VITALS: BMI 44.5
[2022-07-14 05:43] LABS: POC Glucose,Bedside 138 (70-110)
--- NOTE | 2022-07-14 05:52 | PC.NURSE ---
pt has rested some this shift, no complaints of pain, did complain of SOA one time this shift, O2 at this time was 97% with respirations 20, BLE and BUE pitting edema noted, HR 65-97, A&Ox4, aggarwal draining at bedside with 2350 mL out so far this shift
[2022-07-14 07:02] LABS: Basophils # 0.1 K/mm3 (0-0.2); Basophils % 1.6 % (0.1-2.0); Eosinophils # 0.2 K/mm3 (0.0-0.4); Eosinophils % 3.9 % (0.1-12.0); Hematocrit 34.4 % (37.0-47.0); Hemoglobin 10.9 g/dL (12.2-16.2); Lymphocytes # 1.1 K/mm3 (0.7-4.5); Lymphocytes % 27.4 % (10-50); Mean Corpuscular HGB Conc 31.8 g/dL (31.8-35.4); Mean Corpuscular Hemoglobin 35.7 pg (27.0-31.2); Mean Corpuscular Volume 112.3 fl (81-99); Mean Platelet Volume 10.2 fl (7.4-10.4); Monocytes # 0.5 K/mm3 (0.1-1.0); Monocytes % 11.6 % (1.7-9.3); Neutrophils # 2.3 K/mm3 (1.8-7.8); Neutrophils % 55.5 % (37.0-80.0); Platelet Count 78 K/mm3 (142-424); Red Blood Count 3.06 M/mm3 (4.20-5.40); Red Cell Distribution Width 16.4 % (11.5-17.5); White Blood Count 4.1 K/mm3 (4.8-10.8)
[2022-07-14 07:08] LABS: Chloride 96 mmol/L (98-107)
[2022-07-14 07:09] LABS: Potassium 3.6 mmoL/L (3.5-5.1); Sodium 135 mmol/L (136-145)
[2022-07-14 07:11] LABS: Alanine Aminotransferase 25 U/L (12-78); Alkaline Phosphatase 201 U/L (38-126); Anion Gap 9.6 mEq/L (5-15); Aspartate Amino Transferase 69 U/L (14-36); Bilirubin,Total 2.1 mg/dl (0.2-1.3); Blood Urea Nitrogen 19 mg/dl (7-17); Carbon Dioxide 33 mmol/L (22.0-30.0); Creatinine Clearance Estimated 54 mL/min (50-200); Estimated Glomerular Filt Rate 63 ml/min (>60); GFR (African American) 77 ML/MIN (>60); Phosphorous 3.1 mg/dl (2.5-4.5)
[2022-07-14 07:12] LABS: Albumin Level 2.4 g/dl (3.5-5.0); Albumin/Globulin Ratio 0.7 (1.1-1.8); Calcium 7.5 mg/dl (8.4-10.2); Globulin 3.6 g/dL (1.3-3.2); Glucose 127 mg/dl (74-100); Magnesium 1.2 mg/dl (1.6-2.3)
[2022-07-14 08:00] VITALS: BP 110/58; PULSE 110; RESP 16; TEMP 37.1; O2SAT 95
--- NOTE | 2022-07-14 10:47 | HMH.PHAINT1 ---
Pharmacy Intervention Comments: home medication list verified using list from outpatient pharmacy and pt interview.
--- NOTE | 2022-07-14 11:04 | ECG_ITS ---
APPROVED REPORT Exam: Resting ECG HR:104 bpm ECG Measurements Heart Rate 104 AXES QRSd 84 QRS -10 QT 354 T 50 QTc 414 Conclusion ATRIAL FLUTTER/TACHYCARDIA WITH RAPID VENTRICULAR RESPONSE LOW QRS VOLTAGE IN PRECORDIAL LEADS [QRS DEFLECTION < 1.0 mV IN CHEST LEADS] PATTERN CONSISTENT WITH PULMONARY DISEASE ABNORMAL ECG UNCONFIRMED REPORT Electronically signed by : Luis A Hammonds MD 07/15/2022 21:24:50
--- NOTE | 2022-07-14 11:08 | XR_ITS ---
PROCEDURE INFORMATION: Exam: XR Chest Exam date and time: 07/14/2022 1:10 PM Age: 61 years old Clinical indication: Shortness of breath; Additional info: Shortness of breath, edema TECHNIQUE: Imaging protocol: Radiologic exam of the chest. Views: 2 views. COMPARISON: CR XR CHEST PORTABLE 07/13/2022 1:27 PM FINDINGS: Lungs: Atelectasis and/or early infiltrative changes noted within the right lung base. Atelectatic changes noted within the left lung base. Granulomatous density noted within the left lung. Pleural spaces: Right pleural effusion. Heart/Mediastinum: Heart demonstrates mild diffuse enlargement. Vasculature: The vasculature demonstrates diffuse mild atherosclerotic calcification. Bones/joints: The thoracic spine demonstrates mild degenerative changes at multiple levels. IMPRESSION: 1. Atelectasis and/or early infiltrative changes noted within the right lung base. 2. Right pleural effusion. 3. Atelectatic changes noted within the left lung base. 4. Mild cardiomegaly.
--- NOTE | 2022-07-14 11:52 | EXP.PN ---
Subjective *Date: 07/14/22 *Time: 11:52 Interval history: Patient feels a little better today, swelling has improved a little, but she is still very short of breath at rest or with any kind of movement. Her IV came out early this morning and this made her anxious, and this could be contributing to her shortness of breath. Exam Data for Last 24 hours Vital signs and Labs for Last 24 Hours: Temp Pulse Resp BP Pulse Ox 98.8 F 110 H 16 110/58 L 95 07/14/22 08:00 07/14/22 08:00 07/14/22 08:00 07/14/22 08:00 07/14/22 08:00 Laboratory Results - last 24 hr 07/13/22 15:40: Urine Color Yellow, Urine Appearance Clear, Urine pH 6.0, Ur Specific [place] 1.025, Urine Protein Negative, Urine Glucose (UA) Negative, Urine Ketones Negative, Urine Blood Trace-i, Urine Nitrate Negative, Urine Bilirubin 1+ A, Urine Urobilinogen 0.2, Ur Leukocyte Esterase Negative, Urine RBC None, Urine WBC Occasional, Ur Squamous Epith Cells Occasional, Urine Bacteria None 07/13/22 16:25: WBC 4.7 L, RBC 3.02 L, Hgb 10.9 L, Hct 33.5 L, MCV 110.8 H, MCH 35.9 H, MCHC 32.4, RDW 16.2, Plt Count 132 L, MPV 8.8, Neut % (Auto) 51.3, Lymph % (Auto) 28.4, Mcclain % (Auto) 14.4 H, Eos % (Auto) 4.5, Baso % (Auto) 1.4, Neut # (Auto) 2.4, Lymph # (Auto) 1.3, Mcclain # (Auto) 0.7, Eos # (Auto) 0.2, Baso # (Auto) 0.1 07/13/22 16:25: Sodium 138, Potassium 3.5, Chloride 96 L, Carbon Dioxide 36 H, Anion Gap 9.5, BUN 23 H, Creatinine 1.20 H, Estimated Creat Clear 41, Estimated GFR 45 L, Est GFR ( Amer) 55 L, Glucose 183 H, Calcium 7.8 L, Total Bilirubin 1.9 H, AST 61 H, ALT 27, Alkaline Phosphatase 241 H, Troponin I < 0.01, NT-Pro-B Natriuret Pep 562 H, Total Protein 6.2 L, Albumin 2.4 L, Globulin 3.8 H, Albumin/Globulin Ratio 0.6 L 07/13/22 16:25: SARS-CoV-2 (PCR) Not detected, Influenza A Untype (PCR) Not detected, Influenza Type B (PCR) Not detected 07/13/22 16:25: PT 13.5 H, INR 1.27 H 07/13/22 20:00: Troponin I 0.02 07/13/22 20:30: Ammonia 21 07/13/22 20:30: Lactate 1.6 07/13/22 21:59: POC Glucose 180 H 07/13/22 23:45: Troponin I 0.02 07/14/22 03:35: Urine Total Protein 10.0 07/14/22 05:32: POC Glucose 138 H 07/14/22 06:46: WBC 4.1 L, RBC 3.06 L, Hgb 10.9 L, Hct 34.4 L, MCV 112.3 H, MCH 35.7 H, MCHC 31.8, RDW 16.4, Plt Count 78 L D, MPV 10.2, Neut % (Auto) 55.5, Lymph % (Auto) 27.4, Mccl[place] % (Auto) 11.6 H, Eos % (Auto) 3.9, Baso % (Auto) 1.6, Neut # (Auto) 2.3, Lymph # (Auto) 1.1, Mcclain # (Auto) 0.5, Eos # (Auto) 0.2, Baso # (Auto) 0.1 07/14/22 06:46: Sodium 135 L, Potassium 3.6, Chloride 96 L, Carbon Dioxide 33 H, Anion Gap 9.6, BUN 19 H, Creatinine 0.90 D, Estimated Creat Clear 54, Estimated GFR 63, Est GFR ( Amer) 77 D, Glucose 127 H D, Calcium 7.5 L, Phosphorus 3.1, Magnesium 1.2 L, Total Bilirubin 2.1 H, AST 69 H, ALT 25, Alkaline Phosphatase 201 H, Total Protein 6.0 L, Albumin 2.4 L, Globulin 3.6 H, Albumin/Globulin Ratio 0.7 L I & O for Last 24 hours: Intake & Output 07/11/22 07/12/22 07/13/22 07/14/22 23:59 23:59 23:59 23:59 Intake Total 120 / 120 Output Total 1450 / 1900 900 / 900 Balance -1450 / -1900 -780 / -780 Weight 125.781 kg 125.761 kg Constitutional Constitutional: mild distress (tachypnea, anxiety ) and chronically ill appearing *Routine HEENT Exam Head: Present normocephalic and atraumatic Eye: Present EOMI and PERRL ENT: Present mucous membranes moist *Routine Neck Exam Neck: Present supple and full ROM *Routine Respiratory Exam Respiratory: Present respiratory distress (some tachypnea ), crackles (bibasilar ) and able to speak in complete sentences; Absent rhonchi, wheezes or distant breath sounds *Routine Cardiovascular Exam Cardiovascular: Present tachycardia (mild) and irregular rhythm Comments: 2+ radial pulse on right *Routine Abdominal Exam Abdominal: Present soft and normoactive bowel sounds; Absent tenderness, distended, rebound, guarding or firm *Routine Extremities Exam Extremities: Present edema (2-1+ pitting edema of hands
[2022-07-14 12:00] VITALS: BP 141/72; PULSE 107; PULSE 92; RESP 24; TEMP 36.9; O2SAT 96
[2022-07-14 12:11] LABS: POC Glucose,Bedside 166 (70-110)
[2022-07-14 16:00] VITALS: BP 113/69; PULSE 65; PULSE 82; RESP 18; TEMP 37; O2SAT 98
[2022-07-14 17:12] LABS: POC Glucose,Bedside 179 (70-110)
[2022-07-14 20:00] VITALS: BP 105/57; PULSE 78; PULSE 85; RESP 16; TEMP 36.6; O2SAT 95
[2022-07-14 20:13] LABS: POC Glucose,Bedside 221 (70-110)
--- NOTE | 2022-07-14 20:49 | PC.NURSE ---
Pt is A/ox4. She has been on and off NC 1L all day. When she feels like shes is getting anxious she places it as a comfort measure. She has tolerated diet well all day. She has FC in place. She has ambulated to [facility] with Assist x1. She had a BM today. She had an episode of anxiousness. She stated that she felt like a weight was on her chest. EKG was performed and let Dr. Hodges read. She was Afib, and we upper her metoprolol from 25mg to 50QD. She also was given hydroxizine for anxiety and pt stated that it helped. She has been pleasent all day. She sounds diminished was listening to pt.
[2022-07-15] VITALS: BP 108/60; PULSE 76; PULSE 90; RESP 16; TEMP 36.6; O2SAT 96
[2022-07-15 04:00] VITALS: BP 121/72; PULSE 76; PULSE 80; RESP 17; TEMP 36.6; O2SAT 97
[2022-07-15 05:00] VITALS: BMI 43.2
--- NOTE | 2022-07-15 05:10 | PC.NURSE ---
pt has rested intermittently this shift, has not complained of pain this shift, still has pitting edema present in BUE and BLE, HR 76-78, remains on 1L NC with O2 sats 95-97%, pt ambulating to [facility] with SB assist, aggarwal remains in place,
[2022-07-15 06:03] LABS: POC Glucose,Bedside 226 (70-110)
--- NOTE | 2022-07-15 06:58 | PC.NURSE ---
pt complained of pain around 5:45 this morning that started under her breast and went around her breast, Shannon notified and stated that there were no new orders at this time, Prn medications given and pt is currently resting with eyes closed
[2022-07-15 07:51] LABS: Basophils # 0.1 K/mm3 (0-0.2); Basophils % 1.3 % (0.1-2.0); Eosinophils # 0.2 K/mm3 (0.0-0.4); Hematocrit 34.6 % (37.0-47.0); Hemoglobin 10.8 g/dL (12.2-16.2); Lymphocytes % 24.3 % (10-50); Mean Corpuscular HGB Conc 31.4 g/dL (31.8-35.4); Mean Corpuscular Hemoglobin 34.7 pg (27.0-31.2); Mean Corpuscular Volume 110.7 fl (81-99); Mean Platelet Volume 8.9 fl (7.4-10.4); Monocytes # 0.6 K/mm3 (0.1-1.0); Monocytes % 14.3 % (1.7-9.3); Neutrophils # 2.3 K/mm3 (1.8-7.8); Neutrophils % 56.2 % (37.0-80.0); Platelet Count 132 K/mm3 (142-424); Red Blood Count 3.12 M/mm3 (4.20-5.40); Red Cell Distribution Width 16.2 % (11.5-17.5); White Blood Count 4.1 K/mm3 (4.8-10.8)
[2022-07-15 08:00] VITALS: BP 115/58; PULSE 70; PULSE 74; RESP 18; TEMP 36.7; O2SAT 96
[2022-07-15 08:07] LABS: Chloride 94 mmol/L (98-107)
[2022-07-15 08:08] LABS: Potassium 3.6 mmoL/L (3.5-5.1); Sodium 134 mmol/L (136-145)
[2022-07-15 08:10] LABS: Alanine Aminotransferase 25 U/L (12-78); Alkaline Phosphatase 178 U/L (38-126); Anion Gap 10.6 mEq/L (5-15); Aspartate Amino Transferase 57 U/L (14-36); Bilirubin,Total 1.6 mg/dl (0.2-1.3); Blood Urea Nitrogen 18 mg/dl (7-17); Carbon Dioxide 33 mmol/L (22.0-30.0); Creatinine Clearance Estimated 54 mL/min (50-200); Estimated Glomerular Filt Rate 63 ml/min (>60); GFR (African American) 77 ML/MIN (>60); Phosphorous 3.1 mg/dl (2.5-4.5)
[2022-07-15 08:11] LABS: Albumin Level 2.1 g/dl (3.5-5.0); Albumin/Globulin Ratio 0.6 (1.1-1.8); Calcium 7.4 mg/dl (8.4-10.2); Globulin 3.4 g/dL (1.3-3.2); Glucose 239 mg/dl (74-100); Magnesium 1.3 mg/dl (1.6-2.3); Total Protein,Serum 5.5 g/dl (6.3-8.2)
--- NOTE | 2022-07-15 10:54 | SW/DCPLANNER ---
I have received a referral for discharge planning on this patient. Patient has no needs at this time and plans to return home today.
[2022-07-15 10:58] VITALS: O2SAT 92
[2022-07-15 12:00] VITALS: BP 124/68; PULSE 80; PULSE 87; RESP 16; TEMP 36.6; O2SAT 95
--- NOTE | 2022-07-15 13:10 | EXP.DC.SUM ---
General Admission date:: 07/13/22 Discharge date: 07/15/22 HPI HPI HPI: Patient is a 61-year-old female with past medical history of nonalcoholic cirrhosis, uncertain diagnosis of hep C, CHF, COPD, and hypertension who comes to the ER for diffuse swelling and shortness of breath. Patient reports she was here about 3 weeks ago and she had similar symptoms. She was treated with IV diuresis as well as IV antibiotics for pneumonia at that time. Patient additionally was in renal failure during admission 3 weeks ago and this gradually improved. She reports since being discharged home she is gradually gotten more short of breath and more swelling in her feet, legs, and now her hands. She reports being compliant with all her medications. She denies fever, chills, she does report a somewhat productive cough. She denies a history of smoking, although she does have extensive secondhand smoke exposure. Patient additionally reports that at some point in the past she had ruptured esophageal varices that required banding at . She is currently on lactulose. Hospital Course Hospital Course Hospital Course: Diffuse edema/anasarca appears to be multifactorial, primarily secondary to cirrhosis and congestive heart failure. Patient's albumin is chronically low and chest x-ray shows cardiomegaly with pulmonary vascular engorgement and small right pleural effusion on admission. Additionally BNP is elevated at 562. Patient was treated during admission with Bumex 2 mg IV twice daily, her home regimen is 2 mg p.o. daily which she insists she takes at home. Edema has significantly improved at time of discharge and patient is at her clinical, functional, and mental baseline and is therefore ready for discharge home. Exam Data for Last 24 hours Vital signs and Labs for Last 24 Hours: Temp Pulse Resp BP Pulse Ox 97.9 F 87 16 124/68 95 07/15/22 12:00 07/15/22 12:00 07/15/22 12:00 07/15/22 12:00 07/15/22 12:00 Laboratory Results - last 24 hr 07/14/22 17:04: POC Glucose 179 H 07/14/22 20:04: POC Glucose 221 H 07/15/22 05:54: POC Glucose 226 H 07/15/22 07:40: WBC 4.1 L, RBC 3.12 L, Hgb 10.8 L, Hct 34.6 L, MCV 110.7 H, MCH 34.7 H, MCHC 31.4 L, RDW 16.2, Plt Count 132 L D, MPV 8.9, Neut % (Auto) 56.2, Lymph % (Auto) 24.3, [place] % (Auto) 14.3 H, Eos % (Auto) 4.0, Baso % (Auto) 1.3, Neut # (Auto) 2.3, Lymph # (Auto) 1.0, [place] # (Auto) 0.6, Eos # (Auto) 0.2, Baso # (Auto) 0.1 07/15/22 07:40: Sodium 134 L, Potassium 3.6, Chloride 94 L, Carbon Dioxide 33 H, Anion Gap 10.6, BUN 18 H, Creatinine 0.90, Estimated Creat Clear 54, Estimated GFR 63, Est GFR ( Amer) 77, Glucose 239 H, Calcium 7.4 L, Phosphorus 3.1, Magnesium 1.3 L, Total Bilirubin 1.6 H, AST 57 H, ALT 25, Alkaline Phosphatase 178 H, Total Protein 5.5 L, Albumin 2.1 L D, Globulin 3.4 H, Albumin/Globulin Ratio 0.6 L I & O for Last 24 hours: Intake & Output 07/12/22 07/13/22 07/14/22 07/15/22 23:59 23:59 23:59 23:59 Intake Total 650 / 650 360 / 360 Output Total 1450 / 1900 3500 / 3500 500 / 500 Balance -1450 / -1900 -2850 / -2850 -140 / -140 Weight 125.781 kg 125.761 kg 122.107 kg Constitutional Constitutional: no acute distress, morbidly obese and chronically ill appearing *Routine HEENT Exam Head: Present normocephalic and atraumatic Eye: Present EOMI and PERRL ENT: Present mucous membranes moist *Routine Neck Exam Neck: Present supple and full ROM *Routine Respiratory Exam Respiratory: Present crackles (bibasilar ) and able to speak in complete sentences; Absent accessory muscle use, respiratory distress, rhonchi, wheezes or distant breath sounds *Routine Cardiovascular Exam Cardiovascular: Present murmur and irregular rhythm (normal rate ) *Routine Abdominal Exam Abdominal: Present soft and normoactive bowel sounds; Absent tenderness, distended, rebound, guarding or firm *Routine Extremities Exam Extremities: Present edema (trace pitting edema of hands bilaterally. 1+ pit
--- NOTE | 2022-07-16 13:06 | CARE MANAGER ---
Attempted to contact patient related to hospital discharge. No VM option. JACK Srivastava
== END 2022-07-15 16:46 | disposition home or self-care (01) | DRG 291 ==
LOC: ER 16:59 → 2ND 18:50
PROVIDERS: Admitting Provider Emergency Medicine; Emergency Provider Emergency Medicine; PCP Emergency Medicine; Visit Provider Emergency Medicine
DX: I11.0 Hypertensive heart disease with heart failure (principal); I50.33 Acute on chronic diastolic (congestive) heart failure; I85.10 Secondary esophageal varices without bleeding; K76.6 Portal hypertension; Z68.41 Body mass index [BMI] 40.0-44.9, adult; I50.9 Heart failure, unspecified; J44.9 Chronic obstructive pulmonary disease, unspecified; K74.60 Unspecified cirrhosis of liver; B19.20 Unspecified viral hepatitis C without hepatic coma; Z86.73 Personal history of transient ischemic attack (TIA), and cerebral infarction without residual deficits; I34.0 Nonrheumatic mitral (valve) insufficiency; E66.9 Obesity, unspecified; G62.9 Polyneuropathy, unspecified
CPT/HCPCS: 36415; 71045; 71046; 80053; 81001; 82140; 82962; 83605; 83735; 83880; 84100; 84155; 84484; 85025; 85610; 93005; 99285; C9803; J3475; U0003; U0005

== ENCOUNTER 2022-08-02 09:04 | Day surgery (SDC) | payer MEDICARE, MEDICAID, SELFPAY ==
[2022-08-02] VITALS (15 sets, daily range): BP systolic 97–138; BP diastolic 47–67; PULSE 50–102; RESP 16–22; O2SAT 90–100; BMI 45.0
--- NOTE | 2022-08-02 07:24 | IR_ITS ---
APPROVED REPORT Patient [facility]: [facility] Operations Officer: ALEXANDRE Garza RT (R) PROCEDURES Right heart catheterization Left heart catheterization Selective coronary angiogram Left ventriculogram INDICATION Biventricular congestive heart failure, Pulmonary hypertension Informed consent was obtained prior to the procedure. COMPLICATIONS NONE Estimated Blood Loss: LESS THAN 10 ML TECHNIQUE One percent lidocaine was used to anesthetize the right anterior aspect of the right wrist. The right radial artery was accessed via the Seldinger technique and a 6 [place]ian hydrophilic sheath was placed in the right radial artery. Following this one percent lidocaine was used to anesthetize the right anterior aspect of the right neck. The right internal jugular vein was accessed via the Seldinger technique and a 7 [place] sheath was placed in the right internal jugular vein. Following this an arterial cocktail was administered using 5000U heparin, 2.5 mg verapamil, 1mg Lidocaine and 800mcg nitroglycerin into the right radial sheath. A papa catheter was used to perform left heart catheterization left ventriculogram and selective coronary angiography while a [place]in catheter was used to perform right heart catheterization. Saturations were obtained in the pulmonary artery and right atrium. At the end of the procedure the arterial sheath was removed good hemostasis was achieved using Traclet band. Patient was transferred to the postop holding area in stable condition for venous sheath removal. ANGIOGRAPHIC RESULTS The left main artery Normal The left anterior descending artery Normal The circumflex artery Normal The right coronary artery Dominant normal The BOYD ventriculogram reveals Normal 65% The left ventricular end-diastolic pressure 30 mmHg Right atrial pressure 18 mmHg Right ventricular pressure 50/20 mmHg Pulmonary occlusion pressure 30 mmHg Pulmonary pressure 50/30 mmHg Right atrial saturation and pulmonary artery saturation 81% Aortic saturation 99% Hemoglobin 10.6 Cardiac output 11.5 L/min IMPRESSION Normal coronary arteries Near equalization of pressures which suggests the possibility of a restrictive or constrictive physiology but more than likely this represents severe diastolic dysfunction High cardiac output most likely secondary to liver disease PLAN 1. Continue Bumex and spironolactone 2. Add metolazone 2.5 p.o. daily 3. Patient has advanced diastolic dysfunction and will require much higher creatinines then the current creatinine of 0.9 or 1.3. I believe she will be more comfortable with a creatinine in the 2.4-2.5 range 4. Evaluation for CardioMEMS Electronically signed by : Tommy Enriquez MD 08/02/2022 11:54:42
[2022-08-02 09:47] LABS: Basophils # 0.1 K/mm3 (0-0.2); Basophils % 1.9 % (0.1-2.0); Eosinophils # 0.2 K/mm3 (0.0-0.4); Eosinophils % 4.6 % (0.1-12.0); Hematocrit 33.2 % (37.0-47.0); Hemoglobin 10.6 g/dL (12.2-16.2); Lymphocytes # 1.3 K/mm3 (0.7-4.5); Lymphocytes % 30.6 % (10-50); Mean Corpuscular Hemoglobin 35.9 pg (27.0-31.2); Mean Corpuscular Volume 112.2 fl (81-99); Mean Platelet Volume 9.4 fl (7.4-10.4); Monocytes # 0.4 K/mm3 (0.1-1.0); Monocytes % 9.8 % (1.7-9.3); Neutrophils # 2.2 K/mm3 (1.8-7.8); Neutrophils % 53.1 % (37.0-80.0); Platelet Count 101 K/mm3 (142-424); Red Blood Count 2.96 M/mm3 (4.20-5.40); Red Cell Distribution Width 16.4 % (11.5-17.5); White Blood Count 4.2 K/mm3 (4.8-10.8)
[2022-08-02 09:52] LABS: Anion Gap 13.1 mEq/L (5-15); Blood Urea Nitrogen 18 mg/dl (7-17); Calcium 8.8 mg/dl (8.4-10.2); Carbon Dioxide 33 mmol/L (22.0-30.0); Chloride 97 mmol/L (98-107); Creatinine Clearance Estimated 41 mL/min (50-200); Estimated Glomerular Filt Rate 41 ml/min (>60); GFR (African American) 50 ML/MIN (>60); Glucose 140 mg/dl (74-100); Potassium 4.1 mmoL/L (3.5-5.1); Sodium 139 mmol/L (136-145)
--- NOTE | 2022-08-02 10:35 | SUR.PHASEII ---
meds to beds faxed for [facility].
[2022-08-02 12:34] LABS: CATHL Arterial O2 SAT 81.5 % (90-100); CATHL Venous O2 SAT 81.5 % (75-80)
--- NOTE | 2022-08-02 15:10 | SUR.PHASEII ---
pt drowsy but alert at discharge. spoke with patients at discharge regarding pt's discharge instructions, new medication- Metolazone to take once daily. pt's also informed that patient needs to take her home medication when she gets home. stated that patient has been throwing her medicine away and not taking it. Importance of medication explained. pt also informed of the need of needing to take her medication and wear her home oxygen by myself and Teresa Inman RN. pt agreed that she would when she got home. BP 134/71, O2-92%RA at discharge.
== END 2022-08-02 15:18 | disposition home or self-care (01) ==
PROVIDERS: PCP Family Medicine; Visit Provider Internal Medicine
DX: E66.9 Obesity, unspecified (principal); I11.0 Hypertensive heart disease with heart failure; I48.0 Paroxysmal atrial fibrillation; I50.1 Left ventricular failure, unspecified; I50.9 Heart failure, unspecified; R01.1 Cardiac murmur, unspecified; R06.00 Dyspnea, unspecified; I27.20 Pulmonary hypertension, unspecified
CPT/HCPCS: 36415; 80048; 82810; 85025; 99152; C1725; C1760; C1769; C1894; J1644; Q9967

== ENCOUNTER 2022-08-02 16:28 | Observation (INO) | payer MEDICARE, MEDICAID, SELFPAY ==
[2022-08-02] VITALS (12 sets, daily range): BP systolic 98–140; BP diastolic 37–87; PULSE 55–80; RESP 11–24; TEMP 36.5–36.6; O2SAT 96–100; BMI 43.5; BMI 45.8
--- NOTE | 2022-08-02 16:35 | PC.NURSE ---
DR CROWELL PAGED
--- NOTE | 2022-08-02 16:37 | ECG_ITS ---
APPROVED REPORT Exam: Resting ECG HR:58 bpm ECG Measurements Heart Rate 58 AXES WI 191 P 51 QRSd 100 QRS 32 QT 458 T 52 QTc 454 Conclusion SINUS BRADYCARDIA LOW QRS VOLTAGE IN PRECORDIAL LEADS [QRS DEFLECTION < 1.0 mV IN CHEST LEADS] BORDERLINE ECG UNCONFIRMED REPORT Electronically signed by : Luis A Hammonds MD 08/03/2022 08:42:23
--- NOTE | 2022-08-02 16:48 | HMH.EDGENADL ---
Discharge Plan Disposition Patient Disposition: Admitted As Inpatient Condition: Fair Chief Complaint: Weakness Clinical Impressions Clinical Impression: Encephalopathy, Arterial hemorrhage Discharge ED Provider: Carlo Rivero General Adult HPI General Chief complaint: Weakness Stated complaint: SOA Time Seen by Provider: 08/02/22 16:40 History of Present Illness HPI narrative: Patient is a 61-year-old female with past medical history of hepatitis C cirrhosis, esophageal bleed status post banding, recent heart cath this morning who presents emergency department for bleeding from her right wrist. Onset was acute, patient was found outside of EMS station with profuse bleeding which was controlled immediately with pressure. Patient is intermittently encephalopathic secondary to her cirrhosis at baseline. No other acute complaints at this time. Related Data Home Medications Medication Instructions Recorded Confirmed lactulose 10 gram/15 mL oral 30 ml PO QID encephalopathy 04/29/22 08/01/22 solution ondansetron HCl 4 mg tablet 4 mg PO TIDP PRN Nausea And 04/29/22 08/01/22 Vomiting pantoprazole 40 mg tablet,delayed 40 mg PO HS Reflux/Acid reflux 04/29/22 08/01/22 release rifaximin 550 mg tablet 550 mg PO BID cirrhosis 04/29/22 08/01/22 sucralfate 1 gram tablet 1 gm PO ACHS Reflux/Acid reflux 04/29/22 08/01/22 diltiazem HCl 120 mg 120 mg PO DAILY blood pressure 06/18/22 08/01/22 capsule,extended release 24 hr pregabalin 25 mg capsule 25 mg PO TID pain 07/29/22 08/01/22 metoprolol succinate 50 mg 50 mg PO DAILY bp 08/02/22 tablet,extended release 24 hr (Toprol XL) spironolactone 100 mg tablet 100 mg PO DAILY chf 08/02/22 (Aldactone) Previous Rx's Medication Instructions Recorded bumetanide 1 mg tablet 2 mg PO BID Fluid #60 tabs 07/15/22 magnesium oxide 400 mg PO BID Supplement #60 caps 07/15/22 metolazone 2.5 mg tablet 2.5 mg PO DAILY #30 tabs 08/02/22 Allergies Allergy/AdvReac Type Severity Reaction Status Date / Time Sulfa (Sulfonamide Allergy Intermediate Hives Verified 08/01/22 11:53 Antibiotics) [SULFA (SULFONAMIDE ANTIBIOTICS)] [facility] Medical History (Updated 08/02/22 @ 20:12 by Carlo Rivero MD) Abdominal pain Abnormal EKG Afib Arrhythmia Arthritis Asthma with exacerbation Atrial flutter Atrial septal defect Back Pain Bilateral lower extremity edema BMI 36.0-36.9,adult CAP (community acquired pneumonia) Chest pain CHF exacerbation Cirrhosis of liver Collapse of right lung Congestive heart failure Congestive heart failure Congestive splenomegaly COPD (chronic obstructive pulmonary disease) Cor pulmonale Coronary artery calcification seen on CAT scan DU (perforated duodenal ulcer) Dyspnea Dyspnea Dyspnea on exertion Dyspnea on exertion E. coli UTI (urinary tract infection) Edema Edema Gallbladder disease GERD (gastroesophageal reflux disease) HCAP (healthcare-associated pneumonia) Hematuria Hep C w/ coma, chronic Hep C w/o coma, chronic History of chest pain History of gastroesophageal reflux (GERD) History of left heart catheterization (LHC) History of TIA (transient ischemic attack) HTN (hypertension) Hypocalcemia Hypokalemia Kidney stone Moderate mitral regurgitation Murmur, cardiac Obesity (BMI 30.0-34.9) Overweight PAC (premature atrial contraction) Palpitations Pancytopenia Paroxysmal A-fib Pleural effusion Pleural effusion on right Pleural effusion, right Pneumonia Pneumonia Respiratory distress Right lower lobe pneumonia SVT (supraventricular tachycardia) SVT (supraventricular tachycardia) Thrombocytopenia Urinary tract infection UTI (urinary tract infection) Surgical History H/O section H/O esophagogastroduodenoscopy H/O tubal ligation History of cardiac cath History of section History of cholecystectomy History of right heart catheteri
--- NOTE | 2022-08-02 17:16 | PC.NURSE ---
KAYLEE LAND at to attempt ultrasound guided IV access
--- NOTE | 2022-08-02 17:30 | PC.NURSE ---
pt lying in bed, nothing needed at this time
[2022-08-02 17:43] LABS: POC Glucose,Bedside 127 (70-110)
[2022-08-02 17:48] LABS: Basophils # 0.1 K/mm3 (0-0.2); Basophils % 1.7 % (0.1-2.0); Eosinophils # 0.2 K/mm3 (0.0-0.4); Eosinophils % 3.6 % (0.1-12.0); Hematocrit 33.9 % (37.0-47.0); Hemoglobin 10.1 g/dL (12.2-16.2); Lymphocytes # 1.8 K/mm3 (0.7-4.5); Lymphocytes % 39.8 % (10-50); Mean Corpuscular HGB Conc 29.9 g/dL (31.8-35.4); Mean Corpuscular Hemoglobin 33.9 pg (27.0-31.2); Mean Corpuscular Volume 113.6 fl (81-99); Mean Platelet Volume 9.4 fl (7.4-10.4); Monocytes # 0.5 K/mm3 (0.1-1.0); Neutrophils # 1.9 K/mm3 (1.8-7.8); Neutrophils % 43.9 % (37.0-80.0); Platelet Count 94 K/mm3 (142-424); Red Blood Count 2.99 M/mm3 (4.20-5.40); Red Cell Distribution Width 16.4 % (11.5-17.5); White Blood Count 4.4 K/mm3 (4.8-10.8)
[2022-08-02 17:53] LABS: Lactic Acid 1.3 mmol/L (0.7-2.1)
[2022-08-02 17:54] LABS: Ammonia 19 umol/L (9-30)
--- NOTE | 2022-08-02 18:18 | PC.NURSE ---
RT at BS for layo
[2022-08-02 18:38] LABS: ABG Base Excess 6.7 mmol/L (-2.4-2.3); ABG HCO3 31.6 mmhg (22.0-26.0); ABG Oxygen Saturation 96 % (90-100); ABG PO2 86.7 mmhg (80-100); ABG TCO2 33.2 mmhg (23-27)
[2022-08-02 18:39] LABS: Allen's Test Acceptable; Oxygen 3 lpm %; Source Left Radial
[2022-08-02 18:40] LABS: ABG PCO2 52.5 mmhg (35.0-45.0)
[2022-08-02 18:58] LABS: NT Pro Brain Natriuretic Pep. 788 pg/mL (0-125)
[2022-08-02 19:01] LABS: Troponin I 0.03 ng/ml (0.00-0.034)
--- NOTE | 2022-08-02 19:25 | PC.NURSE ---
report given to benjamin jones and amberrn
--- NOTE | 2022-08-02 19:35 | PC.NURSE ---
Er speaking with Physics Department Chair at this time
[2022-08-02 19:36] LABS: Chloride 101 mmol/L (98-107); Potassium 3.8 mmoL/L (3.5-5.1); Sodium 139 mmol/L (136-145)
[2022-08-02 19:39] LABS: Alanine Aminotransferase 31 U/L (12-78); Albumin Level 2.5 g/dl (3.5-5.0); Albumin/Globulin Ratio 0.7 (1.1-1.8); Alkaline Phosphatase 220 U/L (38-126); Anion Gap 12.8 mEq/L (5-15); Aspartate Amino Transferase 64 U/L (14-36); Bilirubin,Total 1.7 mg/dl (0.2-1.3); Blood Urea Nitrogen 17 mg/dl (7-17); Calcium 8.6 mg/dl (8.4-10.2); Carbon Dioxide 29 mmol/L (22.0-30.0); Creatinine Clearance Estimated 45 mL/min (50-200); Estimated Glomerular Filt Rate 45 ml/min (>60); GFR (African American) 55 ML/MIN (>60); Globulin 3.8 g/dL (1.3-3.2); Glucose 115 mg/dl (74-100); Total Protein,Serum 6.3 g/dl (6.3-8.2)
--- NOTE | 2022-08-02 19:58 | EXP.HP ---
History of Present Illness *Admission Date: 08/02/22 *Reason for visit:: Confusion, Radial Site Bleed following Right and Left Heart Catheterization *History of present illness: Ms. Rodrigues is a 61-year-old female with a past medical history of Hepatitis C Liver Cirrhosis, history of Esophageal bleeding s/p banding, Diastolic CHF, history of Atrial Flutter. She presents to [facility] due to bleeding from a radial artery site following a right and left heart catheterization earlier in the day. The site had pressure applied and instantly stopped bleeding, vitals and H/H are stable, however the patient has some intermittent confusion. ER Physician spoke with Cardiology who feels that it may be related to the administration of Midazolam in the setting of Advanced Liver Disease and also the patient held her Lactulose due to the heart catheterization. In the ER the abdomen was imaged by Ultrasound and there were no pockets that were found safe for parencentesis procedure. The patient was also given Rocephin 2 grams x 1. The patient will be admitted with initial impression: Acute Encephalopathy and Acute Blood loss. She was given Lactulose in the ER, her home dose of Rifaxmin will also be given. We will monitor her H/H given acute blood loss and Cardiology has recommended a TR Band be placed at the site. [facility] Medical History (Updated 08/03/22 @ 14:44 by Camacho Ocampo MD) Abdominal pain Abnormal EKG Afib Allergies Arrhythmia Arthritis Asthma with exacerbation Atrial fibrillation Atrial flutter Atrial septal defect Back Pain Bilateral lower extremity edema BMI 36.0-36.9,adult CAP (community acquired pneumonia) Chest pain CHF exacerbation Cirrhosis of liver Collapse of right lung Congestive heart failure Congestive heart failure Congestive splenomegaly COPD (chronic obstructive pulmonary disease) Cor pulmonale Coronary artery calcification seen on CAT scan DU (perforated duodenal ulcer) Dyspnea Dyspnea Dyspnea on exertion Dyspnea on exertion E. coli UTI (urinary tract infection) Edema Edema Gallbladder disease GERD (gastroesophageal reflux disease) HCAP (healthcare-associated pneumonia) Hematuria Hep C w/ coma, chronic Hep C w/o coma, chronic History of chest pain History of gastroesophageal reflux (GERD) History of left heart catheterization (LHC) History of TIA (transient ischemic attack) HTN (hypertension) Hypocalcemia Hypokalemia Kidney stone Moderate mitral regurgitation Murmur, cardiac Obesity (BMI 30.0-34.9) Overweight PAC (premature atrial contraction) Palpitations Pancytopenia Paroxysmal A-fib Pleural effusion Pleural effusion on right Pleural effusion, right Pneumonia Pneumonia Pneumonia Respiratory distress Right lower lobe pneumonia SVT (supraventricular tachycardia) SVT (supraventricular tachycardia) Thrombocytopenia Urinary tract infection UTI (urinary tract infection) Surgical History H/O section H/O esophagogastroduodenoscopy H/O tubal ligation History of cardiac cath History of section History of cholecystectomy History of right heart catheterization (RHC) S/P cholecystectomy Total knee replacement status Family History Sister No problems noted. Other Family history of COPD (chronic obstructive pulmonary disease) Family history of GERD Family history of acute heart failure Family history of cancer Family history of diabetes mellitus type II Family history of hyperlipidemia Family history of hypertension Family history of kidney stone Family history of myocardial infarction Social History (Updated 08/03/22 @ 00:10 by hSannon Kwok RN) Smoking Status: Never smoker alcohol intake: never substance use type: denies use current occupational status: disabled Travel in the last 8 weeks: None household members: signifi
[2022-08-02 20:23] LABS: Troponin I 0.03 ng/ml (0.00-0.034)
[2022-08-02 23:29] LABS: Troponin I 0.02 ng/ml (0.00-0.034)
[2022-08-03] VITALS: PULSE 70
[2022-08-03 00:33] LABS: Hematocrit 30.4 % (37.0-47.0); Hemoglobin 9.3 g/dL (12.2-16.2)
[2022-08-03 03:44] VITALS: BP 115/67; PULSE 76; RESP 18; TEMP 36.6; O2SAT 96
[2022-08-03 03:49] VITALS: BMI 45.9
[2022-08-03 04:09] VITALS: PULSE 60
--- NOTE | 2022-08-03 05:47 | PC.NURSE ---
NO ACUTE CHANGES SINCE PREVIOUS ASSESSMENT. PT HAS RESTED WELL. TR BAD NOW REMOVED AND RIGHT RADIAL CATH SITE IS C/D/I. PT DOES HAVE SOME BRUISING. PT'S LUNG SOUNDS ARE WHEEZY AND SHE HAS AUDIBLE WHEEZES. REMAINS ON 2L AND IS TOLERATING WELL. SHE IS GETING UP TO THE BSC WITH ONE ASSIST. CALL INMAN IN REACH. VSS.
[2022-08-03 06:53] LABS: Basophils # 0.1 K/mm3 (0-0.2); Basophils % 1.7 % (0.1-2.0); Eosinophils # 0.1 K/mm3 (0.0-0.4); Eosinophils % 3.4 % (0.1-12.0); Hemoglobin 8.6 g/dL (12.2-16.2); Lymphocytes # 1.1 K/mm3 (0.7-4.5); Lymphocytes % 29.4 % (10-50); Mean Corpuscular HGB Conc 31.4 g/dL (31.8-35.4); Mean Corpuscular Hemoglobin 35.4 pg (27.0-31.2); Mean Corpuscular Volume 112.8 fl (81-99); Mean Platelet Volume 9.9 fl (7.4-10.4); Monocytes # 0.5 K/mm3 (0.1-1.0); Monocytes % 14.9 % (1.7-9.3); Neutrophils # 1.8 K/mm3 (1.8-7.8); Neutrophils % 50.7 % (37.0-80.0); Platelet Count 66 K/mm3 (142-424); Red Blood Count 2.43 M/mm3 (4.20-5.40); Red Cell Distribution Width 16.4 % (11.5-17.5); White Blood Count 3.6 K/mm3 (4.8-10.8)
[2022-08-03 06:54] LABS: Hematocrit 27.5 % (37.0-47.0)
[2022-08-03 07:09] LABS: Alanine Aminotransferase 26 U/L (12-78); Albumin/Globulin Ratio 0.6 (1.1-1.8); Alkaline Phosphatase 172 U/L (38-126); Anion Gap 9.4 mEq/L (5-15); Aspartate Amino Transferase 48 U/L (14-36); Bilirubin,Total 1.1 mg/dl (0.2-1.3); Blood Urea Nitrogen 19 mg/dl (7-17); Carbon Dioxide 33 mmol/L (22.0-30.0); Chloride 99 mmol/L (98-107); Creatinine Clearance Estimated 49 mL/min (50-200); Estimated Glomerular Filt Rate 50 ml/min (>60); GFR (African American) 61 ML/MIN (>60); Globulin 3.1 g/dL (1.3-3.2); Glucose 181 mg/dl (74-100); Potassium 3.4 mmoL/L (3.5-5.1); Sodium 138 mmol/L (136-145); Total Protein,Serum 5.1 g/dl (6.3-8.2)
[2022-08-03 08:00] VITALS: BP 118/57; PULSE 76; RESP 22; TEMP 36.6; O2SAT 90
--- NOTE | 2022-08-03 10:36 | HMH.PHAINT1 ---
Pharmacy Intervention Comments: MEDICATION RECONCILIATION COMPLETE USING LIST FROM MOST RECENT CARDIOLOGY OFFICE VISIT AND EXTERNAL PHARMACY FILL HISTORY.
[2022-08-03 12:00] VITALS: BP 112/51; PULSE 90; PULSE 91; RESP 18; TEMP 36.7; O2SAT 96
--- NOTE | 2022-08-03 12:08 | EXP.DC.SUM ---
General Admission date:: 08/02/22 Discharge date: 08/03/22 HPI HPI HPI: Ms. Rodrigues is a 61-year-old female with a past medical history of Hepatitis C Liver Cirrhosis, history of Esophageal bleeding s/p banding, Diastolic CHF, history of Atrial Flutter. She presents to [facility] due to bleeding from a radial artery site following a right and left heart catheterization earlier in the day. The site had pressure applied and instantly stopped bleeding, vitals and H/H are stable, however the patient has some intermittent confusion. ER Physician spoke with Cardiology who feels that it may be related to the administration of Midazolam in the setting of Advanced Liver Disease and also the patient held her Lactulose due to the heart catheterization. In the ER the abdomen was imaged by Ultrasound and there were no pockets that were found safe for parencentesis procedure. The patient was also given Rocephin 2 grams x 1. The patient will be admitted with initial impression: Acute Encephalopathy and Acute Blood loss. She was given Lactulose in the ER, her home dose of Rifaxmin will also be given. We will monitor her H/H given acute blood loss and Cardiology has recommended a TR Band be placed at the site. Hospital Course Hospital Course Hospital Course: 61-year-old female with past medical history of Hepatitis C Liver Cirrhosis, Diastolic CHF, COPD presents to [facility] due to acute bleeding from right wrist site following a right and left heart catheterization earlier in the day, also found to have intermittent confusion. Has achieved hemostasis overnight. CBC stable in morning. Baseline O2 and mentation by morning. Problems addressed as follows: Acute Blood Loss Thrombocytopenia - Patient was noted to have right and left heart catheterization earlier in the day that took a right radial approach. Bleeding from insertion site. Cardiology contacted recommends placing a TR band, bleeding resolved. Stable labs in the morning. Bleeding complicated by thrombocytopenia and cirrhosis. Monitored overnight. Acute Encephalopathy - h/o Hepatic Encephalopathy on Lactulose and Rifaximin held due to having procedure, no bowel movement in 24 hours. resumed home regimen. Ammonia 15 on admission labs. ABG: pCO2 50, pH 7.4. resolved in the morning. No concern for SBP. Cardiology also feels Midazolam given with procedure contributing to procedure. Diastolic CHF - Identified on Heart Cath per reports, resumed medications as recommended by Cardiology COPD - Reports home oxygen dependent. Continued Home O2 rate. Cirrhosis - extensive discussion with patient and . She has been taken off the transplant list per her choice. Understand that her disease is life limiting and progressing. Discussed Hospice with . He will further discuss with patient. She would be an appropriate candidate in lite of her progressing diseases. MELD 12, child-rao class B, worsening, O2 dependent COPD/CHF, thrombocytopenia. Exam Data for Last 24 hours Vital signs and Labs for Last 24 Hours: Temp Pulse Resp BP Pulse Ox 97.9 F 76 22 118/57 L 90 L 08/03/22 08:00 08/03/22 08:00 08/03/22 08:00 08/03/22 08:00 08/03/22 08:00 Laboratory Results - last 24 hr 08/02/22 17:25: WBC 4.4 L, RBC 2.99 L, Hgb 10.1 L, Hct 33.9 L, MCV 113.6 H, MCH 33.9 H, MCHC 29.9 L, RDW 16.4, Plt Count 94 L, MPV 9.4, Neut % (Auto) 43.9, Lymph % (Auto) 39.8, [place] % (Auto) 11.0 H, Eos % (Auto) 3.6, Baso % (Auto) 1.7, Neut # (Auto) 1.9, Lymph # (Auto) 1.8, [place] # (Auto) 0.5, Eos # (Auto) 0.2, Baso # (Auto) 0.1 08/02/22 17:25: Ammonia 19 08/02/22 17:25: Lactate 1.3 08/02/22 17:25: NT-Pro-B Natriuret Pep 788 H 08/02/22 17:36: POC Glucose 127 H 08/02/22 18:00: Sodium 139, Potassium 3.8, Chloride 101, Carbon Dioxide 29, Anion Gap 12.8, BUN 17, Creatinine 1.20 H, Estimated Creat Clear 45, Estimated GFR 45 L, Est GFR ( Amer) 55 L, Glucose 115 H, Calciu
--- NOTE | 2022-08-03 12:53 | HMH.PHAINT1 ---
Pharmacy Intervention Comments: DISCHARGE MEDICATION COUNSELING PROVIDED. DISCUSSED THERE WERE NO CHANGES TO CURRENT REGIMEN. PATIENT VERBALIZED NO QUESTIONS AT THIS TIME.
--- NOTE | 2022-08-05 10:37 | CARE MANAGER ---
Spoke with patient's , Jose Daniel, who requests Hospice be consulted for patient. He states they do not need BSC at this time and he would like Hospice to call him or come see her at 4pm today. Information faxed to [facility] and will follow up tomorrow. JACK Srivastava
== END 2022-08-03 15:05 | disposition home or self-care (01) ==
LOC: ER 16:50 → 2ND 20:12
PROVIDERS: Nurse Practitioner Family; Admitting Provider Internal Medicine Adolescent Medicine; Emergency Provider Emergency Medicine; PCP Family Medicine; Visit Provider Internal Medicine Adolescent Medicine
DX: G93.40 Encephalopathy, unspecified (principal); E66.9 Obesity, unspecified; I27.20 Pulmonary hypertension, unspecified; I50.30 Unspecified diastolic (congestive) heart failure; K74.60 Unspecified cirrhosis of liver; I11.0 Hypertensive heart disease with heart failure; I50.82 Biventricular heart failure; I97.610 Postprocedural hemorrhage of a circulatory system organ or structure following a cardiac catheterization; J44.9 Chronic obstructive pulmonary disease, unspecified; D62 Acute posthemorrhagic anemia; D69.6 Thrombocytopenia, unspecified; Y83.8 Other surgical procedures as the cause of abnormal reaction of the patient, or of later complication, without mention of misadventure at the time of the procedure; Z68.42 Body mass index [BMI] 45.0-49.9, adult; Z79.899 Other long term (current) drug therapy; Z20.822 Contact with and (suspected) exposure to COVID-19
CPT/HCPCS: G0378; 36415; 80048; 80053; 82140; 82803; 82810; 82962; 83605; 83880; 84484; 85014; 85018; 85025; 93005; 93460; 99152; C1725; C1760; C1769; C1894; C9803; J0696; J1644; Q9967; U0003; U0005